=== PATIENT | male | born 1955 | race Caucasian/White ===

== ENCOUNTER 2022-11-22 18:27 | Inpatient (IN) | payer MEDICARE, SELFPAY ==
--- NOTE | ~2022-11-22 | XR_ITS ---
EXAM: XR hand LT 2V DATE: 11/22/2022 21:13 HISTORY: MRSA left middle finger . COMPARISON: None available. FINDINGS: Normal mineralization. No fracture or dislocation. No lytic or blastic lesion. Joint space s and physes are maintained. No erosion or periosteal change. Soft tissue swelling over the third dig it. Overlying bandage material obscures radiographic detail. IMPRESSION: No radiographic evidence of osteomyelitis. Reviewed, dictated and finalized at location K.
--- NOTE | ~2022-11-22 | XR_ITS ---
EXAMINATION: XR chest 1V portable DATE: 11/25/2022 08:30 INDICATION: Shortness of breath TECHNIQUE: frontal view of the chest was obtained. COMPARISON: None FINDINGS: Opacities in the right mid and lower lung zone with blunting at costophrenic angle consistent with un ilateral small right pleural effusion and associated atelectasis and/or pneumonia. Mild interstitial predominant perihilar opacities in left lung which could represent pulmonary edema or pneumonia. Calc ified nodule in the right lower lung zone along with calcified bilateral hilar lymph nodes consistent with old granulomatous disease. No pneumothorax or left-sided pleural effusion. The cardiomediastina l silhouette is within normal limits for AP technique. IMPRESSION: 1. Unilateral small right pleural effusion. 2. Opacities in the left perihilar and right mid and lower lung zones which could represent pneumonia , pulmonary edema, atelectasis or some combination thereof. Reviewed, dictated and finalized at location A. IMPRESSION: 1. Unilateral small right pleural effusion. 2. Opacities in the left perihilar and right mid and lower lung zones which cou ld represent pneumonia, pulmonary edema, atelectasis or some combination umang perdomo
[2022-11-22 18:29] VITALS: BMI 24.7
--- NOTE | 2022-11-22 18:32 | ADMGEN ---
This patient, Bruno Unger, was admitted to [facility] Room 302-01. Patient/family oriented to hospital policies and general routines including ID bracelet, bed and alarms, visiting hours, pain management, procedures, bathroom and other care routines, personal items, smoking policy, room service/diet, and visiting hours. Information on how to activate the Rapid Response Team has been discussed. Patient/Family are encouraged to report perceived risks to care and to ask questions if they do not understand what they are told or what they should do.
[2022-11-22 19:00] VITALS: BP 156/59; PULSE 80; RESP 16; TEMP 36.3; O2SAT 98
--- NOTE | 2022-11-22 19:22 | PM.IMHP ---
H&P: HPI History of Present Illness Date/Time: 11/22/22 19:22 Chief Complaint: Cellulitis left middle finger Narrative: This is a 66-year-old male patient who resides in [facility] with his granddaughter. The patient initially went to the ER on 11/19/2022 for now abscess the left middle finger. He reportedly fell on 10/29/2022 as well. The patient landed on his bottom and left shoulder. He did have an x-ray of his left shoulder which indicated no fracture. His chest x-ray at that time indicated diffuse bilateral interstitial opacities and edema. The patient does have a history of end-stage renal disease and has dialysis on Monday. The patient did have a culture of that left middle finger abscess and indicated heavy growth of Staph aureus. The patient had been placed on clindamycin 300 mg t.i.d.. The patient is now having diarrhea for the last 2 days. The patient feels that he is not getting any better. The patient was sent to Dr. Bahena today and an incision and drainage was performed in the office today. The patient's culture came back that he is positive for MRSA. The patient was a direct admit from Dr. Bahena is office. Patient is being admitted to inpatient status on the date of service of 11/22/2022. Review of Systems Review of Systems: All systems reviewed & are unremarkable except as noted in HPI and below Constitutional: Constitutional: Reports as per HPI and Reports no additional constitutional complaints Eyes: Eyes: Reports as per HPI and Reports no additional eye complaints ENT: Reports system reviewed and no additional complaints, except as documented and Reports Normal hearing present Cardiovascular: Cardiovascular: Reports no additional cardiovascular complaints Respiratory: Respiratory: Reports no additional respiratory complaints and Reports no additional respiratory complaints Gastrointestinal: Gastrointestinal: Reports as per HPI and Reports no additional gastrointestinal complaints Musculoskeletal: Musculoskeletal: Reports no additional musculoskeletal complaints Integumentary/Breasts: Skin/Breast: Reports system reviewed and no additional complaints, except as docu and Reports as per HPI Neurologic: Reports system reviewed and no additional complaints, except as documented, Reports as per HPI and Reports Normal hearing present Psychiatric: Psychiatric: Reports no additional psychiatric complaints and Reports as per HPI Endocrine: Endocrine: Reports no additional endocrine complaints Hematologic/Lymphatic: Hematologic/Lymphatic: Reports no additional hematologic/lymphatic complaints Allergic/Immunologic: Allergic/Immunologic: Reports no additional allergic/immunologic complaints [facility] Past Medical History Medical History Acute arthritis Anemia BPH (benign prostatic hyperplasia) CHF (congestive heart failure), NYHA class I Chronic GERD COPD (chronic obstructive pulmonary disease) Degenerative joint disease Depression with anxiety Diabetes End-stage renal disease on hemodialysis Monday Erectile disorder Gout Heart murmur Hyperlipidemia Hypertension Kidney stone Tobacco use Surgical History Surgical History (Updated 11/22/22 @ 21:00 by Krystina Tapia NP) H/O arthroscopy of right knee H/O cardiac catheterization H/O endoscopic retrograde cholangiopancreatography Duct stent placement H/O hernia repair H/O inguinal hernia repair History of appendectomy History of cholecystectomy History of colon resection Hx laparoscopic cholecystectomy S/P colonoscopy with polypectomy S/P dialysis catheter insertion S/P ORIF (open reduction internal fixation) fracture Left humerus surgery Family History Family History Mother Diabetes mellitus Father Diabetes mellitus Other Hypertension Social History Social History (Updated 11/22/22 @ 21:01 by Krystina Tapia NP) Social History: H
--- NOTE | 2022-11-22 19:30 | PCCCNOTE ---
Spoke with Krystina SOLIS, she will be entering seeing patient and entering admission orders soon on this patient.
[2022-11-22 20:00] VITALS: PULSE 88; RESP 18; O2SAT 100
[2022-11-22 20:30] VITALS: BP 151/64; PULSE 88; RESP 16; TEMP 36.4; O2SAT 96
[2022-11-22 20:48] LABS: Glucose Point of Care 261 mg/dl (65-105)
[2022-11-22 21:43] LABS: Estimated CRCL calculation 13 ml/min; Estimated Glomerular Filt Rate 12
[2022-11-22] MEDS: INSULIN ASPART (*BKC) 100 UNITS/ML SUB-Q (21:50)
[2022-11-22] MEDS: ATORVASTATIN 20 MG TABLET PO (21:53)
[2022-11-22] MEDS: metroNIDAZOLE 500 MG/ISO 100ML 500 MG/100 ML BAG 100 MG IVPB (22:28)
[2022-11-22] MEDS: HYDROcodone/acetaminophen (*CRX) 5-325 MG TABLET 1 TAB PO (23:16)
[2022-11-22 23:33] LABS: IFOB Positive Control Positive; Immunochemical Fecal Occult Bl Negative (N)
[2022-11-22 23:57] LABS: Toxigenic C. Diff NEGATIVE (NEGATIVE)
[2022-11-22] MEDS: LOPERAMIDE HCL 2 MG CAPSULE PO (23:57)
[2022-11-23] VITALS (18 sets, daily range): BP systolic 118–166; BP diastolic 52–78; PULSE 68–88; RESP 14–20; TEMP 35.5–36.8; O2SAT 90–100
[2022-11-23] MEDS: HYDROcodone/acetaminophen (*CRX) 5-325 MG TABLET 1 TAB PO ×4 (04:59→21:37)
[2022-11-23] MEDS: metroNIDAZOLE 500 MG/ISO 100ML 500 MG/100 ML BAG 100 MG IVPB ×3 (05:29→21:13)
[2022-11-23 06:29] LABS: Basophils Absolute Auto 0.2 K/mm3 (0.0-0.1); Basophils Percent Auto 1.6 % (0.2-1.2); Eosinophils Absolute Auto 0.3 K/mm3 (0-0.3); Hematocrit 38.6 % (42.0-52.0); Hemoglobin 11.8 g/dL (14.0-18.0); Immature Granulocyte Absolute 0.28 K/mm3 (0.00-0.031); Immature Granulocyte Percent A 2.2 % (0-0.5); Mean Corpuscular HGB Conc 30.6 g/dl (32-36); Mean Corpuscular Hemoglobin 28.7 pg (26-34); Mean Corpuscular Volume 93.9 fl (80-100); Mean Platelet Volume 8.7 fl (7.4-10.4); Monocytes Absolute Auto 0.9 K/mm3 (0.1-0.6); Monocytes Percent Auto 7.2 % (2.6-8.5); Neutrophils Absolute Auto 10.3 K/mm3 (1.3-6.7); Platelet Count Result 238 k/mm3 (150-375); Red Blood Count 4.11 M/mm3 (4.6-6.20); Red Cell Distribution Width 16.4 % (11.5-14.5); White Blood Count 12.9 K/mm3 (4.5-10.0)
[2022-11-23 06:39] LABS: Lactic Acid Reflex 0.6 mmol/L (0.7-2.0)
[2022-11-23 06:42] LABS: Alanine Aminotransferase 35 U/L (6-50); Albumin Level 3.4 g/dL (3.5-5.1); Alkaline Phosphatase 178 U/L (38-126); Anion Gap 4 mmol/L (8-16); Aspartate Amino Transferase 40 U/L (17-59); Bilirubin,Total 0.5 mg/dL (0.2-1.3); Blood Urea Nitrogen 29 mg/dL (9-20); Carbon Dioxide 34 mmol/L (22-30); Chloride 89 mmol/L (98-107); Estimated CRCL calculation 13 ml/min; Estimated Glomerular Filt Rate 11; Glucose 101 mg/dL (65-110); Magnesium 2.1 mg/dL (1.6-2.3); Phosphorus 5.2 mg/dL (2.5-4.5); Potassium 4.4 mmol/L (3.4-5.0); Sodium 127 mmol/L (137-145)
[2022-11-23 06:49] LABS: Vancomycin Random 16.4 ug/mL (10-20)
[2022-11-23 06:55] LABS: Hemoglobin A1C 6.5 % (<5.7)
[2022-11-23 07:16] LABS: Hepatitis B Surface Antigen Negative (Negative)
[2022-11-23 07:33] LABS: Hepatitis B Surface Anti Res Negative
[2022-11-23 08:06] LABS: Glucose Point of Care 103 mg/dl (65-105)
--- NOTE | 2022-11-23 08:35 | PC.NURSE ---
Patient to dialysis via bed.
--- NOTE | 2022-11-23 09:40 | WPDCN ---
Assessment and Plan Assessment and plan (1) Abscess of left middle finger: Code(s): L02.512 - Cutaneous abscess of left hand Status: Acute Assessment and Plan: IV Vancomycin. Will need further I&D to dorsal left 3rd finger today. HPI Data of Consult Date/Time: 11/23/22 09:40 Requesting Physician: Nicky Maciel DO Primary Care Provider: Kassidy Morin MD Consult Narrative Reason for consult: Staph abscess of left 3rd fingr. Narrative: Bruno Unger is a 66 year old male end-stage renal diabetic on dialysis who was referred urgently from the office of the patient's primary care physician in [place]. At this point he had about a 3 day condition of swelling and pain of the left middle finger. The reason for this is unknown. The patient had been started on oral clindamycin but presented back to the office for re-evaluation and the level of concern had increased . Was felt he may have a flexor tenosynovitis. The patient was brought to my office same day by a friend. We were able to anesthetize the digit and debride the most prominent site of full-thickness skin necrosis and were able to identify phlegmon and pus within the subcutaneous tissue. It did not appear that he had a flexor tenosynovitis. The erythema however extends circumferentially around the finger middle phalanx.. For this reason he was admitted to [facility] directly to the care of the hospitalist. He was started on IV vancomycin. The clindamycin to which he had not previously been reported be allergic seemed to be upsetting his stomach. A PCR test for C diff was negative. The patient was kept NPO overnight. His white count this morning is 12.9. Patient complained that his finger was tender during the night. On exam today after removing the Mepilex Ag sponge from the palmar middle phalanx he seemed to be less tender over the flexor tendon sheath. He seemed to be more tender over the dorsum of the middle phalanx. There is no lymphangitis proximal to the metacarpophalangeal joint the patient is able to flex and extend the finger with effort and patience. The tenderness and swelling over the dorsum of the middle phalanx lead me to the decision to bring him to the operating room and I and D this portion of his finger. [facility] Past Medical History Medical History Acute arthritis Anemia BPH (benign prostatic hyperplasia) CHF (congestive heart failure), NYHA class I Chronic GERD COPD (chronic obstructive pulmonary disease) Degenerative joint disease Depression with anxiety Diabetes End-stage renal disease on hemodialysis Monday Erectile disorder Gout Heart murmur Hyperlipidemia Hypertension Kidney stone Tobacco use Surgical History Surgical History H/O arthroscopy of right knee H/O cardiac catheterization H/O endoscopic retrograde cholangiopancreatography Duct stent placement H/O hernia repair H/O inguinal hernia repair History of appendectomy History of cholecystectomy History of colon resection Hx laparoscopic cholecystectomy S/P colonoscopy with polypectomy S/P dialysis catheter insertion S/P ORIF (open reduction internal fixation) fracture Left humerus surgery Family History Family History Mother Diabetes mellitus Father Diabetes mellitus Other Hypertension Social History Social History Social History: He is down to 6 cigarettes a day. He lives with his granddaughter in [place]. He is . He has worked for the [employer] and [employer]. Code status full code Smoking status: Current some day smoker Alcohol intake: former Substance use: never Substance use type: does not use Lack of Transportation: No Lack of Food: Never True Current Housing: I Have Housing Concerned About Future
[2022-11-23] MEDS: EPOETIN ALFA 10,000 UNITS/ML VIAL 10000 UNITS IV PUSH (10:20)
--- NOTE | 2022-11-23 12:30 | PM.CNNEP ---
Assessment and Plan Assessment and plan (1) End stage renal disease: Code(s): N18.6 - End stage renal disease Status: Chronic Assessment and Plan: HD today continue M/W/F dialysis schedule while hospitalized follow electrolytes, volume status, and clearance (2) Abscess of left middle finger: Code(s): L02.512 - Cutaneous abscess of left hand Status: Acute Assessment and Plan: as noted by Dr. Pritchard s/p I & D at Dr. Pritchard's office on 11/22/22 follow culture data on antibiotics noted plans for further I & D in OR by Dr. Pritchard today (3) Hypertension: Code(s): I10 - Essential (primary) hypertension Status: Chronic Assessment and Plan: reasonable control at this time follow trend of hemodynamics (4) Anemia: Code(s): D64.9 - Anemia, unspecified Status: Chronic Assessment and Plan: due to ESRD Epogen with HD follow trend of H/H (5) COPD (chronic obstructive pulmonary disease): Code(s): J44.9 - Chronic obstructive pulmonary disease, unspecified Status: Chronic Assessment and Plan: appears compensated at this time contime home medications/inhalers (6) Diabetes: Code(s): E11.9 - Type 2 diabetes mellitus without complications Status: Chronic Assessment and Plan: follow accu-cheks on medications for this(?) glycemic control for hospitalists (if needed) I will continue to follow the patient with you while he means hospitalized and make further recommendations as needed. Thank you for allowing me to participate in the care of this patient. History of Present Illness Reason for Consult Consult date: 11/23/22 Reason for consult: end stage renal disease Chief Complaint Chief complaint: Left Middle Finger Cellulitis History of Present Illness Narrative: The patient is a 66-year-old male with a past medical history as outlined below who was directly admitted to [facility] for further evaluation and treatment of a cellulitis/abscess on his left middle finger. The exact etiology of the infection/abscess present on his left middle finger is not entirely clear but apparently his primary care physician started the patient on clindamycin the hopes that this would treat the underlying infection. He returned back to his primary care physician's office yesterday for re-evaluation and appears that the wound had worsened with apparent skin necrosis and worsening redness/erythema/pain/swelling. He was urgently referred to surgery for further evaluation of this which led to his presentation to Dr. Griselda wiley office yesterday. He underwent a office incision and drainage of the wound in the area of the skin necrosis and there was apparently a phlegmon/purulent material in the subcutaneous tissue that was able to be drained. However given the extent of the wound and the fact that outpatient/oral antibiotic therapy did not seem to improve this condition, he was admitted to [facility] for more aggressive IV antibiotic therapy and possible further surgical intervention. Since admission, the wound itself appears to be better in clinical appearance but he still has some significant pain around the area of his left middle finger. He was seen again by Dr. Pritchard earlier this morning with a tentative plan for him to go to the OR for further incision and drainage of this wound. Renal consultation was requested due to his end-stage renal disease. The patient is familiar to me as I take care of his outpatient needs for renal replacement therapy/dialysis. He currently receives dialysis on a Monday, Monday, Monday dialysis schedule at [facility] under my care. His last dialysis treatment was on Monday and apparently was uneventful. From a dialysis standpoint, the patient is fairly compliant with his dialysis treatments although he sometimes has more fluid gains over the weekend requiring mor
[2022-11-23 12:41] LABS: Glucose Point of Care 84 mg/dl (65-105)
[2022-11-23] MEDS: CHOLECALCIFEROL 1,000 UNITS TABLET 5000 UNITS PO (13:20)
[2022-11-23] MEDS: ESCITALOPRAM OXALATE 10 MG TABLET 20 MG PO (13:20)
[2022-11-23] MEDS: AMIODARONE HCL 200 MG TABLET PO (13:20)
[2022-11-23] MEDS: amLODIPine BESYLATE 5 MG TABLET PO (13:20)
[2022-11-23] MEDS: VITAMIN B CMPLX/VIT C/FOLIC AC 1 CAPSULE 1 CAP PO (13:21)
[2022-11-23] MEDS: FERROUS SULFATE 325 MG TABLET DR PO (13:21)
[2022-11-23] MEDS: allopurinoL 100 MG TABLET PO (13:21)
[2022-11-23] MEDS: MAGNESIUM OXIDE 400 MG TABLET PO (13:21)
[2022-11-23] MEDS: TAMSULOSIN HCL 0.4 MG CAPSULE PO (13:21)
[2022-11-23] MEDS: SEVELAMER CARBONATE 800 MG TABLET 1600 MG PO ×2 (13:22→17:24)
[2022-11-23] MEDS: CELLULOSE OXIDIZED 4 x 8 INCH 1 PKT XX (13:22)
[2022-11-23] MEDS: VANCOMYCIN 750 MG/NS 250 ML 750 MG/250 ML BAG 125 MG IVPB (13:36)
--- NOTE | 2022-11-23 14:13 | PM.IMPN ---
Progress Note: A&P Assessment and Plan (1) MRSA (methicillin resistant staph aureus) culture positive: Code(s): Z22.322 - Carrier or suspected carrier of Methicillin resistant Staphylococcus aureus Status: Acute Assessment and Plan: patient was being seen by Dr. Pritchard for I&D of a finger infection. The culture of this came back positive for MRSA and he was advised to be seen at the hospital. The patient has multiple allergies. He states that he is allergic to the cephalosporins. I started him on vancomycin. The patient had I&D 11/22/22. The patient will be NPO for washout today. Blood cultures pending. The patient had been on clindamycin. He has been having diarrhea for 2 days. I stopped the clindamycin. Will also get stools for C diff as he is having diarrhea after being on clindamycin. (2) Hyperlipidemia: Code(s): E78.5 - Hyperlipidemia, unspecified Status: Acute Assessment and Plan: Continue with atorvastatin (3) Diabetes: Code(s): E11.9 - Type 2 diabetes mellitus without complications Status: Chronic Assessment and Plan: AC and HS with sliding scale insulin. Check A1c (4) Depression with anxiety: Code(s): F41.8 - Other specified anxiety disorders Status: Acute Assessment and Plan: Continue with Lexapro (5) End-stage renal disease on hemodialysis: Code(s): N18.6 - End stage renal disease; Z99.2 - Dependence on renal dialysis Status: Acute Assessment and Plan: Patient had a positive bruit and thrill to right forearm AV fistula. Nephrology has been consulted. The patient has seen Dr. Justin in the past. Patient has dialysis on Monday. (6) Degenerative joint disease: Code(s): M19.90 - Unspecified osteoarthritis, unspecified site Status: Acute Assessment and Plan: Continue with current the patient is on allopurinol for gout. (7) Hypertension: Code(s): I10 - Essential (primary) hypertension Status: Chronic Assessment and Plan: Continue with amiodarone and amlodipine (8) Chronic GERD: Code(s): K21.9 - Gastro-esophageal reflux disease without esophagitis Status: Acute Assessment and Plan: Continue with pantoprazole (9) COPD (chronic obstructive pulmonary disease): Code(s): J44.9 - Chronic obstructive pulmonary disease, unspecified Status: Chronic Assessment and Plan: The patient continues to smoke. Offered smoking cessation. P.r.n. albuterol (10) BPH (benign prostatic hyperplasia): Code(s): N40.0 - Benign prostatic hyperplasia without lower urinary tract symptoms Status: Acute Assessment and Plan: Continue with tamsulosin (11) Gout: Code(s): M10.9 - Gout, unspecified Status: Acute Assessment and Plan: Continue with Chey prn (12) Anemia: Code(s): D64.9 - Anemia, unspecified Status: Chronic Assessment and Plan: Continue to monitor anemia. Continue with ferrous sulfate (13) CHF (congestive heart failure), NYHA class I: Code(s): I50.9 - Heart failure, unspecified Status: Acute Assessment and Plan: Continue Bumex Plan Tobacco abuse smoking cessation education would greatly be appreciated. Subjective Date/time seen: 11/23/22 14:13 Interval history: Patient receiving dialysis when I went in to see him. He is feeling much better after receiving pain medications. He denies any fever, chills, nausea, vomiting abdominal pain. Review of Systems Review of Systems: All systems reviewed & are unremarkable except as noted in HPI and below Exam Narrative: GENERAL: Comfortable, no acute distress HENMT: moist mucous membranes EYES: EOM intact b/l NECK: no lymphadenopathy RESPIRATORY: clear to auscultation CARDIO: RRR GI: soft, nontender, bowel sounds present SKIN: no rashes EXTREMITIES: Right hand wrapped in Neil bandage with blood
--- NOTE | 2022-11-23 14:20 | PCCCNOTE ---
On 11/23/22, the student, [Kelly Galan ], provided care and completed [employer] documentation on this patient. I have reviewed the student's documentation and agree with the findings.
[2022-11-23 17:14] LABS: Glucose Point of Care 168 mg/dl (65-105)
[2022-11-23] MEDS: PANTOPRAZOLE 40 MG TABLET PO (17:24)
[2022-11-23] MEDS: ATORVASTATIN 20 MG TABLET PO (21:10)
[2022-11-23 21:17] LABS: Glucose Point of Care 224 mg/dl (65-105)
[2022-11-24] VITALS (14 sets, daily range): BP systolic 128–185; BP diastolic 53–77; PULSE 71–82; RESP 16–18; TEMP 36.2–36.7; O2SAT 88–99
[2022-11-24] MEDS: HYDROcodone/acetaminophen (*CRX) 5-325 MG TABLET 1 TAB PO ×5 (02:47→20:28)
[2022-11-24] MEDS: metroNIDAZOLE 500 MG/ISO 100ML 500 MG/100 ML BAG 100 MG IVPB ×3 (04:58→20:30)
[2022-11-24 06:59] LABS: Basophils Absolute Auto 0.2 K/mm3 (0.0-0.1); Basophils Percent Auto 2.6 % (0.2-1.2); Eosinophils Absolute Auto 0.3 K/mm3 (0-0.3); Eosinophils Percent Auto 2.7 % (0-4.4); Hematocrit 37.6 % (42.0-52.0); Immature Granulocyte Percent A 4.3 % (0-0.5); Lymphocytes Absolute Auto 0.88 K/mm3 (0.9-3.2); Lymphocytes Percent Auto 9.5 % (18.3-44.2); Mean Corpuscular HGB Conc 29.3 g/dl (32-36); Mean Corpuscular Hemoglobin 28.7 pg (26-34); Mean Corpuscular Volume 98.2 fl (80-100); Mean Platelet Volume 9.2 fl (7.4-10.4); Monocytes Absolute Auto 0.7 K/mm3 (0.1-0.6); Monocytes Percent Auto 7.4 % (2.6-8.5); Neutrophils Absolute Auto 6.8 K/mm3 (1.3-6.7); Neutrophils Percent Auto 73.5 % (45.5-73.1); Platelet Count Result 239 k/mm3 (150-375); Red Blood Count 3.83 M/mm3 (4.6-6.20); Red Cell Distribution Width 16.8 % (11.5-14.5); White Blood Count 9.3 K/mm3 (4.5-10.0)
[2022-11-24 07:12] LABS: Alanine Aminotransferase 31 U/L (6-50); Alkaline Phosphatase 191 U/L (38-126); Anion Gap 6 mmol/L (8-16); Aspartate Amino Transferase 29 U/L (17-59); Bilirubin,Total 0.3 mg/dL (0.2-1.3); Blood Urea Nitrogen 21 mg/dL (9-20); Calcium 7.6 mg/dL (8.4-10.2); Carbon Dioxide 32 mmol/L (22-30); Chloride 99 mmol/L (98-107); Estimated CRCL calculation 16 ml/min; Estimated Glomerular Filt Rate 15; Glucose 155 mg/dL (65-110); Potassium 4.3 mmol/L (3.4-5.0); Sodium 137 mmol/L (137-145)
[2022-11-24 08:04] LABS: Glucose Point of Care 130 mg/dl (65-105)
[2022-11-24 08:08] LABS: Hypochromasia 1+ (NORMAL); Platelet Estimate Adequate (Adequate); Schistocytes None Seen (NORMAL)
[2022-11-24] MEDS: AMIODARONE HCL 200 MG TABLET PO (08:26)
[2022-11-24] MEDS: ESCITALOPRAM OXALATE 10 MG TABLET 20 MG PO (08:26)
[2022-11-24] MEDS: amLODIPine BESYLATE 5 MG TABLET PO (08:26)
[2022-11-24 10:12] LABS: Glucose Point of Care 125 mg/dl (65-105)
--- NOTE | 2022-11-24 10:40 | WPDPN ---
Progress Note: A&P Assessment and Plan (1) Abscess of left middle finger: Code(s): L02.512 - Cutaneous abscess of left hand Status: Acute Assessment and Plan: The patient's right middle finger remains somewhat red, very tender at certain locations. Do to his this chronic health conditions we will go ahead today to bring him to the operating room for re-dressing of the wounds, probably make an incision dorsally. Will arrange a satisfactory dressing regimen that could allow him to be dressed daily at home by a visiting nurse. This procedure can be done under local today. Time Spent With Patient Time with patient: less than 15 minutes Subjective Date/time seen: 11/24/22 10:40 Interval history: Finger feels less painful Exam Narrative: The dressing was changed except the Surgicel placed last evening was left. The finger was examined the patient is able to flex each joint approximately half the normal range the knee does at slowly but with very little pain. He is tender over the flexor tendon sheath at the proximal phalanx. Is also tender and red over the dorsum of the middle phalanx. No pus is obviously present. There was no purulence drainage. There was no necrotic skin or new ulceration. Objective Data Vital Signs Vital Signs: Vital Signs - 24 hr 11/23/22 10:41 11/23/22 11:03 11/23/22 11:21 Temperature Pulse Rate 72 74 75 Respiratory Rate Blood Pressure 140/70 136/66 154/76 H Pulse Oximetry Oxygen Delivery Oxygen Flow Rate 11/23/22 12:05 11/23/22 12:42 11/23/22 12:42 Temperature 97.6 F Pulse Rate 76 78 76 Respiratory Rate 20 Blood Pressure 127/59 L 133/52 L 139/68 Pulse Oximetry Oxygen Delivery Oxygen Flow Rate 11/23/22 11:40 11/23/22 12:37 11/23/22 16:00 Temperature 97.6 F 98.2 F Pulse Rate 75 72 71 Respiratory Rate 14 16 Blood Pressure 160/73 H 140/53 L 118/61 Pulse Oximetry 90 91 Oxygen Delivery Oxygen Flow Rate 11/23/22 20:45 11/23/22 20:00 11/24/22 03:20 Temperature 97 F L 97.3 F L Pulse Rate 83 82 Respiratory Rate 16 16 Blood Pressure 161/65 H 173/63 H Pulse Oximetry 95 95 98 Oxygen Delivery Nasal Cannula Oxygen Flow Rate 2 11/24/22 03:51 11/24/22 08:00 11/24/22 08:00 Temperature 97.5 F L Pulse Rate 74 Respiratory Rate 16 Blood Pressure 147/59 H 128/64 Pulse Oximetry 95 Oxygen Delivery Room Air Oxygen Flow Rate Intake/Output Intake/Output: Intake & Output 11/21/22 11/22/22 11/23/22 11/24/22 23:59 23:59 23:59 23:59 Intake Total 100 780 Output Total 2500 Balance 100 -1720 Meds/Results Medications: Active Medications Generic Name Dose Route Start Last Admin Trade Name Freq PRN Reason Stop Dose Admin Acetaminophen 650 mg 11/22/22 21:28 Acetaminophen 325 Mg Tablet PO Q4H PRN Headache Hydrocodone Bitart/Acetaminophen 1 tab 11/22/22 22:44 11/24/22 08:55 Hydrocodone/Acetaminophen (*Crx) 5-325 Mg Tablet PO 1 tab Q4H PRN Administration Pain Rated 3-7 Albuterol 2 puff 11/22/22 21:13 Albuterol Sulfate (*Sp) Aerosol 1 Puff INHALATION Q6HRT PRN Shortness Of Breath Allopurinol 100 mg 11/23/22 09:00 11/23/22 13:21 Allopurinol 100 Mg Tablet PO 100 mg DAILY KAIN Administration Amiodarone HCl 200 mg 11/23/22 09:00 11/24/22 08:26 Amiodarone Hcl 200 Mg Tablet PO 200 mg DAILY KAIN Administration Amlodipine Besylate 5 mg 11/23/22 09:00 11/24/22 08:26 Amlodipine Besylate 5 Mg Tablet PO 5 mg DAILY KAIN Administration Atorvastatin Calcium 20 mg 11/22/22 21:00 11/23/22 21:10 Atorvastatin 20 Mg Tablet PO 20 mg HS KAIN Administration Bumetanide 4 mg 11/24/22 09:00 Bumetanide 1 Mg Tablet PO [id number] KAIN Dextrose 12.5 gm 11/22/22 20:57 Dextrose 50% 25 Gm/50 Ml Syringe IV PUSH PRN PRN Hypoglycemia Protocol Escitalopram Oxalate 20 mg 11/23/22 09:00 11/24/22
--- NOTE | 2022-11-24 11:29 | WPDHPUPDATE1 ---
History and Physical Update Update Date/Time: 11/24/22 11:29 History and Physical has been reviewed, including an updated exam of the patient. There are NO changes in the patient's condition. Risks, benefits, and alternatives have been discussed and questions answered. Patient agrees to proceed with procedure.
[2022-11-24] MEDS: LIDO 1%/EPINEPHRINE 1:100,000 20 ML VIAL 4 ML INFILTRATE (12:11)
[2022-11-24] MEDS: SEVELAMER CARBONATE 800 MG TABLET 1600 MG PO ×2 (12:48→16:10)
[2022-11-24] MEDS: FERROUS SULFATE 325 MG TABLET DR PO (12:48)
[2022-11-24] MEDS: TAMSULOSIN HCL 0.4 MG CAPSULE PO (12:48)
[2022-11-24] MEDS: BUMETANIDE 1 MG TABLET 4 MG PO (12:48)
[2022-11-24] MEDS: PANTOPRAZOLE 40 MG TABLET PO ×2 (12:48→16:10)
[2022-11-24] MEDS: VITAMIN B CMPLX/VIT C/FOLIC AC 1 CAPSULE 1 CAP PO (12:49)
[2022-11-24] MEDS: allopurinoL 100 MG TABLET PO (12:49)
[2022-11-24] MEDS: MAGNESIUM OXIDE 400 MG TABLET PO (12:49)
[2022-11-24] MEDS: CHOLECALCIFEROL 1,000 UNITS TABLET 5000 UNITS PO (12:49)
--- NOTE | 2022-11-24 12:50 | W.PM.PROC2 ---
Procedure Note - Detailed Date of Procedure 11/24/22 Pre-op Diagnosis Left Middle Finger Abscess Post-op Diagnosis Same Procedure Performed I and D abscess left middle finger Surgeon Mert Pritchard MD Anesthesia Local Findings Phlegmon limited to palmar wound Description of Procedure The digit was marked with the patient in the holding area. He was taken to the operating room and placed supine on the operating table. A time-out was held and confirmed. The left upper extremity was prepped and draped in usual fashion. The digit was anesthetized with 1% lidocaine with epinephrine. Adequate anesthesia was obtained. The green tourniquet was carefully placed at the base of this finger. The existing wound flap was elevated and the site was carefully explored for any residual pus. Small pockets of phlegmonous tissue was trimmed out less than 0.5 sq cm. The wound was copiously irrigated with saline. Two dorsal incisions were made over the middle phalanx looking for phlegmon in that aspect and none was seen. The sites were also irrigated. With the and under anesthesia we were able to assist the patient and making a full fist. The tourniquet was removed there was some bleeding from the dorsal aspect but not the palmar aspect. The wounds were dressed with silver gel Adaptic and gauze. He is discharged from the operating room stable condition Estimated Blood Loss 2 Tourniquet Time 12 Drains No Packing No Pathology None sent Complications No immediate complications Condition Stable Disposition Floor
--- NOTE | 2022-11-24 13:37 | PM.PNNEP ---
Progress Note: A&P Assessment and Plan (1) End stage renal disease: Code(s): N18.6 - End stage renal disease Status: Chronic Assessment and Plan: HD tomorrow continue M/W/F dialysis schedule while hospitalized follow electrolytes, volume status, and clearance (2) Abscess of left middle finger: Code(s): L02.512 - Cutaneous abscess of left hand Status: Acute Assessment and Plan: as noted by Dr. Pritchard s/p I & D at Dr. Pritchard's office on 11/22/22 s/p I & D in OR by Dr. Pritchard today on antibiotics local wound care pain control (3) Hypertension: Code(s): I10 - Essential (primary) hypertension Status: Chronic Assessment and Plan: reasonable control at this time follow trend of hemodynamics (4) Anemia: Code(s): D64.9 - Anemia, unspecified Status: Chronic Assessment and Plan: due to ESRD Epogen with HD follow trend of H/H (5) COPD (chronic obstructive pulmonary disease): Code(s): J44.9 - Chronic obstructive pulmonary disease, unspecified Status: Chronic Assessment and Plan: appears compensated at this time contime home medications/inhalers (6) Diabetes: Code(s): E11.9 - Type 2 diabetes mellitus without complications Status: Chronic Assessment and Plan: follow accu-cheks on medications for this(?) glycemic control for hospitalists (if needed) Will continue follow Subjective Date/time seen: 11/24/22 13:37 Interval history: Follow-up for end stage renal disease on hemodialysis. Tolerated dialysis treatment yesterday without any issues or problems; s/p I & D for his left middle finger abscess in OR earlier today and tolerated this intervention fairly well; appears to be doing reasonable well at the time of my visit; no other acute complaints voiced. Exam Narrative: General: WD/WN male in NAD Heart: normal S1 and S2; no rub Lungs: clear to auscultation Abdomen: soft, nontender, nondistended, positive bowel sounds Extremities: no cyanosis or clubbing; no edema; right middle finger in dressings Skin: warm and intact Objective Data Vital Signs Vital Signs: Vital Signs Temp Pulse Resp BP Pulse Ox O2 Del Method O2 Flow Rate 11/24/22 13:00 98.1 F 74 16 160/62 H 91 11/24/22 12:20 73 18 179/74 H 99 Nasal Cannula 4 11/24/22 12:10 72 18 179/74 H 99 Nasal Cannula 4 11/24/22 12:05 71 18 185/77 H 97 Nasal Cannula 4 11/24/22 11:55 71 18 185/77 H 98 Nasal Cannula 4 11/24/22 11:50 71 18 175/77 H 88 L Room Air 11/24/22 11:45 76 18 174/72 H 93 Room Air 11/24/22 09:50 97.7 F 75 18 149/53 H 91 Room Air 11/24/22 08:00 Room Air 11/24/22 08:00 97.5 F L 74 16 128/64 95 11/24/22 03:51 147/59 H 11/24/22 03:20 97.3 F L 82 16 173/63 H 98 11/23/22 20:00 95 Nasal Cannula 2 11/23/22 20:45 97 F L 83 16 161/65 H 95 Intake/Output Intake/Output: Intake & Output 11/21/22 11/22/22 11/23/22 11/24/22 23:59 23:59 23:59 23:59 Intake Total 100 780 790 Output Total 2500 Balance 100 -1720 790 Meds/Results Medications: Active Medications Generic Name Dose Route Start Last Admin Trade Name Freq PRN Reason Stop Dose Admin Acetaminophen 650 mg 11/22/22 21:28 Acetaminophen 325 Mg Tablet PO Q4H PRN Headache Hydrocodone Bitart/Acetaminophen 1 tab 11/22/22 22:44 11/24/22 16:10 Hydrocodone/Acetaminophen (*Crx) 5-325 Mg Tablet PO 1 tab Q4H PRN Administration Pain Rated 3-7 Albuterol 2 puff 11/22/22 21:13 Albuterol Sulfate (*Sp) Aerosol 1 Puff INHALATION Q6HRT PRN Shortness Of Breath Allopurinol 100 mg 11/23/22 09:00 11/24/22 12:49 Allopurinol 100 Mg Tablet PO 100 mg DAILY KAIN Administration Amiodarone HCl 200 mg 11/23/22 09:00 11/24/22 08:26 Amiodarone Hcl 200 Mg Tablet PO 200 mg DAILY KAIN
--- NOTE | 2022-11-24 16:16 | PM.IMPN ---
Progress Note: A&P Assessment and Plan (1) MRSA (methicillin resistant staph aureus) culture positive: Code(s): Z22.322 - Carrier or suspected carrier of Methicillin resistant Staphylococcus aureus Status: Acute Assessment and Plan: patient was being seen by Dr. Pritchard for I&D of a finger infection. The culture of this came back positive for MRSA and he was advised to be seen at the hospital. The patient has multiple allergies. He states that he is allergic to the cephalosporins. I started him on vancomycin. The patient had I&D 11/22/22. Blood cultures no growth to date MRSA Swab negative. The patient had been on clindamycin. He has been having diarrhea for 2 days. I stopped the clindamycin. Will also get stools for C diff as he is having diarrhea after being on clindamycin. Subsequent I&D on 11/24/2022 -see operative notes. (2) Hyperlipidemia: Code(s): E78.5 - Hyperlipidemia, unspecified Status: Acute Assessment and Plan: Continue with atorvastatin (3) Diabetes: Code(s): E11.9 - Type 2 diabetes mellitus without complications Status: Chronic Assessment and Plan: AC and HS with sliding scale insulin. Hemoglobin A1c 6.5. (4) Depression with anxiety: Code(s): F41.8 - Other specified anxiety disorders Status: Acute Assessment and Plan: Continue with Lexapro (5) End-stage renal disease on hemodialysis: Code(s): N18.6 - End stage renal disease; Z99.2 - Dependence on renal dialysis Status: Acute Assessment and Plan: Patient had a positive bruit and thrill to right forearm AV fistula. Nephrology has been consulted. The patient has seen Dr. Justin in the past. Patient has dialysis on Monday. (6) Degenerative joint disease: Code(s): M19.90 - Unspecified osteoarthritis, unspecified site Status: Acute Assessment and Plan: Continue with current the patient is on allopurinol for gout. (7) Hypertension: Code(s): I10 - Essential (primary) hypertension Status: Chronic Assessment and Plan: Continue with amiodarone and amlodipine (8) Chronic GERD: Code(s): K21.9 - Gastro-esophageal reflux disease without esophagitis Status: Acute Assessment and Plan: Continue with pantoprazole (9) COPD (chronic obstructive pulmonary disease): Code(s): J44.9 - Chronic obstructive pulmonary disease, unspecified Status: Chronic Assessment and Plan: The patient continues to smoke. Offered smoking cessation. P.r.n. albuterol (10) BPH (benign prostatic hyperplasia): Code(s): N40.0 - Benign prostatic hyperplasia without lower urinary tract symptoms Status: Acute Assessment and Plan: Continue with tamsulosin (11) Gout: Code(s): M10.9 - Gout, unspecified Status: Acute Assessment and Plan: Continue with Chey prn (12) Anemia: Code(s): D64.9 - Anemia, unspecified Status: Chronic Assessment and Plan: Continue to monitor anemia. Continue with ferrous sulfate (13) CHF (congestive heart failure), NYHA class I: Code(s): I50.9 - Heart failure, unspecified Status: Acute Assessment and Plan: Continue Bumex Plan Tobacco abuse smoking cessation education would greatly be appreciated. Subjective Date/time seen: 11/24/22 16:16 Interval history: Patient doing well today and tolerated his procedure good. He underwent I and D of left middle finger abscess. Patient will likely need home health for dressing changes. He denies any body aches, chills, nausea, vomiting abdominal pain. His pain is well controlled in the finger. I suspectthat he could possibly be discharged the next day or 2 once cleared by Plastic surgery. Exam Narrative: GENERAL: Comfortable, no acute distress HENMT: moist mucous membranes EYES: EOM intact b/l NECK: no lymphadenopathy RESPIRATORY: clear to ausc
[2022-11-24 17:03] LABS: Glucose Point of Care 186 mg/dl (65-105)
[2022-11-24] MEDS: MORPHINE SULFATE (*CRX) 2 MG/ML INJ IV PUSH (17:36)
[2022-11-24] MEDS: ATORVASTATIN 20 MG TABLET PO (20:29)
[2022-11-24] MEDS: INSULIN ASPART (*BKC) 100 UNITS/ML SUB-Q (20:37)
[2022-11-24 20:54] LABS: Glucose Point of Care 228 mg/dl (65-105)
[2022-11-25] VITALS (21 sets, daily range): BP systolic 130–201; BP diastolic 59–76; PULSE 68–83; RESP 16–18; TEMP 35.8–37; O2SAT 90–93
[2022-11-25] MEDS: MORPHINE SULFATE (*CRX) 2 MG/ML INJ IV PUSH ×4 (00:48→22:20)
[2022-11-25] MEDS: metroNIDAZOLE 500 MG/ISO 100ML 500 MG/100 ML BAG 100 MG IVPB (05:01)
[2022-11-25] MEDS: HYDROcodone/acetaminophen (*CRX) 5-325 MG TABLET 1 TAB PO ×3 (05:07→18:02)
[2022-11-25 08:00] LABS: Glucose Point of Care 141 mg/dl (65-105)
[2022-11-25 08:40] LABS: Basophils Absolute Auto 0.2 K/mm3 (0.0-0.1); Basophils Percent Auto 1.7 % (0.2-1.2); Eosinophils Absolute Auto 0.3 K/mm3 (0-0.3); Eosinophils Percent Auto 2.5 % (0-4.4); Hematocrit 39.1 % (42.0-52.0); Hemoglobin 11.3 g/dL (14.0-18.0); Immature Granulocyte Absolute 0.41 K/mm3 (0.00-0.031); Immature Granulocyte Percent A 3.8 % (0-0.5); Lymphocytes Absolute Auto 0.84 K/mm3 (0.9-3.2); Lymphocytes Percent Auto 7.9 % (18.3-44.2); Mean Corpuscular HGB Conc 28.9 g/dl (32-36); Mean Corpuscular Hemoglobin 28.4 pg (26-34); Mean Corpuscular Volume 98.2 fl (80-100); Monocytes Absolute Auto 0.7 K/mm3 (0.1-0.6); Monocytes Percent Auto 6.3 % (2.6-8.5); Neutrophils Absolute Auto 8.3 K/mm3 (1.3-6.7); Neutrophils Percent Auto 77.8 % (45.5-73.1); Platelet Count Result 238 k/mm3 (150-375); Red Blood Count 3.98 M/mm3 (4.6-6.20); Red Cell Distribution Width 16.9 % (11.5-14.5); White Blood Count 10.7 K/mm3 (4.5-10.0)
[2022-11-25 08:49] LABS: Alanine Aminotransferase 32 U/L (6-50); Albumin Level 3.3 g/dL (3.5-5.1); Alkaline Phosphatase 201 U/L (38-126); Anion Gap 7 mmol/L (8-16); Aspartate Amino Transferase 37 U/L (17-59); Bilirubin,Total 0.4 mg/dL (0.2-1.3); Blood Urea Nitrogen 30 mg/dL (9-20); Calcium 7.8 mg/dL (8.4-10.2); Carbon Dioxide 31 mmol/L (22-30); Chloride 99 mmol/L (98-107); Estimated CRCL calculation 12 ml/min; Estimated Glomerular Filt Rate 10; Glucose 137 mg/dL (65-110); Sodium 137 mmol/L (137-145)
[2022-11-25] MEDS: SEVELAMER CARBONATE 800 MG TABLET 1600 MG PO ×3 (08:56→17:00)
[2022-11-25] MEDS: FERROUS SULFATE 325 MG TABLET DR PO (08:57)
[2022-11-25] MEDS: VITAMIN B CMPLX/VIT C/FOLIC AC 1 CAPSULE 1 CAP PO (08:57)
[2022-11-25] MEDS: MAGNESIUM OXIDE 400 MG TABLET PO (08:57)
[2022-11-25] MEDS: PANTOPRAZOLE 40 MG TABLET PO ×2 (08:57→17:00)
[2022-11-25] MEDS: allopurinoL 100 MG TABLET PO (08:57)
[2022-11-25] MEDS: TAMSULOSIN HCL 0.4 MG CAPSULE PO (08:57)
[2022-11-25] MEDS: ESCITALOPRAM OXALATE 10 MG TABLET 20 MG PO (08:57)
[2022-11-25] MEDS: CHOLECALCIFEROL 1,000 UNITS TABLET 5000 UNITS PO (08:57)
[2022-11-25 09:14] LABS: Anisocytosis 1+ (NORMAL); Hypochromasia 1+ (NORMAL); Platelet Estimate Adequate (Adequate); Schistocytes None Seen (NORMAL)
[2022-11-25 09:32] LABS: Vancomycin Trough 14.7 ug/mL (10.0-20.0)
[2022-11-25 11:45] LABS: Glucose Point of Care 131 mg/dl (65-105)
[2022-11-25] MEDS: EPOETIN ALFA-EPBX 10,000 UNITS/ML VIAL 4000 UNITS IV PUSH (12:25)
--- NOTE | 2022-11-25 12:49 | P.PNNP_ITS ---
Progress Note: A&P Assessment and Plan (1) End stage renal disease: Code(s): N18.6 - End stage renal disease Status: Chronic Assessment and Plan: * HD today * continue M/W/F dialysis schedule while hospitalized * follow electrolytes, volume status, and clearance (2) Abscess of left middle finger: Code(s): L02.512 - Cutaneous abscess of left hand Status: Acute Assessment and Plan: * as noted by Dr. Pritchard * s/p I & D at Dr. Pritchard's office (on 11/22/22) * s/p I & D in OR by Dr. Pritchard (on 11/24/22) * on antibiotics * follow culture data * local wound care * pain control (3) Hypertension: Code(s): I10 - Essential (primary) hypertension Status: Chronic Assessment and Plan: * elevated but pain likely a contributing component * follow trend of hemodynamics (4) Anemia: Code(s): D64.9 - Anemia, unspecified Status: Chronic Assessment and Plan: * due to ESRD * Epogen with HD * follow trend of H/H (5) COPD (chronic obstructive pulmonary disease): Code(s): J44.9 - Chronic obstructive pulmonary disease, unspecified Status: Chronic Assessment and Plan: * appears compensated at this time * contime home medications/inhalers (6) Diabetes: Code(s): E11.9 - Type 2 diabetes mellitus without complications Status: Chronic Assessment and Plan: * follow accu-cheks * on medications for this(?) * glycemic control by hospitalists (if needed) Will continue follow Subjective Date/time seen: 11/25/22 12:49 Interval history: Follow-up for end stage renal disease on hemodialysis. Tolerating dialysis treatment at the time of my visit (seen on HD at 12:35PM); s/p I & D for his left middle finger abscess in OR yesterday; issues with pain control but doing better with addition of morphine; no other issues/events overnight or earlier this morning. Exam Narrative: General: WD/WN male in NAD Heart: normal S1 and S2; no rub Lungs: clear to auscultation Abdomen: soft, nontender, nondistended, positive bowel sounds Extremities: no cyanosis or clubbing; no edema; right middle finger dressings in place Skin: no rash Objective Data Vital Signs Vital Signs: Vital Signs Temp Pulse Resp BP Pulse Ox O2 Del Method O2 Flow Rate 11/25/22 12:00 74 175/69 H 11/25/22 11:40 73 171/66 H 11/25/22 11:20 74 155/73 H 11/25/22 11:00 71 168/68 H 11/25/22 10:40 70 167/65 H 11/25/22 10:20 68 176/67 H 11/25/22 10:05 68 139/66 11/25/22 09:53 97.4 F L 68 18 139/66 11/25/22 08:00 Room Air 11/25/22 06:13 97.9 F 73 16 130/60 92 11/24/22 20:00 93 Nasal Cannula 3 11/24/22 19:53 97.2 F L 80 18 148/63 H 93 11/24/22 14:00 98.1 F 74 16 160/62 H 91 11/24/22 14:44 94 Nasal Cannula 3 Intake/Output Intake/Output: Intake & Output 11/22/22 11/23/22 11/24/22 11/25/22 23:59 23:59 23:59 23:59 Intake Total 539 272 8790 240 Output Total 2500 Balance 100 -1720 1130 240 Meds/Results Medications: Active Medications Gener
--- NOTE | 2022-11-25 12:49 | PM.PNNEP ---
Progress Note: A&P Assessment and Plan (1) End stage renal disease: Code(s): N18.6 - End stage renal disease Status: Chronic Assessment and Plan: HD today continue M/W/F dialysis schedule while hospitalized follow electrolytes, volume status, and clearance (2) Abscess of left middle finger: Code(s): L02.512 - Cutaneous abscess of left hand Status: Acute Assessment and Plan: as noted by Dr. Pritchard s/p I & D at Dr. Pritchard's office (on 11/22/22) s/p I & D in OR by Dr. Pritchard (on 11/24/22) on antibiotics follow culture data local wound care pain control (3) Hypertension: Code(s): I10 - Essential (primary) hypertension Status: Chronic Assessment and Plan: elevated but pain likely a contributing component follow trend of hemodynamics (4) Anemia: Code(s): D64.9 - Anemia, unspecified Status: Chronic Assessment and Plan: due to ESRD Epogen with HD follow trend of H/H (5) COPD (chronic obstructive pulmonary disease): Code(s): J44.9 - Chronic obstructive pulmonary disease, unspecified Status: Chronic Assessment and Plan: appears compensated at this time contime home medications/inhalers (6) Diabetes: Code(s): E11.9 - Type 2 diabetes mellitus without complications Status: Chronic Assessment and Plan: follow accu-cheks on medications for this(?) glycemic control by hospitalists (if needed) Will continue follow Subjective Date/time seen: 11/25/22 12:49 Interval history: Follow-up for end stage renal disease on hemodialysis. Tolerating dialysis treatment at the time of my visit (seen on HD at 12:35PM); s/p I & D for his left middle finger abscess in OR yesterday; issues with pain control but doing better with addition of morphine; no other issues/events overnight or earlier this morning. Exam Narrative: General: WD/WN male in NAD Heart: normal S1 and S2; no rub Lungs: clear to auscultation Abdomen: soft, nontender, nondistended, positive bowel sounds Extremities: no cyanosis or clubbing; no edema; right middle finger dressings in place Skin: no rash Objective Data Vital Signs Vital Signs: Vital Signs Temp Pulse Resp BP Pulse Ox O2 Del Method O2 Flow Rate 11/25/22 12:00 74 175/69 H 11/25/22 11:40 73 171/66 H 11/25/22 11:20 74 155/73 H 11/25/22 11:00 71 168/68 H 11/25/22 10:40 70 167/65 H 11/25/22 10:20 68 176/67 H 11/25/22 10:05 68 139/66 11/25/22 09:53 97.4 F L 68 18 139/66 11/25/22 08:00 Room Air 11/25/22 06:13 97.9 F 73 16 130/60 92 11/24/22 20:00 93 Nasal Cannula 3 11/24/22 19:53 97.2 F L 80 18 148/63 H 93 11/24/22 14:00 98.1 F 74 16 160/62 H 91 11/24/22 14:44 94 Nasal Cannula 3 Intake/Output Intake/Output: Intake & Output 11/22/22 11/23/22 11/24/22 11/25/22 23:59 23:59 23:59 23:59 Intake Total 117 391 8633 240 Output Total 2500 Balance 100 -1720 1130 240 Meds/Results Medications: Active Medications Generic Name Dose Route Start Last Admin Trade Name Freq PRN Reason Stop Dose Admin Acetaminophen 650 mg 11/22/22 21:28 Acetaminophen 325 Mg Tablet PO Q4H PRN Headache Hydrocodone Bitart/Acetaminophen 1 tab 11/22/22 22:44 11/25/22 05:07 Hydrocodone/Acetaminophen (*Crx) 5-325 Mg Tablet PO 1 tab Q4H PRN Administration Pain Rated 3-6 Albuterol 2 puff 11/22/22 21:13 Albuterol Sulfate (*Sp) Aerosol 1 Puff INHALATION Q6HRT PRN Shortness Of Breath Albuterol 2.5 mg 11/25/22 14:00 Albuterol Sulfate Neb 2.5 Mg/3 Ml Inh INHALATION Q6HRT KAIN Allopurinol 100 mg 11/23/22 09:00 11/25/22 08:57 Allopurinol 100 Mg Tablet PO 100 mg DAILY KAIN Administration Amiodarone HCl 200 mg 11/23/22 09:00 11/24/22 08:26 Amiodarone Hcl 200 Mg Tablet PO 200 mg DA
--- NOTE | 2022-11-25 13:19 | WPDANESPN ---
Anes - Prog Note Post-Op Date/Time: 11/25/22 13:19 Cardiovascular status: normal Respiratory status: normal Airway patency: baseline Mental status: baseline Post-Op hydration status: normal Vital Signs: Last Vital Signs Temp 97.4 F L 11/25/22 09:53 Pulse 78 11/25/22 13:00 Resp 18 11/25/22 09:53 BP 182/72 H 11/25/22 13:00 Pulse Ox 92 11/25/22 06:13 O2 Del Method Room Air 11/25/22 08:00 O2 Flow Rate 3 11/24/22 20:00 Pain Score (VAS): 0/10 I/O: Intake & Output 11/24/22 11/25/22 11/25/22 23:59 07:59 15:59 Intake Total 690 240 Balance 690 240 Laboratory Tests 11/25/22 08:25 11/25/22 08:25 11/24/22 11/24/22 11/25/22 16:57 20:11 07:29 WBC RBC Hgb Hct MCV MCH MCHC RDW Plt Count MPV Immature Gran % (Auto) Neut % (Auto) Lymph % (Auto) [place] % (Auto) Eos % (Auto) Baso % (Auto) Lymph # (Auto) [place] # (Auto) Eos # (Auto) Baso # (Auto) Abs Immat Gran (auto) Absolute Neuts (auto) Absolute Nucleated RBC Nucleated RBC % Platelet Estimate Hypochromasia Anisocytosis Schistocytes Sodium Potassium Chloride Carbon Dioxide Anion Gap BUN Creatinine Estim Creat Clear Calc Estimated GFR Glucose POC Capillary Glucose 186 H 228 H 141 H Calcium Total Bilirubin AST ALT Alkaline Phosphatase Total Protein Albumin Vancomycin Trough 11/25/22 11/25/22 08:25 11:31 WBC 10.7 H RBC 3.98 L Hgb 11.3 L Hct 39.1 L MCV 98.2 MCH 28.4 MCHC 28.9 L RDW 16.9 H Plt Count 238 MPV 9.0 Immature Gran % (Auto) 3.8 H Neut % (Auto) 77.8 H Lymph % (Auto) 7.9 L [place] % (Auto) 6.3 Eos % (Auto) 2.5 Baso % (Auto) 1.7 H Lymph # (Auto) 0.84 L [place] # (Auto) 0.7 H Eos # (Auto) 0.3 Baso # (Auto) 0.2 H Abs Immat Gran (auto) 0.41 H Absolute Neuts (auto) 8.3 H Absolute Nucleated RBC 0.0 Nucleated RBC % 0.0 Platelet Estimate Adequate Hypochromasia 1+ Anisocytosis 1+ Schistocytes None seen Sodium 137 Potassium 5.0 Chloride 99 Carbon Dioxide 31 H Anion Gap 7 L BUN 30 H Creatinine 5.60 H Estim Creat Clear Calc 12 Estimated GFR 10 L Glucose 137 H POC Capillary Glucose 131 H Calcium 7.8 L Total Bilirubin 0.4 AST 37 ALT 32 Alkaline Phosphatase 201 H Total Protein 6.0 L Albumin 3.3 L Vancomycin Trough 14.7 Post-procedural complaints: none Patient Feedback: Patient satisfied with anesthetic care.
[2022-11-25] MEDS: IPRATROPIUM BR 0.02% INH SOLN 0.5 MG/2.5 ML VIAL INHALATION ×2 (13:22→20:45)
[2022-11-25] MEDS: ALBUTEROL SULFATE NEB 2.5 MG/3 ML INH INHALATION ×2 (13:22→20:45)
[2022-11-25] MEDS: AMIODARONE HCL 200 MG TABLET PO (13:55)
[2022-11-25] MEDS: amLODIPine BESYLATE 5 MG TABLET PO (13:55)
[2022-11-25] MEDS: VANCOMYCIN 1,000 MG/NS 250 ML 1,000 MG/250 ML BAG 250 MG IVPB (13:57)
--- NOTE | 2022-11-25 14:31 | PM.IMPN ---
Progress Note: A&P Assessment and Plan (1) MRSA (methicillin resistant staph aureus) culture positive: Code(s): Z22.322 - Carrier or suspected carrier of Methicillin resistant Staphylococcus aureus Status: Acute Assessment and Plan: patient was being seen by Dr. Pritchard for I&D of a finger infection. The culture of this came back positive for MRSA and he was advised to be seen at the hospital. The patient has multiple allergies. He states that he is allergic to the cephalosporins. I started him on vancomycin. The patient had I&D 11/22/22. Blood cultures no growth to date MRSA Swab negative. The patient had been on clindamycin. He has been having diarrhea for 2 days. Clindamycin discontinue. C diff negative. Subsequent I&D on 11/24/2022 -see operative notes. (2) Hyperlipidemia: Code(s): E78.5 - Hyperlipidemia, unspecified Status: Acute Assessment and Plan: Continue with atorvastatin (3) Diabetes: Code(s): E11.9 - Type 2 diabetes mellitus without complications Status: Chronic Assessment and Plan: AC and HS with sliding scale insulin. Hemoglobin A1c 6.5. (4) Depression with anxiety: Code(s): F41.8 - Other specified anxiety disorders Status: Acute Assessment and Plan: Continue with Lexapro (5) End-stage renal disease on hemodialysis: Code(s): N18.6 - End stage renal disease; Z99.2 - Dependence on renal dialysis Status: Acute Assessment and Plan: Patient had a positive bruit and thrill to right forearm AV fistula. Nephrology has been consulted. The patient has seen Dr. Justin in the past. Patient has dialysis on Monday. (6) Degenerative joint disease: Code(s): M19.90 - Unspecified osteoarthritis, unspecified site Status: Acute Assessment and Plan: Continue with current the patient is on allopurinol for gout. (7) Hypertension: Code(s): I10 - Essential (primary) hypertension Status: Chronic Assessment and Plan: Continue with amiodarone and amlodipine (8) COPD (chronic obstructive pulmonary disease): Code(s): J44.9 - Chronic obstructive pulmonary disease, unspecified Status: Chronic Assessment and Plan: The patient continues to smoke. Offered smoking cessation. P.r.n. albuterol (9) Anemia: Code(s): D64.9 - Anemia, unspecified Status: Chronic Assessment and Plan: Continue to monitor anemia. Continue with ferrous sulfate (10) CHF (congestive heart failure), NYHA class I: Code(s): I50.9 - Heart failure, unspecified Status: Acute Assessment and Plan: Continue Bumex Plan Tobacco abuse smoking cessation education would greatly be appreciated. Subjective Date/time seen: 11/25/22 14:31 Interval history: Patient doing well today. He has had some intermittent pain in his finger but overall is well controlled. Would like to plan to deescalate patient's antibiotics once cleared with Plastic surgery. Patient will also be able to be discharged once cleared with plastic surgery. Exam Narrative: GENERAL: Comfortable, no acute distress HENMT: moist mucous membranes EYES: EOM intact b/l NECK: no lymphadenopathy RESPIRATORY: clear to auscultation CARDIO: RRR GI: soft, nontender, bowel sounds present SKIN: no rashes EXTREMITIES: Right hand wrapped in Neil bandage that is clean and dry Objective Data Vital Signs Vital Signs: Vital Signs - 24 hr 11/24/22 14:44 11/24/22 19:53 11/24/22 20:00 Temperature 97.2 F L Pulse Rate 80 Respiratory Rate 18 Blood Pressure 148/63 H Pulse Oximetry 94 93 93 Oxygen Delivery Nasal Cannula Nasal Cannula Oxygen Flow Rate 3 3 11/25/22 06:13 11/25/22 08:00 11/25/22 09:53 Temperature 97.9 F 97.4 F L Pulse Rate 73 68 Respiratory Rate 16 18 Blood Pressure 130/60 139/66 Pulse Oximetry 92 Oxygen Delivery Room Air Oxygen Flow Rate 0
[2022-11-25 16:13] LABS: Glucose Point of Care 132 mg/dl (65-105)
--- NOTE | 2022-11-25 18:00 | WPDPN ---
Progress Note: A&P Assessment and Plan (1) Abscess of left middle finger: Code(s): L02.512 - Cutaneous abscess of left hand Status: Acute Assessment and Plan: The finger appears to be improving. Pt does best when asked to give a number on the degree of pain he is experiencing. Awaiting sensitivities. Continue Vanco. Will see daily. Subjective Date/time seen: 11/25/22 18:00 Interval history: Pt says he is happy to receive morphine. Exam Narrative: Dressing changed. Little erythema. No lymphangitis. Swelling reduced. No purulent drainage. Dorsal wound had a small arteriolar bleeder. Palmar wound appears to be healing. Pt says he is tender to any direct pressure in the palmar middle and distal phalanx. He has the same AROM as yesterday. That is good. No tenosynovitis. Culture sensitivities may be available at [facility]. I have left an after hours message requesting that. Wet cough. WBC above 10. CXR noted. Objective Data Vital Signs Vital Signs: Vital Signs - 24 hr 11/24/22 19:53 11/24/22 20:00 11/25/22 06:13 Temperature 97.2 F L 97.9 F Pulse Rate 80 73 Respiratory Rate 18 16 Blood Pressure 148/63 H 130/60 Pulse Oximetry 93 93 92 Oxygen Delivery Nasal Cannula Oxygen Flow Rate 3 11/25/22 08:00 11/25/22 09:53 11/25/22 10:05 Temperature 97.4 F L Pulse Rate 68 68 Respiratory Rate 18 Blood Pressure 139/66 139/66 Pulse Oximetry Oxygen Delivery Room Air Oxygen Flow Rate 11/25/22 10:20 11/25/22 10:40 11/25/22 11:00 Temperature Pulse Rate 68 70 71 Respiratory Rate Blood Pressure 176/67 H 167/65 H 168/68 H Pulse Oximetry Oxygen Delivery Oxygen Flow Rate 11/25/22 11:20 11/25/22 11:40 11/25/22 12:00 Temperature Pulse Rate 74 73 74 Respiratory Rate Blood Pressure 155/73 H 171/66 H 175/69 H Pulse Oximetry Oxygen Delivery Oxygen Flow Rate 11/25/22 12:20 11/25/22 12:40 11/25/22 13:00 Temperature Pulse Rate 76 78 78 Respiratory Rate Blood Pressure 173/65 H 186/71 H 182/72 H Pulse Oximetry Oxygen Delivery Oxygen Flow Rate 11/25/22 13:22 11/25/22 13:35 11/25/22 13:20 Temperature Pulse Rate 76 76 76 Respiratory Rate 18 18 Blood Pressure 201/76 H Pulse Oximetry Oxygen Delivery Oxygen Flow Rate 11/25/22 13:29 11/25/22 14:44 11/25/22 14:47 Temperature 97.6 F 96.4 F L Pulse Rate 76 78 Respiratory Rate 18 16 Blood Pressure 186/71 H 132/59 L Pulse Oximetry 90 Oxygen Delivery Oxygen Flow Rate Intake/Output Intake/Output: Intake & Output 11/22/22 11/23/22 11/24/22 11/25/22 23:59 23:59 23:59 23:59 Intake Total 421 267 5833 480 Output Total 2500 1696 Balance 100 -1720 1130 -1216 Meds/Results Medications: Active Medications Generic Name Dose Route Start Last Admin Trade Name Freq PRN Reason Stop Dose Admin Acetaminophen 650 mg 11/22/22 21:28 Acetaminophen 325 Mg Tablet PO Q4H PRN Headache Hydrocodone Bitart/Acetaminophen 1 tab 11/22/22 22:44 11/25/22 13:56 Hydrocodone/Acetaminophen (*Crx) 5-325 Mg Tablet PO 1 tab Q4H PRN Administration Pain Rated 3-6 Albuterol 2 puff 11/22/22 21:13 Albuterol Sulfate (*Sp) Aerosol 1 Puff INHALATION Q6HRT PRN Shortness Of Breath Albuterol 2.5 mg 11/25/22 14:00 11/25/22 13:22 Albuterol Sulfate Neb 2.5 Mg/3 Ml Inh INHALATION 2.5 mg Q6HRT KAIN Administration Allopurinol 100 mg 11/23/22 09:00 11/25/22 08:57 Allopurinol 100 Mg Tablet PO 100 mg DAILY KAIN Administration Amiodarone HCl 200 mg 11/23/22 09:00 11/25/22 13:55 Amiodarone Hcl 200 Mg Tablet PO 200 mg DAILY KAIN Administration Amlodipine Besylate 5 mg 11/23/22 09:00 11/25/22 13:55 Amlodipine Besylate 5 Mg Tablet PO 5 mg DAILY KAIN Administration Atorvastatin Calcium 20 mg 11/22/22 21:00 11/24/22 20:29 Atorvastatin 20 Mg Tab
--- NOTE | 2022-11-25 18:09 | PC.NURSE ---
Spoke with Dr Pritchard about obtaining sensitives for patient's left middle finger wound bed collected at [facility]. Doctor called clinic's after hours number to obtain results and awaiting callback at this time. Hospitalist will be notified of these results.
[2022-11-25 20:31] LABS: Glucose Point of Care 155 mg/dl (65-105)
[2022-11-25] MEDS: ATORVASTATIN 20 MG TABLET PO (22:15)
[2022-11-26] VITALS (13 sets, daily range): BP systolic 136–142; BP diastolic 55–60; PULSE 72–78; RESP 14–18; TEMP 36–36.3; O2SAT 91–95
[2022-11-26] MEDS: ALBUTEROL SULFATE NEB 2.5 MG/3 ML INH INHALATION ×4 (02:10→20:52)
[2022-11-26] MEDS: IPRATROPIUM BR 0.02% INH SOLN 0.5 MG/2.5 ML VIAL INHALATION ×4 (02:10→20:52)
[2022-11-26] MEDS: MORPHINE SULFATE (*CRX) 2 MG/ML INJ IV PUSH ×2 (04:40→10:50)
[2022-11-26 07:46] LABS: Glucose Point of Care 184 mg/dl (65-105)
[2022-11-26] MEDS: allopurinoL 100 MG TABLET PO (08:08)
[2022-11-26] MEDS: FERROUS SULFATE 325 MG TABLET DR PO (08:08)
[2022-11-26] MEDS: PANTOPRAZOLE 40 MG TABLET PO ×2 (08:08→17:32)
[2022-11-26] MEDS: amLODIPine BESYLATE 5 MG TABLET PO (08:08)
[2022-11-26] MEDS: ESCITALOPRAM OXALATE 10 MG TABLET 20 MG PO (08:08)
[2022-11-26] MEDS: SEVELAMER CARBONATE 800 MG TABLET 1600 MG PO ×3 (08:08→17:32)
[2022-11-26] MEDS: TAMSULOSIN HCL 0.4 MG CAPSULE PO (08:08)
[2022-11-26] MEDS: MAGNESIUM OXIDE 400 MG TABLET PO (08:08)
[2022-11-26] MEDS: AMIODARONE HCL 200 MG TABLET PO (08:09)
[2022-11-26] MEDS: CHOLECALCIFEROL 1,000 UNITS TABLET 5000 UNITS PO (08:09)
[2022-11-26] MEDS: BUMETANIDE 1 MG TABLET 4 MG PO (08:09)
[2022-11-26] MEDS: VITAMIN B CMPLX/VIT C/FOLIC AC 1 CAPSULE 1 CAP PO (08:10)
[2022-11-26] MEDS: HYDROcodone/acetaminophen (*CRX) 5-325 MG TABLET 1 TAB PO ×3 (08:16→19:04)
--- NOTE | 2022-11-26 08:19 | ECG_ITS ---
Measurements Intervals [place] Rate: 85 P: 63 ID: [id number] QRS: 236 QRSD: 169 T: 15 QT: 423 QTc: 504 Interpretive Statements SINUS RHYTHM INDETERMINATE AXIS RIGHT BUNDLE BRANCH BLOCK [120+ ms QRS DURATION, UPRIGHT V1, 40+ ms S IN I/aVL/V4/V5/V6] NO PREVIOUS ECG AVAILABLE FOR COMPARISON Electronically Signed On 11-26-2022 9:28:30 CDT by Tonia Schwartz M.D.
[2022-11-26 08:38] LABS: Hemoglobin 11.4 g/dL (14.0-18.0); Mean Corpuscular HGB Conc 29.2 g/dl (32-36); Mean Corpuscular Hemoglobin 28.8 pg (26-34); Mean Corpuscular Volume 98.5 fl (80-100); Platelet Count Result 243 k/mm3 (150-375); Red Blood Count 3.96 M/mm3 (4.6-6.20); White Blood Count 11.5 K/mm3 (4.5-10.0)
[2022-11-26 08:44] LABS: Anion Gap 5 mmol/L (8-16); Blood Urea Nitrogen 24 mg/dL (9-20); Calcium 7.9 mg/dL (8.4-10.2); Carbon Dioxide 28 mmol/L (22-30); Chloride 100 mmol/L (98-107); Estimated CRCL calculation 15 ml/min; Estimated Glomerular Filt Rate 14; Glucose 196 mg/dL (65-110); Potassium 4.6 mmol/L (3.4-5.0); Sodium 133 mmol/L (137-145)
--- NOTE | 2022-11-26 11:29 | WPDPN ---
Progress Note: A&P Assessment and Plan (1) Abscess of left middle finger: Code(s): L02.512 - Cutaneous abscess of left hand Status: Acute Assessment and Plan: Marked improvement in finger. Should be able to go home Monday. Dressing will remain Silver gel with small bandage allowing AROM Oral Abx per hospitalist, prob 10 days should be enough. OK for discharge home on Monday from my standpoint. F/U with Dr Pritchard only if needed. Should F/U with primary at [facility]. Subjective Date/time seen: 11/26/22 11:29 Interval history: Says his cough is better. Exam Narrative: Culture sensitivities faxed to floor from patients primary. MRSA sens to Clinda, Bactrim, Doxy, Vanco.. Redressed: primary and secondary wounds closing nicely. Good AROM Tender at the pad but no erythema, slight swelling. WBC 11.7 Objective Data Vital Signs Vital Signs: Vital Signs - 24 hr 11/25/22 11:40 11/25/22 12:00 11/25/22 12:20 Temperature Pulse Rate 73 74 76 Respiratory Rate Blood Pressure 171/66 H 175/69 H 173/65 H Pulse Oximetry Oxygen Delivery Oxygen Flow Rate 11/25/22 12:40 11/25/22 13:00 11/25/22 13:22 Temperature Pulse Rate 78 78 76 Respiratory Rate 18 Blood Pressure 186/71 H 182/72 H Pulse Oximetry Oxygen Delivery Oxygen Flow Rate 11/25/22 13:35 11/25/22 13:20 11/25/22 13:29 Temperature 97.6 F Pulse Rate 76 76 76 Respiratory Rate 18 18 Blood Pressure 201/76 H 186/71 H Pulse Oximetry Oxygen Delivery Oxygen Flow Rate 11/25/22 14:44 11/25/22 14:47 11/25/22 20:45 Temperature 96.4 F L Pulse Rate 78 80 Respiratory Rate 16 18 Blood Pressure 132/59 L Pulse Oximetry 90 Oxygen Delivery Oxygen Flow Rate 11/25/22 20:45 11/25/22 20:55 11/25/22 22:00 Temperature 98 F Pulse Rate 80 77 83 Respiratory Rate 18 18 Blood Pressure 151/68 H Pulse Oximetry 93 91 Oxygen Delivery Nasal Cannula Oxygen Flow Rate 3 11/26/22 02:10 11/26/22 02:20 11/25/22 22:00 Temperature Pulse Rate 73 75 Respiratory Rate 18 18 Blood Pressure Pulse Oximetry 91 Oxygen Delivery Nasal Cannula Oxygen Flow Rate 3 11/26/22 06:00 11/26/22 07:45 11/26/22 07:48 Temperature 97.3 F L Pulse Rate 78 72 Respiratory Rate 18 18 Blood Pressure 136/55 L Pulse Oximetry 91 93 Oxygen Delivery Nasal Cannula Oxygen Flow Rate 3 11/26/22 08:09 11/26/22 08:10 Temperature Pulse Rate 72 77 Respiratory Rate 18 Blood Pressure Pulse Oximetry Oxygen Delivery Oxygen Flow Rate Intake/Output Intake/Output: Intake & Output 11/23/22 11/24/22 11/25/22 11/26/22 23:59 23:59 23:59 23:59 Intake Total 780 2120 927 2950 Output Total 2500 1696 Balance -1720 1130 -976 2350 Meds/Results Medications: Active Medications Generic Name Dose Route Start Last Admin Trade Name Freq PRN Reason Stop Dose Admin Acetaminophen 650 mg 11/22/22 21:28 Acetaminophen 325 Mg Tablet PO Q4H PRN Headache Hydrocodone Bitart/Acetaminophen 1 tab 11/22/22 22:44 11/26/22 08:16 Hydrocodone/Acetaminophen (*Crx) 5-325 Mg Tablet PO 1 tab Q4H PRN Administration Pain Rated 3-6 Albuterol 2 puff 11/22/22 21:13 Albuterol Sulfate (*Sp) Aerosol 1 Puff INHALATION Q6HRT PRN Shortness Of Breath Albuterol 2.5 mg 11/25/22 14:00 11/26/22 07:47 Albuterol Sulfate Neb 2.5 Mg/3 Ml Inh INHALATION 2.5 mg Q6HRT KAIN Administration Allopurinol 100 mg 11/23/22 09:00 11/26/22 08:08 Allopurinol 100 Mg Tablet PO 100 mg DAILY KAIN Administration Amiodarone HCl 200 mg 11/23/22 09:00 11/26/22 08:09 Amiodarone Hcl 200 Mg Tablet PO 200 mg DAILY KAIN Administration Amlodipine Besylate 5 mg 11/23/22 09:00 11/26/22 08:08 Amlodipine Besylate 5 Mg Tablet PO 5 mg DAILY KAIN Administration Atorvastatin Calcium 20 mg 11/22/22 21:00 11/25/22 22:15 Atorvast
[2022-11-26 11:41] LABS: Glucose Point of Care 271 mg/dl (65-105)
[2022-11-26] MEDS: INSULIN ASPART (*BKC) 100 UNITS/ML SUB-Q (12:16)
--- NOTE | 2022-11-26 12:35 | PM.IMPN ---
Progress Note: A&P Assessment and Plan (1) MRSA (methicillin resistant staph aureus) culture positive: Code(s): Z22.322 - Carrier or suspected carrier of Methicillin resistant Staphylococcus aureus Status: Acute Assessment and Plan: patient was being seen by Dr. Pritchard for I&D of a finger infection. The culture of this came back positive for MRSA and he was advised to be seen at the hospital. The patient has multiple allergies. He states that he is allergic to the cephalosporins. I started him on vancomycin. The patient had I&D 11/22/22. Blood cultures no growth to date MRSA Swab negative. The patient had been on clindamycin. He has been having diarrhea for 2 days. Clindamycin discontinue. C diff negative. Subsequent I&D on 11/24/2022 -see operative notes. (2) Hyperlipidemia: Code(s): E78.5 - Hyperlipidemia, unspecified Status: Acute Assessment and Plan: Continue with atorvastatin (3) Diabetes: Code(s): E11.9 - Type 2 diabetes mellitus without complications Status: Chronic Assessment and Plan: AC and HS with sliding scale insulin. Hemoglobin A1c 6.5. (4) Depression with anxiety: Code(s): F41.8 - Other specified anxiety disorders Status: Acute Assessment and Plan: Continue with Lexapro (5) End-stage renal disease on hemodialysis: Code(s): N18.6 - End stage renal disease; Z99.2 - Dependence on renal dialysis Status: Acute Assessment and Plan: Patient had a positive bruit and thrill to right forearm AV fistula. Nephrology has been consulted. The patient has seen Dr. Justin in the past. Patient has dialysis on Monday. (6) Degenerative joint disease: Code(s): M19.90 - Unspecified osteoarthritis, unspecified site Status: Acute Assessment and Plan: Continue with current the patient is on allopurinol for gout. (7) Hypertension: Code(s): I10 - Essential (primary) hypertension Status: Chronic Assessment and Plan: Continue with amiodarone and amlodipine (8) COPD (chronic obstructive pulmonary disease): Code(s): J44.9 - Chronic obstructive pulmonary disease, unspecified Status: Chronic Assessment and Plan: The patient continues to smoke. Offered smoking cessation. P.r.n. albuterol 11/26/22 Patient is a little wheezy today. Continue nebulizer treatments. Started on 5 day course of azithromycin. Will hold off on steroids due to patient's elevated blood sugars. (9) Anemia: Code(s): D64.9 - Anemia, unspecified Status: Chronic Assessment and Plan: Continue to monitor anemia. Continue with ferrous sulfate (10) CHF (congestive heart failure), NYHA class I: Code(s): I50.9 - Heart failure, unspecified Status: Acute Assessment and Plan: Continue Bumex Plan Tobacco abuse smoking cessation education would greatly be appreciated. Subjective Date/time seen: 11/26/22 12:35 Interval history: Patient doing well today. He still is needing morphine to control his pain in the finger. Other than this he has no new complaints. Per Dr. Pritchard patient can be discharged Monday. Review of Systems Review of Systems: All systems reviewed & are unremarkable except as noted in HPI and below Exam Narrative: GENERAL: Comfortable, no acute distress HENMT: moist mucous membranes EYES: EOM intact b/l NECK: no lymphadenopathy RESPIRATORY: clear to auscultation CARDIO: RRR GI: soft, nontender, bowel sounds present SKIN: no rashes EXTREMITIES: Right hand wrapped in Neil bandage that is clean and dry Objective Data Vital Signs Vital Signs: Vital Signs - 24 hr 11/25/22 12:40 11/25/22 13:00 11/25/22 13:22 Temperature Pulse Rate 78 78 76 Respiratory Rate 18 Blood Pressure 186/71 H 182/72 H Pulse Oximetry Oxygen Delivery Oxygen Flow Rate 11/25/22 13:35 11/25/22 13:20 11/25/22 13:29 [place]
[2022-11-26] MEDS: FUROSEMIDE INJ 40 MG/4 ML VIAL IV PUSH (13:33)
[2022-11-26] MEDS: AZITHROMYCIN 250 MG TABLET 500 MG PO (13:34)
--- NOTE | 2022-11-26 14:08 | P.PNNP_ITS ---
Progress Note: A&P Assessment and Plan (1) End stage renal disease: Code(s): N18.6 - End stage renal disease Status: Chronic Assessment and Plan: * HD due on Monday * continue M/W/ dialysis schedule while hospitalized * Volume status looks okay. No swelling shortness of breath or pulmonary issues on exam. * Potassium and bicarbonate are okay. BUN is only 24 today. (2) Abscess of left middle finger: Code(s): L02.512 - Cutaneous abscess of left hand Status: Acute Assessment and Plan: * as noted by Dr. Pritchard * s/p I & D at Dr. Pritchard's office (on 11/22/22) * s/p I & D in OR by Dr. Pritchard (on 11/24/22) * on antibiotics * Blood cultures negative so far * local wound care * pain control (3) Hypertension: Code(s): I10 - Essential (primary) hypertension Status: Chronic Assessment and Plan: * Blood pressure 1 30s to 150s today. * Consider more amlodipine if the blood pressure does not continue to drop with pain control. (4) Anemia: Code(s): D64.9 - Anemia, unspecified Status: Chronic Assessment and Plan: * due to ESRD * Hemoglobin now above 11. Will hold off on the EPO (5) COPD (chronic obstructive pulmonary disease): Code(s): J44.9 - Chronic obstructive pulmonary disease, unspecified Status: Chronic Assessment and Plan: * appears compensated at this time * contime home medications/inhalers (6) Diabetes: Code(s): E11.9 - Type 2 diabetes mellitus without complications Status: Chronic Assessment and Plan: * Accu-Cheks being checked. * Management per hospitalists Subjective Date/time seen: 11/26/22 14:08 Interval history: Bruno is feeling about the same today. His finger still hurts. Exam Narrative: General: WD/WN male in NAD Heart: normal S1 and S2; no rub or gallop Lungs: clear Abdomen: soft, nontender, nondistended, positive bowel sounds Extremities: no cyanosis or clubbing; no edema; right middle finger dressings in place Skin: no rash or subQ nodules Objective Data Vital Signs Vital Signs: Vital Signs - 24 hr 11/25/22 14:44 11/25/22 14:47 11/25/22 20:45 Temperature 96.4 F L Pulse Rate 78 80 Respiratory Rate 16 18 Blood Pressure 132/59 L Pulse Oximetry 90 Oxygen Delivery Oxygen Flow Rate 11/25/22 20:45 11/25/22 20:55 11/25/22 22:00 Temperature 98 F Pulse Rate 80 77 83 Respiratory Rate 18 18 Blood Pressure 151/68 H Pulse Oximetry 93 91 Oxygen Delivery Nasal Cannula Oxygen Flow Rate 3 11/26/22 02:10 11/26/22 02:20 11/25/22 22:00 Temperature Pulse Rate 73 75 Respiratory Rate 18 18 Blood Pressure Pulse Oximetry 91 Oxygen Delivery Nasal Cannula Oxygen Flow Rate 3 11/26/22 06:00 11/26/22 07:45 11/26/22 07:48 Temperature 97.3 F L Pulse Rate 78 72 Respiratory Rate 18 18 Blood Pressure 136/55 L Pulse Oximetry 91 93 Oxygen Delivery Nasal Cannula Oxygen Flow Rate 3 11/26/22 08:09 11/26/22 08:10 11/26/22 08:00 Temperature
--- NOTE | 2022-11-26 14:08 | PM.PNNEP ---
Progress Note: A&P Assessment and Plan (1) End stage renal disease: Code(s): N18.6 - End stage renal disease Status: Chronic Assessment and Plan: HD due on Monday continue M// dialysis schedule while hospitalized Volume status looks okay. No swelling shortness of breath or pulmonary issues on exam. Potassium and bicarbonate are okay. BUN is only 24 today. (2) Abscess of left middle finger: Code(s): L02.512 - Cutaneous abscess of left hand Status: Acute Assessment and Plan: as noted by Dr. Pritchard s/p I & D at Dr. Pritchard's office (on 11/22/22) s/p I & D in OR by Dr. Pritchard (on 11/24/22) on antibiotics Blood cultures negative so far local wound care pain control (3) Hypertension: Code(s): I10 - Essential (primary) hypertension Status: Chronic Assessment and Plan: Blood pressure 1 30s to 150s today. Consider more amlodipine if the blood pressure does not continue to drop with pain control. (4) Anemia: Code(s): D64.9 - Anemia, unspecified Status: Chronic Assessment and Plan: due to ESRD Hemoglobin now above 11. Will hold off on the EPO (5) COPD (chronic obstructive pulmonary disease): Code(s): J44.9 - Chronic obstructive pulmonary disease, unspecified Status: Chronic Assessment and Plan: appears compensated at this time contime home medications/inhalers (6) Diabetes: Code(s): E11.9 - Type 2 diabetes mellitus without complications Status: Chronic Assessment and Plan: Accu-Cheks being checked. Management per hospitalists Subjective Date/time seen: 11/26/22 14:08 Interval history: Bruno is feeling about the same today. His finger still hurts. Exam Narrative: General: WD/WN male in NAD Heart: normal S1 and S2; no rub or gallop Lungs: clear Abdomen: soft, nontender, nondistended, positive bowel sounds Extremities: no cyanosis or clubbing; no edema; right middle finger dressings in place Skin: no rash or subQ nodules Objective Data Vital Signs Vital Signs: Vital Signs - 24 hr 11/25/22 14:44 11/25/22 14:47 11/25/22 20:45 Temperature 96.4 F L Pulse Rate 78 80 Respiratory Rate 16 18 Blood Pressure 132/59 L Pulse Oximetry 90 Oxygen Delivery Oxygen Flow Rate 11/25/22 20:45 11/25/22 20:55 11/25/22 22:00 Temperature 98 F Pulse Rate 80 77 83 Respiratory Rate 18 18 Blood Pressure 151/68 H Pulse Oximetry 93 91 Oxygen Delivery Nasal Cannula Oxygen Flow Rate 3 11/26/22 02:10 11/26/22 02:20 11/25/22 22:00 Temperature Pulse Rate 73 75 Respiratory Rate 18 18 Blood Pressure Pulse Oximetry 91 Oxygen Delivery Nasal Cannula Oxygen Flow Rate 3 11/26/22 06:00 11/26/22 07:45 11/26/22 07:48 Temperature 97.3 F L Pulse Rate 78 72 Respiratory Rate 18 18 Blood Pressure 136/55 L Pulse Oximetry 91 93 Oxygen Delivery Nasal Cannula Oxygen Flow Rate 3 11/26/22 08:09 11/26/22 08:10 11/26/22 08:00 Temperature Pulse Rate 72 77 Respiratory Rate 18 Blood Pressure Pulse Oximetry Oxygen Delivery Room Air Oxygen Flow Rate 11/26/22 13:38 Temperature 97.3 F L Pulse Rate 73 Respiratory Rate 18 Blood Pressure 142/60 H Pulse Oximetry 91 Oxygen Delivery Oxygen Flow Rate Intake/Output Intake/Output: Intake & Output 11/23/22 11/24/22 11/25/22 11/26/22 23:59 23:59 23:59 23:59 Intake Total 780 0850 757 5802 Output Total 2500 1696 Balance -1720 1130 -976 2890 Meds/Results Medications: Active Medications Generic Name Dose Route Start Last Admin Trade Name Freq PRN Reason Stop Dose Admin Acetaminophen 650 mg 11/22/22 21:28 Acetaminophen 325 Mg Tablet PO Q4H PRN Headache Hydrocodone Bitart/Acetaminophen 1 tab 11/22/22 22:44 11/26/22 12:20 Hydrocodone/Acetaminophen (*Crx) 5-325 Mg Tablet PO 1 tab Q4H PRN Administration Fiordaliza
[2022-11-26 16:30] LABS: Glucose Point of Care 178 mg/dl (65-105)
[2022-11-26] MEDS: ATORVASTATIN 20 MG TABLET PO (20:34)
[2022-11-26 20:45] LABS: Glucose Point of Care 157 mg/dl (65-105)
[2022-11-27] VITALS (10 sets, daily range): BP systolic 135–154; BP diastolic 67–69; PULSE 72–83; RESP 16–20; TEMP 35.8–36.4; O2SAT 93–100
[2022-11-27] MEDS: MORPHINE SULFATE (*CRX) 2 MG/ML INJ IV PUSH ×3 (00:14→21:08)
--- NOTE | 2022-11-27 02:46 | PCRCNOTE ---
pt refused 0200 breathing tx due to a nose bleed
[2022-11-27 06:34] LABS: Basophils Absolute Auto 0.2 K/mm3 (0.0-0.1); Basophils Percent Auto 1.8 % (0.2-1.2); Eosinophils Absolute Auto 0.3 K/mm3 (0-0.3); Eosinophils Percent Auto 2.7 % (0-4.4); Hemoglobin 11.2 g/dL (14.0-18.0); Immature Granulocyte Absolute 0.47 K/mm3 (0.00-0.031); Lymphocytes Absolute Auto 1.05 K/mm3 (0.9-3.2); Mean Corpuscular HGB Conc 29.5 g/dl (32-36); Mean Corpuscular Hemoglobin 28.7 pg (26-34); Mean Corpuscular Volume 97.4 fl (80-100); Mean Platelet Volume 9.3 fl (7.4-10.4); Monocytes Absolute Auto 0.8 K/mm3 (0.1-0.6); Monocytes Percent Auto 6.8 % (2.6-8.5); Neutrophils Absolute Auto 8.8 K/mm3 (1.3-6.7); Neutrophils Percent Auto 75.7 % (45.5-73.1); Platelet Count Result 250 k/mm3 (150-375); Red Cell Distribution Width 16.7 % (11.5-14.5); White Blood Count 11.7 K/mm3 (4.5-10.0)
[2022-11-27 06:51] LABS: Alanine Aminotransferase 30 U/L (6-50); Albumin Level 3.4 g/dL (3.5-5.1); Alkaline Phosphatase 181 U/L (38-126); Anion Gap 9 mmol/L (8-16); Aspartate Amino Transferase 46 U/L (17-59); Bilirubin,Total 0.4 mg/dL (0.2-1.3); Blood Urea Nitrogen 33 mg/dL (9-20); Calcium 7.7 mg/dL (8.4-10.2); Carbon Dioxide 29 mmol/L (22-30); Chloride 99 mmol/L (98-107); Estimated CRCL calculation 14 ml/min; Estimated Glomerular Filt Rate 11; Glucose 123 mg/dL (65-110); Phosphorus 6.2 mg/dL (2.5-4.5); Potassium 5.3 mmol/L (3.4-5.0); Sodium 137 mmol/L (137-145)
[2022-11-27] MEDS: ALBUTEROL SULFATE NEB 2.5 MG/3 ML INH INHALATION ×3 (07:33→19:14)
[2022-11-27] MEDS: IPRATROPIUM BR 0.02% INH SOLN 0.5 MG/2.5 ML VIAL INHALATION ×3 (07:33→19:14)
[2022-11-27 07:53] LABS: Glucose Point of Care 132 mg/dl (65-105)
[2022-11-27] MEDS: FERROUS SULFATE 325 MG TABLET DR PO (10:25)
[2022-11-27] MEDS: CHOLECALCIFEROL 1,000 UNITS TABLET 5000 UNITS PO (10:25)
[2022-11-27] MEDS: BUMETANIDE 1 MG TABLET 4 MG PO (10:25)
[2022-11-27] MEDS: MAGNESIUM OXIDE 400 MG TABLET PO (10:25)
[2022-11-27] MEDS: ESCITALOPRAM OXALATE 10 MG TABLET 20 MG PO (10:25)
[2022-11-27] MEDS: VITAMIN B CMPLX/VIT C/FOLIC AC 1 CAPSULE 1 CAP PO (10:26)
[2022-11-27] MEDS: SEVELAMER CARBONATE 800 MG TABLET 1600 MG PO ×3 (10:26→17:46)
[2022-11-27] MEDS: amLODIPine BESYLATE 5 MG TABLET PO (10:26)
[2022-11-27] MEDS: TAMSULOSIN HCL 0.4 MG CAPSULE PO (10:26)
[2022-11-27] MEDS: AZITHROMYCIN 250 MG TABLET PO (10:26)
[2022-11-27] MEDS: AMIODARONE HCL 200 MG TABLET PO (10:27)
[2022-11-27] MEDS: PANTOPRAZOLE 40 MG TABLET PO ×2 (10:27→17:46)
[2022-11-27] MEDS: allopurinoL 100 MG TABLET PO (10:27)
[2022-11-27 11:54] LABS: Glucose Point of Care 170 mg/dl (65-105)
--- NOTE | 2022-11-27 12:08 | PM.IMPN ---
Progress Note: A&P Assessment and Plan (1) MRSA (methicillin resistant staph aureus) culture positive: Code(s): Z22.322 - Carrier or suspected carrier of Methicillin resistant Staphylococcus aureus Status: Acute Assessment and Plan: patient was being seen by Dr. Pritchard for I&D of a finger infection. The culture of this came back positive for MRSA and he was advised to be seen at the hospital. The patient has multiple allergies. He states that he is allergic to the cephalosporins. I started him on vancomycin. The patient had I&D 11/22/22. Blood cultures no growth to date MRSA Swab negative. The patient had been on clindamycin. He has been having diarrhea for 2 days. Clindamycin discontinue. C diff negative. Subsequent I&D on 11/24/2022 -see operative notes. (2) Hyperlipidemia: Code(s): E78.5 - Hyperlipidemia, unspecified Status: Acute Assessment and Plan: Continue with atorvastatin (3) Diabetes: Code(s): E11.9 - Type 2 diabetes mellitus without complications Status: Chronic Assessment and Plan: AC and HS with sliding scale insulin. Hemoglobin A1c 6.5. (4) Depression with anxiety: Code(s): F41.8 - Other specified anxiety disorders Status: Acute Assessment and Plan: Continue with Lexapro (5) End-stage renal disease on hemodialysis: Code(s): N18.6 - End stage renal disease; Z99.2 - Dependence on renal dialysis Status: Acute Assessment and Plan: Patient had a positive bruit and thrill to right forearm AV fistula. Nephrology has been consulted. The patient has seen Dr. Justin in the past. Patient has dialysis on Monday. (6) Degenerative joint disease: Code(s): M19.90 - Unspecified osteoarthritis, unspecified site Status: Acute Assessment and Plan: Continue with current the patient is on allopurinol for gout. (7) Hypertension: Code(s): I10 - Essential (primary) hypertension Status: Chronic Assessment and Plan: Continue with amiodarone and amlodipine (8) COPD (chronic obstructive pulmonary disease): Code(s): J44.9 - Chronic obstructive pulmonary disease, unspecified Status: Chronic Assessment and Plan: The patient continues to smoke. Offered smoking cessation. P.r.n. albuterol 11/26/22 Patient is a little wheezy today. Continue nebulizer treatments. Started on 5 day course of azithromycin. Will hold off on steroids due to patient's elevated blood sugars. (9) Anemia: Code(s): D64.9 - Anemia, unspecified Status: Chronic Assessment and Plan: Continue to monitor anemia. Continue with ferrous sulfate (10) CHF (congestive heart failure), NYHA class I: Code(s): I50.9 - Heart failure, unspecified Status: Acute Assessment and Plan: Continue Bumex Plan Tobacco abuse smoking cessation education would greatly be appreciated. Subjective Date/time seen: 11/27/22 12:08 Interval history: patient continues to have a finger pain. When I enter the room he had just had dressing change which irritated the finger even more. The plan is to discharge tomorrow on oral antibiotics. He will get dialysis tomorrow as well. Home health will follow as an outpatient. Exam Narrative: GENERAL: Comfortable, no acute distress HENMT: moist mucous membranes EYES: EOM intact b/l NECK: no lymphadenopathy RESPIRATORY: clear to auscultation CARDIO: RRR GI: soft, nontender, bowel sounds present SKIN: no rashes EXTREMITIES: Right hand wrapped in Neil bandage that is clean and dry Objective Data Vital Signs Vital Signs: Vital Signs - 24 hr 11/26/22 13:38 11/26/22 15:11 11/26/22 15:30 Temperature 97.3 F L Pulse Rate 73 72 76 Respiratory Rate 18 18 18 Blood Pressure 142/60 H Pulse Oximetry 91 Oxygen Delivery Oxygen Flow Rate 11/26/22 20:54 11/26/22 21:01 11/26/22 22:00 Temperature 96.8 F L
--- NOTE | 2022-11-27 13:44 | P.PNNP_ITS ---
Progress Note: A&P Assessment and Plan (1) End stage renal disease: Code(s): N18.6 - End stage renal disease Status: Chronic Assessment and Plan: * HD due tomorrow * continue M/W/F dialysis schedule while hospitalized * Volume status looks okay. * exam looks okay * Potassium is 5.3. Will give some lokelma * bicarbonate is okay. (2) Abscess of left middle finger: Code(s): L02.512 - Cutaneous abscess of left hand Status: Acute Assessment and Plan: * as noted by Dr. Pritchard * s/p I & D at Dr. Pritchard's office (on 11/22/22) * s/p I & D in OR by Dr. Pritchard (on 11/24/22) * on antibiotics * Blood cultures negative so far * local wound care * pain control (3) Hypertension: Code(s): I10 - Essential (primary) hypertension Status: Chronic Assessment and Plan: * Blood pressure 130s and 140s today. (4) Anemia: Code(s): D64.9 - Anemia, unspecified Status: Chronic Assessment and Plan: * due to ESRD * Hemoglobin now above 11. Will hold off on the EPO (5) COPD (chronic obstructive pulmonary disease): Code(s): J44.9 - Chronic obstructive pulmonary disease, unspecified Status: Chronic Assessment and Plan: * appears compensated at this time * contime home medications/inhalers (6) Diabetes: Code(s): E11.9 - Type 2 diabetes mellitus without complications Status: Chronic Assessment and Plan: * Accu-Cheks being checked. * Management per hospitalists Subjective Date/time seen: 11/27/22 13:44 Interval history: Bruno is feeling about the same today. His finger still hurts but is better. He is due for dialysis tomorrow Exam Narrative: General: WD/WN male in NAD Heart: normal S1 and S2; no rub or gallop Lungs: clear bilaterally Abdomen: soft, nontender, nondistended, positive bowel sounds Extremities: no cyanosis or clubbing; no edema; right middle finger dressings in place Skin: no rash Objective Data Vital Signs Vital Signs: Vital Signs - 24 hr 11/26/22 15:11 11/26/22 15:30 11/26/22 20:54 Temperature Pulse Rate 72 76 76 Respiratory Rate 18 18 14 Blood Pressure Pulse Oximetry Oxygen Delivery Oxygen Flow Rate 11/26/22 21:01 11/26/22 22:00 11/27/22 06:00 Temperature 96.8 F L 96.4 F L Pulse Rate 74 73 78 Respiratory Rate 14 16 16 Blood Pressure 138/58 L 135/67 Pulse Oximetry 95 93 Oxygen Delivery Oxygen Flow Rate 11/27/22 07:34 11/27/22 07:34 11/27/22 07:54 Temperature Pulse Rate 76 74 Respiratory Rate 16 16 Blood Pressure Pulse Oximetry 96 Oxygen Delivery Nasal Cannula Oxygen Flow Rate 3 11/27/22 10:27 11/27/22 13:23 11/27/22 13:38 Temperature Pulse Rate 80 76 76 Respiratory Rate 16 16 Blood Pressure Pulse Oximetry Oxygen Delivery Oxygen Flow Rate Intake/Output Intake/Output: Intake & Output 11/24/22 11/25/22 11/26/22 11/27/22 23:59 23:59 23:59 23:59 Intake Total
--- NOTE | 2022-11-27 13:44 | PM.PNNEP ---
Progress Note: A&P Assessment and Plan (1) End stage renal disease: Code(s): N18.6 - End stage renal disease Status: Chronic Assessment and Plan: HD due tomorrow continue M/W/F dialysis schedule while hospitalized Volume status looks okay. exam looks okay Potassium is 5.3. Will give some lokelma bicarbonate is okay. (2) Abscess of left middle finger: Code(s): L02.512 - Cutaneous abscess of left hand Status: Acute Assessment and Plan: as noted by Dr. Pritchard s/p I & D at Dr. Pritchard's office (on 11/22/22) s/p I & D in OR by Dr. Pritchard (on 11/24/22) on antibiotics Blood cultures negative so far local wound care pain control (3) Hypertension: Code(s): I10 - Essential (primary) hypertension Status: Chronic Assessment and Plan: Blood pressure 130s and 140s today. (4) Anemia: Code(s): D64.9 - Anemia, unspecified Status: Chronic Assessment and Plan: due to ESRD Hemoglobin now above 11. Will hold off on the EPO (5) COPD (chronic obstructive pulmonary disease): Code(s): J44.9 - Chronic obstructive pulmonary disease, unspecified Status: Chronic Assessment and Plan: appears compensated at this time contime home medications/inhalers (6) Diabetes: Code(s): E11.9 - Type 2 diabetes mellitus without complications Status: Chronic Assessment and Plan: Accu-Cheks being checked. Management per hospitalists Subjective Date/time seen: 11/27/22 13:44 Interval history: Bruno is feeling about the same today. His finger still hurts but is better. He is due for dialysis tomorrow Exam Narrative: General: WD/WN male in NAD Heart: normal S1 and S2; no rub or gallop Lungs: clear bilaterally Abdomen: soft, nontender, nondistended, positive bowel sounds Extremities: no cyanosis or clubbing; no edema; right middle finger dressings in place Skin: no rash Objective Data Vital Signs Vital Signs: Vital Signs - 24 hr 11/26/22 15:11 11/26/22 15:30 11/26/22 20:54 Temperature Pulse Rate 72 76 76 Respiratory Rate 18 18 14 Blood Pressure Pulse Oximetry Oxygen Delivery Oxygen Flow Rate 11/26/22 21:01 08/05/23 22:00 11/27/22 06:00 Temperature 96.8 F L 96.4 F L Pulse Rate 74 73 78 Respiratory Rate 14 16 16 Blood Pressure 138/58 L 135/67 Pulse Oximetry 95 93 Oxygen Delivery Oxygen Flow Rate 11/27/22 07:34 11/27/22 07:34 11/27/22 07:54 Temperature Pulse Rate 76 74 Respiratory Rate 16 16 Blood Pressure Pulse Oximetry 96 Oxygen Delivery Nasal Cannula Oxygen Flow Rate 3 11/27/22 10:27 11/27/22 13:23 11/27/22 13:38 Temperature Pulse Rate 80 76 76 Respiratory Rate 16 16 Blood Pressure Pulse Oximetry Oxygen Delivery Oxygen Flow Rate Intake/Output Intake/Output: Intake & Output 11/24/22 11/25/22 11/26/22 11/27/22 23:59 23:59 23:59 23:59 Intake Total 3711 327 7297 1502 Output Total 1696 Balance 1130 -976 3790 1502 Meds/Results Medications: Active Medications Generic Name Dose Route Start Last Admin Trade Name Freq PRN Reason Stop Dose Admin Acetaminophen 650 mg 11/22/22 21:28 Acetaminophen 325 Mg Tablet PO Q4H PRN Headache Hydrocodone Bitart/Acetaminophen 1 tab 11/22/22 22:44 11/26/22 19:04 Hydrocodone/Acetaminophen (*Crx) 5-325 Mg Tablet PO 1 tab Q4H PRN Administration Pain Rated 3-6 Albuterol 2 puff 11/22/22 21:13 Albuterol Sulfate (*Sp) Aerosol 1 Puff INHALATION Q6HRT PRN Shortness Of Breath Albuterol 2.5 mg 11/25/22 14:00 11/27/22 13:23 Albuterol Sulfate Neb 2.5 Mg/3 Ml Inh INHALATION 2.5 mg Q6HRT KAIN Administration Allopurinol 100 mg 11/23/22 09:00 11/27/22 10:27 Allopurinol 100 Mg Tablet PO 100 mg DAILY KAIN Administration Amiodarone HCl 200 mg 11/23/22 09:00 11/27/22 10:27 Amioda
[2022-11-27] MEDS: SODIUM ZIRCONIUM CYCLOSILICATE 10 GM POWD.PACK 5 GM PO (15:05)
[2022-11-27 16:46] LABS: Glucose Point of Care 189 mg/dl (65-105)
[2022-11-27] MEDS: HYDROcodone/acetaminophen (*CRX) 5-325 MG TABLET 1 TAB PO (17:44)
[2022-11-27] MEDS: ATORVASTATIN 20 MG TABLET PO (20:02)
[2022-11-27 20:39] LABS: Glucose Point of Care 172 mg/dl (65-105)
[2022-11-28] VITALS (22 sets, daily range): BP systolic 112–162; BP diastolic 56–77; PULSE 70–82; RESP 14–20; TEMP 36.2–37; O2SAT 90–97
[2022-11-28] MEDS: ALBUTEROL SULFATE NEB 2.5 MG/3 ML INH INHALATION ×3 (01:41→15:04)
[2022-11-28] MEDS: IPRATROPIUM BR 0.02% INH SOLN 0.5 MG/2.5 ML VIAL INHALATION ×3 (01:41→15:05)
[2022-11-28] MEDS: MORPHINE SULFATE (*CRX) 2 MG/ML INJ IV PUSH (05:00)
[2022-11-28 05:41] LABS: Basophils Absolute Auto 0.2 K/mm3 (0.0-0.1); Basophils Percent Auto 1.2 % (0.2-1.2); Eosinophils Absolute Auto 0.3 K/mm3 (0-0.3); Eosinophils Percent Auto 2.3 % (0-4.4); Hematocrit 37.5 % (42.0-52.0); Hemoglobin 11.1 g/dL (14.0-18.0); Immature Granulocyte Absolute 0.44 K/mm3 (0.00-0.031); Immature Granulocyte Percent A 3.5 % (0-0.5); Lymphocytes Absolute Auto 0.82 K/mm3 (0.9-3.2); Lymphocytes Percent Auto 6.6 % (18.3-44.2); Mean Corpuscular HGB Conc 29.6 g/dl (32-36); Mean Corpuscular Hemoglobin 28.9 pg (26-34); Mean Corpuscular Volume 97.7 fl (80-100); Mean Platelet Volume 8.7 fl (7.4-10.4); Monocytes Absolute Auto 0.8 K/mm3 (0.1-0.6); Monocytes Percent Auto 6.7 % (2.6-8.5); Neutrophils Percent Auto 79.7 % (45.5-73.1); Platelet Count Result 213 k/mm3 (150-375); Red Blood Count 3.84 M/mm3 (4.6-6.20); Red Cell Distribution Width 16.6 % (11.5-14.5); White Blood Count 12.5 K/mm3 (4.5-10.0)
[2022-11-28 05:52] LABS: Alanine Aminotransferase 30 U/L (6-50); Albumin Level 3.4 g/dL (3.5-5.1); Alkaline Phosphatase 190 U/L (38-126); Anion Gap 9 mmol/L (8-16); Aspartate Amino Transferase 41 U/L (17-59); Bilirubin,Total 0.4 mg/dL (0.2-1.3); Blood Urea Nitrogen 39 mg/dL (9-20); Calcium 7.9 mg/dL (8.4-10.2); Carbon Dioxide 29 mmol/L (22-30); Chloride 97 mmol/L (98-107); Estimated CRCL calculation 12 ml/min; Estimated Glomerular Filt Rate 8; Glucose 116 mg/dL (65-110); Magnesium 2.1 mg/dL (1.6-2.3); Potassium 5.6 mmol/L (3.4-5.0); Sodium 135 mmol/L (137-145)
[2022-11-28 06:11] LABS: Vancomycin Trough 16.8 ug/mL (10.0-20.0)
[2022-11-28 07:43] LABS: Glucose Point of Care 108 mg/dl (65-105)
[2022-11-28] MEDS: AZITHROMYCIN 250 MG TABLET PO (08:36)
[2022-11-28] MEDS: SEVELAMER CARBONATE 800 MG TABLET 1600 MG PO ×2 (08:36→12:58)
[2022-11-28] MEDS: AMIODARONE HCL 200 MG TABLET PO (08:36)
[2022-11-28] MEDS: VITAMIN B CMPLX/VIT C/FOLIC AC 1 CAPSULE 1 CAP PO (08:36)
[2022-11-28] MEDS: ESCITALOPRAM OXALATE 10 MG TABLET 20 MG PO (08:36)
[2022-11-28] MEDS: PANTOPRAZOLE 40 MG TABLET PO (08:36)
[2022-11-28] MEDS: MAGNESIUM OXIDE 400 MG TABLET PO (08:36)
[2022-11-28] MEDS: CHOLECALCIFEROL 1,000 UNITS TABLET 5000 UNITS PO (08:36)
[2022-11-28] MEDS: FERROUS SULFATE 325 MG TABLET DR PO (08:38)
[2022-11-28] MEDS: amLODIPine BESYLATE 5 MG TABLET PO (08:38)
[2022-11-28] MEDS: TAMSULOSIN HCL 0.4 MG CAPSULE PO (08:38)
[2022-11-28] MEDS: allopurinoL 100 MG TABLET PO (08:38)
--- NOTE | 2022-11-28 09:35 | P.PNNP_ITS ---
Progress Note: A&P Assessment and Plan (1) End stage renal disease: Code(s): N18.6 - End stage renal disease Status: Chronic Assessment and Plan: * HD today * continue M/W/F dialysis schedule while hospitalized * follow electrolytes, volume status, and clearance (2) Abscess of left middle finger: Code(s): L02.512 - Cutaneous abscess of left hand Status: Acute Assessment and Plan: * as noted by Dr. Pritchard * s/p I & D at Dr. Pritchard's office (on 11/22/22) * s/p I & D in OR by Dr. Pritchard (on 11/24/22) * on antibiotics * blood cultures negative to date * local wound care * pain control (3) Hypertension: Code(s): I10 - Essential (primary) hypertension Status: Chronic Assessment and Plan: * reasonable control at this time * follow trend of hemodynamics (4) Anemia: Code(s): D64.9 - Anemia, unspecified Status: Chronic Assessment and Plan: * due to ESRD * H/H at goal * Epogen on hold (5) COPD (chronic obstructive pulmonary disease): Code(s): J44.9 - Chronic obstructive pulmonary disease, unspecified Status: Chronic Assessment and Plan: * appears compensated at this time * contime home medications/inhalers (6) Diabetes: Code(s): E11.9 - Type 2 diabetes mellitus without complications Status: Chronic Assessment and Plan: * accu-cheks being followed * management per hospitalists Will continue to follow. Subjective Date/time seen: 11/28/22 09:35 Interval history: Follow-up for end stage renal disease on hemodialysis. Tolerating dialysis treatment at the time of my visit (seen on HD at 09:20M); no apparent distress noted at this time; somewhat concerned that he has not urinated in a while (despite ESRD status, still makes some urine); pain control seems adequate. Exam Narrative: General: WD/WN male in NAD Heart: normal S1 and S2; no rub Lungs: clear bilaterally Abdomen: soft, nontender, nondistended, positive bowel sounds Extremities: no cyanosis or clubbing; no edema; right middle finger dressings in place Skin: warm and dry Objective Data Vital Signs Vital Signs: Vital Signs 11/28/22 09:17 76 143/65 H 11/28/22 09:07 97.6 F 78 16 144/77 H 11/28/22 09:04 4 11/28/22 08:00 90 Nasal Cannula 4 11/28/22 08:36 76 11/28/22 06:00 97.5 F L 81 20 162/68 H 95 11/28/22 01:50 72 16 11/28/22 01:41 70 16 11/27/22 21:45 97.6 F 83 16 154/69 H 98 11/27/22 20:00 Room Air 11/27/22 19:30 74 16 11/27/22 19:14 72 16 11/27/22 19:14 97 Nasal Cannula 3 11/27/22 14:00 96.9 F L 75 20 149/69 H 100 11/27/22 13:38 76 16 11/27/22 13:23 76 16 Intake/Output Intake/Output: Intake & Output 11/25/22 11/26/22 11/27/22 11/28/22 23:59 23:59 23:59 23:59 Intake Total 720 3790 2222 290 Output Total 1696 Balance -976 3790 2222 290 Meds/Results Medications: Active Medications Generic Name Dose Route Start Last Admin Trade Name Freq PRN Reason Stop Dose Admi
--- NOTE | 2022-11-28 09:35 | PM.PNNEP ---
Progress Note: A&P Assessment and Plan (1) End stage renal disease: Code(s): N18.6 - End stage renal disease Status: Chronic Assessment and Plan: HD today continue M/W/F dialysis schedule while hospitalized follow electrolytes, volume status, and clearance (2) Abscess of left middle finger: Code(s): L02.512 - Cutaneous abscess of left hand Status: Acute Assessment and Plan: as noted by Dr. Pritchard s/p I & D at Dr. Pritchard's office (on 11/22/22) s/p I & D in OR by Dr. Pritchard (on 11/24/22) on antibiotics blood cultures negative to date local wound care pain control (3) Hypertension: Code(s): I10 - Essential (primary) hypertension Status: Chronic Assessment and Plan: reasonable control at this time follow trend of hemodynamics (4) Anemia: Code(s): D64.9 - Anemia, unspecified Status: Chronic Assessment and Plan: due to ESRD H/H at goal Epogen on hold (5) COPD (chronic obstructive pulmonary disease): Code(s): J44.9 - Chronic obstructive pulmonary disease, unspecified Status: Chronic Assessment and Plan: appears compensated at this time contime home medications/inhalers (6) Diabetes: Code(s): E11.9 - Type 2 diabetes mellitus without complications Status: Chronic Assessment and Plan: accu-cheks being followed management per hospitalists Will continue to follow. Subjective Date/time seen: 11/28/22 09:35 Interval history: Follow-up for end stage renal disease on hemodialysis. Tolerating dialysis treatment at the time of my visit (seen on HD at 09:20M); no apparent distress noted at this time; somewhat concerned that he has not urinated in a while (despite ESRD status, still makes some urine); pain control seems adequate. Exam Narrative: General: WD/WN male in NAD Heart: normal S1 and S2; no rub Lungs: clear bilaterally Abdomen: soft, nontender, nondistended, positive bowel sounds Extremities: no cyanosis or clubbing; no edema; right middle finger dressings in place Skin: warm and dry Objective Data Vital Signs Vital Signs: Vital Signs 11/28/22 09:17 76 143/65 H 11/28/22 09:07 97.6 F 78 16 144/77 H 11/28/22 09:04 4 11/28/22 08:00 90 Nasal Cannula 4 11/28/22 08:36 76 11/28/22 06:00 97.5 F L 81 20 162/68 H 95 11/28/22 01:50 72 16 11/28/22 01:41 70 16 11/27/22 21:45 97.6 F 83 16 154/69 H 98 11/27/22 20:00 Room Air 11/27/22 19:30 74 16 11/27/22 19:14 72 16 11/27/22 19:14 97 Nasal Cannula 3 11/27/22 14:00 96.9 F L 75 20 149/69 H 100 11/27/22 13:38 76 16 11/27/22 13:23 76 16 Intake/Output Intake/Output: Intake & Output 11/25/22 11/26/22 11/27/22 11/28/22 23:59 23:59 23:59 23:59 Intake Total 720 3790 2222 290 Output Total 1696 Balance -976 3790 2222 290 Meds/Results Medications: Active Medications Generic Name Dose Route Start Last Admin Trade Name Freq PRN Reason Stop Dose Admin Acetaminophen 650 mg 11/22/22 21:28 Acetaminophen 325 Mg Tablet PO Q4H PRN Headache Hydrocodone Bitart/Acetaminophen 1 tab 11/22/22 22:44 11/27/22 17:44 Hydrocodone/Acetaminophen (*Crx) 5-325 Mg Tablet PO 1 tab Q4H PRN Administration Pain Rated 3-6 Albuterol 2 puff 11/22/22 21:13 Albuterol Sulfate (*Sp) Aerosol 1 Puff INHALATION Q6HRT PRN Shortness Of Breath Albuterol 2.5 mg 11/25/22 14:00 11/28/22 09:43 Albuterol Sulfate Neb 2.5 Mg/3 Ml Inh INHALATION 2.5 mg Q6HRT KAIN Administration Allopurinol 100 mg 11/23/22 09:00 11/28/22 08:38 Allopurinol 100 Mg Tablet PO 100 mg DAILY KAIN Administration Amiodarone HCl 200 mg 11/23/22 09:00 11/28/22 08:36 Amiodarone Hcl 200 Mg Tablet PO 200 mg DAILY KAIN Administration Amlodipine Besylate 5 mg 11/23/22
--- NOTE | 2022-11-28 09:43 | PCRCNOTE ---
RT entered pt's room to give 0800 neb tx @ 0901. Pt was not in room, will return at later time.
[2022-11-28] MEDS: ALBUMIN HUMAN 25% 12.5 GM/50ML 50 ML IVPB (10:10)
[2022-11-28 11:29] LABS: Glucose Point of Care 110 mg/dl (65-105)
[2022-11-28] MEDS: HYDROcodone/acetaminophen (*CRX) 5-325 MG TABLET 1 TAB PO (12:59)
[2022-11-28] MEDS: VANCOMYCIN 750 MG/NS 250 ML 750 MG/250 ML BAG 250 MG IVPB (13:00)
--- NOTE | 2022-11-28 13:27 | PM.DS ---
DS: Admitting Diagnosis Discharge Date 11/29/31 Admitting Diagnosis left middle finger infection DS: Discharge Diagnosis Discharge Diagnosis (1) MRSA (methicillin resistant staph aureus) culture positive: Code(s): Z22.322 - Carrier or suspected carrier of Methicillin resistant Staphylococcus aureus Status: Acute Assessment and Plan: patient was being seen by Dr. Pritchard for I&D of a finger infection. The culture of this came back positive for MRSA and he was advised to be seen at the hospital. The patient has multiple allergies. He states that he is allergic to the cephalosporins. I started him on vancomycin. The patient had I&D 11/22/22. Blood cultures no growth to date MRSA Swab negative. The patient had been on clindamycin. He has been having diarrhea for 2 days. Clindamycin discontinue. C diff negative. Subsequent I&D on 11/24/2022 -see operative notes. (2) Hyperlipidemia: Code(s): E78.5 - Hyperlipidemia, unspecified Status: Acute Assessment and Plan: Continue with atorvastatin (3) Diabetes: Code(s): E11.9 - Type 2 diabetes mellitus without complications Status: Chronic Assessment and Plan: AC and HS with sliding scale insulin. Hemoglobin A1c 6.5. (4) Depression with anxiety: Code(s): F41.8 - Other specified anxiety disorders Status: Acute Assessment and Plan: Continue with Lexapro (5) End-stage renal disease on hemodialysis: Code(s): N18.6 - End stage renal disease; Z99.2 - Dependence on renal dialysis Status: Acute Assessment and Plan: Patient had a positive bruit and thrill to right forearm AV fistula. Nephrology has been consulted. The patient has seen Dr. Justin in the past. Patient has dialysis on Monday. (6) Degenerative joint disease: Code(s): M19.90 - Unspecified osteoarthritis, unspecified site Status: Acute Assessment and Plan: Continue with current the patient is on allopurinol for gout. (7) Hypertension: Code(s): I10 - Essential (primary) hypertension Status: Chronic Assessment and Plan: Continue with amiodarone and amlodipine (8) COPD (chronic obstructive pulmonary disease): Code(s): J44.9 - Chronic obstructive pulmonary disease, unspecified Status: Chronic Assessment and Plan: The patient continues to smoke. Offered smoking cessation. P.r.n. albuterol 11/26/22 Patient is a little wheezy today. Continue nebulizer treatments. Started on 5 day course of azithromycin. Will hold off on steroids due to patient's elevated blood sugars. (9) Anemia: Code(s): D64.9 - Anemia, unspecified Status: Chronic Assessment and Plan: Continue to monitor anemia. Continue with ferrous sulfate (10) CHF (congestive heart failure), NYHA class I: Code(s): I50.9 - Heart failure, unspecified Status: Acute Assessment and Plan: Continue Bumex Plan Tobacco abuse smoking cessation education would greatly be appreciated. DS: Summary Hospital Course Hospital Course: This is a 66-year-old male with a past medical history of end-stage renal disease , COPD, hypertension, GERD and BPH the presents to the ED on 11/22/2022 due to abscess of his left middle finger. He had been referred to Dr. Pritchard due to left middle finger wound. He had been in to see Dr. Pritchard in the office and when Dr. Pritchard took a culture a came back positive for MRSA and he was directed to go to the Hospital. Patient was started on IV vancomycin and Dr. Pritchard was consulted. Patient underwent I and D on 11/22/2022. Blood cultures were drawn and did not reveal any growth. Patient's MRSA swab was negative. He had recently been on clindamycin for his finger infection and started having diarrhea at that time. C diff was tested and was negative. Clindamycin was discontinued. Patient had subsequent I&D on 11/24/2022 (see operative note). Nephrolog
--- NOTE | 2022-11-28 18:20 | WPDPN ---
Progress Note: A&P Assessment and Plan (1) Abscess of left middle finger: Code(s): L02.512 - Cutaneous abscess of left hand Status: Acute Assessment and Plan: OK for discharge. Continue silver Gel with bandaid every other day. F/U with PMD. Time Spent With Patient Time with patient: 15 - 25 minutes Subjective Date/time seen: 11/28/22 18:20 Interval history: Pts hand examined while in dialysis. Exam Narrative: Pt readily demonstrated near complete composite flexion of all digits to palm. Wound redressed, Dorsla wounds closed. Palmar wound granulated. Minimal edema . Tolerated exam without sig pain. Objective Data Vital Signs Vital Signs: Vital Signs - 24 hr 11/27/22 19:14 11/27/22 19:14 11/27/22 19:30 Temperature Pulse Rate 72 74 Respiratory Rate 16 16 Blood Pressure Pulse Oximetry 97 Oxygen Delivery Nasal Cannula Oxygen Flow Rate 3 11/27/22 20:00 11/27/22 21:45 11/28/22 01:41 Temperature 97.6 F Pulse Rate 83 70 Respiratory Rate 16 16 Blood Pressure 154/69 H Pulse Oximetry 98 Oxygen Delivery Room Air Oxygen Flow Rate 11/28/22 01:50 11/28/22 06:00 11/28/22 08:36 Temperature 97.5 F L Pulse Rate 72 81 76 Respiratory Rate 16 20 Blood Pressure 162/68 H Pulse Oximetry 95 Oxygen Delivery Oxygen Flow Rate 11/28/22 08:00 11/28/22 09:04 11/28/22 09:07 Temperature 97.6 F Pulse Rate 78 Respiratory Rate 16 Blood Pressure 144/77 H Pulse Oximetry 90 Oxygen Delivery Nasal Cannula Oxygen Flow Rate 4 4 11/28/22 09:17 11/28/22 09:40 11/28/22 10:00 Temperature Pulse Rate 76 75 73 Respiratory Rate Blood Pressure 143/65 H 129/65 123/62 Pulse Oximetry Oxygen Delivery Oxygen Flow Rate 11/28/22 10:20 11/28/22 10:40 11/28/22 11:00 Temperature Pulse Rate 74 76 75 Respiratory Rate Blood Pressure 128/64 135/67 129/62 Pulse Oximetry Oxygen Delivery Oxygen Flow Rate 11/28/22 11:20 11/28/22 11:40 11/28/22 12:00 Temperature Pulse Rate 75 73 73 Respiratory Rate Blood Pressure 132/64 113/57 L 118/57 L Pulse Oximetry Oxygen Delivery Oxygen Flow Rate 11/28/22 12:20 11/28/22 12:48 11/28/22 13:23 Temperature 97.8 F Pulse Rate 74 79 79 Respiratory Rate 14 Blood Pressure 112/56 L 131/61 128/64 Pulse Oximetry Oxygen Delivery Oxygen Flow Rate 11/28/22 14:00 11/28/22 15:05 11/28/22 15:09 Temperature 97.1 F L Pulse Rate 82 76 Respiratory Rate 18 16 Blood Pressure 117/72 Pulse Oximetry 96 97 Oxygen Delivery Nasal Cannula Oxygen Flow Rate 4 11/28/22 15:17 Temperature Pulse Rate 79 Respiratory Rate 16 Blood Pressure Pulse Oximetry Oxygen Delivery Oxygen Flow Rate Intake/Output Intake/Output: Intake & Output 11/25/22 11/26/22 11/27/22 11/28/22 23:59 23:59 23:59 23:59 Intake Total 720 3790 2222 530 Output Total 1696 4400 Balance -976 3790 2222 -3870 Meds/Results Radiology Results: ITS Impressions Hand X-Ray 11/22/22 22:02 IMPRESSION: No radiographic evidence of osteomyelitis. Chest X-Ray 11/25/22 08:40 IMPRESSION: 1. Unilateral small right pleural effusion. 2. Opacities in the left perihilar and right mid and lower lung zones which could represent pneumonia, pulmonary edema, atelectasis or some combination thereof. Labs Labs: Laboratory Results - last 24 hr 11/27/22 11/28/22 11/28/22 19:53 05:27 07:31 WBC 12.5 H RBC 3.84 L Hgb 11.1 L Hct 37.5 L MCV 97.7 MCH 28.9 MCHC 29.6 L RDW 16.6 H Plt Count 213 MPV 8.7 Immature Gran % (Auto) 3.5 H Neut % (Auto) 79.7 H Lymph % (Auto) 6.6 L [place] % (Auto) 6.7 Eos % (Auto) 2.3 Baso % (Auto) 1.2 Lymph # (Auto) 0.82 L [place] # (Auto) 0.8 H Eos # (Auto) 0.3 Baso # (Auto) 0.2 H Abs Immat Gran (auto) 0.44 H Absolute Neuts (auto) 10.0 H Absolute Nucleated RBC 0.0
== END 2022-11-28 16:00 | disposition home health service (06) | DRG 602 ==
PROVIDERS: Internal Medicine Nephrology; Nurse Practitioner; Plastic Surgery; Admitting Provider Student in an Organized Health Care Education/Training Program; PCP Family Medicine; Visit Provider Internal Medicine Critical Care Medicine
PROC: 0H9GXZZ Drainage of Left Hand Skin, External Approach (ICD-10-PCS; principal; 2022-11-24 10:45)
DX: L02.512 Cutaneous abscess of left hand (principal); N18.6 End stage renal disease; I13.2 Hypertensive heart and chronic kidney disease with heart failure and with stage 5 chronic kidney disease, or end stage renal disease; B95.62 Methicillin resistant Staphylococcus aureus infection as the cause of diseases classified elsewhere; D63.1 Anemia in chronic kidney disease; E11.22 Type 2 diabetes mellitus with diabetic chronic kidney disease; F41.8 Other specified anxiety disorders; F17.210 Nicotine dependence, cigarettes, uncomplicated; I50.9 Heart failure, unspecified; J44.9 Chronic obstructive pulmonary disease, unspecified; K21.9 Gastro-esophageal reflux disease without esophagitis; M10.9 Gout, unspecified; N40.0 Benign prostatic hyperplasia without lower urinary tract symptoms; Z99.2 Dependence on renal dialysis; Z90.49 Acquired absence of other specified parts of digestive tract; R19.7 Diarrhea, unspecified; E78.5 Hyperlipidemia, unspecified; M19.90 Unspecified osteoarthritis, unspecified site
CPT/HCPCS: 36415; 71045; 73120; 80048; 80053; 80202; 82274; 82565; 82948; 83036; 83605; 83735; 84100; 84443; 85025; 85027; 86706; 87040; 87081; 87340; 87493; 93005; 94640; A9270; G0257; J1815; J1836; J1940; J2270; J3370; J7030; P9047; Q4081; Q5106

== ENCOUNTER 2022-12-07 01:16 | Inpatient (IN) | payer MEDICARE, SELFPAY ==
[2022-12-07] VITALS (21 sets, daily range): BP systolic 108–148; BP diastolic 53–72; PULSE 65–76; RESP 16–19; TEMP 36–36.9; O2SAT 92–94; BMI 27.3; BMI 26.4
--- NOTE | ~2022-12-07 | XR_ITS ---
EXAMINATION: XR hip LT 2V w AP pelvis DATE: 12/07/2022 13:17 INDICATION: Left hip fracture. TECHNIQUE: An anteroposterior view of the pelvis and 2 views of left hip were obtained. COMPARISON: None. FINDINGS: There is a transcervical fracture of left femoral neck. The distal fracture fragment demons trates 2 mm lateral displacement and 9 degrees posterior angulation. There is mild osteoarthritis of the hips. IMPRESSION: 1. Transcervical fracture of left femoral neck. 2. Mild osteoarthritis of the hips. Reviewed, dictated and finalized at location A.
--- NOTE | ~2022-12-07 | US_ITS ---
EXAMINATION: US soft tissue LE RT DATE: 12/15/2022 15:58 INDICATION: Anterior right lower leg swelling TECHNIQUE: Multiple grayscale and Doppler ultrasound images of the region of concern along the anteri or right lower leg were obtained. COMPARISON: None FINDINGS: There is a 4.8 x 4.6 x 0.6 cm anechoic fluid collection without a well-defined organized peripheral c apsule located at the junction of the subcutaneous fat in the underlying muscular fascia. Flow is see n within a few vessels at the periphery of the fluid collection. No flow on color Doppler within the fluid collection. There is a small shadowing 3 x 3.5 mm echogenic and shadowing likely calcification at the caudal aspect of the fluid collection, possibly a phlebolith. Underlying musculature appears u nremarkable. IMPRESSION: 1. Nonorganized 4.8 x 4.6 x 0.6 cm anechoic fluid collection with irregular margins in the deep subcu taneous tissues at the region of concern. Differential would include hematoma, prominent localized ed ana or developing abscess in the appropriate clinical setting. Reviewed, dictated and finalized at location A. IMPRESSION: 1. Nonorganized 4.8 x 4.6 x 0.6 cm anechoic fluid collection with irregular mar gins in the deep subcutaneous tissues at the region of concern. Differential wo uld include hematoma, prominent localized edema or developing abscess in the ap propriate clinical setting.
--- NOTE | ~2022-12-07 | XR_ITS ---
EXAMINATION: XR chest 1V portable Exam Date/Time: 12/08/2022 19:30 CDT HISTORY: hypoxia; post op Lt hip this P.M; HTN, COPD, smoker Comparison: 11/25/2022. RESULT: Lines, tubes, and devices: Cholecystectomy clips. Lungs and pleura: Increased mild diffuse reticular opacities. Stable patchy mid and lower lung subse gmental airspace opacities. Similar small right pleural effusion. Cardiomediastinal silhouette: Stable. Other: No acute osseous or upper abdominal finding. IMPRESSION: Slightly increased interstitial edema. Stable edematous or infectious subsegmental bilateral mid and lower lung opacities. Stable small right pleural effusion. Reviewed, dictated and finalized at location K. IMPRESSION: Slightly increased interstitial edema. Stable edematous or infectious subsegmen deepa bilateral mid and lower lung opacities. Stable small right pleural effusion .
--- NOTE | ~2022-12-07 | XR_ITS ---
EXAM: XR hip LT min 2V DATE: 12/08/2022 16:59 HISTORY: LEFT BIPOLAR HIP POST OP . COMPARISON: 12/07/2022. FINDINGS/IMPRESSION: Expected postsurgical changes, with no radiographic evidence of procedure or kimberly dware related complication. Reviewed, dictated and finalized at location K.
--- NOTE | ~2022-12-07 | CT_ITS ---
EXAMINATION: CT abdomen pelvis wo con DATE: 12/11/2022 16:09 INDICATION: Nausea and vomiting TECHNIQUE: Computed tomography (CT) of the abdomen and pelvis was performed without intravenous contr ast. The dose-length product (DLP) was 843.63 mGy-cm. Automated exposure control and iterative recons truction technique were employed. COMPARISON: None FINDINGS: There are small pleural effusions, right greater than left, with associated passive atelect asis of the lower lobes. The heart size is normal. There is moderate distention of the stomach of unc lear etiology. There are changes of cholecystectomy. The liver, spleen, pancreas, and adrenal glands are normal. There is an 11 mm cyst of the right kidney. The left kidney is unremarkable. There is tiffanie cified atherosclerosis of the aorta and many of the other arteries. No pathologically enlarged abdomi nal or pelvic lymph nodes are identified. No free intraperitoneal gas or evidence of bowel obstructio n. Streak artifact from left hip arthroplasty partially obscures the pelvis. A small amount of subcut aneous gas overlying the left hip is consistent with recent arthroplasty. There are surgical changes in the small bowel. The bladder is decompressed by García catheter. There is mild lumbar spondylosis. IMPRESSION: 1. Moderate distention of the stomach of unclear etiology. 2. Small pleural effusions, right greater than left with associated lower lobe atelectasis. Reviewed, dictated and finalized at location F.
--- NOTE | ~2022-12-07 | XR_ITS ---
EXAMINATION: XR hip LT 2V w AP pelvis DATE: 12/19/2022 16:43 INDICATION: Left hip pain. TECHNIQUE: An anteroposterior view of the pelvis and 2 views of left hip were obtained. COMPARISON: Left hip radiographs 12/18/22 FINDINGS: There is a bipolar left hip hemiarthroplasty in near-anatomic alignment. No fracture. No pe riprosthetic lucency to suggest loosening or infection. There is mild right hip osteoarthritis. There is mild lumbar spondylosis. IMPRESSION: 1. Bipolar left hip hemiarthroplasty in near-anatomic alignment. 2. Mild right hip osteoarthritis. Reviewed, dictated and finalized at location E.
--- NOTE | ~2022-12-07 | US_ITS ---
EXAMINATION: US hip asp inj w image LT DATE: 12/20/2022 13:07 INDICATION: Left hip pain with possible infection of a recently placed bipolar hip arthroplasty. TECHNIQUE: The procedure including the risks, benefits, and alternatives was discussed with the patie nt. Risks discussed included bleeding, infection and allergic reaction. The patient understood the ri sks and agreed to proceed. A timeout was performed to verify the patient's name, date of , an d procedure to be performed. The skin overlying the left hip joint was prepped and draped in usual s terile fashion. Anesthetic was administered with 1% lidocaine subcutaneously. An 20 gauge spinal ne edle was then advanced into the left hip joint space along the anterior margin of the neck of the art hroplasty under continuous sonographic guidance. Fluid was aspirated and sent to the lab for studies as ordered by the referring physician. The entry site was cleaned and dressed. There were no immedia te complications. FINDINGS: Ultrasound images demonstrate a small left joint effusion with needle advanced into the effusion. IMPRESSION: 1. Successful ultrasound-guided left hip joint aspiration yielding 12 mL of dark reddish fluid. Reviewed, dictated and finalized at location A. IMPRESSION: 1. Successful ultrasound-guided left hip joint aspiration yielding 12 mL of da rk reddish fluid.
--- NOTE | 2022-12-07 01:19 | ECG_ITS ---
Measurements Intervals [place] Rate: 69 P: 72 MO: 181 QRS: 130 QRSD: 166 T: 28 QT: 469 QTc: 506 Interpretive Statements SINUS RHYTHM POSSIBLE LEFT ATRIAL ENLARGEMENT [-0.1mV P WAVE IN V1/V2] INDETERMINATE AXIS RIGHT BUNDLE BRANCH BLOCK [120+ ms QRS DURATION, UPRIGHT V1, 40+ ms S IN I/aVL/V4/V5/V6] COMPARED TO ECG 11/26/2022 08:53:59 NO SIGNIFICANT CHANGES Electronically Signed On 12-07-2022 15:28:17 CDT by Elmer Catalan M.D.
--- NOTE | 2022-12-07 04:16 | ADMGEN ---
This patient, Bruno Unger, was admitted to Medical Room 248-. Patient/family oriented to hospital policies and general routines including ID bracelet, bed and alarms, visiting hours, pain management, procedures, bathroom and other care routines, personal items, smoking policy, room service/diet, and visiting hours. Information on how to activate the Rapid Response Team has been discussed. Patient/Family are encouraged to report perceived risks to care and to ask questions if they do not understand what they are told or what they should do.
[2022-12-07] MEDS: MORPHINE SULFATE (*CRX) 2 MG/ML INJ IV PUSH ×4 (04:54→19:52)
[2022-12-07 05:22] LABS: Basophils Absolute Auto 0.2 K/mm3 (0.0-0.1); Basophils Percent Auto 1.5 % (0.2-1.2); Eosinophils Absolute Auto 0.3 K/mm3 (0-0.3); Eosinophils Percent Auto 2.6 % (0-4.4); Hematocrit 35.5 % (42.0-52.0); Hemoglobin 10.8 g/dL (14.0-18.0); Immature Granulocyte Percent A 1.6 % (0-0.5); Lymphocytes Absolute Auto 0.91 K/mm3 (0.9-3.2); Lymphocytes Percent Auto 7.2 % (18.3-44.2); Mean Corpuscular HGB Conc 30.4 g/dl (32-36); Mean Corpuscular Hemoglobin 28.3 pg (26-34); Mean Corpuscular Volume 92.9 fl (80-100); Mean Platelet Volume 9.2 fl (7.4-10.4); Monocytes Absolute Auto 0.8 K/mm3 (0.1-0.6); Monocytes Percent Auto 6.4 % (2.6-8.5); Neutrophils Absolute Auto 10.2 K/mm3 (1.3-6.7); Neutrophils Percent Auto 80.7 % (45.5-73.1); Platelet Count Result 204 k/mm3 (150-375); Red Blood Count 3.82 M/mm3 (4.6-6.20); Red Cell Distribution Width 17.3 % (11.5-14.5); White Blood Count 12.6 K/mm3 (4.5-10.0)
[2022-12-07 05:32] LABS: Alanine Aminotransferase 24 U/L (6-50); Albumin Level 3.2 g/dL (3.5-5.1); Alkaline Phosphatase 174 U/L (38-126); Anion Gap 3 mmol/L (8-16); Aspartate Amino Transferase 34 U/L (17-59); Bilirubin,Total 0.4 mg/dL (0.2-1.3); Blood Urea Nitrogen 32 mg/dL (9-20); Calcium 7.6 mg/dL (8.4-10.2); Carbon Dioxide 37 mmol/L (22-30); Chloride 93 mmol/L (98-107); Estimated CRCL calculation 12 ml/min; Estimated Glomerular Filt Rate 10; Glucose 84 mg/dL (65-110); INR 1.1; Magnesium 1.9 mg/dL (1.6-2.3); Potassium 4.7 mmol/L (3.4-5.0); Prothrombin Time 14.7 Seconds (11.1-14.7); Sodium 133 mmol/L (137-145)
[2022-12-07 05:33] LABS: Hemoglobin A1C 6.2 % (<5.7); Partial Thromboplastin Time 33.5 SECONDS (22.3-36.8)
[2022-12-07] MEDS: DEXTROSE 5%/0.45% SOD CHL 1,000 ML 50 ML IV CONT (06:47)
--- NOTE | 2022-12-07 07:23 | PM.IMHP ---
H&P: HPI History of Present Illness Date/Time: 12/07/22 07:23 Chief Complaint: fall, left hip fracture Narrative: This is a 66-year-old male with a complicated past medical history including end-stage renal disease, COPD and currently continues to smoke, CHF, hypertension and hyperlipidemia that was transferred to [facility] from [facility] due to left hip fracture and need for dialysis. Patient had been using his Rollator and walking out to his car from a urology appointment and while he was attempting to put the Rollator in the car he lost his balance and fell onto his hip. Patient was taken to a nearby hospital where they do not have dialysis available and due to this he had to be transferred here to [facility]. he denies any dizziness, trauma to his head or loss of consciousness. Patient believes that he just lost his balance. X-ray of the hip and pelvis revealed transcervical fracture of the left femoral neck. Orthopedics consulted. Patient scheduled for possible surgery tomorrow, 12/08/2022. Patient was recently admitted in October of 2022 due to MRSA infection on his left middle finger that was managed by hospitalist team and Dr. Pritchard. According to the patient wound is healing well and he finished antibiotic therapy. Patient receives dialysis on Monday. Nephrology consulted for dialysis. [facility] Past Medical History Medical History Acute arthritis Anemia BPH (benign prostatic hyperplasia) CHF (congestive heart failure), NYHA class I Chronic GERD COPD (chronic obstructive pulmonary disease) Degenerative joint disease Depression with anxiety Diabetes End-stage renal disease on hemodialysis Monday Erectile disorder Gout Heart murmur Hyperlipidemia Hypertension Kidney stone Tobacco use Surgical History Surgical History H/O arthroscopy of right knee H/O cardiac catheterization H/O endoscopic retrograde cholangiopancreatography Duct stent placement H/O hernia repair H/O inguinal hernia repair History of appendectomy History of cholecystectomy History of colon resection Hx laparoscopic cholecystectomy S/P colonoscopy with polypectomy S/P dialysis catheter insertion S/P ORIF (open reduction internal fixation) fracture Left humerus surgery Family History Family History Mother Diabetes mellitus Father Diabetes mellitus Other Hypertension Social History Social History Social History: He is down to 6 cigarettes a day. He lives with his granddaughter in [place]. He is . He has worked for the [employer] and [employer] Code status full code Smoking status: Current some day smoker Tobacco type: cigarettes Alcohol intake: former Substance use: never Substance use type: does not use Lack of Transportation: No Lack of Food: Never True Current Housing: I Have Housing Concerned About Future Housing: No Difficulty Paying Gas/Electric Bills: No Difficulty Paying for Meds: No Currently Unemployed: No Education: Decline to Answer Difficulty w/ Childcare or Family Care: No Living arrangements: with family Spiritual care concerns: No Meds Home Medications and Allergies Home Medications Medication Instructions Recorded Confirmed Type allopurinol 100 mg tablet 100 mg PO DAILY 06/20/22 12/07/22 History amiodarone 200 mg tablet 200 mg PO DAILY 06/20/22 12/07/22 History atorvastatin 20 mg tablet 20 mg PO HS 06/20/22 12/07/22 History bumetanide 2 mg tablet 4 mg PO USEASDIRECTD 06/20/22 12/07/22 History sevelamer carbonate 800 mg tablet 1,600 mg PO TIDWM 06/20/22 12/07/22 History tamsulosin 0.4 mg capsule 0.4 mg PO DAILY 06/20/22 12/07/22 History amlodipine 10 mg tablet 5 mg PO DAILY 11/22/22 12/07/22 History cholecalciferol (vitamin D3
[2022-12-07] MEDS: AMIODARONE HCL 200 MG TABLET PO (08:23)
[2022-12-07] MEDS: amLODIPine BESYLATE 5 MG TABLET PO (08:24)
[2022-12-07] MEDS: CHOLECALCIFEROL 1,000 UNITS TABLET 5000 UNITS PO (08:24)
[2022-12-07] MEDS: MAGNESIUM OXIDE 400 MG TABLET PO (08:25)
[2022-12-07] MEDS: TAMSULOSIN HCL 0.4 MG CAPSULE PO (08:25)
[2022-12-07] MEDS: ESCITALOPRAM OXALATE 10 MG TABLET 20 MG PO (08:25)
[2022-12-07] MEDS: FERROUS SULFATE 325 MG TABLET DR PO (08:25)
[2022-12-07] MEDS: EPOETIN ALFA-EPBX 3,000 UNITS/ML VIAL 4000 UNITS IV PUSH (11:39)
[2022-12-07] MEDS: SODIUM CHLORIDE 0.9% IV 1,000 ML 999 ML IV CONT (11:40)
--- NOTE | 2022-12-07 11:50 | PM.CNNEP ---
Assessment and Plan Assessment and plan (1) End stage renal disease: Code(s): N18.6 - End stage renal disease Status: Chronic Assessment and Plan: HD today continue M/W/F dialysis schedule while hospitalized follow electrolytes, volume status, and clearance (2) Closed left hip fracture: Qualifiers: Encounter type: initial encounter Qualified Code(s): S72.002A - Fracture of unspecified part of neck of left femur, initial encounter for closed fracture Code(s): S72.002A - Fracture of unspecified part of neck of left femur, initial encounter for closed fracture Status: Acute Assessment and Plan: Orthopedics consulted pain control (3) Hypertension: Code(s): I10 - Essential (primary) hypertension Status: Chronic Assessment and Plan: reasonable control at this time follow trend of hemodynamics (4) Anemia: Code(s): D64.9 - Anemia, unspecified Status: Chronic Assessment and Plan: due to ESRD Epogen with HD follow trend of H/H (5) COPD (chronic obstructive pulmonary disease): Code(s): J44.9 - Chronic obstructive pulmonary disease, unspecified Status: Chronic Assessment and Plan: appears compensated at this time contime home medications/inhalers (6) Diabetes: Code(s): E11.9 - Type 2 diabetes mellitus without complications Status: Chronic Assessment and Plan: follow accu-cheks on medications for this(?) glycemic control for hospitalists (if needed) I will continue to follow the patient with you while he means hospitalized and make further recommendations as needed. Thank you for allowing me to participate in the care of this patient. History of Present Illness Reason for Consult Consult date: 12/07/22 Reason for consult: end stage renal disease Chief Complaint Chief complaint: L Hip Femoral Neck Fracture History of Present Illness Narrative: The patient is a 66-year-old male with a past medical history as outlined below who was directly admitted to [facility] for further evaluation and treatment of a left hip fracture. The patient was walking out to his car from a doctor's appointment and while he was attempting to places Rollator inside the car, he lost his balance and fell on his left side. He had immediate pain in his left hip area and was taken to a local hospital emergency room for further evaluation. Imaging studies at that time demonstrated a transcervical fracture of the left femoral neck. he reports that he did not lose consciousness or have any other Prodromos symptoms prior to the fall with regard to chest pain, shortness of breath, lightheadedness, or dizziness. Unfortunately, the facility that he was at that discomfort this issue does not have dialysis capabilities. Hence, the patient was transferred to [facility] for further evaluation and therapy. It should be noted the patient was just recently discharged from [facility] after being treated for a left middle finger cellulitis/abscess that required surgical intervention and IV antibiotic therapy. He reports that this wound appears to be healing quite well and he has finished his course of antibiotics. Renal consultation was requested due to his end-stage renal disease. The patient is familiar to me as I take care of his outpatient needs for renal replacement therapy/dialysis. He currently receives dialysis on a Monday, Monday, Monday dialysis schedule at [facility] under my care. His last dialysis treatment was on Monday and apparently was uneventful. From a dialysis standpoint, the patient is fairly compliant with his dialysis treatments although he sometimes has more fluid gains over the weekend requiring more aggressive fluid removal on Mondays. He has had issues and problems with recurrent hospitalizations but they are usually related more so to his COPD than hi
[2022-12-07] MEDS: HEPARIN SODIUM 5,000 UNITS/ML VIAL 5000 UNITS SUB-Q (14:29)
--- NOTE | 2022-12-07 16:01 | PM.CNOR ---
Assessment and Plan Assessment and plan (1) Closed left hip fracture: Qualifiers: Encounter type: initial encounter Qualified Code(s): S72.002A - Fracture of unspecified part of neck of left femur, initial encounter for closed fracture Code(s): S72.002A - Fracture of unspecified part of neck of left femur, initial encounter for closed fracture Status: Acute (2) End stage renal disease: Code(s): N18.6 - End stage renal disease Status: Chronic Plan Displaced femoral neck fracture. Radiographs reviewed. End-stage renal disease on hemodialysis. We discussed the proposed procedure. Risks, benefits, and alternatives discussed. Proceed with Bipolar Hemiarthroplasty left hip. History of Present Illness HPI Consult date: 12/07/22 Chief complaint: L Hip Femoral Neck Fracture Narrative: Patient complains of acute hip pain. Fell from standing height. Transferred from [facility] for definitive management and dialysis. No previous hip pain. Comfortable at rest. No numbness, tingling, or other associated symptoms. End-stage renal disease. On dialysis. Recent finger fracture treated by Dr. Griffin with debridement and antibiotics. History of COPD and GERD. Diabetes. History of gout and anemia. Congestive heart failure. Review of Systems Review of Systems: Denies loss of consciousness. All systems reviewed & are unremarkable except as noted in HPI and below PMFSH Past Medical History Medical History Acute arthritis Anemia BPH (benign prostatic hyperplasia) CHF (congestive heart failure), NYHA class I Chronic GERD COPD (chronic obstructive pulmonary disease) Degenerative joint disease Depression with anxiety Diabetes End-stage renal disease on hemodialysis Monday Erectile disorder Gout Heart murmur Hyperlipidemia Hypertension Kidney stone Tobacco use Surgical History Surgical History H/O arthroscopy of right knee H/O cardiac catheterization H/O endoscopic retrograde cholangiopancreatography Duct stent placement H/O hernia repair H/O inguinal hernia repair History of appendectomy History of cholecystectomy History of colon resection Hx laparoscopic cholecystectomy S/P colonoscopy with polypectomy S/P dialysis catheter insertion S/P ORIF (open reduction internal fixation) fracture Left humerus surgery Family History Family History Mother Diabetes mellitus Father Diabetes mellitus Other Hypertension Social History Social History Social History: He is down to 6 cigarettes a day. He lives with his granddaughter in [place]. He is . He has worked for the [employer] and [employer]. Code status full code Smoking status: Current some day smoker Tobacco type: cigarettes Alcohol intake: former Substance use: never Substance use type: does not use Lack of Transportation: No Lack of Food: Never True Current Housing: I Have Housing Concerned About Future Housing: No Difficulty Paying Gas/Electric Bills: No Difficulty Paying for Meds: No Currently Unemployed: No Education: Decline to Answer Difficulty w/ Childcare or Family Care: No Living arrangements: with family Spiritual care concerns: No Meds Home Medications and Allergies Home Medications Medication Instructions Recorded Confirmed Type allopurinol 100 mg tablet 100 mg PO DAILY 06/20/22 12/07/22 History amiodarone 200 mg tablet 200 mg PO DAILY 06/20/22 12/07/22 History atorvastatin 20 mg tablet 20 mg PO HS 06/20/22 12/07/22 History bumetanide 2 mg tablet 4 mg PO USEASDIRECTD 06/20/22 12/07/22 History sevelamer carbonate 800 mg tablet 1,600 mg PO TIDWM 06/20/22 12/07/22 History tamsulosin 0.4 mg capsule 0.4 mg PO DAILY 06/20/22 12/07/22 History amlodipi
[2022-12-07] MEDS: SEVELAMER CARBONATE 800 MG TABLET 1600 MG PO (16:24)
--- NOTE | 2022-12-07 17:52 | PC.NURSE ---
On 12/07/22, the Licence pending nurse, Yvette Vieira, provided care and completed [facility] documentation on this patient. I have reviewed the Licence pending nurse's documentation and agree with the findings
--- NOTE | 2022-12-07 19:26 | PC.NURSE ---
On 12/06/22-12/07/22, the RN license pending, Ry Silver, provided care and [facility] I have reviewed the RN's documentation and agree with the findings.
[2022-12-07] MEDS: ATORVASTATIN 20 MG TABLET PO (19:56)
[2022-12-07] MEDS: ALBUTEROL SULFATE NEB 2.5 MG/3 ML INH INHALATION (20:13)
[2022-12-07] MEDS: IPRATROPIUM BR 0.02% INH SOLN 0.5 MG/2.5 ML VIAL INHALATION (20:14)
[2022-12-07] MEDS: HYDROcodone/acetaminophen (*CRX) 5-325 MG TABLET 1 TAB PO (20:53)
[2022-12-08] VITALS (24 sets, daily range): BP systolic 93–134; BP diastolic 43–55; PULSE 67–85; RESP 12–20; TEMP 36.4–36.7; O2SAT 92–98
[2022-12-08] MEDS: ALBUTEROL SULFATE NEB 2.5 MG/3 ML INH INHALATION ×4 (02:08→19:20)
[2022-12-08] MEDS: IPRATROPIUM BR 0.02% INH SOLN 0.5 MG/2.5 ML VIAL INHALATION ×4 (02:09→19:20)
[2022-12-08] MEDS: HYDROcodone/acetaminophen (*CRX) 5-325 MG TABLET 1 TAB PO ×2 (02:54→21:44)
--- NOTE | 2022-12-08 03:54 | PC.NURSE ---
On 12/07/22-12/08/22, the RN license pending, Ry Silver, provided care and completed [facility] documentation on this patient. I have reviewed the RN's documentation and agree with the findings.
[2022-12-08] MEDS: MORPHINE SULFATE (*CRX) 2 MG/ML INJ IV PUSH ×2 (06:00→10:09)
[2022-12-08] MEDS: LIDOCAINE HCL 2% GEL UROJET 10 ML PKG MUCOUS MEM (06:00)
[2022-12-08] MEDS: DEXTROSE 5%/0.45% SOD CHL 1,000 ML 50 ML IV CONT (06:04)
[2022-12-08 06:38] LABS: Glucose Point of Care 124 mg/dl (65-105)
[2022-12-08 07:50] LABS: Alanine Aminotransferase 22 U/L (6-50); Alkaline Phosphatase 162 U/L (38-126); Anion Gap 2 mmol/L (8-16); Aspartate Amino Transferase 28 U/L (17-59); Bilirubin,Total 0.3 mg/dL (0.2-1.3); Blood Urea Nitrogen 25 mg/dL (9-20); Calcium 7.6 mg/dL (8.4-10.2); Carbon Dioxide 30 mmol/L (22-30); Chloride 99 mmol/L (98-107); Estimated CRCL calculation 14 ml/min; Estimated Glomerular Filt Rate 12; Glucose 121 mg/dL (65-110); Potassium 4.8 mmol/L (3.4-5.0); Sodium 131 mmol/L (137-145)
[2022-12-08 07:54] LABS: Hematocrit 35.7 % (42.0-52.0); Hemoglobin 10.4 g/dL (14.0-18.0); Mean Corpuscular HGB Conc 29.1 g/dl (32-36); Mean Corpuscular Hemoglobin 28.3 pg (26-34); Mean Corpuscular Volume 97.3 fl (80-100); Mean Platelet Volume 9.5 fl (7.4-10.4); Platelet Count Result 205 k/mm3 (150-375); Red Blood Count 3.67 M/mm3 (4.6-6.20); Red Cell Distribution Width 17.8 % (11.5-14.5); White Blood Count 12.1 K/mm3 (4.5-10.0)
[2022-12-08 08:10] LABS: Glucose Point of Care 130 mg/dl (65-105)
[2022-12-08] MEDS: amLODIPine BESYLATE 5 MG TABLET PO (08:38)
[2022-12-08] MEDS: AMIODARONE HCL 200 MG TABLET PO (08:38)
[2022-12-08] MEDS: ESCITALOPRAM OXALATE 10 MG TABLET 20 MG PO (08:38)
[2022-12-08 12:07] LABS: Glucose Point of Care 109 mg/dl (65-105)
--- NOTE | 2022-12-08 12:43 | PM.PNNEP ---
Progress Note: A&P Assessment and Plan (1) End stage renal disease: Code(s): N18.6 - End stage renal disease Status: Chronic Assessment and Plan: HD tomorrow continue M/W/F dialysis schedule while hospitalized follow electrolytes, volume status, and clearance (2) Closed left hip fracture: Qualifiers: Encounter type: initial encounter Qualified Code(s): S72.002A - Fracture of unspecified part of neck of left femur, initial encounter for closed fracture Code(s): S72.002A - Fracture of unspecified part of neck of left femur, initial encounter for closed fracture Status: Acute Assessment and Plan: Orthopedics recommendations noted surgical intervention planned today pain control PT/OT when able (3) Hypertension: Code(s): I10 - Essential (primary) hypertension Status: Chronic Assessment and Plan: reasonable control at this time follow trend of hemodynamics (4) Anemia: Code(s): D64.9 - Anemia, unspecified Status: Chronic Assessment and Plan: due to ESRD Epogen with HD follow trend of H/H (5) COPD (chronic obstructive pulmonary disease): Code(s): J44.9 - Chronic obstructive pulmonary disease, unspecified Status: Chronic Assessment and Plan: appears compensated at this time continue home medications/inhalers (6) Diabetes: Code(s): E11.9 - Type 2 diabetes mellitus without complications Status: Chronic Assessment and Plan: follow accu-cheks on medications for this(?) glycemic control for hospitalists (if needed) Will continue to follow. Subjective Date/time seen: 12/08/22 12:43 Interval history: Follow-up for end stage renal disease on hemodialysis. Tolerated hemodialysis treatment yesterday without any issue or problems; tentatively scheduled for surgery this afternoon for his hip fracture; major complaint is that of pain associated with hip fracture; pain medications help but pain recurs when medication wears off; issues with urinary retention requiring placement of frazier catheter; no other acute issues/events overnight or earlier this AM. Exam Narrative: General: WD/WN male in NAD Heart: normal S1 and S2; no rub Lungs: coarse breath sounds Abdomen: soft, nontender, nondistended, positive bowel sounds Extremities: no cyanosis or clubbing; no edema Skin: warm and dry Objective Data Vital Signs Vital Signs: Vital Signs Temp Pulse Resp BP Pulse Ox O2 Del Method O2 Flow Rate 12/08/22 12:23 73 18 12/08/22 08:38 74 12/08/22 08:07 77 18 12/08/22 07:55 74 18 12/08/22 04:46 98.0 F 72 16 134/55 L 92 12/08/22 02:23 71 18 12/08/22 02:09 70 18 12/07/22 20:00 92 Nasal Cannula 2 12/07/22 20:26 76 18 12/07/22 20:15 74 19 12/07/22 19:40 98.2 F 76 16 133/53 L 92 Intake/Output Intake/Output: Intake & Output 12/05/22 12/06/22 12/07/22 12/08/22 23:59 23:59 23:59 23:59 Intake Total 360 1050 Output Total 2600 350 Balance -2240 700 Meds/Results Medications: Active Medications Generic Name Dose Route Start Last Admin Trade Name Freq PRN Reason Stop Dose Admin Hydrocodone Bitart/Acetaminophen 1 tab 12/07/22 19:42 12/08/22 02:54 Hydrocodone/Acetaminophen (*Crx) 5-325 Mg Tablet PO 1 tab Q6H PRN Administration Pain Rated 4-6 Albuterol 2.5 mg 12/07/22 14:00 12/08/22 13:22 Albuterol Sulfate Neb 2.5 Mg/3 Ml Inh INHALATION 2.5 mg Q6HRT KAIN Administration Amiodarone HCl 200 mg 12/07/22 09:00 12/08/22 08:38 Amiodarone Hcl 200 Mg Tablet PO 200 mg DAILY KAIN Administration Amlodipine Besylate 5 mg 12/07/22 09:00 12/08/22 08:38 Amlodipine Besylate 5 Mg Tablet PO 5 mg DAILY KAIN Administration Atorvastatin Calcium 20 mg 12/07/22 21:00 12/07/22 19:56 Atorvastatin 20 Mg Tablet PO 20 mg HS KAIN
--- NOTE | 2022-12-08 13:05 | PM.IMPN ---
Progress Note: A&P Assessment and Plan (1) Closed left hip fracture: Qualifiers: Encounter type: initial encounter Qualified Code(s): S72.002A - Fracture of unspecified part of neck of left femur, initial encounter for closed fracture Code(s): S72.002A - Fracture of unspecified part of neck of left femur, initial encounter for closed fracture Status: Acute Assessment and Plan: X-ray reveals transcervical fracture of left femoral neck Orthopedics consulted. Surgery scheduled for today Postsurgical DVT prophylaxis, PT and OT and analgesics per orthopedic team. Monitor H&H post operatively. (2) End stage renal disease: Code(s): N18.6 - End stage renal disease Status: Chronic Assessment and Plan: Nephrology has been consulted.? The patient has seen Dr. Justin in the past.? Patient has dialysis on Monday. (3) CHF (congestive heart failure), NYHA class I: Code(s): I50.9 - Heart failure, unspecified Status: Acute Assessment and Plan: Not in an acute exacerbation. Monitor fluid status. (4) COPD (chronic obstructive pulmonary disease): Code(s): J44.9 - Chronic obstructive pulmonary disease, unspecified Status: Chronic Assessment and Plan: The patient continues to smoke.? Offered smoking cessation.? P.r.n. albuterol Continue nebulizer treatments.? (5) Hypertension: Code(s): I10 - Essential (primary) hypertension Status: Chronic Assessment and Plan: Resume antihypertensive medication. (6) Diabetes: Code(s): E11.9 - Type 2 diabetes mellitus without complications Status: Chronic Assessment and Plan: Patient controls diabetes with diet. AC and HS with sliding scale insulin. ? Hypoglycemia protocol initiated. Hemoglobin A1c 6.2. Subjective Date/time seen: 12/08/22 13:05 Interval history: patient states that he still has left hip pain. He is planned for surgery today at 3:30 p.m.. Patient states that this is the worst pain he has ever had in his life. He is limited range of motion. No swelling in lower extremities, no nausea vomiting, no chest pain or shortness of breath. Patient chronically wears oxygen at home. Exam Narrative: GENERAL: Comfortable, no acute distress HENMT: moist mucous membranes EYES: EOM intact b/l NECK: no lymphadenopathy RESPIRATORY: distant breath sounds, diffuse crackles CARDIO: RRR GI: soft, nontender, bowel sounds present SKIN: no rashes EXTREMITIES: Limited range of motion in the left hip, no bruising or swelling Objective Data Vital Signs Vital Signs: Vital Signs - 24 hr 12/07/22 13:21 12/07/22 19:40 12/07/22 20:15 Temperature 97.2 F L 98.2 F Pulse Rate 73 76 74 Respiratory Rate 16 16 19 Blood Pressure 133/55 L 133/53 L Pulse Oximetry 94 92 Oxygen Delivery Oxygen Flow Rate 12/07/22 20:26 12/07/22 20:00 12/08/22 02:09 Temperature Pulse Rate 76 70 Respiratory Rate 18 18 Blood Pressure Pulse Oximetry 92 Oxygen Delivery Nasal Cannula Oxygen Flow Rate 2 12/08/22 02:23 12/08/22 04:46 12/08/22 07:55 Temperature 98.0 F Pulse Rate 71 72 74 Respiratory Rate 18 16 18 Blood Pressure 134/55 L Pulse Oximetry 92 Oxygen Delivery Oxygen Flow Rate 12/08/22 08:07 12/08/22 08:38 Temperature Pulse Rate 77 74 Respiratory Rate 18 Blood Pressure Pulse Oximetry Oxygen Delivery Oxygen Flow Rate Intake/Output Intake/Output: Intake & Output 12/05/22 12/06/22 12/07/22 12/08/22 23:59 23:59 23:59 23:59 Intake Total 360 1000 Output Total 2600 350 Balance -2240 650 Meds/Results Medications: Active Medications Generic Name Dose Route Start Last Admin Trade Name Freq PRN Reason Stop Dose Admin Hydrocodone Bitart/Acetaminophen 1 tab 12/07/22 19:42 12/08/22 02:54 Hydrocodone/Acetaminophen (*Crx) 5-325 Mg Tablet PO 1 tab Q6H PRN Ad
[2022-12-08] MEDS: SODIUM CHLORIDE 0.9% IV 500 ML 30 ML IV CONT (13:40)
--- NOTE | 2022-12-08 13:57 | WPDANESEPPF ---
Anes - Initial Pre Proc Eval Procedure: Operation Date: 12/08/22 15:30 Proposed Procedures p Left Bipolar Hip Replacement - Harjit Dowling MD Date/Time: 12/08/22 13:57 Surgeon: River Dumont MD Pre Op Diagnosis: L Hip Femoral Neck Fracture Patient Data Age: 66 Gender: M Height: 1.75 m Weight: 78.6 kg Last Vital Signs Temp 36.7 C 12/08/22 04:46 Pulse 73 12/08/22 13:23 Resp 18 12/08/22 13:32 BP 134/55 L 12/08/22 04:46 Pulse Ox 92 12/08/22 04:46 O2 Del Method Nasal Cannula 12/07/22 20:00 O2 Flow Rate 2 12/07/22 20:00 Allergies Allergy/AdvReac Type Severity Reaction Status Date / Time amoxicillin Allergy Mild Rash Verified 11/22/22 18:43 cefdinir Allergy Mild Rash Verified 11/22/22 18:43 Cephalosporins Allergy Mild RASH Verified 11/22/22 18:43 levofloxacin Allergy Mild Rash Verified 11/22/22 18:43 Penicillins Allergy Mild Rash Verified 11/22/22 18:43 Quinolones Allergy Mild RASH Verified 11/22/22 18:43 Sulfa (Sulfonamide Allergy Mild Rash Verified 11/22/22 18:43 Antibiotics) Home Medications Medication Instructions Recorded Confirmed Type allopurinol 100 mg tablet 100 mg PO DAILY 06/20/22 12/07/22 History amiodarone 200 mg tablet 200 mg PO DAILY 06/20/22 12/07/22 History atorvastatin 20 mg tablet 20 mg PO HS 06/20/22 12/07/22 History bumetanide 2 mg tablet 4 mg PO USEASDIRECTD 06/20/22 12/07/22 History sevelamer carbonate 800 mg tablet 1,600 mg PO TIDWM 06/20/22 12/07/22 History tamsulosin 0.4 mg capsule 0.4 mg PO DAILY 06/20/22 12/07/22 History amlodipine 10 mg tablet 5 mg PO DAILY 11/22/22 12/07/22 History cholecalciferol (vitamin D3) 125 125 mcg PO DAILY 11/22/22 12/07/22 History mcg (5,000 unit) capsule escitalopram oxalate 20 mg tablet 20 mg PO DAILY 11/22/22 12/07/22 History ferrous sulfate 325 mg (65 mg 325 mg PO DAILY 11/22/22 12/07/22 History iron) tablet magnesium oxide 400 mg PO DAILY 11/22/22 12/07/22 History pantoprazole 40 mg tablet,delayed 40 mg PO BID 11/22/22 12/07/22 History release vitamin B complex-vitamin C-folic 1 tablet PO DAILY 11/22/22 12/07/22 History acid 0.8 mg tablet (Astrid-Jhony) docusate sodium 100 mg capsule 100 mg PO Q12H PRN Constipation 11/28/22 12/07/22 Rx #30 caps Laboratory Tests 12/08/22 12/08/22 12/08/22 06:34 07:20 07:26 WBC 12.1 H K/mm3 (4.5-10.0) RBC 3.67 L M/mm3 (4.6-6.20) Hgb 10.4 L g/dL (14.0-18.0) Hct 35.7 L % (42.0-52.0) MCV 97.3 fl (80-100) MCH 28.3 pg (26-34) MCHC 29.1 L g/dl (32-36) RDW 17.8 H % (11.5-14.5) Plt Count 205 k/mm3 (150-375) MPV 9.5 fl (7.4-10.4) Sodium 131 L mmol/L (137-145) Potassium 4.8 mmol/L (3.4-5.0) Chloride 99 mmol/L (98-107) Carbon Dioxide 30 mmol/L (22-30) Anion Gap 2 L mmol/L (8-16) BUN 25 H mg/dL (9-20) Creatinine 4.80 H mg/dL (0.7-1.3) Estim Creat Clear Calc 14 ml/min Estimated GFR 12 L (59 - ) Glucose 121 H mg/dL (65-110) POC Capillary Glucose 124 H mg/dl (65-105) Calcium 7.6 L mg/dL (8.4-10.2) Total Bilirubin 0.3 mg/dL (0.2-1.3) AST 28 U/L (17-59) ALT 22 U/L (6-50) Alkaline Phosphatase 162 H U/L (38-126) Total Protein 6.0 L g/dL (6.3-8.2) Albumin 3.0 L g/dL (3.5-5.1) Blood Type O Negative Antibody Screen Negative 12/08/22 12/08/22 08:04 12:05 WBC RBC Hgb Hct MCV MCH MCHC RDW Plt Count MPV Sodium Potassium Chloride Carbon Dioxide Anion Gap BUN Creatinine Estim Creat Clear Calc Estimated GFR Glucose POC Capillary Glucose
[2022-12-08 14:00] LABS: Glucose Point of Care 106 mg/dl (65-105)
--- NOTE | 2022-12-08 14:14 | WPDHPUPDATE1 ---
History and Physical Update Update Date/Time: 12/08/22 14:14 History and Physical has been reviewed, including an updated exam of the patient. There are NO changes in the patient's condition. Risks, benefits, and alternatives have been discussed and questions answered. Patient agrees to proceed with procedure.
[2022-12-08] MEDS: ceFAZolin 2 GM/D5W 50 ML 2 GM/50 ML BAG IVPB ×2 (14:50→21:44)
--- NOTE | 2022-12-08 16:31 | PC.NURSE ---
On 12/08/22, the Licence pending nurse, Yvette Vieira, provided care and completed [facility] documentation on this patient. I have reviewed the Licence pending nurse's documentation and agree with the findings.
--- NOTE | 2022-12-08 16:36 | W.PM.PROC2 ---
Procedure Note - Detailed Date of Procedure 12/08/22 Pre-op Diagnosis L Hip Femoral Neck Fracture Post-op Diagnosis Same Procedure Performed Bipolar hemiarthroplasty left hip. Surgeon Harjit Dowling MD Anesthesia General Description of Procedure A general anesthetic was administered. The patient was carefully placed in the lateral decubitus position on the peg board positioner. An axillary roll was placed. The hip was prepped and draped in the usual sterile fashion. A minimally invasive optimized posterior approach to the hip was performed. An L shaped capsulotomy was created along the upper border of the piriformis. The short external rotators were tagged with number 2 high strength suture for later repair. The labrum was preserved. The femoral neck cut was performed. The femoral head was removed and sized. The acetabular floor was cleared of debris and loose tissue. The femur was sequentially broached. Trial was assessed for leg length and stability. The real component was impacted into position, trialed again, and the final head and bipolar component were assembled. The hip was reduced after copious irrigation. The short external rotators and capsule were repaired through drill holes in the posterior trochanter. The wound was closed in layers with 1 vicryl, 2,0, and 2-0 running barbed suture. Adhesive tapes were placed on the skin, followed by a sterile gauze dressing. The patient was extubated and brought to the recovery room. Implants [place] Accolate 2 hip stem 127 degree, size 5, bipolar component outer diameter size 50, inner metal ball size 28 mm -4mm. Estimated Blood Loss 50 Drains No Pathology None sent Complications No immediate complications Condition Stable Disposition PACU [facility] Billing Surgery - Charge Forward: Surgery Billing
[2022-12-08 16:38] LABS: Glucose Point of Care 119 mg/dl (65-105)
[2022-12-08 17:42] LABS: Glucose Point of Care 136 mg/dl (65-105)
[2022-12-08] MEDS: TAMSULOSIN HCL 0.4 MG CAPSULE PO (18:53)
[2022-12-08] MEDS: SENNA/DOCUSATE SODIUM TABLET 2 TAB PO (18:53)
[2022-12-08] MEDS: BUMETANIDE 1 MG TABLET 4 MG PO (18:53)
[2022-12-08 20:25] LABS: Alveolar/Arterial O2 Gradient 142.6 mmHg; Carboxyhemoglobin 0.3 % THb (0-2.0); Fractional Inspired Oxygen 40 %; HCO3 ABG 28.2 mEq/l (22.0-26.0); Methemoglobin ABG 0.4 %THb (0-1.5); Oxygen Content ABG 14.2 %vol (16.0-22.0); PO2 ABG 59.9 mmHg (80.0-100.0); Reduced Hemoglobin 12.9 %THb (0-5.0); Total Hemoglobin 11.7 g/dL (12.0-18.0)
[2022-12-08] MEDS: SEVELAMER CARBONATE 800 MG TABLET 1600 MG PO (20:29)
[2022-12-08 20:30] LABS: Oxygen Saturation ABG 84.5 % (95.0-100.0); PCO2 ABG 71.9 mmHg (35.0-45.0); pH ABG 7.211 (7.350-7.450)
[2022-12-08] MEDS: ATORVASTATIN 20 MG TABLET PO (20:30)
[2022-12-08 20:31] LABS: Device NASAL CANNULA; Modified Allen's Test Pass; Oxyhemoglobin 86.4 % THb (90.0-100.0); Site Drawn LEFT RADIAL
[2022-12-08 20:48] LABS: Hematocrit 38.5 % (42.0-52.0); Mean Corpuscular HGB Conc 28.6 g/dl (32-36); Mean Corpuscular Hemoglobin 28.5 pg (26-34); Mean Corpuscular Volume 99.7 fl (80-100); Mean Platelet Volume 9.4 fl (7.4-10.4); Platelet Count Result 186 k/mm3 (150-375); Red Blood Count 3.86 M/mm3 (4.6-6.20); Red Cell Distribution Width 18.1 % (11.5-14.5); White Blood Count 15.3 K/mm3 (4.5-10.0)
[2022-12-08 21:09] LABS: Glucose Point of Care 151 mg/dl (65-105)
[2022-12-08 21:12] LABS: Alveolar/Arterial O2 Gradient 81.6 mmHg; Base Excess ABG -1.9 mEq/l (+/-2.0); Carboxyhemoglobin 0.1 % THb (0-2.0); Fractional Inspired Oxygen 32 %; HCO3 ABG 26.8 mEq/l (22.0-26.0); Methemoglobin ABG 0.3 %THb (0-1.5); Oxygen Saturation ABG 89.8 % (95.0-100.0); Oxyhemoglobin 91.2 % THb (90.0-100.0); PO2 ABG 69.1 mmHg (80.0-100.0); PO2 FiO2 Ratio Arterial Blood 2.16 %; Reduced Hemoglobin 8.4 %THb (0-5.0); Total Hemoglobin 11.7 g/dL (12.0-18.0)
[2022-12-08 21:17] LABS: Alanine Aminotransferase 26 U/L (6-50); Albumin Level 3.3 g/dL (3.5-5.1); Alkaline Phosphatase 195 U/L (38-126); Anion Gap 6 mmol/L (8-16); Aspartate Amino Transferase 35 U/L (17-59); Bilirubin,Total 0.4 mg/dL (0.2-1.3); Blood Urea Nitrogen 28 mg/dL (9-20); Calcium 7.6 mg/dL (8.4-10.2); Carbon Dioxide 29 mmol/L (22-30); Chloride 99 mmol/L (98-107); Estimated CRCL calculation 12 ml/min; Estimated Glomerular Filt Rate 11; Glucose 147 mg/dL (65-110); Magnesium 1.9 mg/dL (1.6-2.3); Phosphorus 7.6 mg/dL (2.5-4.5); Potassium 4.8 mmol/L (3.4-5.0); Sodium 134 mmol/L (137-145)
[2022-12-08 21:22] LABS: pH ABG 7.225 (7.350-7.450)
[2022-12-08 21:23] LABS: Device NASAL CANNULA; Modified Allen's Test Pass; PCO2 ABG 66.2 mmHg (35.0-45.0); Site Drawn LEFT RADIAL
--- NOTE | 2022-12-08 21:30 | PM.EVENT ---
Event Note Event Note Event Note: Date and time of encounter: 12/08/2022 at 1900. S: Patient is hypoxic with shortness of breath and mild confusion. Stent nebulizer ordered as well as ABG. O: Alert and oriented. Lung sounds diminished with expiratory wheezing. Feels better after receiving neb. A: Acute on chronic hypoxic and hypercapnic respiratory failure. P: ABG improved following nebulizer treatment but not as much as expected. Trial BiPAP overnight repeat gas in a.m..
[2022-12-09] VITALS (35 sets, daily range): BP systolic 109–123; BP diastolic 42–58; PULSE 65–84; RESP 14–20; TEMP 35.4–36.8; O2SAT 93–99; BMI 10.0
[2022-12-09] MEDS: IPRATROPIUM BR 0.02% INH SOLN 0.5 MG/2.5 ML VIAL INHALATION ×4 (02:10→20:26)
[2022-12-09] MEDS: ALBUTEROL SULFATE NEB 2.5 MG/3 ML INH INHALATION ×4 (02:10→20:26)
[2022-12-09] MEDS: HYDROcodone/acetaminophen (*CRX) 5-325 MG TABLET 1 TAB PO ×2 (02:15→06:20)
[2022-12-09 03:52] LABS: Glucose Point of Care 127 mg/dl (65-105)
[2022-12-09 05:07] LABS: Hematocrit 37.6 % (42.0-52.0); Hemoglobin 9.9 g/dL (14.0-18.0); Mean Corpuscular HGB Conc 26.3 g/dl (32-36); Mean Corpuscular Hemoglobin 29.1 pg (26-34); Mean Corpuscular Volume 110.6 fl (80-100); Mean Platelet Volume 9.8 fl (7.4-10.4); Platelet Count Result 154 k/mm3 (150-375); Red Cell Distribution Width 18.2 % (11.5-14.5); White Blood Count 14.7 K/mm3 (4.5-10.0)
[2022-12-09 05:11] LABS: Alanine Aminotransferase 20 U/L (6-50); Albumin Level 3.1 g/dL (3.5-5.1); Alkaline Phosphatase 173 U/L (38-126); Anion Gap 8 mmol/L (8-16); Aspartate Amino Transferase 36 U/L (17-59); Bilirubin,Total 0.4 mg/dL (0.2-1.3); Blood Urea Nitrogen 32 mg/dL (9-20); Calcium 7.5 mg/dL (8.4-10.2); Carbon Dioxide 23 mmol/L (22-30); Chloride 99 mmol/L (98-107); Estimated CRCL calculation 12 ml/min; Estimated Glomerular Filt Rate 10; Glucose 115 mg/dL (65-110); Potassium 5.6 mmol/L (3.4-5.0); Sodium 130 mmol/L (137-145)
[2022-12-09 05:25] LABS: Base Excess ABG -0.2 mEq/l (+/-2.0); HCO3 ABG 27.5 mEq/l (22.0-26.0); PO2 ABG 70.5 mmHg (80.0-100.0); pH ABG 7.279 (7.350-7.450)
[2022-12-09] MEDS: ceFAZolin 2 GM/D5W 50 ML 2 GM/50 ML BAG IVPB ×2 (05:25→14:35)
[2022-12-09 05:26] LABS: Fractional Inspired Oxygen 32 %; Oxygen Saturation ABG 91.7 % (95.0-100.0); Total Hemoglobin 11.5 g/dL (12.0-18.0)
[2022-12-09 05:27] LABS: Device NON-INVASIVE VENT; Modified Allen's Test Pass; Site Drawn LEFT RADIAL
[2022-12-09 05:28] LABS: Oxyhemoglobin 92.3 % THb (90.0-100.0)
[2022-12-09 05:30] LABS: Alveolar/Arterial O2 Gradient 87.5 mmHg
[2022-12-09 05:31] LABS: Non-Invasive Expiratory Pressure 5 CMH2O; Non-Invasive Inspiratory Pressure 12 CMH2O; Non-Invasive Vent Rate 18 /MIN
[2022-12-09] MEDS: SODIUM POLYSTYRENE SULFONONATE 15 GM/60 ML BTL PO (06:20)
--- NOTE | 2022-12-09 06:41 | PC.NURSE ---
On 12/08/22-12/09/22, the license pending RN, Ry Silver, provided care and completed [employer] documentation on this patient. I have reviewed the RNs documentation and agree with the findings.
--- NOTE | 2022-12-09 08:18 | WPDANESPN ---
Anes - Prog Note Post-Op Date/Time: 12/09/22 08:18 Vital Signs: Last Vital Signs Temp 36.7 C 12/09/22 03:07 Pulse 75 12/09/22 07:51 Resp 18 12/09/22 07:51 BP 111/42 L 12/09/22 03:07 Pulse Ox 96 12/09/22 07:38 O2 Del Method Nasal Cannula 12/09/22 07:38 O2 Flow Rate 4 12/09/22 07:38 Pain Score (VAS): 3 I/O: Intake & Output 12/08/22 12/09/22 12/09/22 23:59 07:59 15:59 Intake Total 350 50 Output Total 400 Balance 350 -350 Laboratory Tests 12/09/22 04:00 12/09/22 04:00 12/08/22 12/08/22 12/08/22 07:20 12:05 13:50 WBC RBC Hgb Hct MCV MCH MCHC RDW Plt Count MPV Puncture Site ABG pH ABG pCO2 ABG pO2 ABG PO2/FiO2 Ratio ABG HCO3 ABG O2 Saturation ABG O2 Content ABG Base Excess A-a Gradient Oxyhemoglobin Carboxyhemoglobin Methemoglobin Reduced Hemoglobin Total Hemoglobin O2 Delivery Device O2 Liters/Min Vent Rate FiO2 Expiratory Pressure Inspiratory Pressure Sodium Potassium Chloride Carbon Dioxide Anion Gap BUN Creatinine Estim Creat Clear Calc Estimated GFR Glucose POC Capillary Glucose 109 H 106 H Calcium Phosphorus Magnesium Total Bilirubin AST ALT Alkaline Phosphatase Total Protein Albumin Blood Type O Negative Antibody Screen Negative 12/08/22 12/08/22 12/08/22 16:35 17:33 19:46 WBC RBC Hgb Hct MCV MCH MCHC RDW Plt Count MPV Puncture Site Left radial ABG pH 7.211 L* ABG pCO2 71.9 H* ABG pO2 59.9 L ABG PO2/FiO2 Ratio 1.50 ABG HCO3 28.2 H ABG O2 Saturation 84.5 L* ABG O2 Content 14.2 L ABG Base Excess -1.0 A-a Gradient 142.6 Oxyhemoglobin 86.4 L* Carboxyhemoglobin 0.3 Methemoglobin 0.4 Reduced Hemoglobin 12.9 H Total Hemoglobin 11.7 L O2 Delivery Device Nasal cannula O2 Liters/Min 5.0 Vent Rate FiO2 40 Expiratory Pressure Inspiratory Pressure Sodium Potassium Chloride Carbon Dioxide Anion Gap BUN Creatinine Estim Creat Clear Calc Estimated GFR Glucose POC Capillary Glucose 119 H 136 H Calcium Phosphorus Magnesium Total Bilirubin AST ALT Alkaline Phosphatase Total Protein Albumin Blood Type Antibody Screen 12/08/22 12/08/22 12/08/22 20:40 21:01 21:07 WBC 15.3 H RBC 3.86 L Hgb 11.0 L Hct 38.5 L MCV 99.7 MCH 28.5 MCHC 28.6 L RDW 18.1 H Plt Count 186 MPV 9.4 Puncture Site Left radial ABG pH 7.225 L* ABG pCO2 66.2 H* ABG pO2 69.1 L ABG PO2/FiO2 Ratio 2.16 ABG HCO3 26.8 H ABG O2 Saturation 89.8 L ABG O2 Content 15.0 L ABG Base Excess -1.9 A-a Gradient 81.6 Oxyhemoglobin 91.2 Carboxyhemoglobin 0.1 Methemoglobin 0.3 Reduced Hemoglobin 8.4 H Total Hemoglobin 11.7 L O2 Delivery Device Nasal cannula O2 Liters/Min 4.0 Vent Rate FiO2 32 Expiratory Pressure Inspiratory Pressure Sodium 134 L Potassium 4.8 Chloride 99 Carbon Dioxide 29 Anion Gap 6 L BUN 28 H Creatinine 5.40 H Estim Creat Clear Calc 12 Estimated GFR 11 L Glucose 147 H POC Capillary Glucose 151 H Calcium 7.6 L Phosphorus 7.6 H Magnesium 1.9 Total Bilirubin 0.4 AST 35 ALT 26 Alkaline Phosphatase 195 H Total Protein 6.0 L Albumin 3.3 L Blood Type Antibody Screen 12/09/22 12/09/22 12/09/22 02:41 04:00 05:00 WBC 14.7 H RBC 3.40 L Hgb 9.9 L Hct 37.6 L MCV 110.6 H D MCH 29.1 MCHC 26.3 L RDW 18.2 H Plt Count 154 MPV 9.8 Puncture Site Left radial ABG pH 7.279 L* ABG pCO2 60.0 H ABG pO2 70.5 L ABG PO2/FiO2 Ratio 2.20 ABG HCO3 27.5 H ABG O2 Saturation 91.7 L ABG O2 Content 15.0 L ABG Base E
[2022-12-09 08:24] LABS: Glucose Point of Care 133 mg/dl (65-105)
[2022-12-09] MEDS: AMIODARONE HCL 200 MG TABLET PO (08:31)
[2022-12-09] MEDS: ESCITALOPRAM OXALATE 10 MG TABLET 20 MG PO (08:31)
[2022-12-09] MEDS: SEVELAMER CARBONATE 800 MG TABLET 1600 MG PO ×3 (08:31→16:15)
[2022-12-09] MEDS: CHOLECALCIFEROL 1,000 UNITS TABLET 5000 UNITS PO (08:32)
[2022-12-09] MEDS: amLODIPine BESYLATE 5 MG TABLET PO (08:32)
[2022-12-09] MEDS: FERROUS SULFATE 325 MG TABLET DR PO (08:32)
[2022-12-09] MEDS: MAGNESIUM OXIDE 400 MG TABLET PO (08:32)
[2022-12-09] MEDS: SENNA/DOCUSATE SODIUM TABLET 2 TAB PO ×2 (08:32→16:15)
[2022-12-09] MEDS: TAMSULOSIN HCL 0.4 MG CAPSULE PO (08:32)
[2022-12-09] MEDS: MORPHINE SULFATE (*CRX) 2 MG/ML INJ IV PUSH ×3 (08:37→20:42)
[2022-12-09] MEDS: EPOETIN ALFA 10,000 UNITS/ML VIAL 10000 UNITS IV PUSH (11:32)
--- NOTE | 2022-12-09 12:33 | P.PNNP_ITS ---
Progress Note: A&P Assessment and Plan (1) End stage renal disease: Code(s): N18.6 - End stage renal disease Status: Chronic Assessment and Plan: * HD today * continue M/W/F dialysis schedule while hospitalized * follow electrolytes, volume status, and clearance (2) Closed left hip fracture: Qualifiers: Encounter type: initial encounter Qualified Code(s): S72.002A - Fracture of unspecified part of neck of left femur, initial encounter for closed fracture Code(s): S72.002A - Fracture of unspecified part of neck of left femur, initial encounter for closed fracture Status: Acute Assessment and Plan: * Orthopedics following * s/p bipolar hemiarthroplasty left hip (on 12/08/22) * pain control * PT/OT when able (3) Hypertension: Code(s): I10 - Essential (primary) hypertension Status: Chronic Assessment and Plan: * reasonable control at this time * follow trend of hemodynamics (4) Anemia: Code(s): D64.9 - Anemia, unspecified Status: Chronic Assessment and Plan: * due to ESRD * Epogen with HD * follow trend of H/H (5) COPD (chronic obstructive pulmonary disease): Code(s): J44.9 - Chronic obstructive pulmonary disease, unspecified Status: Chronic Assessment and Plan: * events noted overnight (on 12/08/22) * continue BiPAP support PRN * on chronic home oxygen * continue nebulizer treatments * fluid removal with dialysis as tolerated to maintain euvolemia * need steroids??? (6) Diabetes: Code(s): E11.9 - Type 2 diabetes mellitus without complications Status: Chronic Assessment and Plan: * follow accu-cheks * appears diet controlled * glycemic control per hospitalists (if needed) Will continue to follow. Subjective Date/time seen: 12/09/22 12:33 Interval history: Follow-up for end stage renal disease on hemodialysis. Tolerating dialysis treatment at the time of my visit (seen on HD at ~ 12:20PM); events noted overnight -- episode of respiratory distress/hypoxia with ABG showing hypercarbia and respiratory acidosis which did improve with BiPAP therapy/initiation; appears to be doing better now from a respiratory perspective and is on oxygen by nasal cannula; s/p surgery yesterday for his hip fracture and tolerated this intervention as well; he does report some pain in area of his hip but tolerating fairly well. Exam Narrative: General: WD/WN male in NAD Heart: normal S1 and S2; no rub Lungs: coarse breath sounds with scattered crackles noted Abdomen: soft, nontender, nondistended, positive bowel sounds Extremities: no cyanosis or clubbing; no edema Skin: warm and intact Objective Data Vital Signs Vital Signs: Vital Signs Temp Pulse Resp BP Pulse Ox O2 Del Method O2 Flow Rate 12/09/22 10:14 4 12/09/22 07:07 97.7 F 72 18 110/48 L 97 12/09/22 09:31 Nasal Cannula 4 12/09/22 08:00 96 Nasal Cannula 3 12/09/22 08:31 78 12/09/22 07:51 75 18 12/09/22 07:38 71 18 96 Nasal Cannula 4 12/09/22 07:34 71 18 12/09/22 02:20 65 17 12/09/22 02:00 66 17 12/09/22 05:00 19 BiPAP 12/09/22 02:15 68 19 96 BiPAP 12/09/22 03:07 98.0 F 75 18 111/42 L 96
--- NOTE | 2022-12-09 12:33 | PM.PNNEP ---
Progress Note: A&P Assessment and Plan (1) End stage renal disease: Code(s): N18.6 - End stage renal disease Status: Chronic Assessment and Plan: HD today continue M/W/F dialysis schedule while hospitalized follow electrolytes, volume status, and clearance (2) Closed left hip fracture: Qualifiers: Encounter type: initial encounter Qualified Code(s): S72.002A - Fracture of unspecified part of neck of left femur, initial encounter for closed fracture Code(s): S72.002A - Fracture of unspecified part of neck of left femur, initial encounter for closed fracture Status: Acute Assessment and Plan: Orthopedics following s/p bipolar hemiarthroplasty left hip (on 12/08/22) pain control PT/OT when able (3) Hypertension: Code(s): I10 - Essential (primary) hypertension Status: Chronic Assessment and Plan: reasonable control at this time follow trend of hemodynamics (4) Anemia: Code(s): D64.9 - Anemia, unspecified Status: Chronic Assessment and Plan: due to ESRD Epogen with HD follow trend of H/H (5) COPD (chronic obstructive pulmonary disease): Code(s): J44.9 - Chronic obstructive pulmonary disease, unspecified Status: Chronic Assessment and Plan: events noted overnight (on 12/08/22) continue BiPAP support PRN on chronic home oxygen continue nebulizer treatments fluid removal with dialysis as tolerated to maintain euvolemia need steroids??? (6) Diabetes: Code(s): E11.9 - Type 2 diabetes mellitus without complications Status: Chronic Assessment and Plan: follow accu-cheks appears diet controlled glycemic control per hospitalists (if needed) Will continue to follow. Subjective Date/time seen: 12/09/22 12:33 Interval history: Follow-up for end stage renal disease on hemodialysis. Tolerating dialysis treatment at the time of my visit (seen on HD at ~ 12:20PM); events noted overnight -- episode of respiratory distress/hypoxia with ABG showing hypercarbia and respiratory acidosis which did improve with BiPAP therapy/initiation; appears to be doing better now from a respiratory perspective and is on oxygen by nasal cannula; s/p surgery yesterday for his hip fracture and tolerated this intervention as well; he does report some pain in area of his hip but tolerating fairly well. Exam Narrative: General: WD/WN male in NAD Heart: normal S1 and S2; no rub Lungs: coarse breath sounds with scattered crackles noted Abdomen: soft, nontender, nondistended, positive bowel sounds Extremities: no cyanosis or clubbing; no edema Skin: warm and intact Objective Data Vital Signs Vital Signs: Vital Signs Temp Pulse Resp BP Pulse Ox O2 Del Method O2 Flow Rate 12/09/22 10:14 4 12/09/22 07:07 97.7 F 72 18 110/48 L 97 12/09/22 09:31 Nasal Cannula 4 12/09/22 08:00 96 Nasal Cannula 3 12/09/22 08:31 78 12/09/22 07:51 75 18 12/09/22 07:38 71 18 96 Nasal Cannula 4 12/09/22 07:34 71 18 12/09/22 02:20 65 17 12/09/22 02:00 66 17 12/09/22 05:00 19 BiPAP 12/09/22 02:15 68 19 96 BiPAP 12/09/22 03:07 98.0 F 75 18 111/42 L 96 12/09/22 00:00 98.1 F 73 18 117/50 L 99 12/08/22 19:36 68 18 12/08/22 23:07 97.6 F 18 109/47 L 96 12/08/22 23:07 98.0 F 67 18 113/48 L 96 12/08/22 22:46 68 19 96 BiPAP 12/08/22 19:30 67 18 12/08/22 20:00 98 Nasal Cannula 4 12/08/22 19:20 98 Nasal Cannula 5 12/08/22 19:07 97.7 F 70 18 108/43 L 96 12/08/22 18:25 98.1 F 71 18 113/46 L 93 12/08/22 18:44 72 15 92 Venturi Mask 6 12/08/22 17:40 97.6 F 75 18 107/45 L 93 12/08/22 17:15 85 18 96/45 L 94 Nasal Cannula 2 12/08/22 17:05 96 Nasal Cannula 3 12/08/22 17:00 71 20 97/45 L 97 Simple
--- NOTE | 2022-12-09 12:34 | PM.IMPN ---
Progress Note: A&P Assessment and Plan (1) Closed left hip fracture: Qualifiers: Encounter type: initial encounter Qualified Code(s): S72.002A - Fracture of unspecified part of neck of left femur, initial encounter for closed fracture Code(s): S72.002A - Fracture of unspecified part of neck of left femur, initial encounter for closed fracture Status: Acute Assessment and Plan: X-ray reveals transcervical fracture of left femoral neck Orthopedics consulted. Postop day 1 Postsurgical DVT prophylaxis, PT and OT and analgesics per orthopedic team. Monitor H&H post operatively. (2) End stage renal disease: Code(s): N18.6 - End stage renal disease Status: Chronic Assessment and Plan: Nephrology has been consulted.? The patient has seen Dr. Justin in the past.? Patient has dialysis on Monday. (3) CHF (congestive heart failure), NYHA class I: Code(s): I50.9 - Heart failure, unspecified Status: Acute Assessment and Plan: Not in an acute exacerbation. Monitor fluid status. (4) COPD (chronic obstructive pulmonary disease): Code(s): J44.9 - Chronic obstructive pulmonary disease, unspecified Status: Chronic Assessment and Plan: The patient continues to smoke.? Offered smoking cessation.? P.r.n. albuterol Continue nebulizer treatments.? 12/08 respiratory event at night ending with patient being put on BiPAP. See crosscover note. Patient in chronic respiratory acidosis. (5) Hypertension: Code(s): I10 - Essential (primary) hypertension Status: Chronic Assessment and Plan: Resume antihypertensive medication. (6) Diabetes: Code(s): E11.9 - Type 2 diabetes mellitus without complications Status: Chronic Assessment and Plan: Patient controls diabetes with diet. AC and HS with sliding scale insulin. ? Hypoglycemia protocol initiated. Hemoglobin A1c 6.2. Subjective Date/time seen: 12/09/22 12:34 Interval history: Patient had a hypoxic event overnight. Patient is chronically retaining CO2 with respiratory acidosis. Patient's ABGs did improve after being put on BiPAP but are still abnormal. I suspect this is likely chronic. When I spoke with patient this morning he stated that he felt better and was breathing much easier. Patient's lungs sound diffusely wet and this is not uncommon for the patient. After speaking with gis geographer about patient's fluid levels he stated that patient has had a long history of being intubated multiple times. Will continue to closely watch the patient's respiratory status. Patient being dialyzed today and tomorrow will have a better idea of his volume status. Patient states that he does have pain in the hip but is managing well. Exam Narrative: GENERAL: Comfortable, no acute distress HENMT: moist mucous membranes EYES: EOM intact b/l NECK: no lymphadenopathy RESPIRATORY: distant breath sounds, diffuse crackles CARDIO: RRR GI: soft, nontender, bowel sounds present SKIN: no rashes EXTREMITIES: Limited range of motion in the left hip, no bruising or swelling Objective Data Vital Signs Vital Signs: Vital Signs - 24 hr 12/08/22 13:23 12/08/22 13:32 12/08/22 13:40 Temperature 97.7 F Pulse Rate 73 71 Respiratory Rate 18 18 20 Blood Pressure 119/53 L Pulse Oximetry 96 Oxygen Delivery Nasal Cannula Oxygen Flow Rate 2 12/08/22 16:30 12/08/22 16:45 12/08/22 17:00 Temperature 97.6 F Pulse Rate 72 72 71 Respiratory Rate 12 18 20 Blood Pressure 94/43 L 93/46 L 97/45 L Pulse Oximetry 95 92 97 Oxygen Delivery Simple Face Mask Simple Face Mask Simple Face Mask Oxygen Flow Rate 6 6 6 12/08/22 17:05 12/08/22 17:15 12/08/22 17:40 Temperature 97.6 F Pulse Rate 85 75 Respiratory Rate 18 18 Blood Pressure 96/45 L 107/45 L Pulse Oximetry 96 94 93 Oxygen Delivery Nasal Cannula Na
--- NOTE | 2022-12-09 13:57 | PCPTNOTE ---
pt is out of room in dialysis, unable to perform PT eval.
--- NOTE | 2022-12-09 14:49 | PM.PNORT ---
Progress Note: A&P Assessment and Plan (1) Closed left hip fracture: Qualifiers: Encounter type: initial encounter Qualified Code(s): S72.002A - Fracture of unspecified part of neck of left femur, initial encounter for closed fracture Code(s): S72.002A - Fracture of unspecified part of neck of left femur, initial encounter for closed fracture Status: Acute Assessment and Plan: Postop day 1: Left bipolar hemiarthroplasty. Patient tolerated procedure well. Pain manageable with pain medication. No numbness or tingling. We had a lengthy discussion regarding postoperative wound care, limitations, expectations, and exercises. Patient shows good understanding. He has not had physical therapy yet due to his dialysis schedule. Okay for discharge to inpatient rehab from orthopedic standpoint as soon as medically cleared. Ortho instructions: D/C to SNF/rehab Follow up in office in 4 weeks with xrays. Please call for appointment. Wound Care: Remove Mepilex dressing at 7 days post op. Remove steristrips at 14 days post op. May shower. No soaking. PT: Weight bearing as tolerated with a walker. DVT prophylaxis: continue Lovenox for 30 days total Subjective Subjective Date/Time Seen: 12/09/22 14:49 Interval history: Patient resting comfortably in bed. Complains of pain but that it is much better then it was prior to surgery. No numbness or tingling. No other complaints. Review of Systems Review of Systems: Pain left hip and leg with movement. Denied pain elsewhere. All systems reviewed & are unremarkable except as noted in HPI and below Exam Narrative: Overweight 66 y/o Male. Resting comfortably in bed. Changed dressing and due to some bleeding in the center of the incision. Moderate swelling. No ecchymosis. No erythema. No hematoma. Range of motion limited due to pain. Calf nontender. Thigh nontender. No varicosities. Distal pulses palpable. Wiggles toes. Objective Data Vital Signs Vital Signs: Vital Signs - 24 hr 12/08/22 16:30 12/08/22 16:45 12/08/22 17:00 Temperature 97.6 F Pulse Rate 72 72 71 Respiratory Rate 12 18 20 Blood Pressure 94/43 L 93/46 L 97/45 L Pulse Oximetry 95 92 97 Oxygen Delivery Simple Face Mask Simple Face Mask Simple Face Mask Oxygen Flow Rate 6 6 6 12/08/22 17:05 12/08/22 17:15 12/08/22 17:40 Temperature 97.6 F Pulse Rate 85 75 Respiratory Rate 18 18 Blood Pressure 96/45 L 107/45 L Pulse Oximetry 96 94 93 Oxygen Delivery Nasal Cannula Nasal Cannula Oxygen Flow Rate 3 2 12/08/22 18:44 12/08/22 18:25 12/08/22 19:07 Temperature 98.1 F 97.7 F Pulse Rate 72 71 70 Respiratory Rate 15 18 18 Blood Pressure 113/46 L 108/43 L Pulse Oximetry 92 93 96 Oxygen Delivery Venturi Mask Oxygen Flow Rate 6 12/08/22 19:20 12/08/22 20:00 12/08/22 19:30 Temperature Pulse Rate 67 Respiratory Rate 18 Blood Pressure Pulse Oximetry 98 98 Oxygen Delivery Nasal Cannula Nasal Cannula Oxygen Flow Rate 5 4 12/08/22 22:46 12/08/22 23:07 12/08/22 23:07 Temperature 98.0 F 97.6 F Pulse Rate 68 67 Respiratory Rate 19 18 18 Blood Pressure 113/48 L 109/47 L Pulse Oximetry 96 96 96 Oxygen Delivery BiPAP Oxygen Flow Rate 12/08/22 19:36 12/09/22 00:00 12/09/22 03:07 Temperature 98.1 F 98.0 F Pulse Rate 68 73 75 Respiratory Rate 18 18 18 Blood Pressure 117/50 L 111/42 L Pulse Oximetry 99 96 Oxygen Delivery Oxygen Flow Rate 12/09/22 02:15 12/09/22 05:00 12/09/22 02:00 Temperature Pulse Rate 68 66 Respiratory Rate 19 19 17 Blood Pressure Pulse Oximetry 96 Oxygen Delivery BiPAP BiPAP Oxygen Flow Rate 12/09/22 02:20 12/09/22 07:34 12/09/22 07:38 Temperature Pulse Rate 65 71 71 Respiratory Rate 17 18 18 Blood Pressure Pulse Oximetry 96 Oxygen Delivery Nasal Cannula Oxygen Flow Rate 4 12/09/22 07:51 12/09/22 08:31 12/09/22 08:00 Tem
[2022-12-09 17:03] LABS: Glucose Point of Care 194 mg/dl (65-105)
--- NOTE | 2022-12-09 17:44 | PM.PNORT ---
Progress Note: A&P Assessment and Plan (1) Closed left hip fracture: Qualifiers: Encounter type: initial encounter Qualified Code(s): S72.002A - Fracture of unspecified part of neck of left femur, initial encounter for closed fracture Code(s): S72.002A - Fracture of unspecified part of neck of left femur, initial encounter for closed fracture Status: Acute (2) History of partial replacement of left hip joint using bipolar prosthesis: Code(s): Z96.642 - Presence of left artificial hip joint Status: Acute Plan Appears comfortable. Eating dinner in bed. Alert and oriented. Afebrile. Wound scant drainage. Mild swelling and thigh edema. No hematoma. No ecchymosis. Calf nontender. Wiggles toes with good strength. Hemoglobin 11.0. Radiographs show satisfactory hemiarthroplasty bipolar component in good alignment and position. Status post bipolar hemiarthroplasty. Mobilizing slowly. Continue therapy as able. Weightbearing as tolerated. Continue hip precautions. Subjective Subjective Date/Time Seen: 12/09/22 17:44 Objective Data Vital Signs Vital Signs: Vital Signs - 24 hr 12/08/22 18:44 12/08/22 18:25 12/08/22 19:07 Temperature 36.7 C 36.5 C Pulse Rate 72 71 70 Respiratory Rate 15 18 18 Blood Pressure 113/46 L 108/43 L Pulse Oximetry 92 93 96 Oxygen Delivery Venturi Mask Oxygen Flow Rate 6 12/08/22 19:20 12/08/22 20:00 12/08/22 19:30 Temperature Pulse Rate 67 Respiratory Rate 18 Blood Pressure Pulse Oximetry 98 98 Oxygen Delivery Nasal Cannula Nasal Cannula Oxygen Flow Rate 5 4 12/08/22 22:46 12/08/22 23:07 12/08/22 23:07 Temperature 36.7 C 36.4 C Pulse Rate 68 67 Respiratory Rate 19 18 18 Blood Pressure 113/48 L 109/47 L Pulse Oximetry 96 96 96 Oxygen Delivery BiPAP Oxygen Flow Rate 12/08/22 19:36 12/09/22 00:00 12/09/22 03:07 Temperature 36.7 C 36.7 C Pulse Rate 68 73 75 Respiratory Rate 18 18 18 Blood Pressure 117/50 L 111/42 L Pulse Oximetry 99 96 Oxygen Delivery Oxygen Flow Rate 12/09/22 02:15 12/09/22 05:00 12/09/22 02:00 Temperature Pulse Rate 68 66 Respiratory Rate 19 19 17 Blood Pressure Pulse Oximetry 96 Oxygen Delivery BiPAP BiPAP Oxygen Flow Rate 12/09/22 02:20 12/09/22 07:34 12/09/22 07:38 Temperature Pulse Rate 65 71 71 Respiratory Rate 17 18 18 Blood Pressure Pulse Oximetry 96 Oxygen Delivery Nasal Cannula Oxygen Flow Rate 4 12/09/22 07:51 12/09/22 08:31 12/09/22 08:00 Temperature Pulse Rate 75 78 Respiratory Rate 18 Blood Pressure Pulse Oximetry 96 Oxygen Delivery Nasal Cannula Oxygen Flow Rate 3 12/09/22 09:31 12/09/22 07:07 12/09/22 10:14 Temperature 36.5 C Pulse Rate 72 Respiratory Rate 18 Blood Pressure 110/48 L Pulse Oximetry 97 Oxygen Delivery Nasal Cannula Oxygen Flow Rate 4 4 12/09/22 15:57 12/09/22 16:00 12/09/22 16:11 Temperature Pulse Rate 83 83 84 Respiratory Rate 18 18 18 Blood Pressure Pulse Oximetry 95 Oxygen Delivery Nasal Cannula Oxygen Flow Rate 3 12/09/22 10:14 12/09/22 10:24 12/09/22 10:40 Temperature 36.7 C Pulse Rate 76 73 73 Respiratory Rate 16 Blood Pressure 114/50 L 117/53 L 119/56 L Pulse Oximetry Oxygen Delivery Oxygen Flow Rate 12/09/22 11:00 12/09/22 11:20 12/09/22 11:40 Temperature Pulse Rate 74 74 74 Respiratory Rate Blood Pressure 113/58 L 118/54 L 109/55 L Pulse Oximetry Oxygen Delivery Oxygen Flow Rate 12/09/22 12:00 12/09/22 12:20 12/09/22 12:40 Temperature Pulse Rate 74 75 75 Respiratory Rate Blood Pressure 109/53 L 121/54 L 113/51 L Pulse Oximetry Oxygen Delivery Oxygen Flow Rate 12/09/22 13:00 12/09/22 13:20 12/09/22 13:40 Temperature Pulse Rate 77 79 80 Respiratory Rate Blood Pressure 112/56 L 121/55 L 123/57 L Pulse Oximetry Oxygen Delivery Oxygen Flow
[2022-12-09] MEDS: ATORVASTATIN 20 MG TABLET PO (20:42)
[2022-12-09 21:19] LABS: Glucose Point of Care 262 mg/dl (65-105)
[2022-12-10] VITALS (12 sets, daily range): BP systolic 124–144; BP diastolic 42–51; PULSE 77–93; RESP 16–20; TEMP 36.6–36.9; O2SAT 91–100
[2022-12-10] MEDS: ONDANSETRON INJ 4 MG/2 ML VIAL IV PUSH ×3 (02:28→16:25)
[2022-12-10] MEDS: IPRATROPIUM BR 0.02% INH SOLN 0.5 MG/2.5 ML VIAL INHALATION ×3 (02:38→12:59)
[2022-12-10] MEDS: ALBUTEROL SULFATE NEB 2.5 MG/3 ML INH INHALATION ×3 (02:38→12:59)
[2022-12-10 05:34] LABS: Basophils Absolute Auto 0.1 K/mm3 (0.0-0.1); Basophils Percent Auto 0.5 % (0.2-1.2); Eosinophils Percent Auto 0.2 % (0-4.4); Hematocrit 33.2 % (42.0-52.0); Hemoglobin 9.8 g/dL (14.0-18.0); Immature Granulocyte Absolute 0.25 K/mm3 (0.00-0.031); Immature Granulocyte Percent A 1.3 % (0-0.5); Mean Corpuscular HGB Conc 29.5 g/dl (32-36); Mean Corpuscular Hemoglobin 28.6 pg (26-34); Mean Corpuscular Volume 96.8 fl (80-100); Mean Platelet Volume 9.5 fl (7.4-10.4); Monocytes Absolute Auto 1.3 K/mm3 (0.1-0.6); Monocytes Percent Auto 6.5 % (2.6-8.5); Neutrophils Absolute Auto 17.8 K/mm3 (1.3-6.7); Neutrophils Percent Auto 89.5 % (45.5-73.1); Platelet Count Result 195 k/mm3 (150-375); Red Blood Count 3.43 M/mm3 (4.6-6.20); Red Cell Distribution Width 17.6 % (11.5-14.5); White Blood Count 19.8 K/mm3 (4.5-10.0)
[2022-12-10 06:03] LABS: Anisocytosis 1+ (NORMAL); Hypochromasia 1+ (NORMAL); Platelet Estimate Adequate (Adequate); Schistocytes None Seen (NORMAL)
[2022-12-10 06:09] LABS: Alanine Aminotransferase 10 U/L (6-50); Albumin Level 3.1 g/dL (3.5-5.1); Alkaline Phosphatase 188 U/L (38-126); Anion Gap 5 mmol/L (8-16); Aspartate Amino Transferase 33 U/L (17-59); Bilirubin,Total 0.3 mg/dL (0.2-1.3); Blood Urea Nitrogen 25 mg/dL (9-20); Calcium 8.4 mg/dL (8.4-10.2); Carbon Dioxide 32 mmol/L (22-30); Chloride 96 mmol/L (98-107); Estimated CRCL calculation 19 ml/min; Estimated Glomerular Filt Rate 14; Glucose 154 mg/dL (65-110); Potassium 4.7 mmol/L (3.4-5.0); Sodium 133 mmol/L (137-145)
[2022-12-10] MEDS: CHOLECALCIFEROL 1,000 UNITS TABLET 5000 UNITS PO (08:11)
[2022-12-10] MEDS: amLODIPine BESYLATE 5 MG TABLET PO (08:11)
[2022-12-10] MEDS: BUMETANIDE 1 MG TABLET 4 MG PO (08:11)
[2022-12-10] MEDS: SEVELAMER CARBONATE 800 MG TABLET 1600 MG PO ×3 (08:11→16:28)
[2022-12-10] MEDS: TAMSULOSIN HCL 0.4 MG CAPSULE PO (08:11)
[2022-12-10] MEDS: FERROUS SULFATE 325 MG TABLET DR PO (08:12)
[2022-12-10] MEDS: ESCITALOPRAM OXALATE 10 MG TABLET 20 MG PO (08:12)
[2022-12-10] MEDS: MAGNESIUM OXIDE 400 MG TABLET PO (08:12)
[2022-12-10] MEDS: SENNA/DOCUSATE SODIUM TABLET 2 TAB PO ×2 (08:12→16:28)
[2022-12-10] MEDS: AMIODARONE HCL 200 MG TABLET PO (08:12)
[2022-12-10] MEDS: MORPHINE SULFATE (*CRX) 2 MG/ML INJ IV PUSH ×2 (08:15→16:24)
[2022-12-10 08:25] LABS: Glucose Point of Care 158 mg/dl (65-105)
--- NOTE | 2022-12-10 11:01 | PM.IMPN ---
Progress Note: A&P Assessment and Plan (1) Closed left hip fracture: Qualifiers: Encounter type: initial encounter Qualified Code(s): S72.002A - Fracture of unspecified part of neck of left femur, initial encounter for closed fracture Code(s): S72.002A - Fracture of unspecified part of neck of left femur, initial encounter for closed fracture Status: Acute Assessment and Plan: X-ray reveals transcervical fracture of left femoral neck Orthopedics consulted. Postop day 2 Postsurgical DVT prophylaxis, PT and OT and analgesics per orthopedic team. Weightbearing as tolerated. Monitor H&H post operatively. (2) End stage renal disease: Code(s): N18.6 - End stage renal disease Status: Chronic Assessment and Plan: Nephrology has been consulted.? The patient has seen Dr. Justin in the past.? Patient has dialysis on Monday. (3) CHF (congestive heart failure), NYHA class I: Code(s): I50.9 - Heart failure, unspecified Status: Acute Assessment and Plan: Not in an acute exacerbation. Monitor fluid status. (4) COPD (chronic obstructive pulmonary disease): Code(s): J44.9 - Chronic obstructive pulmonary disease, unspecified Status: Chronic Assessment and Plan: The patient continues to smoke.? Offered smoking cessation.? 12/08 respiratory event at night ending with patient being put on BiPAP. See crosscover note. Patient in chronic respiratory acidosis. 12/10 Breath sounds and respiratory effort improved P.r.n. albuterol Continue nebulizer treatments.? (5) Hypertension: Code(s): I10 - Essential (primary) hypertension Status: Chronic Assessment and Plan: Resume antihypertensive medication. (6) Diabetes: Code(s): E11.9 - Type 2 diabetes mellitus without complications Status: Chronic Assessment and Plan: Patient controls diabetes with diet. AC and HS with sliding scale insulin. ? Hypoglycemia protocol initiated. Hemoglobin A1c 6.2. Subjective Date/time seen: 12/10/22 11:01 Interval history: Patient doing well today and states that he is breathing much better. He had dialysis yesterday and I believe that this helped with patient's fluid levels. Patient still having issues with mobilization and pain control. Other than his left hip pain and mobilization he has no complaints at this time. Exam Narrative: GENERAL: Comfortable, no acute distress HENMT: moist mucous membranes EYES: EOM intact b/l NECK: no lymphadenopathy RESPIRATORY: distant breath sounds, diffuse crackles CARDIO: RRR GI: soft, nontender, bowel sounds present SKIN: no rashes EXTREMITIES: Limited range of motion in the left hip, bandage intact and dry Objective Data Vital Signs Vital Signs: Vital Signs - 24 hr 12/09/22 15:57 12/09/22 16:00 12/09/22 16:11 Temperature Pulse Rate 83 83 84 Respiratory Rate 18 18 18 Blood Pressure Pulse Oximetry 95 Oxygen Delivery Nasal Cannula Oxygen Flow Rate 3 Fraction of Inspired Oxygen 12/09/22 11:20 12/09/22 11:40 12/09/22 12:00 Temperature Pulse Rate 74 74 74 Respiratory Rate Blood Pressure 118/54 L 109/55 L 109/53 L Pulse Oximetry Oxygen Delivery Oxygen Flow Rate Fraction of Inspired Oxygen 12/09/22 12:20 12/09/22 12:40 12/09/22 13:00 Temperature Pulse Rate 75 75 77 Respiratory Rate Blood Pressure 121/54 L 113/51 L 112/56 L Pulse Oximetry Oxygen Delivery Oxygen Flow Rate Fraction of Inspired Oxygen 12/09/22 13:20 12/09/22 13:40 12/09/22 13:56 Temperature Pulse Rate 79 80 77 Respiratory Rate Blood Pressure 121/55 L 123/57 L 119/56 L Pulse Oximetry Oxygen Delivery Oxygen Flow Rate Fraction of Inspired Oxygen 12/09/22 14:12 12/09/22 15:40 12/09/22 15:07 Temperature 98.0 F 97.6 F Pulse Rate 82 70 Respiratory Rate 14
[2022-12-10] MEDS: HYDROcodone/acetaminophen (*CRX) 5-325 MG TABLET 1 TAB PO (11:19)
[2022-12-10 12:06] LABS: Glucose Point of Care 172 mg/dl (65-105)
--- NOTE | 2022-12-10 13:30 | P.PNNP_ITS ---
Progress Note: A&P Assessment and Plan (1) End stage renal disease: Code(s): N18.6 - End stage renal disease Status: Chronic Assessment and Plan: * HD done yesterday next treatment on Monday. * continue M/W/F dialysis schedule while hospitalized * Volume status seems okay. He does have a cough. But no shortness of breath. * Will take more fluid off on Monday. * Potassium is okay today. (2) Closed left hip fracture: Qualifiers: Encounter type: initial encounter Qualified Code(s): S72.002A - Fracture of unspecified part of neck of left femur, initial encounter for closed fracture Code(s): S72.002A - Fracture of unspecified part of neck of left femur, initial encounter for closed fracture Status: Acute Assessment and Plan: * Orthopedics following * s/p bipolar hemiarthroplasty left hip (on 12/08/22) * pain control * PT/OT when able * He has been bearing some weight. (3) Hypertension: Code(s): I10 - Essential (primary) hypertension Status: Chronic Assessment and Plan: * Systolic ranging 110-120 for the most part. * follow trend of hemodynamics (4) Anemia: Code(s): D64.9 - Anemia, unspecified Status: Chronic Assessment and Plan: * due to ESRD * Epogen with HD * Hemoglobin 9.8 today. (5) COPD (chronic obstructive pulmonary disease): Code(s): J44.9 - Chronic obstructive pulmonary disease, unspecified Status: Chronic Assessment and Plan: * events noted overnight (on 12/08/22) * continue BiPAP support PRN * on chronic home oxygen * continue nebulizer treatments * fluid removal with dialysis as tolerated to maintain euvolemia * Medical management of same is her hospitalists. (6) Diabetes: Code(s): E11.9 - Type 2 diabetes mellitus without complications Status: Chronic Assessment and Plan: * follow accu-cheks * appears diet controlled * glycemic control per hospitalists (if needed) Subjective Date/time seen: 12/10/22 13:30 Interval history: Follow-up for end stage renal disease on hemodialysis. Patient feels okay today. Sitting up in a chair and eating some lunch. His sister is in the room. No shortness of breath today. He does have a little bit of a cough Exam Narrative: General: WD/WN male in NAD Heart: normal S1 and S2; no rub or gallop Lungs: coarse breath sounds with scattered crackles noted Abdomen: soft, nontender, nondistended, positive bowel sounds Extremities: no cyanosis or clubbing; no edema Skin: No rash Objective Data Vital Signs Vital Signs: Vital Signs - 24 hr 12/09/22 15:57 12/09/22 16:00 12/09/22 16:11 Temperature Pulse Rate 83 83 84 Respiratory Rate 18 18 18 Blood Pressure Pulse Oximetry 95 Oxygen Delivery Nasal Cannula Oxygen Flow Rate 3 Fraction of Inspired Oxygen 12/09/22 13:40 12/09/22 13:56 12/09/22 14:12 Temperature 98.0 F Pulse Rate 80 77 82 Respiratory Rate 14 Blood Pressure 123/57 L 119/56 L 114/57 L Pulse Oximetry Oxygen Delivery Oxygen Flow Rate Fraction of Inspired Oxygen 12/09/22 15:40 12/09/22 15:07 12/09/22 19:07 Temperature 97.6 F 98.2 F Pul
--- NOTE | 2022-12-10 13:30 | PM.PNNEP ---
Progress Note: A&P Assessment and Plan (1) End stage renal disease: Code(s): N18.6 - End stage renal disease Status: Chronic Assessment and Plan: HD done yesterday next treatment on Monday. continue M/W/F dialysis schedule while hospitalized Volume status seems okay. He does have a cough. But no shortness of breath. Will take more fluid off on Monday. Potassium is okay today. (2) Closed left hip fracture: Qualifiers: Encounter type: initial encounter Qualified Code(s): S72.002A - Fracture of unspecified part of neck of left femur, initial encounter for closed fracture Code(s): S72.002A - Fracture of unspecified part of neck of left femur, initial encounter for closed fracture Status: Acute Assessment and Plan: Orthopedics following s/p bipolar hemiarthroplasty left hip (on 12/08/22) pain control PT/OT when able He has been bearing some weight. (3) Hypertension: Code(s): I10 - Essential (primary) hypertension Status: Chronic Assessment and Plan: Systolic ranging 110-120 for the most part. follow trend of hemodynamics (4) Anemia: Code(s): D64.9 - Anemia, unspecified Status: Chronic Assessment and Plan: due to ESRD Epogen with HD Hemoglobin 9.8 today. (5) COPD (chronic obstructive pulmonary disease): Code(s): J44.9 - Chronic obstructive pulmonary disease, unspecified Status: Chronic Assessment and Plan: events noted overnight (on 12/08/22) continue BiPAP support PRN on chronic home oxygen continue nebulizer treatments fluid removal with dialysis as tolerated to maintain euvolemia Medical management of same is her hospitalists. (6) Diabetes: Code(s): E11.9 - Type 2 diabetes mellitus without complications Status: Chronic Assessment and Plan: follow accu-cheks appears diet controlled glycemic control per hospitalists (if needed) Subjective Date/time seen: 12/10/22 13:30 Interval history: Follow-up for end stage renal disease on hemodialysis. Patient feels okay today. Sitting up in a chair and eating some lunch. His sister is in the room. No shortness of breath today. He does have a little bit of a cough Exam Narrative: General: WD/WN male in NAD Heart: normal S1 and S2; no rub or gallop Lungs: coarse breath sounds with scattered crackles noted Abdomen: soft, nontender, nondistended, positive bowel sounds Extremities: no cyanosis or clubbing; no edema Skin: No rash Objective Data Vital Signs Vital Signs: Vital Signs - 24 hr 12/09/22 15:57 12/09/22 16:00 12/09/22 16:11 Temperature Pulse Rate 83 83 84 Respiratory Rate 18 18 18 Blood Pressure Pulse Oximetry 95 Oxygen Delivery Nasal Cannula Oxygen Flow Rate 3 Fraction of Inspired Oxygen 12/09/22 13:40 12/09/22 13:56 12/09/22 14:12 Temperature 98.0 F Pulse Rate 80 77 82 Respiratory Rate 14 Blood Pressure 123/57 L 119/56 L 114/57 L Pulse Oximetry Oxygen Delivery Oxygen Flow Rate Fraction of Inspired Oxygen 12/09/22 15:40 12/09/22 15:07 12/09/22 19:07 Temperature 97.6 F 98.2 F Pulse Rate 70 82 Respiratory Rate 17 18 Blood Pressure 115/54 L 120/42 L Pulse Oximetry 96 93 Oxygen Delivery Oxygen Flow Rate Fraction of Inspired Oxygen 30 12/09/22 20:28 12/09/22 20:29 12/09/22 22:30 Temperature Pulse Rate 78 75 Respiratory Rate 18 20 Blood Pressure Pulse Oximetry 98 98 Oxygen Delivery Nasal Cannula BiPAP Oxygen Flow Rate 3 Fraction of Inspired Oxygen 12/10/22 00:00 12/09/22 20:43 12/10/22 02:39 Temperature 98.4 F Pulse Rate 79 81 77 Respiratory Rate 18 18 18 Blood Pressure 124/42 L Pulse Oximetry 100 Oxygen Delivery Oxygen Flow Rate Fraction of Inspired Oxygen 12/10/22 04:29 12/10/22 07:41 12/10/22 07:41 Temperature Pulse Rate 79 83 Respiratory Rate 1
[2022-12-10 19:44] LABS: Glucose Point of Care 209 mg/dl (65-105)
[2022-12-10] MEDS: ATORVASTATIN 20 MG TABLET PO (21:33)
[2022-12-10 22:08] LABS: Glucose Point of Care 165 mg/dl (65-105)
[2022-12-11] VITALS (15 sets, daily range): BP systolic 126–139; BP diastolic 51–55; PULSE 80–86; RESP 16–22; TEMP 36.5–36.8; O2SAT 91–100
[2022-12-11] MEDS: IPRATROPIUM BR 0.02% INH SOLN 0.5 MG/2.5 ML VIAL INHALATION ×4 (01:34→20:06)
[2022-12-11] MEDS: ALBUTEROL SULFATE NEB 2.5 MG/3 ML INH INHALATION ×4 (01:34→20:06)
[2022-12-11] MEDS: ONDANSETRON INJ 4 MG/2 ML VIAL IV PUSH (02:52)
[2022-12-11 04:38] LABS: Basophils Absolute Auto 0.1 K/mm3 (0.0-0.1); Basophils Percent Auto 0.5 % (0.2-1.2); Eosinophils Absolute Auto 0.2 K/mm3 (0-0.3); Eosinophils Percent Auto 1.1 % (0-4.4); Hematocrit 33.1 % (42.0-52.0); Hemoglobin 9.9 g/dL (14.0-18.0); Immature Granulocyte Absolute 0.29 K/mm3 (0.00-0.031); Immature Granulocyte Percent A 1.6 % (0-0.5); Lymphocytes Percent Auto 2.7 % (18.3-44.2); Mean Corpuscular HGB Conc 29.9 g/dl (32-36); Mean Corpuscular Hemoglobin 28.4 pg (26-34); Mean Corpuscular Volume 95.1 fl (80-100); Mean Platelet Volume 9.6 fl (7.4-10.4); Monocytes Percent Auto 5.4 % (2.6-8.5); Neutrophils Absolute Auto 16.3 K/mm3 (1.3-6.7); Neutrophils Percent Auto 88.7 % (45.5-73.1); Platelet Count Result 226 k/mm3 (150-375); Red Blood Count 3.48 M/mm3 (4.6-6.20); Red Cell Distribution Width 17.6 % (11.5-14.5); White Blood Count 18.4 K/mm3 (4.5-10.0)
[2022-12-11 04:59] LABS: Albumin Level 3.2 g/dL (3.5-5.1); Alkaline Phosphatase 169 U/L (38-126); Anion Gap 7 mmol/L (8-16); Aspartate Amino Transferase 32 U/L (17-59); Bilirubin,Total 0.4 mg/dL (0.2-1.3); Blood Urea Nitrogen 40 mg/dL (9-20); Calcium 8.6 mg/dL (8.4-10.2); Carbon Dioxide 33 mmol/L (22-30); Chloride 93 mmol/L (98-107); Estimated CRCL calculation 12 ml/min; Estimated Glomerular Filt Rate 11; Glucose 140 mg/dL (65-110); Magnesium 2.2 mg/dL (1.6-2.3); Phosphorus 6.2 mg/dL (2.5-4.5); Potassium 4.7 mmol/L (3.4-5.0); Sodium 133 mmol/L (137-145)
[2022-12-11 05:08] LABS: Anisocytosis 1+ (NORMAL); Platelet Estimate Adequate (Adequate)
[2022-12-11 05:09] LABS: Hypochromasia 1+ (NORMAL); Schistocytes None Seen (NORMAL)
[2022-12-11 06:06] LABS: Alanine Aminotransferase < 6 U/L (6-50)
[2022-12-11] MEDS: SEVELAMER CARBONATE 800 MG TABLET 1600 MG PO ×3 (08:14→16:49)
[2022-12-11] MEDS: CHOLECALCIFEROL 1,000 UNITS TABLET 5000 UNITS PO (08:15)
[2022-12-11] MEDS: TAMSULOSIN HCL 0.4 MG CAPSULE PO (08:15)
[2022-12-11] MEDS: AMIODARONE HCL 200 MG TABLET PO (08:15)
[2022-12-11] MEDS: MAGNESIUM OXIDE 400 MG TABLET PO (08:15)
[2022-12-11] MEDS: ESCITALOPRAM OXALATE 10 MG TABLET 20 MG PO (08:15)
[2022-12-11] MEDS: SENNA/DOCUSATE SODIUM TABLET 2 TAB PO ×2 (08:15→16:49)
[2022-12-11] MEDS: FERROUS SULFATE 325 MG TABLET DR PO (08:16)
[2022-12-11] MEDS: amLODIPine BESYLATE 5 MG TABLET PO (08:18)
[2022-12-11] MEDS: BUMETANIDE 1 MG TABLET 4 MG PO (08:19)
[2022-12-11] MEDS: MORPHINE SULFATE (*CRX) 2 MG/ML INJ IV PUSH ×3 (08:19→20:59)
[2022-12-11 08:32] LABS: Glucose Point of Care 146 mg/dl (65-105)
--- NOTE | 2022-12-11 11:34 | PM.IMPN ---
Progress Note: A&P Assessment and Plan (1) Closed left hip fracture: Qualifiers: Encounter type: initial encounter Qualified Code(s): S72.002A - Fracture of unspecified part of neck of left femur, initial encounter for closed fracture Code(s): S72.002A - Fracture of unspecified part of neck of left femur, initial encounter for closed fracture Status: Acute Assessment and Plan: X-ray reveals transcervical fracture of left femoral neck Orthopedics consulted. Postop day 3 Postsurgical DVT prophylaxis, PT and OT and analgesics per orthopedic team. Weightbearing as tolerated. Monitor H&H post operatively. (2) End stage renal disease: Code(s): N18.6 - End stage renal disease Status: Chronic Assessment and Plan: Nephrology has been consulted.? The patient has seen Dr. Justin in the past.? Patient has dialysis on Monday. (3) CHF (congestive heart failure), NYHA class I: Code(s): I50.9 - Heart failure, unspecified Status: Acute Assessment and Plan: Not in an acute exacerbation. Monitor fluid status. (4) COPD (chronic obstructive pulmonary disease): Code(s): J44.9 - Chronic obstructive pulmonary disease, unspecified Status: Chronic Assessment and Plan: The patient continues to smoke.? Offered smoking cessation.? 12/08 respiratory event at night ending with patient being put on BiPAP. See crosscover note. Patient in chronic respiratory acidosis. 12/10 Breath sounds and respiratory effort improved P.r.n. albuterol Continue nebulizer treatments.? (5) Hypertension: Code(s): I10 - Essential (primary) hypertension Status: Chronic Assessment and Plan: Resume antihypertensive medication. (6) Diabetes: Code(s): E11.9 - Type 2 diabetes mellitus without complications Status: Chronic Assessment and Plan: Patient controls diabetes with diet. AC and HS with sliding scale insulin. ? Hypoglycemia protocol initiated. Hemoglobin A1c 6.2. (7) Nausea & vomiting: Code(s): R11.2 - Nausea with vomiting, unspecified Status: Acute Assessment and Plan: 12/11/22 patient complains of nausea vomiting that is not associated with food intake. Patient tried to cut down on pain medications but the nausea vomiting persisted. Continue with IV anti emetics and start Protonix. Will get CT abdomen and pelvis to further investigate. Subjective Date/time seen: 12/11/22 11:34 Interval history: Patient having some nausea and a couple episodes of vomiting overnight. Yesterday patient also mentioned this and we discussed that sometimes pain medications can causes nausea vomiting. He cut back on his opioid use yesterday although his nausea vomiting continued. Plan to get a CT of the abdomen pelvis and starting Protonix to see if this helps patient's symptoms and to investigate further. He still complains of left hip pain with movement but while at rest he is managing. No complaints with shortness of breath, chest pain, dizziness or lightheadedness. Exam Narrative: GENERAL: Comfortable, no acute distress HENMT: moist mucous membranes EYES: EOM intact b/l NECK: no lymphadenopathy RESPIRATORY: distant breath sounds, bibasilar crackles CARDIO: RRR, distant heart sounds GI: soft, nontender, bowel sounds present SKIN: no rashes EXTREMITIES: Limited range of motion in the left hip, bandage intact and dry Objective Data Vital Signs Vital Signs: Vital Signs - 24 hr 12/10/22 13:01 12/10/22 13:18 12/10/22 15:19 Temperature 97.9 F Pulse Rate 88 80 93 Respiratory Rate 20 20 20 Blood Pressure 144/51 H Pulse Oximetry 100 Oxygen Delivery Oxygen Flow Rate Fraction of Inspired Oxygen 12/10/22 19:46 12/11/22 01:35 12/10/22 22:10 Temperature 98.5 F Pulse Rate 88 80 86 Respiratory Rate 16 22 H 18 Blood Pressure 126/44 L P
--- NOTE | 2022-12-11 11:40 | PM.PNNEP ---
Progress Note: A&P Assessment and Plan (1) End stage renal disease: Code(s): N18.6 - End stage renal disease Status: Chronic Assessment and Plan: HD done Monday. He did well. continue M/W/F dialysis schedule while hospitalized Volume status looks okay on physical exam. Due for dialysis on Monday. Potassium is 4.7. (2) Closed left hip fracture: Qualifiers: Encounter type: initial encounter Qualified Code(s): S72.002A - Fracture of unspecified part of neck of left femur, initial encounter for closed fracture Code(s): S72.002A - Fracture of unspecified part of neck of left femur, initial encounter for closed fracture Status: Acute Assessment and Plan: Orthopedics following s/p bipolar hemiarthroplasty left hip (on 12/08/22) pain control PT/OT when able He has been bearing some weight. (3) Hypertension: Code(s): I10 - Essential (primary) hypertension Status: Chronic Assessment and Plan: Systolic ranging 110-120 for the most part. follow trend of hemodynamics (4) Anemia: Code(s): D64.9 - Anemia, unspecified Status: Chronic Assessment and Plan: due to ESRD Epogen with HD Hemoglobin 9.9 today. (5) COPD (chronic obstructive pulmonary disease): Code(s): J44.9 - Chronic obstructive pulmonary disease, unspecified Status: Chronic Assessment and Plan: Breathing is okay today. Getting supportive care. (6) Diabetes: Code(s): E11.9 - Type 2 diabetes mellitus without complications Status: Chronic Assessment and Plan: follow accu-cheks appears diet controlled glycemic control per hospitalists (if needed) (7) Nausea & vomiting: Code(s): R11.2 - Nausea with vomiting, unspecified Status: Acute Assessment and Plan: The patient has nausea and vomiting. He is constipated. I will give him some cathartics. CT of the abdomen ordered just in case or something else going on. Subjective Date/time seen: 12/11/22 11:40 Interval history: Follow-up for end stage renal disease on hemodialysis. Patient has been having nausea and vomiting. He has not been able to keep the last 3 meals down. He has no belly pain. He is passing gas. He has not had a bowel movement in a few days. Exam Narrative: General: WD/WN male in NAD Heart: normal S1 and S2; no rub or gallop Lungs: coarse breath sounds with scattered crackles noted Abdomen: Bowel sounds positive and soft. No tenderness. Extremities: no cyanosis or clubbing; no edema Skin: No rash or subQ nodules Objective Data Vital Signs Vital Signs: Vital Signs - 24 hr 12/10/22 13:01 12/10/22 13:18 12/10/22 15:19 Temperature 97.9 F Pulse Rate 88 80 93 Respiratory Rate 20 20 20 Blood Pressure 144/51 H Pulse Oximetry 100 Oxygen Delivery Oxygen Flow Rate Fraction of Inspired Oxygen 12/10/22 19:46 12/11/22 01:35 12/10/22 22:10 Temperature 98.5 F Pulse Rate 88 80 86 Respiratory Rate 16 22 H 18 Blood Pressure 126/44 L Pulse Oximetry 94 94 Oxygen Delivery BiPAP Oxygen Flow Rate Fraction of Inspired Oxygen 12/10/22 22:10 12/11/22 01:46 12/11/22 01:30 Temperature Pulse Rate 81 80 Respiratory Rate 22 H 18 Blood Pressure Pulse Oximetry 94 94 Oxygen Delivery Nasal Cannula BiPAP Oxygen Flow Rate 3 Fraction of Inspired Oxygen 12/11/22 05:08 12/11/22 06:05 12/11/22 08:15 Temperature 98.3 F Pulse Rate 81 80 84 Respiratory Rate 16 18 Blood Pressure 139/53 L Pulse Oximetry 91 Oxygen Delivery Oxygen Flow Rate Fraction of Inspired Oxygen 12/11/22 08:21 12/11/22 08:30 Temperature Pulse Rate Respiratory Rate Blood Pressure Pulse Oximetry 97 97 Oxygen Delivery Nasal Cannula Nasal Cannula Oxygen Flow Rate 3 3 Fraction of Inspired Oxygen 32 Intake/Output Intake/Output: Intake & Output 12/08/22
[2022-12-11 12:08] LABS: Glucose Point of Care 138 mg/dl (65-105)
[2022-12-11] MEDS: DOCUSATE SODIUM 100 MG CAPSULE PO (16:49)
[2022-12-11 17:15] LABS: Glucose Point of Care 145 mg/dl (65-105)
[2022-12-11] MEDS: PANTOPRAZOLE SODIUM IV 40 MG VIAL IV PUSH (20:59)
[2022-12-11] MEDS: ATORVASTATIN 20 MG TABLET PO (20:59)
[2022-12-11 21:47] LABS: Glucose Point of Care 137 mg/dl (65-105)
[2022-12-12] VITALS (13 sets, daily range): BP systolic 113–131; BP diastolic 48–58; PULSE 77–84; RESP 16–18; TEMP 36.7–36.8; O2SAT 93–99; BMI 10.0
[2022-12-12] MEDS: IPRATROPIUM BR 0.02% INH SOLN 0.5 MG/2.5 ML VIAL INHALATION ×3 (02:31→19:57)
[2022-12-12] MEDS: ALBUTEROL SULFATE NEB 2.5 MG/3 ML INH INHALATION ×3 (02:31→19:57)
[2022-12-12 06:47] LABS: Basophils Absolute Auto 0.1 K/mm3 (0.0-0.1); Basophils Percent Auto 0.7 % (0.2-1.2); Eosinophils Absolute Auto 0.4 K/mm3 (0-0.3); Eosinophils Percent Auto 2.3 % (0-4.4); Hematocrit 32.8 % (42.0-52.0); Hemoglobin 9.7 g/dL (14.0-18.0); Immature Granulocyte Absolute 0.21 K/mm3 (0.00-0.031); Immature Granulocyte Percent A 1.4 % (0-0.5); Lymphocytes Absolute Auto 0.54 K/mm3 (0.9-3.2); Lymphocytes Percent Auto 3.5 % (18.3-44.2); Mean Corpuscular HGB Conc 29.6 g/dl (32-36); Mean Corpuscular Hemoglobin 27.8 pg (26-34); Mean Platelet Volume 9.6 fl (7.4-10.4); Monocytes Absolute Auto 0.8 K/mm3 (0.1-0.6); Monocytes Percent Auto 5.4 % (2.6-8.5); Neutrophils Absolute Auto 13.3 K/mm3 (1.3-6.7); Neutrophils Percent Auto 86.7 % (45.5-73.1); Nucleated Red Blood Cells Perc 0.1 % (0.0-0.2); Platelet Count Result 252 k/mm3 (150-375); Red Blood Count 3.49 M/mm3 (4.6-6.20); Red Cell Distribution Width 17.6 % (11.5-14.5); White Blood Count 15.4 K/mm3 (4.5-10.0)
[2022-12-12 07:14] LABS: Alanine Aminotransferase 8 U/L (6-50); Alkaline Phosphatase 180 U/L (38-126); Anion Gap 8 mmol/L (8-16); Aspartate Amino Transferase 28 U/L (17-59); Bilirubin,Total 0.4 mg/dL (0.2-1.3); Blood Urea Nitrogen 57 mg/dL (9-20); Calcium 8.3 mg/dL (8.4-10.2); Carbon Dioxide 32 mmol/L (22-30); Chloride 93 mmol/L (98-107); Estimated CRCL calculation 10 ml/min; Estimated Glomerular Filt Rate 9; Glucose 97 mg/dL (65-110); Phosphorus 6.7 mg/dL (2.5-4.5); Sodium 133 mmol/L (137-145)
[2022-12-12] MEDS: HYDROcodone/acetaminophen (*CRX) 5-325 MG TABLET 1 TAB PO (07:43)
[2022-12-12 08:08] LABS: Anisocytosis 1+ (NORMAL); Burr Cells 2+ (NORMAL); Macrocytosis 1+ (NORMAL); Platelet Estimate Adequate (Adequate); Schistocytes None Seen (NORMAL)
[2022-12-12] MEDS: AMIODARONE HCL 200 MG TABLET PO (08:32)
[2022-12-12] MEDS: CHOLECALCIFEROL 1,000 UNITS TABLET 5000 UNITS PO (08:32)
[2022-12-12] MEDS: FERROUS SULFATE 325 MG TABLET DR PO (08:32)
[2022-12-12] MEDS: SENNA/DOCUSATE SODIUM TABLET 2 TAB PO ×2 (08:33→18:06)
[2022-12-12] MEDS: TAMSULOSIN HCL 0.4 MG CAPSULE PO (08:33)
[2022-12-12] MEDS: MAGNESIUM OXIDE 400 MG TABLET PO (08:33)
[2022-12-12] MEDS: ESCITALOPRAM OXALATE 10 MG TABLET 20 MG PO (08:33)
[2022-12-12] MEDS: ENOXAPARIN 30 MG/0.3 ML SYRINGE SUB-Q (08:33)
[2022-12-12] MEDS: SEVELAMER CARBONATE 800 MG TABLET 1600 MG PO ×3 (08:33→18:06)
[2022-12-12] MEDS: amLODIPine BESYLATE 5 MG TABLET PO (08:33)
[2022-12-12] MEDS: PANTOPRAZOLE SODIUM IV 40 MG VIAL IV PUSH ×2 (08:36→21:18)
--- NOTE | 2022-12-12 09:23 | PM.PNORT ---
Progress Note: A&P Assessment and Plan (1) Closed left hip fracture: Qualifiers: Encounter type: initial encounter Qualified Code(s): S72.002A - Fracture of unspecified part of neck of left femur, initial encounter for closed fracture Code(s): S72.002A - Fracture of unspecified part of neck of left femur, initial encounter for closed fracture Status: Acute (2) History of partial replacement of left hip joint using bipolar prosthesis: Code(s): Z96.642 - Presence of left artificial hip joint Status: Acute Plan Complains of pain with activity. Some improvement. He says he sat in the chair but is having difficulty ambulating. Comfortable in bed eating breakfast. Left hip swelling mild. Dressing is clean and dry. No drainage. Calf nontender and nonswollen. Wiggles toes with good strength. Light touch sensation intact. Slow progress with therapy. Continue to mobilize as able. Subjective Subjective Date/Time Seen: 12/12/22 09:23 Objective Data Vital Signs Vital Signs: Vital Signs - 24 hr 12/11/22 13:29 12/11/22 13:44 12/11/22 14:21 Temperature 36.7 C Pulse Rate 82 84 86 Respiratory Rate 18 18 18 Blood Pressure 131/51 L Pulse Oximetry 100 Oxygen Delivery Oxygen Flow Rate Fraction of Inspired Oxygen 12/11/22 20:06 12/11/22 20:18 12/11/22 20:19 Temperature Pulse Rate 85 83 Respiratory Rate 18 18 Blood Pressure Pulse Oximetry 93 Oxygen Delivery Nasal Cannula Oxygen Flow Rate 3 Fraction of Inspired Oxygen 32 12/11/22 21:34 12/12/22 02:31 12/12/22 02:41 Temperature 36.5 C Pulse Rate 85 80 81 Respiratory Rate 20 18 18 Blood Pressure 126/55 L Pulse Oximetry 91 Oxygen Delivery Oxygen Flow Rate Fraction of Inspired Oxygen 12/12/22 07:35 12/12/22 07:57 12/12/22 08:00 Temperature 36.7 C Pulse Rate 84 83 83 Respiratory Rate 16 18 18 Blood Pressure 131/53 L Pulse Oximetry 93 93 Oxygen Delivery Nasal Cannula Oxygen Flow Rate 3 Fraction of Inspired Oxygen 32 12/12/22 08:16 12/12/22 08:32 Temperature Pulse Rate 81 84 Respiratory Rate 18 Blood Pressure Pulse Oximetry Oxygen Delivery Oxygen Flow Rate Fraction of Inspired Oxygen Intake/Output Intake/Output: Intake & Output 12/09/22 12/10/22 12/11/22 12/12/22 23:59 23:59 23:59 23:59 Intake Total 7809 246 7739 940 Output Total 7652 750 150 150 Balance -1480 -30 1020 790 Meds/Results Medications: Active Medications Generic Name Dose Route Start Last Admin Trade Name Freq PRN Reason Stop Dose Admin Hydrocodone Bitart/Acetaminophen 1 tab 12/09/22 04:29 12/12/22 07:43 Hydrocodone/Acetaminophen (*Crx) 5-325 Mg Tablet PO 1 tab Q4H PRN Administration Pain Rated 4-6 Albuterol 2.5 mg 12/07/22 14:00 12/12/22 07:54 Albuterol Sulfate Neb 2.5 Mg/3 Ml Inh INHALATION 2.5 mg Q6HRT KAIN Administration Amiodarone HCl 200 mg 12/07/22 09:00 12/12/22 08:32 Amiodarone Hcl 200 Mg Tablet PO 200 mg DAILY KAIN Administration Amlodipine Besylate 5 mg 12/07/22 09:00 12/12/22 08:33 Amlodipine Besylate 5 Mg Tablet PO 5 mg DAILY KAIN Administration Atorvastatin Calcium 20 mg 12/07/22 21:00 12/11/22 20:59 Atorvastatin 20 Mg Tablet PO 20 mg HS KAIN Administration Bisacodyl 5 mg 12/11/22 11:43 Bisacodyl 5 Mg Tablet Ec PO QAM PRN Constipation Bumetanide 4 mg 12/08/22 09:00 12/11/22 08:19 Bumetanide 1 Mg Tablet PO 4 mg [id number] KAIN Administration Dextrose 12.5 gm 12/08/22 07:13 Dextrose 50% 25 Gm/50 Ml Syringe IV PUSH PRN PRN Hypoglycemia Protocol Docusate Sodium 100 mg 12/07/22 07:26 12/11/22 16:49 Docusate Sodium 100 Mg Capsule PO 100 mg Q12H PRN Administration Constipation Enoxaparin Sodium 30 mg 12/09/22 09:00 12/12/22 08:33 Enoxaparin 30 Mg/0.3 Ml Syringe SUB-Q 30 mg DAILY KAIN Administration Epoetin
--- NOTE | 2022-12-12 12:03 | PM.IMPN ---
Progress Note: A&P Assessment and Plan (1) Closed left hip fracture: Qualifiers: Encounter type: initial encounter Qualified Code(s): S72.002A - Fracture of unspecified part of neck of left femur, initial encounter for closed fracture Code(s): S72.002A - Fracture of unspecified part of neck of left femur, initial encounter for closed fracture Status: Acute Assessment and Plan: X-ray reveals transcervical fracture of left femoral neck Orthopedics consulted. Postop day 4 Postsurgical DVT prophylaxis, PT and OT and analgesics per orthopedic team. Weightbearing as tolerated. Monitor H&H post operatively. Patient with elevated white count which is likely reactive from hip repair. (2) Nausea & vomiting: Code(s): R11.2 - Nausea with vomiting, unspecified Status: Acute Assessment and Plan: 12/11/22 patient complains of nausea vomiting that is not associated with food intake. Patient tried to cut down on pain medications but the nausea vomiting persisted. Continue with IV anti emetics and start Protonix. CT abdomen pelvis revealing distended stomach but unclear etiology Patient complaining of continued dysphagia, nausea and vomiting. GI consult to see if patient needs an EGD. Appreciate GIs recommendations. (3) End stage renal disease: Code(s): N18.6 - End stage renal disease Status: Chronic Assessment and Plan: Nephrology has been consulted.? The patient has seen Dr. Justin in the past.? Patient has dialysis on Monday. (4) CHF (congestive heart failure), NYHA class I: Code(s): I50.9 - Heart failure, unspecified Status: Acute Assessment and Plan: Not in an acute exacerbation. Monitor fluid status. (5) COPD (chronic obstructive pulmonary disease): Code(s): J44.9 - Chronic obstructive pulmonary disease, unspecified Status: Chronic Assessment and Plan: The patient continues to smoke.? Offered smoking cessation.? 12/08 respiratory event at night ending with patient being put on BiPAP. See crosscover note. Patient in chronic respiratory acidosis. 12/10 Breath sounds and respiratory effort improved P.r.n. albuterol Continue nebulizer treatments.? (6) Hypertension: Code(s): I10 - Essential (primary) hypertension Status: Chronic Assessment and Plan: Resume antihypertensive medication. (7) Diabetes: Code(s): E11.9 - Type 2 diabetes mellitus without complications Status: Chronic Assessment and Plan: Patient controls diabetes with diet. AC and HS with sliding scale insulin. ? Hypoglycemia protocol initiated. Hemoglobin A1c 6.2. Subjective Date/time seen: 12/12/22 12:03 Interval history: Patient continues to have worsening dysphagia. He states that every time he swallows it causes a burning sensation down his throat into his chest. He also states that he is beginning to gag. He denies any regurgitation of his food but continues to have nausea vomiting. Denies any hematemesis or coffee-ground emesis. CT did not reveal any clear etiology of patient's symptoms. Consult GI for their opinion. He continues to have left hip pain which is to be expected. He denies any difficulty breathing, chest pain, lightheadedness or dizziness. Exam Narrative: GENERAL: Comfortable, no acute distress HENMT: moist mucous membranes EYES: EOM intact b/l NECK: no lymphadenopathy RESPIRATORY: distant breath sounds, bibasilar crackles CARDIO: RRR, distant heart sounds GI: soft, nontender, bowel sounds present SKIN: no rashes EXTREMITIES: Limited range of motion in the left hip, bandage intact and dry Objective Data Vital Signs Vital Signs: Vital Signs - 24 hr 12/11/22 13:29 12/11/22 13:44 12/11/22 14:21 Temperature 98.1 F Pulse Rate 82 84 86 Respiratory Rate 18 18 18 Blood Pressure 131/51 L Pulse Oxi
[2022-12-12] MEDS: MORPHINE SULFATE (*CRX) 2 MG/ML INJ IV PUSH ×2 (12:12→18:06)
--- NOTE | 2022-12-12 14:31 | WPDGICN ---
Assessment and Plan Assessment and plan (1) Dysphagia: Code(s): R13.10 - Dysphagia, unspecified Status: Acute Assessment and Plan: he states that it is difficult to swallow and it also is painful when he is eating. He probably has esophagitis either due to reflux or perhaps Anastasia or some other etiology. EGD will be scheduled for tomorrow. (2) Nausea & vomiting: Code(s): R11.2 - Nausea with vomiting, unspecified Status: Acute Assessment and Plan: He has had a very poor appetite and of great deal of nausea since surgery. (3) End-stage renal disease on hemodialysis: Code(s): N18.6 - End stage renal disease; Z99.2 - Dependence on renal dialysis Status: Acute Assessment and Plan: He is on chronic hemodialysis, in going down for dialysis shortly. (4) Chronic GERD: Code(s): K21.9 - Gastro-esophageal reflux disease without esophagitis Status: Acute Assessment and Plan: He denies having a previous esophageal stricture. He does take pantoprazole 40 mg b.i.d. and has done this for a while. GI Consult Note Consult date/time: 12/12/22 14:31 HPI: Bruno Unger is a 66 year old male with end-stage renal disease, on dialysis, COPD and currently continues to smoke, CHF, hypertension and hyperlipidemia that was transferred to [facility] from [facility] due to left hip fracture and need for dialysis. Patient had been using his Rollator and walking out to his car from? a urology appointment and while he was attempting to put the Rollator in the car he lost his balance and fell onto his hip. was found have a fracture of the hip and underwent repair by Dr. Dowling. He has had persistent nausea since then the states that he has to force herself to eat. He also had been vomiting. Today he took a few bites but did not feel like eating. He denies abdominal pain. He states that is uncomfortable for him to swallow and feels like the food is not going down. He did not have the symptoms prior to admission. Review of Systems Review of Systems: All systems reviewed & are unremarkable except as noted in HPI and below PMFSH Past Medical History Medical History Acute arthritis Anemia BPH (benign prostatic hyperplasia) CHF (congestive heart failure), NYHA class I Chronic GERD COPD (chronic obstructive pulmonary disease) Degenerative joint disease Depression with anxiety Diabetes End-stage renal disease on hemodialysis Monday Erectile disorder Gout Heart murmur History of partial replacement of left hip joint using bipolar prosthesis Hyperlipidemia Hypertension Kidney stone Tobacco use Surgical History Surgical History H/O arthroscopy of right knee H/O cardiac catheterization H/O endoscopic retrograde cholangiopancreatography Duct stent placement H/O hernia repair H/O inguinal hernia repair History of appendectomy History of cholecystectomy History of colon resection Hx laparoscopic cholecystectomy S/P colonoscopy with polypectomy S/P dialysis catheter insertion S/P ORIF (open reduction internal fixation) fracture Left humerus surgery Family History Family History Mother Diabetes mellitus Father Diabetes mellitus Other Hypertension Social History Social History Social History: He is down to 6 cigarettes a day. He lives with his granddaughter in [place]. He is . He has worked for the [employer] and [employer]. Code status full code Smoking status: Current some day smoker Tobacco type: cigarettes Alcohol intake: former Substance use: never Substance use type: does not use Lack of Transportation: No Lack of Food: Never True Current Housing: I Have Housing Concerned About Future Housing: No Difficul
[2022-12-12 15:17] LABS: Lipase 14 U/L (23-300)
[2022-12-12] MEDS: EPOETIN ALFA 10,000 UNITS/ML VIAL 10000 UNITS IV PUSH (16:48)
[2022-12-12 16:56] LABS: Glucose Point of Care 136 mg/dl (65-105)
--- NOTE | 2022-12-12 17:01 | PM.PNNEP ---
Progress Note: A&P Assessment and Plan (1) End stage renal disease: Code(s): N18.6 - End stage renal disease Status: Chronic Assessment and Plan: HD today continue M/W/F dialysis schedule while hospitalized follow electrolytes, volume status, and clearance (2) Closed left hip fracture: Qualifiers: Encounter type: initial encounter Qualified Code(s): S72.002A - Fracture of unspecified part of neck of left femur, initial encounter for closed fracture Code(s): S72.002A - Fracture of unspecified part of neck of left femur, initial encounter for closed fracture Status: Acute Assessment and Plan: Orthopedics following s/p bipolar hemiarthroplasty left hip (on 12/08/22) pain control PT/OT when able (3) Hypertension: Code(s): I10 - Essential (primary) hypertension Status: Chronic Assessment and Plan: reasonable control follow trend of hemodynamics (4) Anemia: Code(s): D64.9 - Anemia, unspecified Status: Chronic Assessment and Plan: due to ESRD Epogen with HD follow H/H (5) COPD (chronic obstructive pulmonary disease): Code(s): J44.9 - Chronic obstructive pulmonary disease, unspecified Status: Chronic Assessment and Plan: seems compensated continue supportive care (6) Nausea & vomiting: Code(s): R11.2 - Nausea with vomiting, unspecified Status: Acute Assessment and Plan: on IV antiemetics recent CT of abd/pelvis with distended stomach complicated by symptoms of dysphagia as well GI recommendations noted - EGD tomorrow (7) Diabetes: Code(s): E11.9 - Type 2 diabetes mellitus without complications Status: Chronic Assessment and Plan: follow accu-cheks appears diet controlled glycemic control per hospitalists Will continue to follow. Subjective Date/time seen: 12/12/22 17:01 Interval history: Follow-up for end stage renal disease on hemodialysis. Tolerating hemodialysis treatment at the time of my visit (seen on HD at 4:50PM); significant issues with dysphagia in association with nausea and vomiting; only other complaint is taht of left hip pain but seems tolerable with current pain medications; no other issues/events voiced at this time. Exam Narrative: General: WD/WN male in NAD Heart: normal S1 and S2; no rub Lungs: coarse breath sounds with scattered crackles at bases Abdomen: soft, nontender, + bowel sounds noted Extremities: no cyanosis or clubbing; no edema Skin: warm and dry Objective Data Vital Signs Vital Signs: Vital Signs Temp Pulse Resp BP Pulse Ox O2 Del Method O2 Flow Rate 12/12/22 14:05 82 18 12/12/22 13:55 81 18 12/12/22 08:00 93 Nasal Cannula 3 12/12/22 08:32 84 12/12/22 08:16 81 18 12/12/22 08:00 83 18 93 Nasal Cannula 3 12/12/22 07:57 83 18 12/12/22 07:35 98.0 F 84 16 131/53 L 93 12/12/22 02:41 81 18 12/12/22 02:31 80 18 12/11/22 21:34 97.7 F 85 20 126/55 L 91 12/11/22 20:19 83 18 12/11/22 20:18 93 Nasal Cannula 3 12/11/22 20:06 85 18 Intake/Output Intake/Output: Intake & Output 12/09/22 12/10/22 12/11/22 12/12/22 23:59 23:59 23:59 23:59 Intake Total 9985 729 0861 1360 Output Total 2500 750 150 150 Balance -1480 -30 1020 1210 Meds/Results Medications: Active Medications Generic Name Dose Route Start Last Admin Trade Name Freq PRN Reason Stop Dose Admin Hydrocodone Bitart/Acetaminophen 1 tab 12/09/22 04:29 12/12/22 07:43 Hydrocodone/Acetaminophen (*Crx) 5-325 Mg Tablet PO 1 tab Q4H PRN Administration Pain Rated 4-6 Albuterol 2.5 mg 12/07/22 14:00 12/12/22 07:54 Albuterol Sulfate Neb 2.5 Mg/3 Ml Inh INHALATION 2.5 mg Q6HRT KAIN Administration Amiodarone HCl 200 mg 12/07/22 09:00 12/12/22 08:32 Amiodarone Hcl 200 Mg T
--- NOTE | 2022-12-12 17:01 | P.PNNP_ITS ---
Progress Note: A&P Assessment and Plan (1) End stage renal disease: Code(s): N18.6 - End stage renal disease Status: Chronic Assessment and Plan: * HD today * continue M/W/F dialysis schedule while hospitalized * follow electrolytes, volume status, and clearance (2) Closed left hip fracture: Qualifiers: Encounter type: initial encounter Qualified Code(s): S72.002A - Fracture of unspecified part of neck of left femur, initial encounter for closed fracture Code(s): S72.002A - Fracture of unspecified part of neck of left femur, initial encounter for closed fracture Status: Acute Assessment and Plan: * Orthopedics following * s/p bipolar hemiarthroplasty left hip (on 12/08/22) * pain control * PT/OT when able (3) Hypertension: Code(s): I10 - Essential (primary) hypertension Status: Chronic Assessment and Plan: * reasonable control * follow trend of hemodynamics (4) Anemia: Code(s): D64.9 - Anemia, unspecified Status: Chronic Assessment and Plan: * due to ESRD * Epogen with HD * follow H/H (5) COPD (chronic obstructive pulmonary disease): Code(s): J44.9 - Chronic obstructive pulmonary disease, unspecified Status: Chronic Assessment and Plan: * seems compensated * continue supportive care (6) Nausea & vomiting: Code(s): R11.2 - Nausea with vomiting, unspecified Status: Acute Assessment and Plan: * on IV antiemetics * recent CT of abd/pelvis with distended stomach * complicated by symptoms of dysphagia as well * GI recommendations noted - EGD tomorrow (7) Diabetes: Code(s): E11.9 - Type 2 diabetes mellitus without complications Status: Chronic Assessment and Plan: * follow accu-cheks * appears diet controlled * glycemic control per hospitalists Will continue to follow. Subjective Date/time seen: 12/12/22 17:01 Interval history: Follow-up for end stage renal disease on hemodialysis. Tolerating hemodialysis treatment at the time of my visit (seen on HD at 4:50PM); significant issues with dysphagia in association with nausea and vomiting; only other complaint is taht of left hip pain but seems tolerable with current pain medications; no other issues/events voiced at this time. Exam Narrative: General: WD/WN male in NAD Heart: normal S1 and S2; no rub Lungs: coarse breath sounds with scattered crackles at bases Abdomen: soft, nontender, + bowel sounds noted Extremities: no cyanosis or clubbing; no edema Skin: warm and dry Objective Data Vital Signs Vital Signs: Vital Signs Temp Pulse Resp BP Pulse Ox O2 Del Method O2 Flow Rate 12/12/22 14:05 82 18 12/12/22 13:55 81 18 12/12/22 08:00 93 Nasal Cannula 3 12/12/22 08:32 84 12/12/22 08:16 81 18 12/12/22 08:00 83 18 93 Nasal Cannula 3 12/12/22 07:57 83 18 12/12/22 07:35 98.0 F 84 16 131/53 L 93 12/12/22 02:41 81 18 12/12/22 02:31 80 18 12/11/22 21:34 97.7 F 85 20 126/55 L 91 12/11/22 20:19 83 18 12/11/22 20:18 93 Nasal Cannula 3 12/11/22 20:06 85 18 Intake/Output Intake/Output:
[2022-12-12] MEDS: ATORVASTATIN 20 MG TABLET PO (21:18)
[2022-12-13] VITALS (20 sets, daily range): BP systolic 99–139; BP diastolic 47–59; PULSE 74–90; RESP 16–26; TEMP 36.5–36.8; O2SAT 92–100
[2022-12-13] MEDS: IPRATROPIUM BR 0.02% INH SOLN 0.5 MG/2.5 ML VIAL INHALATION ×4 (01:55→20:18)
[2022-12-13] MEDS: ALBUTEROL SULFATE NEB 2.5 MG/3 ML INH INHALATION ×4 (01:55→20:15)
[2022-12-13 05:32] LABS: Basophils Absolute Auto 0.1 K/mm3 (0.0-0.1); Basophils Percent Auto 0.8 % (0.2-1.2); Eosinophils Absolute Auto 0.5 K/mm3 (0-0.3); Eosinophils Percent Auto 3.6 % (0-4.4); Hematocrit 31.5 % (42.0-52.0); Hemoglobin 9.2 g/dL (14.0-18.0); Immature Granulocyte Absolute 0.23 K/mm3 (0.00-0.031); Immature Granulocyte Percent A 1.8 % (0-0.5); Lymphocytes Absolute Auto 0.47 K/mm3 (0.9-3.2); Lymphocytes Percent Auto 3.6 % (18.3-44.2); Mean Corpuscular HGB Conc 29.2 g/dl (32-36); Mean Corpuscular Hemoglobin 27.8 pg (26-34); Mean Corpuscular Volume 95.2 fl (80-100); Monocytes Absolute Auto 0.9 K/mm3 (0.1-0.6); Monocytes Percent Auto 6.7 % (2.6-8.5); Neutrophils Absolute Auto 10.8 K/mm3 (1.3-6.7); Neutrophils Percent Auto 83.5 % (45.5-73.1); Nucleated Red Blood Cells Perc 0.2 % (0.0-0.2); Platelet Count Result 241 k/mm3 (150-375); Red Blood Count 3.31 M/mm3 (4.6-6.20); Red Cell Distribution Width 17.5 % (11.5-14.5); White Blood Count 12.9 K/mm3 (4.5-10.0)
[2022-12-13 05:46] LABS: Alanine Aminotransferase 6 U/L (6-50); Albumin Level 2.9 g/dL (3.5-5.1); Alkaline Phosphatase 224 U/L (38-126); Anion Gap 4 mmol/L (8-16); Aspartate Amino Transferase 29 U/L (17-59); Bilirubin,Total 0.5 mg/dL (0.2-1.3); Blood Urea Nitrogen 33 mg/dL (9-20); Calcium 7.8 mg/dL (8.4-10.2); Carbon Dioxide 29 mmol/L (22-30); Chloride 99 mmol/L (98-107); Estimated CRCL calculation 14 ml/min; Estimated Glomerular Filt Rate 13; Glucose 114 mg/dL (65-110); Potassium 4.5 mmol/L (3.4-5.0); Sodium 132 mmol/L (137-145)
[2022-12-13] MEDS: HYDROcodone/acetaminophen (*CRX) 5-325 MG TABLET 1 TAB PO ×2 (05:53→17:08)
[2022-12-13 08:18] LABS: Glucose Point of Care 117 mg/dl (65-105)
[2022-12-13] MEDS: amLODIPine BESYLATE 5 MG TABLET PO (08:29)
[2022-12-13] MEDS: CHOLECALCIFEROL 1,000 UNITS TABLET 5000 UNITS PO (08:29)
[2022-12-13] MEDS: FERROUS SULFATE 325 MG TABLET DR PO (08:30)
[2022-12-13] MEDS: AMIODARONE HCL 200 MG TABLET PO (08:30)
[2022-12-13] MEDS: SENNA/DOCUSATE SODIUM TABLET 2 TAB PO ×2 (08:31→17:08)
[2022-12-13] MEDS: ESCITALOPRAM OXALATE 10 MG TABLET 20 MG PO (08:31)
[2022-12-13] MEDS: PANTOPRAZOLE SODIUM IV 40 MG VIAL IV PUSH ×2 (08:31→20:33)
[2022-12-13] MEDS: SEVELAMER CARBONATE 800 MG TABLET 1600 MG PO ×3 (08:31→17:08)
[2022-12-13] MEDS: TAMSULOSIN HCL 0.4 MG CAPSULE PO (08:31)
[2022-12-13] MEDS: MAGNESIUM OXIDE 400 MG TABLET PO (08:31)
[2022-12-13] MEDS: ENOXAPARIN 30 MG/0.3 ML SYRINGE SUB-Q (08:32)
[2022-12-13] MEDS: BUMETANIDE 1 MG TABLET 4 MG PO (09:11)
[2022-12-13] MEDS: MORPHINE SULFATE (*CRX) 2 MG/ML INJ IV PUSH (09:11)
--- NOTE | 2022-12-13 10:50 | PM.PNNEP ---
Progress Note: A&P Assessment and Plan (1) End stage renal disease: Code(s): N18.6 - End stage renal disease Status: Chronic Assessment and Plan: HD tomorrow continue M/W/F dialysis schedule while hospitalized follow electrolytes, volume status, and clearance (2) Closed left hip fracture: Qualifiers: Encounter type: initial encounter Qualified Code(s): S72.002A - Fracture of unspecified part of neck of left femur, initial encounter for closed fracture Code(s): S72.002A - Fracture of unspecified part of neck of left femur, initial encounter for closed fracture Status: Acute Assessment and Plan: Orthopedics following s/p bipolar hemiarthroplasty left hip (on 12/08/22) pain control PT/OT when able (3) Hypertension: Code(s): I10 - Essential (primary) hypertension Status: Chronic Assessment and Plan: reasonable control follow trend of hemodynamics (4) Anemia: Code(s): D64.9 - Anemia, unspecified Status: Chronic Assessment and Plan: due to ESRD Epogen with HD follow H/H (5) COPD (chronic obstructive pulmonary disease): Code(s): J44.9 - Chronic obstructive pulmonary disease, unspecified Status: Chronic Assessment and Plan: seems compensated continue supportive care (6) Nausea & vomiting: Code(s): R11.2 - Nausea with vomiting, unspecified Status: Acute Assessment and Plan: on IV antiemetics recent CT of abd/pelvis with distended stomach complicated by symptoms of dysphagia as well GI recommendations noted - EGD later today for further evaluation (7) Diabetes: Code(s): E11.9 - Type 2 diabetes mellitus without complications Status: Chronic Assessment and Plan: follow accu-cheks appears diet controlled glycemic control per hospitalists Will continue to follow. Subjective Date/time seen: 12/13/22 10:50 Interval history: Follow-up for end stage renal disease on hemodialysis. Tolerated dialysis treatment yesterday without any issues or problems; scheduled for EGD later today; still have swallowing difficulties in association with burning sensation -- no nausea/vomiting today due to NPO status. Exam Narrative: General: WD/WN male in NAD Heart: normal S1 and S2; no rub Lungs: coarse breath sounds; decreased at bases Abdomen: soft, nontender, + bowel sounds noted Extremities: no cyanosis or clubbing; no edema Skin: no rash Objective Data Vital Signs Vital Signs: Vital Signs Temp Pulse Resp BP Pulse Ox O2 Del Method O2 Flow Rate 12/13/22 08:00 Room Air 12/13/22 08:52 80 18 12/13/22 08:37 99 Nasal Cannula 3 12/13/22 08:36 78 18 12/13/22 08:30 75 12/13/22 05:01 98.2 F 80 17 126/51 L 100 12/13/22 02:02 82 18 12/13/22 01:57 84 18 95 Nasal Cannula 3 12/13/22 01:55 84 18 12/12/22 14:15 4 12/12/22 20:49 98.0 F 77 18 113/48 L 99 12/12/22 20:06 81 18 12/12/22 19:58 80 18 12/12/22 18:20 98.2 F 80 17 128/58 L 94 12/12/22 14:05 82 18 12/12/22 13:55 81 18 Intake/Output Intake/Output: Intake & Output 12/10/22 12/11/22 12/12/22 12/13/22 23:59 23:59 23:59 23:59 Intake Total 720 1170 1560 0 Output Total 750 150 350 150 Balance -30 1020 1210 -150 Meds/Results Medications: Active Medications Generic Name Dose Route Start Last Admin Trade Name Freq PRN Reason Stop Dose Admin Hydrocodone Bitart/Acetaminophen 1 tab 12/09/22 04:29 12/13/22 05:53 Hydrocodone/Acetaminophen (*Crx) 5-325 Mg Tablet PO 1 tab Q4H PRN Administration Pain Rated 4-6 Albuterol 2.5 mg 12/07/22 14:00 12/13/22 08:35 Albuterol Sulfate Neb 2.5 Mg/3 Ml Inh INHALATION 2.5 mg Q6HRT KAIN Administration Amiodarone HCl 200 mg 12/07/22 09:00 12/13/22 08:30 Amiodarone Hcl 200 Mg Tablet P
--- NOTE | 2022-12-13 10:50 | P.PNNP_ITS ---
Progress Note: A&P Assessment and Plan (1) End stage renal disease: Code(s): N18.6 - End stage renal disease Status: Chronic Assessment and Plan: * HD tomorrow * continue M/W/F dialysis schedule while hospitalized * follow electrolytes, volume status, and clearance (2) Closed left hip fracture: Qualifiers: Encounter type: initial encounter Qualified Code(s): S72.002A - Fracture of unspecified part of neck of left femur, initial encounter for closed fracture Code(s): S72.002A - Fracture of unspecified part of neck of left femur, initial encounter for closed fracture Status: Acute Assessment and Plan: * Orthopedics following * s/p bipolar hemiarthroplasty left hip (on 12/08/22) * pain control * PT/OT when able (3) Hypertension: Code(s): I10 - Essential (primary) hypertension Status: Chronic Assessment and Plan: * reasonable control * follow trend of hemodynamics (4) Anemia: Code(s): D64.9 - Anemia, unspecified Status: Chronic Assessment and Plan: * due to ESRD * Epogen with HD * follow H/H (5) COPD (chronic obstructive pulmonary disease): Code(s): J44.9 - Chronic obstructive pulmonary disease, unspecified Status: Chronic Assessment and Plan: * seems compensated * continue supportive care (6) Nausea & vomiting: Code(s): R11.2 - Nausea with vomiting, unspecified Status: Acute Assessment and Plan: * on IV antiemetics * recent CT of abd/pelvis with distended stomach * complicated by symptoms of dysphagia as well * GI recommendations noted - EGD later today for further evaluation (7) Diabetes: Code(s): E11.9 - Type 2 diabetes mellitus without complications Status: Chronic Assessment and Plan: * follow accu-cheks * appears diet controlled * glycemic control per hospitalists Will continue to follow. Subjective Date/time seen: 12/13/22 10:50 Interval history: Follow-up for end stage renal disease on hemodialysis. Tolerated dialysis treatment yesterday without any issues or problems; scheduled for EGD later today; still have swallowing difficulties in association with burning sensation -- no nausea/vomiting today due to NPO status. Exam Narrative: General: WD/WN male in NAD Heart: normal S1 and S2; no rub Lungs: coarse breath sounds; decreased at bases Abdomen: soft, nontender, + bowel sounds noted Extremities: no cyanosis or clubbing; no edema Skin: no rash Objective Data Vital Signs Vital Signs: Vital Signs Temp Pulse Resp BP Pulse Ox O2 Del Method O2 Flow Rate 12/13/22 08:00 Room Air 12/13/22 08:52 80 18 12/13/22 08:37 99 Nasal Cannula 3 12/13/22 08:36 78 18 12/13/22 08:30 75 12/13/22 05:01 98.2 F 80 17 126/51 L 100 12/13/22 02:02 82 18 12/13/22 01:57 84 18 95 Nasal Cannula 3 12/13/22 01:55 84 18 12/12/22 14:15 4 12/12/22 20:49 98.0 F 77 18 113/48 L 99 12/12/22 20:06 81 18 12/12/22 19:58 80 18 12/12/22 18:20 98.2 F 80 17 128/58 L 94 12/12/22 14:05 82 18 12/12/22 13:55 81 18 Intake/Output Intake/Output:
[2022-12-13 11:12] LABS: Glucose Point of Care 94 mg/dl (65-105)
--- NOTE | 2022-12-13 11:16 | WPDANESEPPF ---
Anes - Initial Pre Proc Eval Procedure: Operation Date: 12/13/22 12:30 Proposed Procedures p Esophagogastroduodenoscopy - Jean Bennett MD Date/Time: 12/13/22 11:16 Surgeon: River Dumont MD Pre Op Diagnosis: L Hip Femoral Neck Fracture Patient Data Age: 66 Gender: M Height: 1.75 m Weight: 88.1 kg Last Vital Signs Temp 36.8 C 12/13/22 05:01 Pulse 80 12/13/22 08:52 Resp 18 12/13/22 08:52 BP 126/51 L 12/13/22 05:01 Pulse Ox 99 12/13/22 08:37 O2 Del Method Nasal Cannula 12/13/22 08:37 O2 Flow Rate 3 12/13/22 08:37 FiO2 32 12/13/22 01:57 Allergies Allergy/AdvReac Type Severity Reaction Status Date / Time amoxicillin Allergy Mild Rash Verified 11/22/22 18:43 cefdinir Allergy Mild Rash Verified 11/22/22 18:43 Cephalosporins Allergy Mild RASH Verified 11/22/22 18:43 levofloxacin Allergy Mild Rash Verified 11/22/22 18:43 Penicillins Allergy Mild Rash Verified 11/22/22 18:43 Quinolones Allergy Mild RASH Verified 11/22/22 18:43 Sulfa (Sulfonamide Allergy Mild Rash Verified 11/22/22 18:43 Antibiotics) Home Medications Medication Instructions Recorded Confirmed Type allopurinol 100 mg tablet 100 mg PO DAILY 06/20/22 12/07/22 History amiodarone 200 mg tablet 200 mg PO DAILY 06/20/22 12/07/22 History atorvastatin 20 mg tablet 20 mg PO HS 06/20/22 12/07/22 History bumetanide 2 mg tablet 4 mg PO USEASDIRECTD 06/20/22 12/07/22 History sevelamer carbonate 800 mg tablet 1,600 mg PO TIDWM 06/20/22 12/07/22 History tamsulosin 0.4 mg capsule 0.4 mg PO DAILY 06/20/22 12/07/22 History amlodipine 10 mg tablet 5 mg PO DAILY 11/22/22 12/07/22 History cholecalciferol (vitamin D3) 125 125 mcg PO DAILY 11/22/22 12/07/22 History mcg (5,000 unit) capsule escitalopram oxalate 20 mg tablet 20 mg PO DAILY 11/22/22 12/07/22 History ferrous sulfate 325 mg (65 mg 325 mg PO DAILY 11/22/22 12/07/22 History iron) tablet magnesium oxide 400 mg PO DAILY 11/22/22 12/07/22 History pantoprazole 40 mg tablet,delayed 40 mg PO BID 11/22/22 12/07/22 History release vitamin B complex-vitamin C-folic 1 tablet PO DAILY 11/22/22 12/07/22 History acid 0.8 mg tablet (Astrid-Jhony) docusate sodium 100 mg capsule 100 mg PO Q12H PRN Constipation 11/28/22 12/07/22 Rx #30 caps Laboratory Tests 12/12/22 12/12/22 12/13/22 05:25 12:16 05:20 WBC 12.9 H K/mm3 (4.5-10.0) RBC 3.31 L M/mm3 (4.6-6.20) Hgb 9.2 L g/dL (14.0-18.0) Hct 31.5 L % (42.0-52.0) MCV 95.2 fl (80-100) MCH 27.8 pg (26-34) MCHC 29.2 L g/dl (32-36) RDW 17.5 H % (11.5-14.5) Plt Count 241 k/mm3 (150-375) MPV 9.0 fl (7.4-10.4) Immature Gran % (Auto) 1.8 H % (0-0.5) Neut % (Auto) 83.5 H % (45.5-73.1) Lymph % (Auto) 3.6 L % (18.3-44.2) [place] % (Auto) 6.7 % (2.6-8.5) Eos % (Auto) 3.6 % (0-4.4) Baso % (Auto) 0.8 % (0.2-1.2) Lymph # (Auto) 0.47 L K/mm3 (0.9-3.2) [place] # (Auto) 0.9 H K/mm3 (0.1-0.6) Eos # (Auto) 0.5 H K/mm3 (0-0.3) Baso # (Auto) 0.1 K/mm3 (0.0-0.1) Abs Immat Gran (auto) 0.23 H K/mm3 (0.00-0.031) Absolute Neuts (auto) 10.8 H K/mm3 (1.3-6.7) Absolute Nucleated RBC 0.0 K/mm3 (0.0-0.012) Nucleated RBC % 0.2 % (0.0-0.2) Sodium 132 L mmol/L (137-145) Potassium 4.5 mmol/L (3.4-5.0) Chloride 99 mmol/L (98-107) Carbon Dioxide 29 mmol/L (22-30) Anion Gap 4 L mmol/L (8-16) BUN 33 H D mg/dL (9-20) Creatinine 4.70 H mg/dL (0.7-1.3) Estim Creat Clear Calc 14 ml/min Estimated GFR 13 L (59 - ) Glucose 114 H mg/dL (65-110) POC Capillary Glucose 136 H mg/dl (65-105) Calcium 7.8 L mg/dL (8.4-10.2) Total Bilirubin 0.5 mg/dL
[2022-12-13] MEDS: SODIUM CHLORIDE 0.9% IV 500 ML 10 ML IV CONT (11:20)
--- NOTE | 2022-12-13 12:20 | PM.IMPN ---
Progress Note: A&P Assessment and Plan (1) Closed left hip fracture: Qualifiers: Encounter type: initial encounter Qualified Code(s): S72.002A - Fracture of unspecified part of neck of left femur, initial encounter for closed fracture Code(s): S72.002A - Fracture of unspecified part of neck of left femur, initial encounter for closed fracture Status: Acute Assessment and Plan: X-ray reveals transcervical fracture of left femoral neck Orthopedics consulted. Postop day 5 Postsurgical DVT prophylaxis, PT and OT and analgesics per orthopedic team. Weightbearing as tolerated. Monitor H&H post operatively. Patient with elevated white count which is likely reactive from hip repair. (2) Nausea & vomiting: Code(s): R11.2 - Nausea with vomiting, unspecified Status: Acute Assessment and Plan: 12/11/22 patient complains of nausea vomiting that is not associated with food intake. Patient tried to cut down on pain medications but the nausea vomiting persisted. Continue with IV anti emetics and start Protonix. CT abdomen pelvis revealing distended stomach but unclear etiology Patient complaining of continued dysphagia, nausea and vomiting. GI consult and appreciate recommendations. Plan for EGD this afternoon. (3) End stage renal disease: Code(s): N18.6 - End stage renal disease Status: Chronic Assessment and Plan: Nephrology has been consulted.? The patient has seen Dr. Justin in the past.? Patient has dialysis on Monday. (4) CHF (congestive heart failure), NYHA class I: Qualifiers: Congestive heart failure type: unspecified Qualified Code(s): I50.9 - Heart failure, unspecified Code(s): I50.9 - Heart failure, unspecified Status: Acute Assessment and Plan: Not in an acute exacerbation. Monitor fluid status. Chronic heart failure of unknown type (5) COPD (chronic obstructive pulmonary disease): Code(s): J44.9 - Chronic obstructive pulmonary disease, unspecified Status: Chronic Assessment and Plan: The patient continues to smoke.? Offered smoking cessation.? 12/08 respiratory event at night ending with patient being put on BiPAP. See crosscover note. Patient in chronic respiratory acidosis. 12/10 Breath sounds and respiratory effort improved P.r.n. albuterol Continue nebulizer treatments.? (6) Hypertension: Code(s): I10 - Essential (primary) hypertension Status: Chronic Assessment and Plan: Resume antihypertensive medication. (7) Diabetes: Code(s): E11.9 - Type 2 diabetes mellitus without complications Status: Chronic Assessment and Plan: Patient controls diabetes with diet. AC and HS with sliding scale insulin. ? Hypoglycemia protocol initiated. Hemoglobin A1c 6.2. Subjective Date/time seen: 12/13/22 12:20 Interval history: Patient is feeling down in the dumps today he is worried about how he is ever going to get back on his feet. I explained him that the best thing to do is to improve his nausea and vomiting and then get him into a rehab facility. His COPD is stable and I believe that once nausea vomiting are resolved he could be sent to rehab facility. Awaiting to see results of EGD. Since patient has been NPO he has not had any more nausea or vomiting. He continues to have left hip pain and states that his breathing is good. He denies any chest pain. Exam Narrative: GENERAL: Comfortable, no acute distress HENMT: moist mucous membranes EYES: EOM intact b/l NECK: no lymphadenopathy RESPIRATORY: distant breath sounds, bibasilar crackles CARDIO: RRR, distant heart sounds GI: soft, nontender, bowel sounds present SKIN: no rashes EXTREMITIES: Limited range of motion in the left hip, bandage intact and dry Objective Data Vital Signs Vital Signs: Vital Signs - 24 hr
[2022-12-13 12:21] LABS: Glucose Point of Care 165 mg/dl (65-105)
[2022-12-13 12:32] LABS: Glucose Point of Care 130 mg/dl (65-105)
[2022-12-13 12:40] LABS: Glucose Point of Care 94 mg/dl (65-105)
--- NOTE | 2022-12-13 12:56 | P.CDI_ITS ---
CDI Query Clarification Request Documented history of CHF. CHF noted in the assessment and plan. Bumex listed as a home medication. Patient receiving Bumex. Chest xray from 12/08/22 notes increased interstitial edema. Please specify type and acuity of heart failure if known. * Acute * Chronic * Acute on Chronic * Unknown * Systolic * Diastolic * Combined Systolic and Diastolic * Unknown
--- NOTE | 2022-12-13 13:07 | SUR.PREOP ---
No antibiotics prior to EGD per Dr Bennett.
[2022-12-13 14:07] LABS: Glucose Point of Care 105 mg/dl (65-105)
--- NOTE | 2022-12-13 15:43 | PM.PNORT ---
Progress Note: A&P Assessment and Plan (1) Closed left hip fracture: Qualifiers: Encounter type: initial encounter Qualified Code(s): S72.002A - Fracture of unspecified part of neck of left femur, initial encounter for closed fracture Code(s): S72.002A - Fracture of unspecified part of neck of left femur, initial encounter for closed fracture Status: Acute (2) History of partial replacement of left hip joint using bipolar prosthesis: Code(s): Z96.642 - Presence of left artificial hip joint Status: Acute Plan Post op day 5 Bipolar hemiarthroplasty. Continues to complain of pain with activity. Some improvement. He still has not ambulated due to pain. He is working with formal physical therapy. Plan for discharge to rehab facility. Continue to mobilize as able. Discharge okay from orthopedic standpoint. Will follow up in office in 4 weeks with xrays. Subjective Subjective Date/Time Seen: 12/13/22 15:43 Exam Narrative: Overweight 66 y/o Male. Resting comfortably in bed. Changed dressing and due to some bleeding in the center of the incision. Moderate swelling in thigh. No ecchymosis. No erythema. No hematoma. Range of motion limited due to pain. Calf nontender. Mild thigh pain. No varicosities. Distal pulses palpable. Wiggles toes. Objective Data Vital Signs Vital Signs: Vital Signs - 24 hr 12/12/22 18:20 12/12/22 19:58 12/12/22 20:06 Temperature 98.2 F Pulse Rate 80 80 81 Respiratory Rate 17 18 18 Blood Pressure 128/58 L Pulse Oximetry 94 Oxygen Delivery Oxygen Flow Rate Fraction of Inspired Oxygen 12/12/22 20:49 12/13/22 01:55 12/13/22 01:57 Temperature 98.0 F Pulse Rate 77 84 84 Respiratory Rate 18 18 18 Blood Pressure 113/48 L Pulse Oximetry 99 95 Oxygen Delivery Nasal Cannula Oxygen Flow Rate 3 Fraction of Inspired Oxygen 32 12/13/22 02:02 12/13/22 05:01 12/13/22 08:30 Temperature 98.2 F Pulse Rate 82 80 75 Respiratory Rate 18 17 Blood Pressure 126/51 L Pulse Oximetry 100 Oxygen Delivery Oxygen Flow Rate Fraction of Inspired Oxygen 12/13/22 08:36 12/13/22 08:37 12/13/22 08:52 Temperature Pulse Rate 78 80 Respiratory Rate 18 18 Blood Pressure Pulse Oximetry 99 Oxygen Delivery Nasal Cannula Oxygen Flow Rate 3 Fraction of Inspired Oxygen 12/13/22 08:00 12/13/22 11:17 12/13/22 12:30 Temperature 97.7 F Pulse Rate 81 74 Respiratory Rate 18 20 Blood Pressure 139/57 L 99/48 L Pulse Oximetry 96 96 Oxygen Delivery Room Air Nasal Cannula Simple Face Mask Oxygen Flow Rate 2 8 Fraction of Inspired Oxygen 12/13/22 12:40 12/13/22 12:50 12/13/22 13:55 Temperature Pulse Rate 76 79 90 Respiratory Rate 26 H 22 H 18 Blood Pressure 108/55 L 125/59 L Pulse Oximetry 92 97 Oxygen Delivery Nasal Cannula Nasal Cannula Oxygen Flow Rate 2 2 Fraction of Inspired Oxygen 12/13/22 14:01 Temperature Pulse Rate 90 Respiratory Rate 18 Blood Pressure Pulse Oximetry Oxygen Delivery Oxygen Flow Rate Fraction of Inspired Oxygen Intake/Output Intake/Output: Intake & Output 12/10/22 12/11/22 12/12/22 12/13/22 23:59 23:59 23:59 23:59 Intake Total 720 1170 1560 120 Output Total 750 150 350 150 Balance -30 1020 1210 -30 Meds/Results Medications: Active Medications Generic Name Dose Route Start Last Admin Trade Name Freq PRN Reason Stop Dose Admin Hydrocodone Bitart/Acetaminophen 1 tab 12/09/22 04:29 12/13/22 05:53 Hydrocodone/Acetaminophen (*Crx) 5-325 Mg Tablet PO 1 tab Q4H PRN Administration Pain Rated 4-6 Albuterol 2.5 mg 12/07/22 14:00 12/13/22 13:54 Albuterol Sulfate Neb 2.5 Mg/3 Ml Inh INHALATION 2.5 mg Q6HRT KAIN Administration Amiodarone HCl 200 mg 12/07/22 09:00 12/13/22 08:30 Amiodarone Hcl 200 Mg Tablet PO 200 mg DAILY KAIN Administration Amlodipine Besylate 5 mg 12/07/22 09:00 12/13/22 08:29
[2022-12-13 17:20] LABS: Glucose Point of Care 116 mg/dl (65-105)
[2022-12-13 20:19] LABS: Glucose Point of Care 122 mg/dl (65-105)
[2022-12-13] MEDS: ATORVASTATIN 20 MG TABLET PO (20:33)
[2022-12-14] VITALS (31 sets, daily range): BP systolic 111–143; BP diastolic 47–70; PULSE 77–92; RESP 16–18; TEMP 36–37.3; O2SAT 90–100
[2022-12-14] MEDS: MORPHINE SULFATE (*CRX) 2 MG/ML INJ IV PUSH ×2 (01:10→20:13)
[2022-12-14] MEDS: IPRATROPIUM BR 0.02% INH SOLN 0.5 MG/2.5 ML VIAL INHALATION ×4 (02:44→19:50)
[2022-12-14] MEDS: ALBUTEROL SULFATE NEB 2.5 MG/3 ML INH INHALATION ×4 (02:44→19:50)
[2022-12-14 06:27] LABS: Basophils Absolute Auto 0.2 K/mm3 (0.0-0.1); Basophils Percent Auto 1.2 % (0.2-1.2); Eosinophils Absolute Auto 0.5 K/mm3 (0-0.3); Eosinophils Percent Auto 3.8 % (0-4.4); Hemoglobin 9.3 g/dL (14.0-18.0); Immature Granulocyte Absolute 0.32 K/mm3 (0.00-0.031); Immature Granulocyte Percent A 2.6 % (0-0.5); Lymphocytes Absolute Auto 0.62 K/mm3 (0.9-3.2); Lymphocytes Percent Auto 5.1 % (18.3-44.2); Mean Corpuscular HGB Conc 29.1 g/dl (32-36); Mean Corpuscular Hemoglobin 28.2 pg (26-34); Mean Platelet Volume 9.7 fl (7.4-10.4); Monocytes Absolute Auto 0.8 K/mm3 (0.1-0.6); Monocytes Percent Auto 6.9 % (2.6-8.5); Neutrophils Absolute Auto 9.8 K/mm3 (1.3-6.7); Neutrophils Percent Auto 80.4 % (45.5-73.1); Nucleated Red Blood Cells Perc 0.2 % (0.0-0.2); Platelet Count Result 273 k/mm3 (150-375); Red Cell Distribution Width 17.3 % (11.5-14.5); White Blood Count 12.2 K/mm3 (4.5-10.0)
[2022-12-14 06:43] LABS: Albumin Level 2.9 g/dL (3.5-5.1); Alkaline Phosphatase 249 U/L (38-126); Anion Gap 6 mmol/L (8-16); Aspartate Amino Transferase 32 U/L (17-59); Bilirubin,Total 0.5 mg/dL (0.2-1.3); Blood Urea Nitrogen 45 mg/dL (9-20); Calcium 7.7 mg/dL (8.4-10.2); Carbon Dioxide 29 mmol/L (22-30); Chloride 99 mmol/L (98-107); Estimated CRCL calculation 11 ml/min; Estimated Glomerular Filt Rate 10; Glucose 96 mg/dL (65-110); Potassium 4.8 mmol/L (3.4-5.0); Sodium 134 mmol/L (137-145)
[2022-12-14 06:44] LABS: Alanine Aminotransferase < 6 U/L (6-50)
[2022-12-14 08:19] LABS: Glucose Point of Care 107 mg/dl (65-105)
[2022-12-14] MEDS: FERROUS SULFATE 325 MG TABLET DR PO (08:32)
[2022-12-14] MEDS: AMIODARONE HCL 200 MG TABLET PO (08:33)
[2022-12-14] MEDS: TAMSULOSIN HCL 0.4 MG CAPSULE PO (08:33)
[2022-12-14] MEDS: SEVELAMER CARBONATE 800 MG TABLET 1600 MG PO ×3 (08:33→17:19)
[2022-12-14] MEDS: ESCITALOPRAM OXALATE 10 MG TABLET 20 MG PO (08:33)
[2022-12-14] MEDS: CHOLECALCIFEROL 1,000 UNITS TABLET 5000 UNITS PO (08:33)
[2022-12-14] MEDS: MAGNESIUM OXIDE 400 MG TABLET PO (08:34)
[2022-12-14] MEDS: SENNA/DOCUSATE SODIUM TABLET 2 TAB PO ×2 (08:34→17:19)
[2022-12-14] MEDS: HYDROcodone/acetaminophen (*CRX) 5-325 MG TABLET 1 TAB PO (08:38)
[2022-12-14] MEDS: PANTOPRAZOLE SODIUM IV 40 MG VIAL IV PUSH ×2 (08:44→20:13)
--- NOTE | 2022-12-14 08:50 | PM.IMPN ---
Progress Note: A&P Assessment and Plan (1) Closed left hip fracture: Qualifiers: Encounter type: initial encounter Qualified Code(s): S72.002A - Fracture of unspecified part of neck of left femur, initial encounter for closed fracture Code(s): S72.002A - Fracture of unspecified part of neck of left femur, initial encounter for closed fracture Status: Acute Assessment and Plan: X-ray reveals transcervical fracture of left femoral neck Orthopedics consulted. Postop day 6 Postsurgical DVT prophylaxis, PT and OT and analgesics per orthopedic team. Weightbearing as tolerated. Monitor H&H post operatively. Patient with elevated white count which is likely reactive from hip repair. Patient is feeling much better, will continue current treatment and increase activity as tolerated. (2) Nausea & vomiting: Code(s): R11.2 - Nausea with vomiting, unspecified Status: Acute Assessment and Plan: Much better, tolerating clear liquids. Increase as tolerated (3) End stage renal disease: Code(s): N18.6 - End stage renal disease Status: Chronic Assessment and Plan: Nephrology has been consulted.? The patient has seen Dr. Justin in the past.? Patient has dialysis on Monday. Continue current treatmnet (4) CHF (congestive heart failure), NYHA class I: Qualifiers: Congestive heart failure type: unspecified Qualified Code(s): I50.9 - Heart failure, unspecified Code(s): I50.9 - Heart failure, unspecified Status: Acute Assessment and Plan: Not in an acute exacerbation. Monitor fluid status. Chronic heart failure of unknown type Stable, continue current treatment (5) COPD (chronic obstructive pulmonary disease): Code(s): J44.9 - Chronic obstructive pulmonary disease, unspecified Status: Chronic Assessment and Plan: Stable, will continue current treatment (6) Hypertension: Code(s): I10 - Essential (primary) hypertension Status: Chronic Assessment and Plan: Resume antihypertensive medication. Monitor closely,, stable (7) Diabetes: Code(s): E11.9 - Type 2 diabetes mellitus without complications Status: Chronic Assessment and Plan: Patient controls diabetes with diet. AC and HS with sliding scale insulin. ? Hypoglycemia protocol initiated. Hemoglobin A1c 6.2. Stable on current meds, continue current treatment. Subjective Date/time seen: 12/14/22 08:50 Interval history: Patient was seen during the morning rounds today Feeling much better. No nausea or vomiting. No sob or chest pain. Pain well controlled Review of Systems Review of Systems: All systems reviewed & are unremarkable except as noted in HPI and below (the history and physical exam.) Exam Narrative: GENERAL: Comfortable, no acute distress HENMT: moist mucous membranes EYES: EOM intact b/l NECK: no lymphadenopathy RESPIRATORY: distant breath sounds, bibasilar crackles CARDIO: RRR, distant heart sounds GI: soft, nontender, bowel sounds present SKIN: no rashes EXTREMITIES: Limited range of motion in the left hip, bandage intact and dry Objective Data Vital Signs Vital Signs: Vital Signs - 24 hr 12/13/22 08:52 12/13/22 11:17 12/13/22 12:30 Temperature 36.5 C Pulse Rate 80 81 74 Respiratory Rate 18 18 20 Blood Pressure 139/57 L 99/48 L Pulse Oximetry 96 96 Oxygen Delivery Nasal Cannula Simple Face Mask Oxygen Flow Rate 2 8 12/13/22 12:40 12/13/22 12:50 12/13/22 13:55 Temperature Pulse Rate 76 79 90 Respiratory Rate 26 H 22 H 18 Blood Pressure 108/55 L 125/59 L Pulse Oximetry 92 97 Oxygen Delivery Nasal Cannula Nasal Cannula Oxygen Flow Rate 2 2 12/13/22 14:01 12/13/22 16:00 12/13/22 19:36 Temperature 36.7 C 36.5 C Pulse Rate 90 85 80 Respiratory Rate 18 16 16 Blood Pressure 121/53 L 119/47 L P
--- NOTE | 2022-12-14 09:06 | PCPTNOTE ---
The patient treatment was not able to be completed at this time due to patient out of room in dialysis. Will plan to continue treatment per plan of care.
[2022-12-14] MEDS: EPOETIN ALFA 10,000 UNITS/ML VIAL 10000 UNITS IV PUSH (10:47)
--- NOTE | 2022-12-14 10:54 | PCNWS ---
Weekly nutritional screen. Patient is tolerating current diet with adequate intake. No weight loss reported. No nutritional needs at this time.
--- NOTE | 2022-12-14 11:36 | P.PNNP_ITS ---
Progress Note: A&P Assessment and Plan (1) End stage renal disease: Code(s): N18.6 - End stage renal disease Status: Chronic Assessment and Plan: * HD today * continue M/W/F dialysis schedule while hospitalized * follow electrolytes, volume status, and clearance (2) Closed left hip fracture: Qualifiers: Encounter type: initial encounter Qualified Code(s): S72.002A - Fracture of unspecified part of neck of left femur, initial encounter for closed fracture Code(s): S72.002A - Fracture of unspecified part of neck of left femur, initial encounter for closed fracture Status: Acute Assessment and Plan: * Orthopedics following * s/p bipolar hemiarthroplasty left hip (on 12/08/22) * pain control * PT/OT when able (3) Nausea & vomiting: Code(s): R11.2 - Nausea with vomiting, unspecified Status: Acute Assessment and Plan: * on IV antiemetics and PPI * recent CT of abd/pelvis with distended stomach * complicated by symptoms of dysphagia as well * s/p EGD (on 12/13/20) with results noted: * severe infectous/erosive esophagitis (suspected darrick infection) * gastric food retention * follow-up on biopsies * continue supportive therapy (4) Hypertension: Code(s): I10 - Essential (primary) hypertension Status: Chronic Assessment and Plan: * reasonable control * follow trend of hemodynamics (5) Anemia: Code(s): D64.9 - Anemia, unspecified Status: Chronic Assessment and Plan: * due to ESRD * Epogen with HD * follow H/H (6) COPD (chronic obstructive pulmonary disease): Code(s): J44.9 - Chronic obstructive pulmonary disease, unspecified Status: Chronic Assessment and Plan: * seems compensated * continue supportive care (7) Diabetes: Code(s): E11.9 - Type 2 diabetes mellitus without complications Status: Chronic Assessment and Plan: * follow accu-cheks * appears diet controlled * glycemic control per hospitalists Will continue to follow. Subjective Date/time seen: 12/14/22 11:36 Interval history: Follow-up for end stage renal disease on hemodialysis. Tolerating dialysis treatment at the time of my visit (seen on HD at ~ 11:20AM); s/p EGD with findings noted; swallowing/dysphagia appears to be doing better; no acute distress voiced currently. Exam Narrative: General: WD/WN male in NAD Heart: normal S1 and S2; no rub Lungs: coarse breath sounds; decreased at bases Abdomen: soft, nontender, + bowel sounds noted Extremities: no cyanosis or clubbing; no edema Skin: no nodules Objective Data Vital Signs Vital Signs: Vital Signs Temp Pulse Resp BP Pulse Ox O2 Del Method O2 Flow Rate 12/14/22 11:35 78 127/64 12/14/22 11:20 77 137/63 12/14/22 11:00 77 130/61 12/14/22 08:00 90 Nasal Cannula 3 12/14/22 10:40 78 134/62 12/14/22 10:20 81 133/65 12/14/22 10:00 79 121/61 12/14/22 09:40 81 128/63 12/14/22 09:20 81 143/64 H 12/14/22 09:11 77 133/66 12/14/22 09:01 97.6 F 78 18 128/63 12/14/22 09:01 4 12/14/22 08:33 83 12/14/22 07:56 78 16 12/14/22 07:46 77 16 9
--- NOTE | 2022-12-14 11:36 | PM.PNNEP ---
Progress Note: A&P Assessment and Plan (1) End stage renal disease: Code(s): N18.6 - End stage renal disease Status: Chronic Assessment and Plan: HD today continue M/W/F dialysis schedule while hospitalized follow electrolytes, volume status, and clearance (2) Closed left hip fracture: Qualifiers: Encounter type: initial encounter Qualified Code(s): S72.002A - Fracture of unspecified part of neck of left femur, initial encounter for closed fracture Code(s): S72.002A - Fracture of unspecified part of neck of left femur, initial encounter for closed fracture Status: Acute Assessment and Plan: Orthopedics following s/p bipolar hemiarthroplasty left hip (on 12/08/22) pain control PT/OT when able (3) Nausea & vomiting: Code(s): R11.2 - Nausea with vomiting, unspecified Status: Acute Assessment and Plan: on IV antiemetics and PPI recent CT of abd/pelvis with distended stomach complicated by symptoms of dysphagia as well s/p EGD (on 12/13/20) with results noted: severe infectous/erosive esophagitis (suspected darrick infection) gastric food retention follow-up on biopsies continue supportive therapy (4) Hypertension: Code(s): I10 - Essential (primary) hypertension Status: Chronic Assessment and Plan: reasonable control follow trend of hemodynamics (5) Anemia: Code(s): D64.9 - Anemia, unspecified Status: Chronic Assessment and Plan: due to ESRD Epogen with HD follow H/H (6) COPD (chronic obstructive pulmonary disease): Code(s): J44.9 - Chronic obstructive pulmonary disease, unspecified Status: Chronic Assessment and Plan: seems compensated continue supportive care (7) Diabetes: Code(s): E11.9 - Type 2 diabetes mellitus without complications Status: Chronic Assessment and Plan: follow accu-cheks appears diet controlled glycemic control per hospitalists Will continue to follow. Subjective Date/time seen: 12/14/22 11:36 Interval history: Follow-up for end stage renal disease on hemodialysis. Tolerating dialysis treatment at the time of my visit (seen on HD at ~ 11:20AM); s/p EGD with findings noted; swallowing/dysphagia appears to be doing better; no acute distress voiced currently. Exam Narrative: General: WD/WN male in NAD Heart: normal S1 and S2; no rub Lungs: coarse breath sounds; decreased at bases Abdomen: soft, nontender, + bowel sounds noted Extremities: no cyanosis or clubbing; no edema Skin: no nodules Objective Data Vital Signs Vital Signs: Vital Signs Temp Pulse Resp BP Pulse Ox O2 Del Method O2 Flow Rate 12/14/22 11:35 78 127/64 12/14/22 11:20 77 137/63 12/14/22 11:00 77 130/61 12/14/22 08:00 90 Nasal Cannula 3 12/14/22 10:40 78 134/62 12/14/22 10:20 81 133/65 12/14/22 10:00 79 121/61 12/14/22 09:40 81 128/63 12/14/22 09:20 81 143/64 H 12/14/22 09:11 77 133/66 12/14/22 09:01 97.6 F 78 18 128/63 12/14/22 09:01 4 12/14/22 08:33 83 12/14/22 07:56 78 16 12/14/22 07:46 77 16 95 Nasal Cannula 3 12/14/22 07:43 77 16 12/14/22 04:34 99.1 F 83 16 111/47 L 90 12/14/22 02:56 79 16 12/14/22 02:44 80 17 12/13/22 20:00 97 Nasal Cannula 2 12/13/22 20:29 84 18 12/13/22 20:19 80 18 97 Nasal Cannula 2 12/13/22 20:18 83 18 12/13/22 19:36 97.7 F 80 16 119/47 L 93 12/13/22 16:00 98.0 F 85 16 121/53 L 100 12/13/22 14:01 90 18 12/13/22 13:55 90 18 Intake/Output Intake/Output: Intake & Output 12/11/22 12/12/22 12/13/22 12/14/22 23:59 23:59 23:59 23:59 Intake Total 1170 1560 430 410 Output Total 150 350 250 75 Balance 1020 1210 180 335 Meds/Results Medications: Active Med
[2022-12-14 13:32] LABS: Glucose Point of Care 136 mg/dl (65-105)
[2022-12-14 16:58] LABS: Glucose Point of Care 140 mg/dl (65-105)
[2022-12-14 20:03] LABS: Glucose Point of Care 148 mg/dl (65-105)
[2022-12-14] MEDS: ATORVASTATIN 20 MG TABLET PO (20:13)
[2022-12-15] VITALS (11 sets, daily range): BP systolic 120–129; BP diastolic 50–53; PULSE 76–96; RESP 16–18; TEMP 36.5–36.9; O2SAT 95–100
[2022-12-15] MEDS: MORPHINE SULFATE (*CRX) 2 MG/ML INJ IV PUSH ×2 (02:35→19:56)
[2022-12-15] MEDS: ALBUTEROL SULFATE NEB 2.5 MG/3 ML INH INHALATION ×2 (02:37→20:09)
[2022-12-15] MEDS: IPRATROPIUM BR 0.02% INH SOLN 0.5 MG/2.5 ML VIAL INHALATION ×2 (02:37→20:09)
[2022-12-15 05:35] LABS: Hematocrit 33.8 % (42.0-52.0); Hemoglobin 9.6 g/dL (14.0-18.0); Mean Corpuscular HGB Conc 28.4 g/dl (32-36); Mean Corpuscular Hemoglobin 27.7 pg (26-34); Mean Corpuscular Volume 97.4 fl (80-100); Mean Platelet Volume 9.4 fl (7.4-10.4); Platelet Count Result 272 k/mm3 (150-375); Red Blood Count 3.47 M/mm3 (4.6-6.20); Red Cell Distribution Width 17.2 % (11.5-14.5); White Blood Count 12.8 K/mm3 (4.5-10.0)
[2022-12-15 05:53] LABS: Alanine Aminotransferase 6 U/L (6-50); Albumin Level 2.8 g/dL (3.5-5.1); Alkaline Phosphatase 249 U/L (38-126); Anion Gap 2 mmol/L (8-16); Aspartate Amino Transferase 29 U/L (17-59); Bilirubin,Total 0.4 mg/dL (0.2-1.3); Blood Urea Nitrogen 29 mg/dL (9-20); Calcium 7.6 mg/dL (8.4-10.2); Carbon Dioxide 29 mmol/L (22-30); Chloride 101 mmol/L (98-107); Estimated CRCL calculation 16 ml/min; Estimated Glomerular Filt Rate 15; Glucose 107 mg/dL (65-110); Potassium 4.4 mmol/L (3.4-5.0); Sodium 132 mmol/L (137-145)
--- NOTE | 2022-12-15 08:19 | PCOTNOTE ---
The patient treatment was not able to be completed Patient was on the bedpan and requested OT to come back later. Will plan to continue treatment per plan of care.
[2022-12-15] MEDS: SEVELAMER CARBONATE 800 MG TABLET 1600 MG PO ×3 (08:27→16:28)
[2022-12-15] MEDS: TAMSULOSIN HCL 0.4 MG CAPSULE PO (08:27)
[2022-12-15] MEDS: MAGNESIUM OXIDE 400 MG TABLET PO (08:27)
[2022-12-15] MEDS: AMIODARONE HCL 200 MG TABLET PO (08:27)
[2022-12-15] MEDS: SENNA/DOCUSATE SODIUM TABLET 2 TAB PO ×2 (08:27→16:27)
[2022-12-15] MEDS: ESCITALOPRAM OXALATE 10 MG TABLET 20 MG PO (08:28)
[2022-12-15] MEDS: amLODIPine BESYLATE 5 MG TABLET PO (08:28)
[2022-12-15] MEDS: FERROUS SULFATE 325 MG TABLET DR PO (08:28)
[2022-12-15] MEDS: CHOLECALCIFEROL 1,000 UNITS TABLET 5000 UNITS PO (08:28)
[2022-12-15 08:33] LABS: Glucose Point of Care 105 mg/dl (65-105)
[2022-12-15] MEDS: ENOXAPARIN 30 MG/0.3 ML SYRINGE SUB-Q (08:35)
[2022-12-15] MEDS: BUMETANIDE 1 MG TABLET 4 MG PO (08:35)
[2022-12-15] MEDS: PANTOPRAZOLE SODIUM IV 40 MG VIAL IV PUSH ×2 (08:35→19:56)
--- NOTE | 2022-12-15 10:45 | PM.PNORT ---
Progress Note: A&P Assessment and Plan (1) Closed left hip fracture: Qualifiers: Encounter type: initial encounter Qualified Code(s): S72.002A - Fracture of unspecified part of neck of left femur, initial encounter for closed fracture Code(s): S72.002A - Fracture of unspecified part of neck of left femur, initial encounter for closed fracture Status: Acute (2) History of partial replacement of left hip joint using bipolar prosthesis: Code(s): Z96.642 - Presence of left artificial hip joint Status: Acute (3) End stage renal disease: Code(s): N18.6 - End stage renal disease Status: Chronic Plan Post op day 7 Bipolar hemiarthroplasty. Patient showing improvements. Working better with physical therapy and has started ambulating with assistance. Pain is improving. Still taking pain medications at night. Wound healing well. May remove Mepilex dressing today. Keep steri-strips on for 1 more week. Plan for discharge to rehab facility. Continue to mobilize as able. Discharge okay from orthopedic standpoint. Will follow up in office in 4 weeks with xrays. Subjective Subjective Date/Time Seen: 12/15/22 10:45 Interval history: Patient resting comfortably in a chair. Notes he is feeling better. Still taking pain medication at night. Working well with physical therapy. Review of Systems Review of Systems: All systems reviewed & are unremarkable except as noted in HPI and below Exam Narrative: Overweight 66 y/o Male. Resting comfortably in the chair. Dressing dry and intact without drainage. Moderate swelling in thigh. Mild ecchymosis. No erythema. No hematoma. Range of motion limited due to pain. Extends leg. Quad fires. Calf nontender. Mild thigh pain. No varicosities. Distal pulses palpable. Wiggles toes. Objective Data Vital Signs Vital Signs: Vital Signs - 24 hr 12/14/22 11:00 12/14/22 11:20 12/14/22 11:40 Temperature Pulse Rate 77 77 78 Respiratory Rate Blood Pressure 130/61 137/63 127/64 Pulse Oximetry Oxygen Delivery Oxygen Flow Rate Fraction of Inspired Oxygen 12/14/22 12:00 12/14/22 12:52 12/14/22 12:20 Temperature 97.8 F Pulse Rate 83 78 80 Respiratory Rate 18 Blood Pressure 130/65 132/66 134/63 Pulse Oximetry Oxygen Delivery Oxygen Flow Rate Fraction of Inspired Oxygen 08/23/23 12:40 12/14/22 12:42 12/14/22 13:46 Temperature Pulse Rate 81 81 83 Respiratory Rate 16 Blood Pressure 138/70 136/68 Pulse Oximetry Oxygen Delivery Oxygen Flow Rate Fraction of Inspired Oxygen 12/14/22 13:59 12/14/22 14:19 12/14/22 19:52 Temperature 98.1 F Pulse Rate 82 84 82 Respiratory Rate 16 18 16 Blood Pressure 135/49 L Pulse Oximetry 100 Oxygen Delivery Oxygen Flow Rate Fraction of Inspired Oxygen 12/14/22 19:52 12/14/22 20:54 12/14/22 20:00 Temperature 98.2 F Pulse Rate 82 80 Respiratory Rate 16 18 Blood Pressure 137/53 L Pulse Oximetry 95 100 100 Oxygen Delivery Nasal Cannula Nasal Cannula Oxygen Flow Rate 3 3 Fraction of Inspired Oxygen 12/14/22 23:10 12/15/22 02:37 12/15/22 02:47 Temperature Pulse Rate 80 89 96 Respiratory Rate 18 16 16 Blood Pressure Pulse Oximetry 93 Oxygen Delivery BiPAP Oxygen Flow Rate Fraction of Inspired Oxygen 12/14/22 20:10 12/15/22 05:29 12/15/22 08:27 Temperature 98.5 F Pulse Rate 92 80 80 Respiratory Rate 16 17 Blood Pressure 124/50 L Pulse Oximetry 97 Oxygen Delivery Oxygen Flow Rate Fraction of Inspired Oxygen 12/15/22 08:53 12/15/22 08:00 Temperature Pulse Rate 85 Respiratory Rate 16 Blood Pressure Pulse Oximetry 97 97 Oxygen Delivery Nasal Cannula Nasal Cannula Oxygen Flow Rate 3 3 Fraction of Inspired Oxygen 32 Intake/Output Intake/Output: Intake & Output 12/12/22 12/13/22 12/14/22 12/15/22 23:59 23:59 23:59 23:59 Intake Total 1560 477 991 8919
[2022-12-15] MEDS: HYDROcodone/acetaminophen (*CRX) 5-325 MG TABLET 1 TAB PO (11:06)
--- NOTE | 2022-12-15 12:02 | WPDGIPROGNO ---
Progress Note: A&P Assessment and Plan (1) Dysphagia: Code(s): R13.10 - Dysphagia, unspecified Status: Acute Assessment and Plan: he states that it is difficult to swallow and it also is painful when he is eating. He probably has esophagitis either due to reflux or perhaps Anastasia or some other etiology. EGD will be scheduled for tomorrow. 12/15/2022 he no longer has dysphagia or odynophagia. Biopsies of the esophagus show esophagitis. There were no fungal organisms seen. Nevertheless, if he begins to have painful swallowing again I would give him a course of Diflucan. (2) Nausea & vomiting: Code(s): R11.2 - Nausea with vomiting, unspecified Status: Acute Assessment and Plan: He has had a very poor appetite and of great deal of nausea since surgery. Now that has all cleared up he has a good appetite. (3) End-stage renal disease on hemodialysis: Code(s): N18.6 - End stage renal disease; Z99.2 - Dependence on renal dialysis Status: Acute Assessment and Plan: He is on chronic hemodialysis, in going down for dialysis shortly. (4) Chronic GERD: Code(s): K21.9 - Gastro-esophageal reflux disease without esophagitis Status: Acute Assessment and Plan: He denies having a previous esophageal stricture. He does take pantoprazole 40 mg b.i.d. and has done this for a while. Subjective Date/time seen: 12/15/22 12:02 He has no gastrointestinal complaints. He states that he has been eating and no longer has pain on swallowing. Exam Const: General: cooperative, healthy appearing and ill appearing Orientation/consciousness: patient oriented x3 HENMT: Head: normal to inspection Ears: hearing grossly normal bilaterally Mouth: Yes Normal oral and palatal mucosa present Eyes: General: appearance normal, both eyes and all related structures Neck: Neck: normal visual inspection Chest: Chest palpation & inspection: normal inspection of the chest Resp: Effort & Inspection: normal respiratory effort Auscultation: clear to auscultation bilaterally Cardio: Rate: regular rate Rhythm: regular rhythm GI: Inspection: normal to inspection Auscultation: normal bowel sounds Skin: General skin exam: normal color and no jaundice Neuro: General: patient oriented x3 Speech: normal speech Objective Data Vital Signs Vital Signs: Vital Signs - 24 hr 12/14/22 12:52 12/14/22 12:20 12/14/22 12:40 Temperature 36.6 C Pulse Rate 78 80 81 Respiratory Rate 18 Blood Pressure 132/66 134/63 138/70 Pulse Oximetry Oxygen Delivery Oxygen Flow Rate Fraction of Inspired Oxygen 12/14/22 12:42 12/14/22 13:46 12/14/22 13:59 Temperature Pulse Rate 81 83 82 Respiratory Rate 16 16 Blood Pressure 136/68 Pulse Oximetry Oxygen Delivery Oxygen Flow Rate Fraction of Inspired Oxygen 12/14/22 14:19 12/14/22 19:52 12/14/22 19:52 Temperature 36.7 C Pulse Rate 84 82 82 Respiratory Rate 18 16 16 Blood Pressure 135/49 L Pulse Oximetry 100 95 Oxygen Delivery Nasal Cannula Oxygen Flow Rate 3 Fraction of Inspired Oxygen 12/14/22 20:54 12/14/22 20:00 12/14/22 23:10 Temperature 36.8 C Pulse Rate 80 80 Respiratory Rate 18 18 Blood Pressure 137/53 L Pulse Oximetry 100 100 93 Oxygen Delivery Nasal Cannula BiPAP Oxygen Flow Rate 3 Fraction of Inspired Oxygen 12/15/22 02:37 12/15/22 02:47 12/14/22 20:10 Temperature Pulse Rate 89 96 92 Respiratory Rate 16 16 16 Blood Pressure Pulse Oximetry Oxygen Delivery Oxygen Flow Rate Fraction of Inspired Oxygen 12/15/22 05:29 12/15/22 08:27 12/15/22 08:53 Temperature 36.9 C Pulse Rate 80 80 85 Respiratory Rate 17 16 Blood Pressure 124/50 L Pulse Oximetry 97 97 Oxygen Delivery Nasal Cannula Oxygen Flow Rate 3 Fraction of Inspired Oxygen 32 12/15/22 08:00 Temperature Pulse Rate Respiratory Rate Blood
[2022-12-15 12:10] LABS: Glucose Point of Care 143 mg/dl (65-105)
--- NOTE | 2022-12-15 13:38 | P.PNNP_ITS ---
Progress Note: A&P Assessment and Plan (1) End stage renal disease: Code(s): N18.6 - End stage renal disease Status: Chronic Assessment and Plan: * HD tomorrow * continue M/W/F dialysis schedule while hospitalized * follow electrolytes, volume status, and clearance (2) Closed left hip fracture: Qualifiers: Encounter type: initial encounter Qualified Code(s): S72.002A - Fracture of unspecified part of neck of left femur, initial encounter for closed fracture Code(s): S72.002A - Fracture of unspecified part of neck of left femur, initial encounter for closed fracture Status: Acute Assessment and Plan: * Orthopedics following * s/p bipolar hemiarthroplasty left hip (on 12/08/22) * pain control * PT/OT when able (3) Nausea & vomiting: Code(s): R11.2 - Nausea with vomiting, unspecified Status: Acute Assessment and Plan: * on IV antiemetics and PPI * recent CT of abd/pelvis with distended stomach * complicated by symptoms of dysphagia as well * s/p EGD (on 12/13/20) with results noted: * severe infectous/erosive esophagitis * gastric food retention * esophageal biopsy -- Compatible with Candidiasis esophagitis -- start course of diflucan(?) * continue supportive therapy (4) Hypertension: Code(s): I10 - Essential (primary) hypertension Status: Chronic Assessment and Plan: * reasonable control * follow trend of hemodynamics (5) Anemia: Code(s): D64.9 - Anemia, unspecified Status: Chronic Assessment and Plan: * due to ESRD * Epogen with HD * follow H/H (6) COPD (chronic obstructive pulmonary disease): Code(s): J44.9 - Chronic obstructive pulmonary disease, unspecified Status: Chronic Assessment and Plan: * seems compensated * continue supportive care (7) Diabetes: Code(s): E11.9 - Type 2 diabetes mellitus without complications Status: Chronic Assessment and Plan: * follow accu-cheks * appears diet controlled * glycemic control per hospitalists Will continue to follow. Subjective Date/time seen: 12/15/22 13:38 Interval history: Follow-up for end stage renal disease on hemodialysis. Tolerated dialysis treatment yesterday without any issues or problems; no apparent distress voiced at this time; no further issues with dysphagia (although biopsy results from EGD noted); no issues/events overnight or earlier this morning. Exam Narrative: General: WD/WN male in NAD Heart: normal S1 and S2; no rub Lungs: coarse breath sounds; decreased at bases Abdomen: soft, nontender, + bowel sounds noted Extremities: no cyanosis or clubbing; no edema Skin: warm and dry Objective Data Vital Signs Vital Signs: Vital Signs Temp Pulse Resp BP Pulse Ox O2 Del Method O2 Flow Rate 12/15/22 13:25 97.7 F 76 18 129/53 L 100 12/15/22 08:00 97 Nasal Cannula 3 12/15/22 08:53 85 16 97 Nasal Cannula 3 12/15/22 08:27 80 12/15/22 05:29 98.5 F 80 17 124/50 L 97 12/14/22 20:10 92 16 12/15/22 02:47 96 16 12/15/22 02:37 89 16 12/14/22 23:10 80 18 93 BiPAP 12/14/22 20:00 100 Nasal Cannula 3 12/14/22 20:54 98.2 F 80 18 137/53 L 100
--- NOTE | 2022-12-15 13:38 | PM.PNNEP ---
Progress Note: A&P Assessment and Plan (1) End stage renal disease: Code(s): N18.6 - End stage renal disease Status: Chronic Assessment and Plan: HD tomorrow continue M/W/F dialysis schedule while hospitalized follow electrolytes, volume status, and clearance (2) Closed left hip fracture: Qualifiers: Encounter type: initial encounter Qualified Code(s): S72.002A - Fracture of unspecified part of neck of left femur, initial encounter for closed fracture Code(s): S72.002A - Fracture of unspecified part of neck of left femur, initial encounter for closed fracture Status: Acute Assessment and Plan: Orthopedics following s/p bipolar hemiarthroplasty left hip (on 12/08/22) pain control PT/OT when able (3) Nausea & vomiting: Code(s): R11.2 - Nausea with vomiting, unspecified Status: Acute Assessment and Plan: on IV antiemetics and PPI recent CT of abd/pelvis with distended stomach complicated by symptoms of dysphagia as well s/p EGD (on 12/13/20) with results noted: severe infectous/erosive esophagitis gastric food retention esophageal biopsy -- Compatible with Candidiasis esophagitis -- start course of diflucan(?) continue supportive therapy (4) Hypertension: Code(s): I10 - Essential (primary) hypertension Status: Chronic Assessment and Plan: reasonable control follow trend of hemodynamics (5) Anemia: Code(s): D64.9 - Anemia, unspecified Status: Chronic Assessment and Plan: due to ESRD Epogen with HD follow H/H (6) COPD (chronic obstructive pulmonary disease): Code(s): J44.9 - Chronic obstructive pulmonary disease, unspecified Status: Chronic Assessment and Plan: seems compensated continue supportive care (7) Diabetes: Code(s): E11.9 - Type 2 diabetes mellitus without complications Status: Chronic Assessment and Plan: follow accu-cheks appears diet controlled glycemic control per hospitalists Will continue to follow. Subjective Date/time seen: 12/15/22 13:38 Interval history: Follow-up for end stage renal disease on hemodialysis. Tolerated dialysis treatment yesterday without any issues or problems; no apparent distress voiced at this time; no further issues with dysphagia (although biopsy results from EGD noted); no issues/events overnight or earlier this morning. Exam Narrative: General: WD/WN male in NAD Heart: normal S1 and S2; no rub Lungs: coarse breath sounds; decreased at bases Abdomen: soft, nontender, + bowel sounds noted Extremities: no cyanosis or clubbing; no edema Skin: warm and dry Objective Data Vital Signs Vital Signs: Vital Signs Temp Pulse Resp BP Pulse Ox O2 Del Method O2 Flow Rate 12/15/22 13:25 97.7 F 76 18 129/53 L 100 12/15/22 08:00 97 Nasal Cannula 3 12/15/22 08:53 85 16 97 Nasal Cannula 3 12/15/22 08:27 80 12/15/22 05:29 98.5 F 80 17 124/50 L 97 12/14/22 20:10 92 16 12/15/22 02:47 96 16 12/15/22 02:37 89 16 12/14/22 23:10 80 18 93 BiPAP 12/14/22 20:00 100 Nasal Cannula 3 12/14/22 20:54 98.2 F 80 18 137/53 L 100 12/14/22 19:52 82 16 95 Nasal Cannula 3 12/14/22 19:52 82 16 Intake/Output Intake/Output: Intake & Output 12/12/22 12/13/22 12/14/22 12/15/22 23:59 23:59 23:59 23:59 Intake Total 1560 357 604 9318 Output Total 902 791 9248 50 Balance 1210 180 -1635 1232 Meds/Results Medications: Active Medications Generic Name Dose Route Start Last Admin Trade Name Freq PRN Reason Stop Dose Admin Hydrocodone Bitart/Acetaminophen 1 tab 12/09/22 04:29 12/15/22 11:06 Hydrocodone/Acetaminophen (*Crx) 5-325 Mg Tablet PO 1 tab Q4H PRN Administration Pain Rated 4-6 Albuterol 2.5 mg 12/07/22 14:00 12/15/22 15:02 Albuterol Sulfate Neb 2.
[2022-12-15] MEDS: BISACODYL 10 MG SUPPOSITORY RECTAL (14:06)
[2022-12-15] MEDS: CLINDAMYCIN 300 MG in DEXTROSE 5% IN WATER 50 ML 104 MG IVPB ×3 (14:09→23:52)
--- NOTE | 2022-12-15 15:53 | PM.IMPN ---
Progress Note: A&P Assessment and Plan (1) Closed left hip fracture: Qualifiers: Encounter type: initial encounter Qualified Code(s): S72.002A - Fracture of unspecified part of neck of left femur, initial encounter for closed fracture Code(s): S72.002A - Fracture of unspecified part of neck of left femur, initial encounter for closed fracture Status: Acute Assessment and Plan: X-ray reveals transcervical fracture of left femoral neck Orthopedics consulted. Postsurgical DVT prophylaxis, PT and OT and analgesics per orthopedic team. Weightbearing as tolerated. Monitor H&H post operatively. Patient with elevated white count which is likely reactive from hip repair. Patient is feeling much better, will continue current treatment and increase activity as tolerated. (2) Nausea & vomiting: Code(s): R11.2 - Nausea with vomiting, unspecified Status: Acute Assessment and Plan: Much better, tolerating clear liquids. Increase as tolerated reported dysphagia. EGD performed 12/13/2022 suspected infectious esophagitis gastric retention. (3) End stage renal disease: Code(s): N18.6 - End stage renal disease Status: Chronic Assessment and Plan: Nephrology has been consulted.? The patient has seen Dr. Justin in the past.? Patient has dialysis on Monday. Continue current treatmnet (4) CHF (congestive heart failure), NYHA class I: Qualifiers: Congestive heart failure type: unspecified Qualified Code(s): I50.9 - Heart failure, unspecified Code(s): I50.9 - Heart failure, unspecified Status: Acute Assessment and Plan: Not in an acute exacerbation. Monitor fluid status. Chronic heart failure of unknown type Stable, continue current treatment (5) COPD (chronic obstructive pulmonary disease): Code(s): J44.9 - Chronic obstructive pulmonary disease, unspecified Status: Chronic Assessment and Plan: Stable, will continue current treatment (6) Hypertension: Code(s): I10 - Essential (primary) hypertension Status: Chronic Assessment and Plan: Resume antihypertensive medication. Monitor closely,, stable (7) Diabetes: Code(s): E11.9 - Type 2 diabetes mellitus without complications Status: Chronic Assessment and Plan: Patient controls diabetes with diet. AC and HS with sliding scale insulin. ? Hypoglycemia protocol initiated. Hemoglobin A1c 6.2. Stable on current meds, continue current treatment. Plan Right diop cellulitis will start clindamycin. Ultrasound to check if underlying collection. Subjective Date/time seen: 12/15/22 15:53 Interval history: No overnight events. Right diop is red and swollen. No fever chills. García in place. Review of Systems Review of Systems: All systems reviewed & are unremarkable except as noted in HPI and below (the history and physical exam.) Exam Narrative: GENERAL: Comfortable, no acute distress HENMT: moist mucous membranes EYES: EOM intact b/l NECK: no lymphadenopathy RESPIRATORY: distant breath sounds, bibasilar crackles CARDIO: RRR, distant heart sounds GI: soft, nontender, bowel sounds present SKIN: no rashes right diop with swollen red and warm to touch EXTREMITIES: Limited range of motion in the left hip, bandage intact and dry Objective Data Vital Signs Vital Signs: Vital Signs - 24 hr 12/14/22 19:52 12/14/22 19:52 12/14/22 20:54 Temperature 98.2 F Pulse Rate 82 82 80 Respiratory Rate 16 16 18 Blood Pressure 137/53 L Pulse Oximetry 95 100 Oxygen Delivery Nasal Cannula Oxygen Flow Rate 3 Fraction of Inspired Oxygen 12/14/22 20:00 12/14/22 23:10 12/15/22 02:37 Temperature Pulse Rate 80 89 Respiratory Rate 18 16 Blood Pressure Pulse Oximetry 100 93 Oxygen Delivery Nasal Cannula BiPAP Oxygen Flow Rate 3 Fraction of I
[2022-12-15 17:20] LABS: Glucose Point of Care 150 mg/dl (65-105)
[2022-12-15] MEDS: ATORVASTATIN 20 MG TABLET PO (19:56)
[2022-12-15 20:05] LABS: Glucose Point of Care 145 mg/dl (65-105)
[2022-12-16] VITALS (22 sets, daily range): BP systolic 118–137; BP diastolic 50–71; PULSE 72–95; RESP 14–20; TEMP 36–37; O2SAT 96–99
[2022-12-16] MEDS: ALBUTEROL SULFATE NEB 2.5 MG/3 ML INH INHALATION ×2 (02:18→21:21)
[2022-12-16] MEDS: IPRATROPIUM BR 0.02% INH SOLN 0.5 MG/2.5 ML VIAL INHALATION ×2 (02:18→21:21)
[2022-12-16 05:32] LABS: Hematocrit 32.4 % (42.0-52.0); Hemoglobin 9.3 g/dL (14.0-18.0); Mean Corpuscular HGB Conc 28.7 g/dl (32-36); Mean Corpuscular Hemoglobin 27.8 pg (26-34); Mean Corpuscular Volume 96.7 fl (80-100); Mean Platelet Volume 9.5 fl (7.4-10.4); Platelet Count Result 275 k/mm3 (150-375); Red Blood Count 3.35 M/mm3 (4.6-6.20); Red Cell Distribution Width 17.2 % (11.5-14.5); White Blood Count 13.1 K/mm3 (4.5-10.0)
[2022-12-16 05:39] LABS: Alanine Aminotransferase 7 U/L (6-50); Albumin Level 2.7 g/dL (3.5-5.1); Alkaline Phosphatase 286 U/L (38-126); Anion Gap 8 mmol/L (8-16); Aspartate Amino Transferase 30 U/L (17-59); Bilirubin,Total 0.4 mg/dL (0.2-1.3); Blood Urea Nitrogen 42 mg/dL (9-20); Calcium 7.4 mg/dL (8.4-10.2); Carbon Dioxide 28 mmol/L (22-30); Chloride 97 mmol/L (98-107); Estimated CRCL calculation 13 ml/min; Estimated Glomerular Filt Rate 11; Glucose 108 mg/dL (65-110); Sodium 133 mmol/L (137-145)
[2022-12-16] MEDS: CLINDAMYCIN 300 MG in DEXTROSE 5% IN WATER 50 ML 104 MG IVPB ×3 (05:41→20:13)
[2022-12-16 06:10] LABS: Band Neutrophils Percent 3 % (0-6); Eosinophils Absolute Manual 0.13 K/mm3 (0.02-0.5); Eosinophils Percent Manual 1 % (0-4); Lymphocytes Absolute Manual 0.39 K/mm3 (1.1-4.5); Lymphocytes Percent Manual 3 % (18-44); Monocytes Absolute Manual 0.78 K/mm3 (0.1-0.90); Monocytes Percent Manual 6 % (3-9); Neutrophils Absolute Manual 11.26 K/mm3 (1.3-6.7); Neutrophils Percent Manual 83 % (46-73); Total Cells Counted 100
[2022-12-16 06:11] LABS: Anisocytosis 1+ (NORMAL); Metamyelocytes Percent 4 %; Platelet Estimate Adequate (Adequate); Schistocytes None Seen (NORMAL)
[2022-12-16 08:43] LABS: Glucose Point of Care 128 mg/dl (65-105)
--- NOTE | 2022-12-16 08:48 | PM.PNORT ---
Progress Note: A&P Assessment and Plan (1) History of partial replacement of left hip joint using bipolar prosthesis: Code(s): Z96.642 - Presence of left artificial hip joint Status: Acute (2) Closed left hip fracture: Qualifiers: Encounter type: initial encounter Qualified Code(s): S72.002A - Fracture of unspecified part of neck of left femur, initial encounter for closed fracture Code(s): S72.002A - Fracture of unspecified part of neck of left femur, initial encounter for closed fracture Status: Acute (3) End stage renal disease: Code(s): N18.6 - End stage renal disease Status: Chronic Plan Post op day 8 Bipolar hemiarthroplasty. Patient continues to show improvements. Working well with physical therapy and he is weaning off the pain medication. Wound healing well. Steri-strips intact without bleeding. He complains of new raised 1.5 inch circular raised bump on his anterior lower leg. He has had an US found this which showed possible hematoma or abscess. General surgery has been consulted. He is on IV clindamycin. Will let Dr. Dowling know. We will continue to follow. Subjective Subjective Date/Time Seen: 12/16/22 08:48 Interval history: Patient sleeping at the time of my visit. Notes he is still having pain in the left leg. He is trying to wean himself off pain medications. He has had multiple bowel movements. He now complains of a bump on his right anterior diop. He has had an US and general surgery has been consulted. He is on Clindamycin IV. Review of Systems Review of Systems: All systems reviewed & are unremarkable except as noted in HPI and below Exam Narrative: Overweight 66 y/o Male. Resting comfortably in bed. Wound healing well. Steri-strips intact. No bleeding or draining from wound. Moderate swelling in thigh. Mild ecchymosis. No erythema. No hematoma. Range of motion limited due to pain. Extends leg. Quad fires. Calf nontender. Mild thigh pain. No varicosities. Distal pulses palpable. Wiggles toes. He does have a new about 1.5 inch raised bump on his anterior diop. Possible hematoma or abscess. Some ecchymosis around the bump. Objective Data Vital Signs Vital Signs: Vital Signs - 24 hr 12/15/22 08:53 12/15/22 14:25 12/15/22 20:11 Temperature 97.7 F Pulse Rate 85 76 90 Respiratory Rate 16 18 16 Blood Pressure 129/53 L Pulse Oximetry 97 100 Oxygen Delivery Nasal Cannula Oxygen Flow Rate 3 Fraction of Inspired Oxygen 32 12/15/22 20:11 12/15/22 20:18 12/15/22 20:46 Temperature 97.9 F Pulse Rate 90 94 78 Respiratory Rate 16 16 17 Blood Pressure 120/52 L Pulse Oximetry 95 100 Oxygen Delivery Nasal Cannula Oxygen Flow Rate 3 Fraction of Inspired Oxygen 32 12/15/22 20:00 12/16/22 02:20 12/16/22 05:01 Temperature 98.3 F Pulse Rate 92 77 Respiratory Rate 16 17 Blood Pressure 125/50 L Pulse Oximetry 100 96 Oxygen Delivery Nasal Cannula Oxygen Flow Rate 3 Fraction of Inspired Oxygen Intake/Output Intake/Output: Intake & Output 12/13/22 12/14/22 12/15/22 12/16/22 23:59 23:59 23:59 23:59 Intake Total 660 369 6190 354 Output Total 250 2625 150 100 Balance 180 -1635 1454 254 Meds/Results Medications: Active Medications Generic Name Dose Route Start Last Admin Trade Name Freq PRN Reason Stop Dose Admin Hydrocodone Bitart/Acetaminophen 1 tab 12/09/22 04:29 12/15/22 11:06 Hydrocodone/Acetaminophen (*Crx) 5-325 Mg Tablet PO 1 tab Q4H PRN Administration Pain Rated 4-6 Albuterol 2.5 mg 12/07/22 14:00 12/16/22 02:18 Albuterol Sulfate Neb 2.5 Mg/3 Ml Inh INHALATION 2.5 mg Q6HRT KAIN Administration Amiodarone HCl 200 mg 12/07/22 09:00 12/15/22 08:27 Amiodarone Hcl 200 Mg Tablet PO 200 mg DAILY KAIN Administration Amlodipine Besylate 5 mg 12/07/22 09:00 12/15/22 08:28 Amlodipine Besylate 5 Mg Tablet PO 5 mg DAILY KAIN Administration Ator
[2022-12-16] MEDS: SEVELAMER CARBONATE 800 MG TABLET 1600 MG PO ×3 (09:09→20:14)
[2022-12-16] MEDS: MAGNESIUM OXIDE 400 MG TABLET PO (09:10)
[2022-12-16] MEDS: FERROUS SULFATE 325 MG TABLET DR PO (09:10)
[2022-12-16] MEDS: CHOLECALCIFEROL 1,000 UNITS TABLET 5000 UNITS PO (09:10)
[2022-12-16] MEDS: TAMSULOSIN HCL 0.4 MG CAPSULE PO (09:10)
[2022-12-16] MEDS: SENNA/DOCUSATE SODIUM TABLET 2 TAB PO ×2 (09:10→20:12)
[2022-12-16] MEDS: PANTOPRAZOLE SODIUM IV 40 MG VIAL IV PUSH ×2 (09:11→20:14)
[2022-12-16] MEDS: ESCITALOPRAM OXALATE 10 MG TABLET 20 MG PO (09:11)
[2022-12-16] MEDS: ENOXAPARIN 30 MG/0.3 ML SYRINGE SUB-Q (09:11)
[2022-12-16] MEDS: MORPHINE SULFATE (*CRX) 2 MG/ML INJ IV PUSH (11:13)
[2022-12-16 11:52] LABS: Glucose Point of Care 155 mg/dl (65-105)
--- NOTE | 2022-12-16 13:43 | PM.IMPN ---
Progress Note: A&P Assessment and Plan (1) Closed left hip fracture: Qualifiers: Encounter type: initial encounter Qualified Code(s): S72.002A - Fracture of unspecified part of neck of left femur, initial encounter for closed fracture Code(s): S72.002A - Fracture of unspecified part of neck of left femur, initial encounter for closed fracture Status: Acute Assessment and Plan: X-ray reveals transcervical fracture of left femoral neck Orthopedics consulted. Postsurgical DVT prophylaxis, PT and OT and analgesics per orthopedic team. Weightbearing as tolerated. Monitor H&H post operatively. Patient with elevated white count which is likely reactive from hip repair. Patient is feeling much better, will continue current treatment and increase activity as tolerated. (2) Nausea & vomiting: Code(s): R11.2 - Nausea with vomiting, unspecified Status: Acute Assessment and Plan: Much better, tolerating clear liquids. Increase as tolerated reported dysphagia. EGD performed 12/13/2022 suspected infectious esophagitis gastric retention. (3) End stage renal disease: Code(s): N18.6 - End stage renal disease Status: Chronic Assessment and Plan: Nephrology has been consulted.? The patient has seen Dr. Justin in the past.? Patient has dialysis on Monday. Continue current treatmnet (4) CHF (congestive heart failure), NYHA class I: Qualifiers: Congestive heart failure type: unspecified Qualified Code(s): I50.9 - Heart failure, unspecified Code(s): I50.9 - Heart failure, unspecified Status: Acute Assessment and Plan: Not in an acute exacerbation. Monitor fluid status. Chronic heart failure of unknown type Stable, continue current treatment (5) COPD (chronic obstructive pulmonary disease): Code(s): J44.9 - Chronic obstructive pulmonary disease, unspecified Status: Chronic Assessment and Plan: Stable, will continue current treatment (6) Hypertension: Code(s): I10 - Essential (primary) hypertension Status: Chronic Assessment and Plan: Resume antihypertensive medication. Monitor closely,, stable (7) Diabetes: Code(s): E11.9 - Type 2 diabetes mellitus without complications Status: Chronic Assessment and Plan: Patient controls diabetes with diet. AC and HS with sliding scale insulin. ? Hypoglycemia protocol initiated. Hemoglobin A1c 6.2. Stable on current meds, continue current treatment. Plan Right diop cellulitis. Ultrasound with small collection. General surgery consulted continue clindamycin Subjective Date/time seen: 12/16/22 13:43 Interval history: No overnight events. Right seen is still with same. Ultrasound reviewed with no other complaints. Review of Systems Review of Systems: All systems reviewed & are unremarkable except as noted in HPI and below (the history and physical exam.) Exam Narrative: GENERAL: Comfortable, no acute distress HENMT: moist mucous membranes EYES: EOM intact b/l NECK: no lymphadenopathy RESPIRATORY: distant breath sounds, bibasilar crackles CARDIO: RRR, distant heart sounds GI: soft, nontender, bowel sounds present SKIN: no rashes right diop with swollen red and warm to touch EXTREMITIES: Limited range of motion in the left hip, bandage intact and dry Objective Data Vital Signs Vital Signs: Vital Signs - 24 hr 12/15/22 14:25 12/15/22 20:11 12/15/22 20:11 Temperature 97.7 F Pulse Rate 76 90 90 Respiratory Rate 18 16 16 Blood Pressure 129/53 L Pulse Oximetry 100 95 Oxygen Delivery Nasal Cannula Oxygen Flow Rate 3 Fraction of Inspired Oxygen 32 12/15/22 20:18 12/15/22 20:46 12/15/22 20:00 Temperature 97.9 F Pulse Rate 94 78 Respiratory Rate 16 17 Blood Pressure 120/52 L Pulse Oximetry 100 100 Oxygen Delivery Nasal Cannula
--- NOTE | 2022-12-16 15:30 | PC.NURSE ---
To Dialysis via bed.
--- NOTE | 2022-12-16 16:00 | P.PNNP_ITS ---
Progress Note: A&P Assessment and Plan (1) End stage renal disease: Code(s): N18.6 - End stage renal disease Status: Chronic Assessment and Plan: * HD today * continue M/W/F dialysis schedule while hospitalized * follow electrolytes, volume status, and clearance (2) Closed left hip fracture: Qualifiers: Encounter type: initial encounter Qualified Code(s): S72.002A - Fracture of unspecified part of neck of left femur, initial encounter for closed fracture Code(s): S72.002A - Fracture of unspecified part of neck of left femur, initial encounter for closed fracture Status: Acute Assessment and Plan: * Orthopedics following * s/p bipolar hemiarthroplasty left hip (on 12/08/22) * pain control * PT/OT as tolerated (3) Nausea & vomiting: Code(s): R11.2 - Nausea with vomiting, unspecified Status: Acute Assessment and Plan: * on IV antiemetics and PPI * recent CT of abd/pelvis with distended stomach * complicated by symptoms of dysphagia as well * s/p EGD (on 12/13/20) with results noted: * severe infectous/erosive esophagitis * gastric food retention * esophageal biopsy -- Compatible with Candidiasis esophagitis -- start course of diflucan(?) * continue supportive therapy (4) Hypertension: Code(s): I10 - Essential (primary) hypertension Status: Chronic Assessment and Plan: * reasonable control * follow trend of hemodynamics (5) Anemia: Code(s): D64.9 - Anemia, unspecified Status: Chronic Assessment and Plan: * due to ESRD * Epogen with HD * follow H/H (6) COPD (chronic obstructive pulmonary disease): Code(s): J44.9 - Chronic obstructive pulmonary disease, unspecified Status: Chronic Assessment and Plan: * seems compensated * continue supportive care (7) Diabetes: Code(s): E11.9 - Type 2 diabetes mellitus without complications Status: Chronic Assessment and Plan: * follow accu-cheks * appears diet controlled * glycemic control per hospitalists Will continue to follow. Subjective Date/time seen: 12/16/22 16:00 Interval history: Follow-up for end stage renal disease on hemodialysis. Tolerating hemodialysis treatment at the time of my visit (seen on HD at 3:50PM); pain control seems adequate; breathing/respiratory status doing fairly well; no further issues with dysphagia at this time; no events overnight or earlier this AM. Exam Narrative: General: WD/WN male in NAD Heart: normal S1 and S2; no rub Lungs: coarse breath sounds; decreased at bases Abdomen: soft, nontender, + bowel sounds noted Extremities: no cyanosis or clubbing; no edema Skin: warm and intact Objective Data Vital Signs Vital Signs: Vital Signs Temp Pulse Resp BP Pulse Ox O2 Del Method O2 Flow Rate 12/16/22 14:20 98.6 F 74 18 132/54 L 99 12/16/22 09:11 18 96 Nasal Cannula 3 12/16/22 05:01 98.3 F 77 17 125/50 L 96 12/16/22 02:20 92 16 12/15/22 20:00 100 Nasal Cannula 3 12/15/22 20:46 97.9 F 78 17 120/52 L 100 12/15/22 20:18 94 16 12/15/22 20:11 90 16 95 Nasal Cannula 3 12/15/22 20:11 90 16 Intake/Output Intake/Output:
--- NOTE | 2022-12-16 16:00 | PM.PNNEP ---
Progress Note: A&P Assessment and Plan (1) End stage renal disease: Code(s): N18.6 - End stage renal disease Status: Chronic Assessment and Plan: HD today continue M/W/F dialysis schedule while hospitalized follow electrolytes, volume status, and clearance (2) Closed left hip fracture: Qualifiers: Encounter type: initial encounter Qualified Code(s): S72.002A - Fracture of unspecified part of neck of left femur, initial encounter for closed fracture Code(s): S72.002A - Fracture of unspecified part of neck of left femur, initial encounter for closed fracture Status: Acute Assessment and Plan: Orthopedics following s/p bipolar hemiarthroplasty left hip (on 12/08/22) pain control PT/OT as tolerated (3) Nausea & vomiting: Code(s): R11.2 - Nausea with vomiting, unspecified Status: Acute Assessment and Plan: on IV antiemetics and PPI recent CT of abd/pelvis with distended stomach complicated by symptoms of dysphagia as well s/p EGD (on 12/13/20) with results noted: severe infectous/erosive esophagitis gastric food retention esophageal biopsy -- Compatible with Candidiasis esophagitis -- start course of diflucan(?) continue supportive therapy (4) Hypertension: Code(s): I10 - Essential (primary) hypertension Status: Chronic Assessment and Plan: reasonable control follow trend of hemodynamics (5) Anemia: Code(s): D64.9 - Anemia, unspecified Status: Chronic Assessment and Plan: due to ESRD Epogen with HD follow H/H (6) COPD (chronic obstructive pulmonary disease): Code(s): J44.9 - Chronic obstructive pulmonary disease, unspecified Status: Chronic Assessment and Plan: seems compensated continue supportive care (7) Diabetes: Code(s): E11.9 - Type 2 diabetes mellitus without complications Status: Chronic Assessment and Plan: follow accu-cheks appears diet controlled glycemic control per hospitalists Will continue to follow. Subjective Date/time seen: 12/16/22 16:00 Interval history: Follow-up for end stage renal disease on hemodialysis. Tolerating hemodialysis treatment at the time of my visit (seen on HD at 3:50PM); pain control seems adequate; breathing/respiratory status doing fairly well; no further issues with dysphagia at this time; no events overnight or earlier this AM. Exam Narrative: General: WD/WN male in NAD Heart: normal S1 and S2; no rub Lungs: coarse breath sounds; decreased at bases Abdomen: soft, nontender, + bowel sounds noted Extremities: no cyanosis or clubbing; no edema Skin: warm and intact Objective Data Vital Signs Vital Signs: Vital Signs Temp Pulse Resp BP Pulse Ox O2 Del Method O2 Flow Rate 12/16/22 14:20 98.6 F 74 18 132/54 L 99 12/16/22 09:11 18 96 Nasal Cannula 3 12/16/22 05:01 98.3 F 77 17 125/50 L 96 12/16/22 02:20 92 16 12/15/22 20:00 100 Nasal Cannula 3 12/15/22 20:46 97.9 F 78 17 120/52 L 100 12/15/22 20:18 94 16 12/15/22 20:11 90 16 95 Nasal Cannula 3 12/15/22 20:11 90 16 Intake/Output Intake/Output: Intake & Output 12/13/22 12/14/22 12/15/22 12/16/22 23:59 23:59 23:59 23:59 Intake Total 660 788 0384 1246 Output Total 250 2625 150 150 Balance 180 -1635 1454 1096 Meds/Results Medications: Active Medications Generic Name Dose Route Start Last Admin Trade Name Freq PRN Reason Stop Dose Admin Hydrocodone Bitart/Acetaminophen 1 tab 12/09/22 04:29 12/15/22 11:06 Hydrocodone/Acetaminophen (*Crx) 5-325 Mg Tablet PO 1 tab Q4H PRN Administration Pain Rated 4-6 Albuterol 2.5 mg 12/07/22 14:00 12/16/22 08:57 Albuterol Sulfate Neb 2.5 Mg/3 Ml Inh INHALATION Not Given Q6HRT KAIN Amiodarone HCl 200 mg 12/07/22 09:00 12/15/22 08:27 Amiodarone Hcl 200 M
[2022-12-16] MEDS: EPOETIN ALFA 10,000 UNITS/ML VIAL 10000 UNITS IV PUSH (17:29)
[2022-12-16] MEDS: amLODIPine BESYLATE 5 MG TABLET PO (20:12)
[2022-12-16] MEDS: AMIODARONE HCL 200 MG TABLET PO (20:12)
[2022-12-16] MEDS: ATORVASTATIN 20 MG TABLET PO (20:13)
[2022-12-16] MEDS: HYDROcodone/acetaminophen (*CRX) 5-325 MG TABLET 1 TAB PO (21:08)
[2022-12-16 21:14] LABS: Glucose Point of Care 135 mg/dl (65-105)
[2022-12-17] VITALS (12 sets, daily range): BP systolic 112–145; BP diastolic 48–59; PULSE 70–80; RESP 16–18; TEMP 36.3–36.6; O2SAT 92–98
[2022-12-17] MEDS: CLINDAMYCIN 300 MG in DEXTROSE 5% IN WATER 50 ML 104 MG IVPB ×5 (01:05→23:36)
[2022-12-17] MEDS: ALBUTEROL SULFATE NEB 2.5 MG/3 ML INH INHALATION ×3 (03:10→20:31)
[2022-12-17] MEDS: IPRATROPIUM BR 0.02% INH SOLN 0.5 MG/2.5 ML VIAL INHALATION ×3 (03:10→20:31)
[2022-12-17 05:32] LABS: Hematocrit 31.1 % (42.0-52.0); Hemoglobin 9.1 g/dL (14.0-18.0); Mean Corpuscular HGB Conc 29.3 g/dl (32-36); Mean Corpuscular Hemoglobin 28.1 pg (26-34); Mean Platelet Volume 9.4 fl (7.4-10.4); Platelet Count Result 265 k/mm3 (150-375); Red Blood Count 3.24 M/mm3 (4.6-6.20); Red Cell Distribution Width 17.1 % (11.5-14.5); White Blood Count 13.4 K/mm3 (4.5-10.0)
[2022-12-17 05:54] LABS: Alanine Aminotransferase 8 U/L (6-50); Albumin Level 2.7 g/dL (3.5-5.1); Alkaline Phosphatase 296 U/L (38-126); Anion Gap 1 mmol/L (8-16); Aspartate Amino Transferase 30 U/L (17-59); Bilirubin,Total 0.4 mg/dL (0.2-1.3); Blood Urea Nitrogen 29 mg/dL (9-20); Calcium 7.8 mg/dL (8.4-10.2); Carbon Dioxide 28 mmol/L (22-30); Chloride 100 mmol/L (98-107); Estimated CRCL calculation 18 ml/min; Estimated Glomerular Filt Rate 17; Glucose 126 mg/dL (65-110); Magnesium 1.9 mg/dL (1.6-2.3); Potassium 4.6 mmol/L (3.4-5.0); Sodium 129 mmol/L (137-145)
[2022-12-17 08:14] LABS: Glucose Point of Care 132 mg/dl (65-105)
[2022-12-17 08:20] LABS: Band Neutrophils Percent 4 % (0-6); Eosinophils Absolute Manual 0.67 K/mm3 (0.02-0.5); Eosinophils Percent Manual 5 % (0-4); Lymphocytes Absolute Manual 0.93 K/mm3 (1.1-4.5); Metamyelocytes Percent 1 %; Monocytes Absolute Manual 0.93 K/mm3 (0.1-0.90); Monocytes Percent Manual 7 % (3-9); Neutrophils Absolute Manual 10.72 K/mm3 (1.3-6.7); Neutrophils Percent Manual 76 % (46-73); Total Cells Counted 100
[2022-12-17 08:21] LABS: Hypochromasia 1+ (NORMAL); Platelet Estimate Adequate (Adequate); Schistocytes None Seen (NORMAL)
--- NOTE | 2022-12-17 08:29 | WPDCN ---
Assessment and Plan Assessment and plan (1) Cellulitis of right leg: Code(s): L03.115 - Cellulitis of right lower limb Status: Acute Assessment and Plan: Patient has developed an area of swelling acutely in the right lower extremity well-circumscribed in the mid tibial region which is tender. He denies any recent trauma to the area. Ultrasound suggests that this is a fluid collection which could either be hematoma or seroma. Minimal cellulitic changes are noted but the patient is on IV antibiotics. At this point I do not see any evidence of abscess or spreading cellulitis. Will continue to serially examine the patient and if the area seems to be worsening in terms of the swelling and pain then incision and drainage of the fluid collection with culture of the fluid would be indicated. Continue present management otherwise and will follow. HPI Data of Consult Date/Time: 12/17/22 08:29 Requesting Physician: Pardeep De La Paz MD Primary Care Provider: Kassidy Morin MD Consult Narrative Reason for consult: Right lower extremity cellulitis Narrative: Bruno Unger is a 66 year old male who was admitted to the hospital for a repeat left femoral neck fracture underwent a left hip hemiarthroplasty. He has end-stage renal disease. He really gets hemodialysis. He recently started having some right lower extremity pain in the midportion of his right tibial region anterior laterally. Evaluation showed a small swelling in the area which was mildly tender with minimal erythema. An ultrasound was performed in this area showing a complex fluid collection which may be seroma versus hematoma. I have been asked to evaluate the patient for cellulitis of the right lower extremity and need for drainage of this fluid collection. Review of Systems Review of Systems: The remainder of the review of systems to include constitutional, HEENT, cardiovascular, respiratory, GI, , integumentary, musculoskeletal, endocrine, immunologic, hematologic, psychiatric, and neurologic are all negative except for which is mentioned above in the HPI. [facility] Past Medical History Medical History Acute arthritis Anemia BPH (benign prostatic hyperplasia) CHF (congestive heart failure), NYHA class I Chronic GERD COPD (chronic obstructive pulmonary disease) Degenerative joint disease Depression with anxiety Diabetes End-stage renal disease on hemodialysis Monday Erectile disorder Gout Heart murmur History of partial replacement of left hip joint using bipolar prosthesis Hyperlipidemia Hypertension Kidney stone Tobacco use Surgical History Surgical History H/O arthroscopy of right knee H/O cardiac catheterization H/O endoscopic retrograde cholangiopancreatography Duct stent placement H/O hernia repair H/O inguinal hernia repair History of appendectomy History of cholecystectomy History of colon resection Hx laparoscopic cholecystectomy S/P colonoscopy with polypectomy S/P dialysis catheter insertion S/P ORIF (open reduction internal fixation) fracture Left humerus surgery Family History Family History Mother Diabetes mellitus Father Diabetes mellitus Other Hypertension Social History Social History Social History: He is down to 6 cigarettes a day. He lives with his granddaughter in [place]. He is . He has worked for the [email or web address] and [email or web address]. Code status full code Smoking status: Current some day smoker Tobacco type: cigarettes Alcohol intake: former Substance use: never Substance use type: does not use Lack of Transportation: No Lack of Food: Never True Current Housing: I Have Housing Concerned About Future Housing: No Difficulty Paying Gas/Electric Bills: No Difficulty Paying for
[2022-12-17] MEDS: CHOLECALCIFEROL 1,000 UNITS TABLET 5000 UNITS PO (08:34)
[2022-12-17] MEDS: SEVELAMER CARBONATE 800 MG TABLET 1600 MG PO ×3 (08:34→17:13)
[2022-12-17] MEDS: MAGNESIUM OXIDE 400 MG TABLET PO (08:34)
[2022-12-17] MEDS: HYDROcodone/acetaminophen (*CRX) 5-325 MG TABLET 1 TAB PO ×2 (08:34→22:06)
[2022-12-17] MEDS: FERROUS SULFATE 325 MG TABLET DR PO (08:35)
[2022-12-17] MEDS: ESCITALOPRAM OXALATE 10 MG TABLET 20 MG PO (08:35)
[2022-12-17] MEDS: TAMSULOSIN HCL 0.4 MG CAPSULE PO (08:35)
[2022-12-17] MEDS: SENNA/DOCUSATE SODIUM TABLET 2 TAB PO ×2 (08:35→17:13)
[2022-12-17] MEDS: amLODIPine BESYLATE 5 MG TABLET PO (08:35)
[2022-12-17] MEDS: AMIODARONE HCL 200 MG TABLET PO (08:35)
[2022-12-17] MEDS: ENOXAPARIN 30 MG/0.3 ML SYRINGE SUB-Q (08:42)
[2022-12-17] MEDS: PANTOPRAZOLE SODIUM IV 40 MG VIAL IV PUSH ×2 (08:42→20:22)
[2022-12-17] MEDS: BUMETANIDE 1 MG TABLET 4 MG PO (08:42)
[2022-12-17] MEDS: polyethylene glycoL 3350 17 GM POWD.PACK PO (11:09)
[2022-12-17] MEDS: polyethylene glycoL 3350 17 GM POWD.PACK (11:30)
--- NOTE | 2022-12-17 11:36 | P.PNNP_ITS ---
Progress Note: A&P Assessment and Plan (1) End stage renal disease: Code(s): N18.6 - End stage renal disease Status: Chronic Assessment and Plan: * HD yesterday * continue M/W/F dialysis schedule while hospitalized * follow electrolytes, volume status, and clearance (2) Closed left hip fracture: Qualifiers: Encounter type: initial encounter Qualified Code(s): S72.002A - Fracture of unspecified part of neck of left femur, initial encounter for closed fracture Code(s): S72.002A - Fracture of unspecified part of neck of left femur, initial encounter for closed fracture Status: Acute Assessment and Plan: * Orthopedics following * s/p bipolar hemiarthroplasty left hip (on 12/08/22) * pain control * PT/OT as tolerated (3) Cellulitis of right leg: Code(s): L03.115 - Cellulitis of right lower limb Status: Acute Assessment and Plan: * as noted by exam * possible abscess(?) * General Surgery recommendations noted * continue antibiotics (4) Nausea & vomiting: Code(s): R11.2 - Nausea with vomiting, unspecified Status: Acute Assessment and Plan: * resolved * on IV antiemetics and PPI * recent CT of abd/pelvis with distended stomach * complicated by symptoms of dysphagia as well * s/p EGD (on 12/13/20) with results noted: * severe infectious/erosive esophagitis * gastric food retention * esophageal biopsy -- Compatible with Candidiasis esophagitis -- start course of diflucan(?) * continue supportive therapy (5) Hypertension: Code(s): I10 - Essential (primary) hypertension Status: Chronic Assessment and Plan: * reasonable control * follow trend of hemodynamics (6) Anemia: Code(s): D64.9 - Anemia, unspecified Status: Chronic Assessment and Plan: * due to ESRD * Epogen with HD * follow H/H (7) COPD (chronic obstructive pulmonary disease): Code(s): J44.9 - Chronic obstructive pulmonary disease, unspecified Status: Chronic Assessment and Plan: * seems compensated * continue supportive care (8) Diabetes: Code(s): E11.9 - Type 2 diabetes mellitus without complications Status: Chronic Assessment and Plan: * follow accu-cheks * appears diet controlled * glycemic control per hospitalists Will continue to follow. Subjective Date/time seen: 12/17/22 11:36 Interval history: Follow-up for end stage renal disease on hemodialysis. Tolerated dialysis treatment yesterday without any issue or problems; no apparent distress noted at the time of my visit; pain control seems reasonable; possible leg cellulitis +/- abscess so Surgery consulted with recommendations noted; no other issues/events overnight or earlier this AM. Exam Narrative: General: WD/WN male in NAD Heart: normal S1 and S2; no rub Lungs: coarse breath sounds; decreased at bases Abdomen: soft, nontender, + bowel sounds noted Extremities: no cyanosis or clubbing; no edema Skin: right LE fluid collection and mild erythema Objective Data Vital Signs Vital Signs: Vital Signs Temp Pulse Resp BP Pulse Ox O2 Del Method O2 Flow Rate 12/17/22 11:36 71 16 12/17/22 08:00 98 Nasal Cannula 3 12/17/22 08:58 95 Nasal Cannula 3 11/23
--- NOTE | 2022-12-17 11:36 | PM.PNNEP ---
Progress Note: A&P Assessment and Plan (1) End stage renal disease: Code(s): N18.6 - End stage renal disease Status: Chronic Assessment and Plan: HD yesterday continue M/W/F dialysis schedule while hospitalized follow electrolytes, volume status, and clearance (2) Closed left hip fracture: Qualifiers: Encounter type: initial encounter Qualified Code(s): S72.002A - Fracture of unspecified part of neck of left femur, initial encounter for closed fracture Code(s): S72.002A - Fracture of unspecified part of neck of left femur, initial encounter for closed fracture Status: Acute Assessment and Plan: Orthopedics following s/p bipolar hemiarthroplasty left hip (on 12/08/22) pain control PT/OT as tolerated (3) Cellulitis of right leg: Code(s): L03.115 - Cellulitis of right lower limb Status: Acute Assessment and Plan: as noted by exam possible abscess(?) General Surgery recommendations noted continue antibiotics (4) Nausea & vomiting: Code(s): R11.2 - Nausea with vomiting, unspecified Status: Acute Assessment and Plan: resolved on IV antiemetics and PPI recent CT of abd/pelvis with distended stomach complicated by symptoms of dysphagia as well s/p EGD (on 12/13/20) with results noted: severe infectious/erosive esophagitis gastric food retention esophageal biopsy -- Compatible with Candidiasis esophagitis -- start course of diflucan(?) continue supportive therapy (5) Hypertension: Code(s): I10 - Essential (primary) hypertension Status: Chronic Assessment and Plan: reasonable control follow trend of hemodynamics (6) Anemia: Code(s): D64.9 - Anemia, unspecified Status: Chronic Assessment and Plan: due to ESRD Epogen with HD follow H/H (7) COPD (chronic obstructive pulmonary disease): Code(s): J44.9 - Chronic obstructive pulmonary disease, unspecified Status: Chronic Assessment and Plan: seems compensated continue supportive care (8) Diabetes: Code(s): E11.9 - Type 2 diabetes mellitus without complications Status: Chronic Assessment and Plan: follow accu-cheks appears diet controlled glycemic control per hospitalists Will continue to follow. Subjective Date/time seen: 12/17/22 11:36 Interval history: Follow-up for end stage renal disease on hemodialysis. Tolerated dialysis treatment yesterday without any issue or problems; no apparent distress noted at the time of my visit; pain control seems reasonable; possible leg cellulitis +/- abscess so Surgery consulted with recommendations noted; no other issues/events overnight or earlier this AM. Exam Narrative: General: WD/WN male in NAD Heart: normal S1 and S2; no rub Lungs: coarse breath sounds; decreased at bases Abdomen: soft, nontender, + bowel sounds noted Extremities: no cyanosis or clubbing; no edema Skin: right LE fluid collection and mild erythema Objective Data Vital Signs Vital Signs: Vital Signs Temp Pulse Resp BP Pulse Ox O2 Del Method O2 Flow Rate 12/17/22 11:36 71 16 12/17/22 08:00 98 Nasal Cannula 3 12/17/22 08:58 95 Nasal Cannula 3 12/17/22 08:35 74 12/17/22 03:48 97.4 F L 74 18 124/56 L 98 12/16/22 21:33 95 16 12/16/22 20:00 94 17 96 Nasal Cannula 3 12/16/22 21:24 17 96 Nasal Cannula 3 12/16/22 21:23 94 17 12/16/22 22:19 98.1 F 78 14 124/60 12/16/22 18:52 76 123/64 12/16/22 18:20 76 132/65 12/16/22 18:00 74 135/59 L 12/16/22 17:40 75 122/59 L 12/16/22 17:20 76 136/71 12/16/22 17:00 74 130/67 12/16/22 16:40 75 137/68 12/16/22 21:18 97.9 F 77 20 133/50 L 98 12/16/22 20:12 80 Intake/Output Intake/Output: Intake & Output 12/14/22 12/15/2211/23
[2022-12-17 12:15] LABS: Glucose Point of Care 197 mg/dl (65-105)
--- NOTE | 2022-12-17 15:39 | PM.IMPN ---
Progress Note: A&P Assessment and Plan (1) Closed left hip fracture: Qualifiers: Encounter type: initial encounter Qualified Code(s): S72.002A - Fracture of unspecified part of neck of left femur, initial encounter for closed fracture Code(s): S72.002A - Fracture of unspecified part of neck of left femur, initial encounter for closed fracture Status: Acute Assessment and Plan: X-ray reveals transcervical fracture of left femoral neck Orthopedics consulted. Postsurgical DVT prophylaxis, PT and OT and analgesics per orthopedic team. Weightbearing as tolerated. Monitor H&H post operatively. Patient with elevated white count which is likely reactive from hip repair. Patient is feeling much better, will continue current treatment and increase activity as tolerated. (2) Nausea & vomiting: Code(s): R11.2 - Nausea with vomiting, unspecified Status: Acute Assessment and Plan: Much better, tolerating clear liquids. Increase as tolerated reported dysphagia. EGD performed 12/13/2022 suspected infectious esophagitis gastric retention. close follow-up on I's and O's (3) End stage renal disease: Code(s): N18.6 - End stage renal disease Status: Chronic Assessment and Plan: Nephrology has been consulted.? The patient has seen Dr. Justin in the past.? Patient has dialysis on Monday. renal functions are improving with hemodialysis (4) CHF (congestive heart failure), NYHA class I: Qualifiers: Congestive heart failure type: unspecified Qualified Code(s): I50.9 - Heart failure, unspecified Code(s): I50.9 - Heart failure, unspecified Status: Acute Assessment and Plan: Not in an acute exacerbation. Monitor fluid status. Chronic heart failure of unknown type Stable, continue current treatment monitor I's and O's closely (5) COPD (chronic obstructive pulmonary disease): Code(s): J44.9 - Chronic obstructive pulmonary disease, unspecified Status: Chronic Assessment and Plan: Stable, will continue current treatment (6) Hypertension: Code(s): I10 - Essential (primary) hypertension Status: Chronic Assessment and Plan: Resume antihypertensive medication. Monitor closely,, stable (7) Diabetes: Code(s): E11.9 - Type 2 diabetes mellitus without complications Status: Chronic Assessment and Plan: Patient controls diabetes with diet. AC and HS with sliding scale insulin. ? Hypoglycemia protocol initiated. Hemoglobin A1c 6.2. Stable on current meds, continue current treatment. (8) Cellulitis of right leg: Code(s): L03.115 - Cellulitis of right lower limb Status: Acute Assessment and Plan: patient hasRight diop cellulitis. Ultrasound was done which showed small collection. General surgery consulted continue with antibiotics keep patient NPO after midnight for possible I and D in a.m. Plan Right diop cellulitis. Ultrasound with small collection. General surgery consulted continue clindamycin Time Spent With Patient Time: ? Patient seen and examined at bedside during my morning rounds ? Collaborated with patient's nurse at the bedside in detail and addressed all concerns ? Labs, electrolytes, radiology, investigations and test results reviewed ? Consult notes on the case reviewed and appreciated ? Spoke with patient/family at the bedside and answered all the questions that they had Repeat labs in a.m. Electrolyte replacement as per protocol. Patient will be monitored very closely on the floor. Further recommendations as per the hospital course. Time with patient: 25 - 35 minutes Subjective Date/time seen: 12/17/22 15:39 Interval history: Follow-up for end stage renal disease on hemodialysis. Tolerating hemodialysis treatment at the time of my visit (seen on HD at 3:50PM); pain con
[2022-12-17 17:06] LABS: Glucose Point of Care 111 mg/dl (65-105)
[2022-12-17] MEDS: ATORVASTATIN 20 MG TABLET PO (20:22)
[2022-12-17 20:31] LABS: Glucose Point of Care 127 mg/dl (65-105)
[2022-12-18] VITALS (18 sets, daily range): BP systolic 101–144; BP diastolic 50–65; PULSE 60–87; RESP 16–23; TEMP 36.5–36.7; O2SAT 95–100
[2022-12-18 04:51] LABS: Hematocrit 30.4 % (42.0-52.0); Hemoglobin 9.1 g/dL (14.0-18.0); Mean Corpuscular HGB Conc 29.9 g/dl (32-36); Mean Corpuscular Hemoglobin 28.1 pg (26-34); Mean Corpuscular Volume 93.8 fl (80-100); Mean Platelet Volume 9.5 fl (7.4-10.4); Platelet Count Result 268 k/mm3 (150-375); Red Blood Count 3.24 M/mm3 (4.6-6.20); Red Cell Distribution Width 16.9 % (11.5-14.5); White Blood Count 13.6 K/mm3 (4.5-10.0)
[2022-12-18 05:02] LABS: Anion Gap 5 mmol/L (8-16); Blood Urea Nitrogen 45 mg/dL (9-20); Calcium 7.7 mg/dL (8.4-10.2); Carbon Dioxide 26 mmol/L (22-30); Chloride 99 mmol/L (98-107); Estimated CRCL calculation 14 ml/min; Estimated Glomerular Filt Rate 12; Glucose 125 mg/dL (65-110); Potassium 5.1 mmol/L (3.4-5.0); Sodium 130 mmol/L (137-145)
[2022-12-18] MEDS: CLINDAMYCIN 300 MG in DEXTROSE 5% IN WATER 50 ML 104 MG IVPB (05:53)
[2022-12-18 08:10] LABS: Glucose Point of Care 138 mg/dl (65-105)
--- NOTE | 2022-12-18 08:47 | PCPTNOTE ---
Treatment not completed at this time. Per RN the patient is going down for a procedure for his legs. Will continue per PT plan of care.
--- NOTE | 2022-12-18 09:06 | PM.PNGS ---
Progress Note: A&P Assessment and Plan (1) Cellulitis of right leg: Code(s): L03.115 - Cellulitis of right lower limb Status: Acute Assessment and Plan: Patient likely has a small abscess in this area with infected fluid collection. White blood count has not been decreasing and there is erythema and tenderness over the area. I recommended proceeding to the operating today for incision and drainage of the fluid collection culturing the contents. He has agreed to proceed he will perform this later today. Subjective Subjective Date/Time Seen: 12/18/22 09:06 Interval history: Patient has no real complaints today. He got hemodialysis yesterday. White blood cell count is still about 13,000. There is still stable erythema and tenderness over the right lower extremity fluid collection which is likely infected. Exam Skin: Other: 5x3cm erythematous and slightly warm fluid collection anterior lateral mid tibia region of the right lower extremity. No spontaneous drainage is noted at this time. Objective Data Vital Signs Vital Signs: Vital Signs - 24 hr 12/17/22 13:36 12/17/22 13:51 12/17/22 14:00 Temperature 36.4 C Pulse Rate 71 77 70 Respiratory Rate 16 16 18 Blood Pressure 112/48 L Pulse Oximetry 97 Oxygen Delivery Oxygen Flow Rate Fraction of Inspired Oxygen 12/17/22 19:56 12/17/22 20:33 12/17/22 20:34 Temperature 36.6 C Pulse Rate 78 79 Respiratory Rate 17 16 16 Blood Pressure 145/59 H Pulse Oximetry 92 96 Oxygen Delivery Nasal Cannula Oxygen Flow Rate 3 Fraction of Inspired Oxygen 12/17/22 20:46 12/17/22 20:00 12/18/22 05:25 Temperature 36.7 C Pulse Rate 80 80 76 Respiratory Rate 16 16 17 Blood Pressure 132/54 L Pulse Oximetry 96 98 Oxygen Delivery Nasal Cannula Oxygen Flow Rate 3 Fraction of Inspired Oxygen 32 12/18/22 08:59 Temperature Pulse Rate 73 Respiratory Rate 16 Blood Pressure Pulse Oximetry 99 Oxygen Delivery Nasal Cannula Oxygen Flow Rate 3 Fraction of Inspired Oxygen 32 Intake/Output Intake/Output: Intake & Output 12/15/22 12/16/22 12/17/22 12/18/22 23:59 23:59 23:59 23:59 Intake Total 1604 1838 1048 204 Output Total 150 2150 150 0 Balance 1454 -312 898 204 Meds/Results Medications: Active Medications Generic Name Dose Route Start Last Admin Trade Name Freq PRN Reason Stop Dose Admin Hydrocodone Bitart/Acetaminophen 1 tab 12/09/22 04:29 12/17/22 22:06 Hydrocodone/Acetaminophen (*Crx) 5-325 Mg Tablet PO 1 tab Q4H PRN Administration Pain Rated 4-6 Albuterol 2.5 mg 12/07/22 14:00 12/18/22 08:58 Albuterol Sulfate Neb 2.5 Mg/3 Ml Inh INHALATION Not Given Q6HRT KAIN Amiodarone HCl 200 mg 12/07/22 09:00 12/17/22 08:35 Amiodarone Hcl 200 Mg Tablet PO 200 mg DAILY KAIN Administration Amlodipine Besylate 5 mg 12/07/22 09:00 12/17/22 08:35 Amlodipine Besylate 5 Mg Tablet PO 5 mg DAILY KAIN Administration Atorvastatin Calcium 20 mg 12/07/22 21:00 12/17/22 20:22 Atorvastatin 20 Mg Tablet PO 20 mg HS KAIN Administration Bisacodyl 5 mg 12/11/22 11:43 Bisacodyl 5 Mg Tablet Ec PO QAM PRN Constipation Bumetanide 4 mg 12/08/22 09:00 12/17/22 08:42 Bumetanide 1 Mg Tablet PO 4 mg [id number] [facility] Administration Dextrose 12.5 gm 12/08/22 07:13 Dextrose 50% 25 Gm/50 Ml Syringe IV PUSH PRN PRN Hypoglycemia Protocol Docusate Sodium 100 mg 12/07/22 07:26 12/11/22 16:49 Docusate Sodium 100 Mg Capsule PO 100 mg Q12H PRN Administration Constipation Enoxaparin Sodium 30 mg 12/14/22 09:00 12/17/22 08:42 Enoxaparin 30 Mg/0.3 Ml Syringe SUB-Q 30 mg DAILY KAIN Administration Escitalopram Oxalate 20 mg 12/07/22 09:00 12/17/22 08:35 Escitalopram Oxalate 10 Mg Tablet PO 20 mg DAILY KAIN Administration Ferrous Sulfate 325 mg 12/07/22 09:00 12/17/22 08:35 Ferrous Sulfate 325
--- NOTE | 2022-12-18 09:08 | WPDHPUPDATE1 ---
History and Physical Update Update Date/Time: 12/18/22 09:08 History and Physical has been reviewed, including an updated exam of the patient. There are NO changes in the patient's condition. Risks, benefits, and alternatives have been discussed and questions answered. Patient agrees to proceed with procedure.
[2022-12-18] MEDS: AMIODARONE HCL 200 MG TABLET PO (09:09)
[2022-12-18] MEDS: PANTOPRAZOLE SODIUM IV 40 MG VIAL IV PUSH ×2 (09:10→20:30)
--- NOTE | 2022-12-18 09:56 | PCOTNOTE ---
Pt is out of room for procedure. Will attempt when appropriate per RN/
--- NOTE | 2022-12-18 10:45 | WPDANESEPPF ---
Anes - Initial Pre Proc Eval Procedure: Operation Date: 12/08/22 15:30 Proposed Procedures p Left Bipolar Hip Replacement - Harjit Dowling MD Operation Date: 12/13/22 12:30 Proposed Procedures p Esophagogastroduodenoscopy - Jean Bennett MD Operation Date: 12/18/22 10:30 Proposed Procedures p I&D Debride Lower Extremity Leg(Right) - Santhosh Bermudez MD Date/Time: 12/18/22 10:45 Surgeon: Pardeep De La Paz MD Pre Op Diagnosis: L Hip Femoral Neck Fracture Patient Data Age: 66 Gender: M Height: 1.75 m Weight: 82.3 kg Last Vital Signs Temp 36.7 C 12/18/22 05:25 Pulse 60 12/18/22 09:09 Resp 16 12/18/22 08:59 BP 132/54 L 12/18/22 05:25 Pulse Ox 99 12/18/22 08:59 O2 Del Method Nasal Cannula 12/18/22 08:59 O2 Flow Rate 3 12/18/22 08:59 FiO2 32 12/18/22 08:59 Allergies Allergy/AdvReac Type Severity Reaction Status Date / Time amoxicillin Allergy Mild Rash Verified 11/22/22 18:43 cefdinir Allergy Mild Rash Verified 11/22/22 18:43 Cephalosporins Allergy Mild RASH Verified 11/22/22 18:43 levofloxacin Allergy Mild Rash Verified 11/22/22 18:43 Penicillins Allergy Mild Rash Verified 11/22/22 18:43 Quinolones Allergy Mild RASH Verified 11/22/22 18:43 Sulfa (Sulfonamide Allergy Mild Rash Verified 11/22/22 18:43 Antibiotics) Home Medications Medication Instructions Recorded Confirmed Type allopurinol 100 mg tablet 100 mg PO DAILY 06/20/22 12/07/22 History amiodarone 200 mg tablet 200 mg PO DAILY 06/20/22 12/07/22 History atorvastatin 20 mg tablet 20 mg PO HS 06/20/22 12/07/22 History bumetanide 2 mg tablet 4 mg PO USEASDIRECTD 06/20/22 12/07/22 History sevelamer carbonate 800 mg tablet 1,600 mg PO TIDWM 06/20/22 12/07/22 History tamsulosin 0.4 mg capsule 0.4 mg PO DAILY 06/20/22 12/07/22 History amlodipine 10 mg tablet 5 mg PO DAILY 11/22/22 12/07/22 History cholecalciferol (vitamin D3) 125 125 mcg PO DAILY 11/22/22 12/07/22 History mcg (5,000 unit) capsule escitalopram oxalate 20 mg tablet 20 mg PO DAILY 11/22/22 12/07/22 History ferrous sulfate 325 mg (65 mg 325 mg PO DAILY 11/22/22 12/07/22 History iron) tablet magnesium oxide 400 mg PO DAILY 11/22/22 12/07/22 History pantoprazole 40 mg tablet,delayed 40 mg PO BID 11/22/22 12/07/22 History release vitamin B complex-vitamin C-folic 1 tablet PO DAILY 11/22/22 12/07/22 History acid 0.8 mg tablet (Astrid-Jhony) docusate sodium 100 mg capsule 100 mg PO Q12H PRN Constipation 11/28/22 12/07/22 Rx #30 caps Laboratory Tests 12/17/22 12/17/22 12/17/22 12:06 16:58 20:03 WBC RBC Hgb Hct MCV MCH MCHC RDW Plt Count MPV Sodium Potassium Chloride Carbon Dioxide Anion Gap BUN Creatinine Estim Creat Clear Calc Estimated GFR Glucose POC Capillary Glucose 197 H mg/dl 111 H mg/dl 127 H mg/dl (65-105) (65-105) (65-105) Calcium 12/18/22 12/18/22 04:20 08:03 WBC 13.6 H K/mm3 (4.5-10.0) RBC 3.24 L M/mm3 (4.6-6.20) Hgb 9.1 L g/dL (14.0-18.0) Hct 30.4 L % (42.0-52.0) MCV 93.8 fl (80-100) MCH 28.1 pg (26-34) MCHC 29.9 L g/dl (32-36) RDW 16.9 H % (11.5-14.5) Plt Count 268 k/mm3 (150-375) MPV 9.5 fl (7.4-10.4) Sodium 130 L mmol/L (137-145) Potassium 5.1 H mmol/L (3.4-5.0) Chloride 99 mmol/L (98-107) Carbon Dioxide 26 mmol/L (22-30) Anion Gap 5 L mmol/L (8-16) BUN 45 H D mg/dL (9-20) Creatinine 4.80 H mg/dL (0.7-1.3) Estim Creat Clear Calc 14 ml/min Estimated GFR 12 L (59 - ) Glucose 125 H mg/dL (65-110) POC Capillary Glucose 138 H mg/dl (65-105) Calcium 7.7 L mg/dL
--- NOTE | 2022-12-18 10:46 | PM.IMPN ---
Progress Note: A&P Assessment and Plan (1) Closed left hip fracture: Qualifiers: Encounter type: initial encounter Qualified Code(s): S72.002A - Fracture of unspecified part of neck of left femur, initial encounter for closed fracture Code(s): S72.002A - Fracture of unspecified part of neck of left femur, initial encounter for closed fracture Status: Acute Assessment and Plan: X-ray reveals transcervical fracture of left femoral neck Orthopedics consulted. Postsurgical DVT prophylaxis, PT and OT and analgesics per orthopedic team. Weightbearing as tolerated. Monitor H&H post operatively. Patient with elevated white count which is likely reactive from hip repair. Patient is feeling better, will continue current treatment and increase activity as tolerated. (2) Nausea & vomiting: Code(s): R11.2 - Nausea with vomiting, unspecified Status: Acute Assessment and Plan: Much better, tolerating clear liquids. Increase as tolerated reported dysphagia. EGD performed 12/13/2022 suspected infectious esophagitis gastric retention. close follow-up on I's and O's (3) End stage renal disease: Code(s): N18.6 - End stage renal disease Status: Chronic Assessment and Plan: Nephrology has been consulted.? The patient has seen Dr. Justin in the past.? Patient has dialysis on Monday. renal functions are improving with hemodialysis (4) CHF (congestive heart failure), NYHA class I: Qualifiers: Congestive heart failure type: unspecified Qualified Code(s): I50.9 - Heart failure, unspecified Code(s): I50.9 - Heart failure, unspecified Status: Acute Assessment and Plan: Not in an acute exacerbation. Monitor fluid status. Chronic heart failure of unknown type Stable, continue current treatment monitor I's and O's closely (5) COPD (chronic obstructive pulmonary disease): Code(s): J44.9 - Chronic obstructive pulmonary disease, unspecified Status: Chronic Assessment and Plan: Stable, will continue current treatment (6) Hypertension: Code(s): I10 - Essential (primary) hypertension Status: Chronic Assessment and Plan: Resume antihypertensive medication. Monitor closely, stable (7) Diabetes: Code(s): E11.9 - Type 2 diabetes mellitus without complications Status: Chronic Assessment and Plan: Patient controls diabetes with diet. AC and HS with sliding scale insulin. ? Hypoglycemia protocol initiated. Hemoglobin A1c 6.2. Stable on current meds, continue current treatment. (8) Cellulitis of right leg: Code(s): L03.115 - Cellulitis of right lower limb Status: Acute Assessment and Plan: patient has Right diop cellulitis. Ultrasound was done which showed small collection. General surgery consulted continue with IV antibiotics Patient is NPO after midnight and going for I and D later on today postop care as per general surgery. (9) Heart murmur: Code(s): R01.1 - Cardiac murmur, unspecified Status: Acute Assessment and Plan: patient has a grade 3/6 systolic ejection murmur Will order a 2D echo to evaluate the murmur Plan ? Patient seen and examined at bedside during my morning rounds ? Collaborated with patient's nurse at the bedside in detail and addressed all concerns ? Labs, electrolytes, radiology, investigations and test results reviewed ? Consult notes on the case reviewed and appreciated ? Spoke with patient/family at the bedside and answered all the questions that they had Repeat labs in a.m. Electrolyte replacement as per protocol. Patient will be monitored very closely on the floor. Further recommendations as per the hospital course. I am signing off. Patient's medical care will be taken over by my covering hospitalist attending, Dr. Eduardo Malik, in am. [place]
[2022-12-18] MEDS: SODIUM CHLORIDE 0.9% IV 500 ML 30 ML IV CONT (11:00)
--- NOTE | 2022-12-18 12:04 | P.OP_ITS ---
Procedure Note - Detailed Date of Procedure 12/18/22 Pre-op Diagnosis Right lower extremity cellulitis and abscess. Post-op Diagnosis Other (Infected lower extremity hematoma.) Procedure Performed Incision and drainage of infected right lower extremity hematoma. Surgeon Santhosh Bermudez MD Audio Visual Aids Director KADIE Granger Anesthesia MAC Indications Patient is a 66-year-old gentleman is on hemodialysis. He developed an area about 5x3cm on his anterior lateral right lower extremity below the knee in the mid tibia region which became red and painful. He denies any trauma to the area. Ultrasound showed a complex fluid collection this area suggestive of possible hematoma. Patient continued to have pain and redness over the area and so it was thought that this is a infected fluid collection. He presents now for incision and drainage of this infected fluid collection. Findings Patient had infected hematoma. Old blood clot was found within the hematoma cavity but no pus was noted. A culture of the hematoma cavity was obtained sent to microbiology. Description of Procedure After informed consent was obtained patient brought to the operating room was placed supine position IV sedation was administered by anesthesia. The right lower extremity below the knee to the foot was then prepped and draped usual sterile fashion. A time-out was then performed correctly identifying the pa tient as well as procedure to be performed verifying the site marking. He was already on scheduled IV antibiotics. 0.5% Marcaine with out epinephrine was injected around the area for local anesthetic effect. I then made a transverse incision over the most fluctuant portion of the fluid collection with a 15 Blade scalpel. I entered a hematoma cavity and old clotted blood drained from the cavity. Approximately 5 to 10 cc of old clotted blood was noted. I placed my index finger into the cavity and manually removed all the blood clot. I then obtained a culture swab of the cavity and sent this to microbiology. I then irrigated out the cavity sterile saline solution. Hemostasis was good. I then packed the hematoma cavity utilizing 1/2inch iodoform gauze. There is then cleaned and then 4x4 gauze and Kerlix gauze were used for final dressing. The patient tolerated the procedure well no complications. All sponges, needles, and instrument counts were correct at the end procedure. EBL was _2__cc. The patient was awakened and taken to recovery in stable and satisfactory condition. Implants None Estimated Blood Loss 2 Urine Output 0 Drains No Packing Yes (Quarter-inch iodoform gauze right lower extremity wound) Pathology Other (Wound culture swab sent to microbiology for Gram stain and culture) Complications No immediate complications Condition Stable Disposition PACU [facility] Billing Surgery - Charge Forward: Surgery Billing
[2022-12-18 12:06] LABS: Glucose Point of Care 99 mg/dl (65-105)
--- NOTE | 2022-12-18 12:45 | P.PNNP_ITS ---
Progress Note: A&P Assessment and Plan (1) End stage renal disease: Code(s): N18.6 - End stage renal disease Status: Chronic Assessment and Plan: * HD tomorrow * continue M/W/F dialysis schedule while hospitalized * follow electrolytes, volume status, and clearance (2) Closed left hip fracture: Qualifiers: Encounter type: initial encounter Qualified Code(s): S72.002A - Fracture of unspecified part of neck of left femur, initial encounter for closed fracture Code(s): S72.002A - Fracture of unspecified part of neck of left femur, initial encounter for closed fracture Status: Acute Assessment and Plan: * Orthopedics following * s/p bipolar hemiarthroplasty left hip (on 12/08/22) * pain control * PT/OT as tolerated (3) Cellulitis of right leg: Code(s): L03.115 - Cellulitis of right lower limb Status: Acute Assessment and Plan: * as noted by exam * possible abscess -- s/p I&D today in OR * seems more consistent with infected hematoma * General Surgery following * continue antibiotics (4) Nausea & vomiting: Code(s): R11.2 - Nausea with vomiting, unspecified Status: Acute Assessment and Plan: * resolved * on IV antiemetics and PPI * recent CT of abd/pelvis with distended stomach * complicated by symptoms of dysphagia as well * s/p EGD (on 12/13/20) with results noted: * severe infectious/erosive esophagitis * gastric food retention * esophageal biopsy -- Compatible with Candidiasis esophagitis -- start course of diflucan(?) * continue supportive therapy (5) Hypertension: Code(s): I10 - Essential (primary) hypertension Status: Chronic Assessment and Plan: * reasonable control * follow trend of hemodynamics (6) Anemia: Code(s): D64.9 - Anemia, unspecified Status: Chronic Assessment and Plan: * due to ESRD * Epogen with HD * follow H/H (7) COPD (chronic obstructive pulmonary disease): Code(s): J44.9 - Chronic obstructive pulmonary disease, unspecified Status: Chronic Assessment and Plan: * seems compensated * continue supportive care (8) Diabetes: Code(s): E11.9 - Type 2 diabetes mellitus without complications Status: Chronic Assessment and Plan: * follow accu-cheks * appears diet controlled * glycemic control per hospitalists Will continue to follow. Subjective Date/time seen: 12/18/22 12:45 Interval history: Follow-up for end stage renal disease on hemodialysis. S/P incision and drainage of suspected infected hematoma in OR earlier today and tolerated this intervention reasonably well; otherwise, appears to be in no apparent distress; eating and drinking okay; respiratory status seems stable; no issues/events overnight or earlier this morning. Exam Narrative: General: WD/WN male in NAD Heart: normal S1 and S2; no rub Lungs: coarse breath sounds; decreased at bases Abdomen: soft, nontender, + bowel sounds noted Extremities: no cyanosis or clubbing; no edema Skin: right LE dressings in place Objective Data Vital Signs Vital Signs: Vital Signs Temp Pulse Resp BP Pulse Ox O2 Del Method O2 Flow Rate 12/18/22 12:45 68 20 123/57 L 98 Nasal Cannula 2 12/18/22 12:30 68 19 122/61 96 Nasal Cannula
--- NOTE | 2022-12-18 12:45 | PM.PNNEP ---
Progress Note: A&P Assessment and Plan (1) End stage renal disease: Code(s): N18.6 - End stage renal disease Status: Chronic Assessment and Plan: HD tomorrow continue M/W/F dialysis schedule while hospitalized follow electrolytes, volume status, and clearance (2) Closed left hip fracture: Qualifiers: Encounter type: initial encounter Qualified Code(s): S72.002A - Fracture of unspecified part of neck of left femur, initial encounter for closed fracture Code(s): S72.002A - Fracture of unspecified part of neck of left femur, initial encounter for closed fracture Status: Acute Assessment and Plan: Orthopedics following s/p bipolar hemiarthroplasty left hip (on 12/08/22) pain control PT/OT as tolerated (3) Cellulitis of right leg: Code(s): L03.115 - Cellulitis of right lower limb Status: Acute Assessment and Plan: as noted by exam possible abscess -- s/p I&D today in OR seems more consistent with infected hematoma General Surgery following continue antibiotics (4) Nausea & vomiting: Code(s): R11.2 - Nausea with vomiting, unspecified Status: Acute Assessment and Plan: resolved on IV antiemetics and PPI recent CT of abd/pelvis with distended stomach complicated by symptoms of dysphagia as well s/p EGD (on 12/13/20) with results noted: severe infectious/erosive esophagitis gastric food retention esophageal biopsy -- Compatible with Candidiasis esophagitis -- start course of diflucan(?) continue supportive therapy (5) Hypertension: Code(s): I10 - Essential (primary) hypertension Status: Chronic Assessment and Plan: reasonable control follow trend of hemodynamics (6) Anemia: Code(s): D64.9 - Anemia, unspecified Status: Chronic Assessment and Plan: due to ESRD Epogen with HD follow H/H (7) COPD (chronic obstructive pulmonary disease): Code(s): J44.9 - Chronic obstructive pulmonary disease, unspecified Status: Chronic Assessment and Plan: seems compensated continue supportive care (8) Diabetes: Code(s): E11.9 - Type 2 diabetes mellitus without complications Status: Chronic Assessment and Plan: follow accu-cheks appears diet controlled glycemic control per hospitalists Will continue to follow. Subjective Date/time seen: 12/18/22 12:45 Interval history: Follow-up for end stage renal disease on hemodialysis. S/P incision and drainage of suspected infected hematoma in OR earlier today and tolerated this intervention reasonably well; otherwise, appears to be in no apparent distress; eating and drinking okay; respiratory status seems stable; no issues/events overnight or earlier this morning. Exam Narrative: General: WD/WN male in NAD Heart: normal S1 and S2; no rub Lungs: coarse breath sounds; decreased at bases Abdomen: soft, nontender, + bowel sounds noted Extremities: no cyanosis or clubbing; no edema Skin: right LE dressings in place Objective Data Vital Signs Vital Signs: Vital Signs Temp Pulse Resp BP Pulse Ox O2 Del Method O2 Flow Rate 12/18/22 12:45 68 20 123/57 L 98 Nasal Cannula 2 12/18/22 12:30 68 19 122/61 96 Nasal Cannula 2 12/18/22 12:15 67 20 120/54 L 98 Nasal Cannula 2 12/18/22 12:00 67 16 104/54 L 98 Nasal Cannula 2 12/18/22 11:58 98.1 F 87 18 101/50 L 100 Simple Face Mask 10 12/18/22 08:00 99 Nasal Cannula 3 12/18/22 09:09 60 12/18/22 08:59 73 16 99 Nasal Cannula 3 12/18/22 05:25 98.1 F 76 17 132/54 L 98 12/17/22 20:00 80 16 96 Nasal Cannula 3 12/17/22 20:46 80 16 12/17/22 20:34 16 96 Nasal Cannula 3 12/17/22 20:33 79 16 12/17/22 19:56 97.9 F 78 17 145/59 H 92 Intake/Output Intake/Output: Intake & Output 12/15/22 12/16/22 12/17/22 0
[2022-12-18] MEDS: CLINDAMYCIN 300 MG in DEXTROSE 5% IN WATER 50 ML 100 MG IVPB ×2 (13:09→17:14)
[2022-12-18] MEDS: amLODIPine BESYLATE 5 MG TABLET PO (13:45)
[2022-12-18] MEDS: ESCITALOPRAM OXALATE 10 MG TABLET 20 MG PO (13:46)
[2022-12-18] MEDS: FERROUS SULFATE 325 MG TABLET DR PO (13:46)
[2022-12-18] MEDS: CHOLECALCIFEROL 1,000 UNITS TABLET 5000 UNITS PO (13:46)
[2022-12-18] MEDS: MAGNESIUM OXIDE 400 MG TABLET PO (13:46)
[2022-12-18] MEDS: SEVELAMER CARBONATE 800 MG TABLET 1600 MG PO ×2 (13:47→17:14)
[2022-12-18] MEDS: ENOXAPARIN 30 MG/0.3 ML SYRINGE SUB-Q (13:52)
[2022-12-18] MEDS: BUMETANIDE 1 MG TABLET 4 MG PO (13:52)
[2022-12-18] MEDS: TAMSULOSIN HCL 0.4 MG CAPSULE PO (13:54)
--- NOTE | 2022-12-18 14:38 | PCOTNOTE ---
Attempted to see pt for Occupational Therapy. Pt declined to participate in any therapeutic tasks, UE Strengthening, and/or self care tasks. Pt was assisted with bed mobility to scoot up in bed with HAND MITER OPERATOR present to assist. RN was made aware of pt having bleeding from bandage site of LLE from recent drainage procedure. Will continue per poc duration/frequency tomorrow.
--- NOTE | 2022-12-18 14:48 | PCPTNOTE ---
Treatment not completed at this time per RN. The RN states that the patient had been bleeding from the bandage site on the LLE and had just got it cleaned up. She said it would be best if the patient stayed in bed to prevent further bleeding. Will continue per PT plan of care tomorrow.
[2022-12-18 15:02] LABS: Glucose Point of Care 95 mg/dl (65-105)
[2022-12-18 17:12] LABS: Glucose Point of Care 149 mg/dl (65-105)
[2022-12-18] MEDS: SENNA/DOCUSATE SODIUM TABLET 2 TAB PO (17:14)
--- NOTE | 2022-12-18 17:25 | PC.NURSE ---
1700 Dr Bermudez notified of having to change dressing to right lower leg x 2 from blood bleedibg through. New orders received
[2022-12-18] MEDS: HYDROcodone/acetaminophen (*CRX) 5-325 MG TABLET 1 TAB PO (18:23)
[2022-12-18] MEDS: IPRATROPIUM BR 0.02% INH SOLN 0.5 MG/2.5 ML VIAL INHALATION (19:25)
[2022-12-18] MEDS: ALBUTEROL SULFATE NEB 2.5 MG/3 ML INH INHALATION (19:25)
[2022-12-18] MEDS: ATORVASTATIN 20 MG TABLET PO (20:30)
[2022-12-18 21:03] LABS: Glucose Point of Care 107 mg/dl (65-105)
[2022-12-18] MEDS: HYDROmorphone HCL INJ (*CRX) 1 MG/ML SYR 0.5 MG IV PUSH (22:41)
[2022-12-19] VITALS (22 sets, daily range): BP systolic 92–153; BP diastolic 39–72; PULSE 75–84; RESP 17–18; TEMP 35.6–36.8; O2SAT 94–100
[2022-12-19] MEDS: CLINDAMYCIN 300 MG in DEXTROSE 5% IN WATER 50 ML 104 MG IVPB ×2 (00:05→23:52)
[2022-12-19] MEDS: HYDROcodone/acetaminophen (*CRX) 5-325 MG TABLET 1 TAB PO ×3 (00:14→23:52)
[2022-12-19] MEDS: HYDROmorphone HCL INJ (*CRX) 1 MG/ML SYR 0.5 MG IV PUSH ×2 (03:42→17:21)
[2022-12-19 06:00] LABS: Hematocrit 27.2 % (42.0-52.0); Mean Corpuscular HGB Conc 29.4 g/dl (32-36); Mean Corpuscular Hemoglobin 28.2 pg (26-34); Mean Corpuscular Volume 95.8 fl (80-100); Mean Platelet Volume 9.5 fl (7.4-10.4); Platelet Count Result 295 k/mm3 (150-375); Red Blood Count 2.84 M/mm3 (4.6-6.20); White Blood Count 18.7 K/mm3 (4.5-10.0)
[2022-12-19 06:19] LABS: Anion Gap 7 mmol/L (8-16); Blood Urea Nitrogen 56 mg/dL (9-20); Calcium 7.4 mg/dL (8.4-10.2); Carbon Dioxide 22 mmol/L (22-30); Chloride 100 mmol/L (98-107); Estimated CRCL calculation 11 ml/min; Estimated Glomerular Filt Rate 9; Glucose 140 mg/dL (65-110); Potassium 6.2 mmol/L (3.4-5.0); Sodium 129 mmol/L (137-145)
[2022-12-19] MEDS: SODIUM ZIRCONIUM CYCLOSILICATE 10 GM POWD.PACK PO (06:50)
--- NOTE | 2022-12-19 08:27 | PCPTNOTE ---
The patient treatment was not able to be completed at this time due to patient out of room for dialysis. Will plan to continue treatment per plan of care.
[2022-12-19 08:41] LABS: Glucose Point of Care 117 mg/dl (65-105)
--- NOTE | 2022-12-19 08:50 | PCOTNOTE ---
Patient out of the room at this time. Patient is in dialysis at this time.
[2022-12-19] MEDS: EPOETIN ALFA 10,000 UNITS/ML VIAL 10000 UNITS IV PUSH (09:58)
--- NOTE | 2022-12-19 10:31 | P.PNNP_ITS ---
Progress Note: A&P Assessment and Plan (1) End stage renal disease: Code(s): N18.6 - End stage renal disease Status: Chronic Assessment and Plan: * HD today * continue M/W/F dialysis schedule while hospitalized * follow electrolytes, volume status, and clearance (2) Closed left hip fracture: Qualifiers: Encounter type: initial encounter Qualified Code(s): S72.002A - Fracture of unspecified part of neck of left femur, initial encounter for closed fracture Code(s): S72.002A - Fracture of unspecified part of neck of left femur, initial encounter for closed fracture Status: Acute Assessment and Plan: * Orthopedics following * s/p bipolar hemiarthroplasty left hip (on 12/08/22) * pain control * PT/OT as tolerated (3) Cellulitis of right leg: Code(s): L03.115 - Cellulitis of right lower limb Status: Acute Assessment and Plan: * as noted by exam * possible abscess -- s/p I&D today in OR * seems more consistent with infected hematoma * General Surgery following * continue antibiotics (4) Nausea & vomiting: Code(s): R11.2 - Nausea with vomiting, unspecified Status: Acute Assessment and Plan: * resolved * on IV antiemetics and PPI * recent CT of abd/pelvis with distended stomach * complicated by symptoms of dysphagia as well * s/p EGD (on 12/13/20) with results noted: * severe infectious/erosive esophagitis * gastric food retention * esophageal biopsy -- Compatible with Candidiasis esophagitis * continue supportive therapy (5) Hypertension: Code(s): I10 - Essential (primary) hypertension Status: Chronic Assessment and Plan: * reasonable control * follow trend of hemodynamics (6) Anemia: Code(s): D64.9 - Anemia, unspecified Status: Chronic Assessment and Plan: * due to ESRD * Epogen with HD * follow H/H (7) COPD (chronic obstructive pulmonary disease): Code(s): J44.9 - Chronic obstructive pulmonary disease, unspecified Status: Chronic Assessment and Plan: * seems compensated * continue supportive care (8) Diabetes: Code(s): E11.9 - Type 2 diabetes mellitus without complications Status: Chronic Assessment and Plan: * follow accu-cheks * appears diet controlled * glycemic control per hospitalists Will continue to follow. Subjective Date/time seen: 12/19/22 10:31 Interval history: Follow-up for end stage renal disease on hemodialysis. Tolerating hemodialysis treatment at the time of my visit (seen on HD at 10:20AM); potassium elevated by AM labs today; no apparent distress voiced currently; no other issues/events overnight or earlier this morning. Exam Narrative: General: WD/WN male in NAD Heart: normal S1 and S2; no rub Lungs: coarse breath sounds; decreased at bases Abdomen: soft, nontender, + bowel sounds noted Extremities: no cyanosis or clubbing; no edema Skin: right LE dressings noted Objective Data Vital Signs Vital Signs: Vital Signs Temp Pulse Resp BP Pulse Ox O2 Del Method O2 Flow Rate 12/19/22 10:20 81 111/60 12/19/22 10:00 84 108/54 L 12/19/22 09:40 76 114/51 L 12/19/22 09:20 76 125/57 L 12/19/22 08:00 94 Nasal Cannula 3
--- NOTE | 2022-12-19 10:31 | PM.PNNEP ---
Progress Note: A&P Assessment and Plan (1) End stage renal disease: Code(s): N18.6 - End stage renal disease Status: Chronic Assessment and Plan: HD today continue M/W/F dialysis schedule while hospitalized follow electrolytes, volume status, and clearance (2) Closed left hip fracture: Qualifiers: Encounter type: initial encounter Qualified Code(s): S72.002A - Fracture of unspecified part of neck of left femur, initial encounter for closed fracture Code(s): S72.002A - Fracture of unspecified part of neck of left femur, initial encounter for closed fracture Status: Acute Assessment and Plan: Orthopedics following s/p bipolar hemiarthroplasty left hip (on 12/08/22) pain control PT/OT as tolerated (3) Cellulitis of right leg: Code(s): L03.115 - Cellulitis of right lower limb Status: Acute Assessment and Plan: as noted by exam possible abscess -- s/p I&D today in OR seems more consistent with infected hematoma General Surgery following continue antibiotics (4) Nausea & vomiting: Code(s): R11.2 - Nausea with vomiting, unspecified Status: Acute Assessment and Plan: resolved on IV antiemetics and PPI recent CT of abd/pelvis with distended stomach complicated by symptoms of dysphagia as well s/p EGD (on 12/13/20) with results noted: severe infectious/erosive esophagitis gastric food retention esophageal biopsy -- Compatible with Candidiasis esophagitis continue supportive therapy (5) Hypertension: Code(s): I10 - Essential (primary) hypertension Status: Chronic Assessment and Plan: reasonable control follow trend of hemodynamics (6) Anemia: Code(s): D64.9 - Anemia, unspecified Status: Chronic Assessment and Plan: due to ESRD Epogen with HD follow H/H (7) COPD (chronic obstructive pulmonary disease): Code(s): J44.9 - Chronic obstructive pulmonary disease, unspecified Status: Chronic Assessment and Plan: seems compensated continue supportive care (8) Diabetes: Code(s): E11.9 - Type 2 diabetes mellitus without complications Status: Chronic Assessment and Plan: follow accu-cheks appears diet controlled glycemic control per hospitalists Will continue to follow. Subjective Date/time seen: 12/19/22 10:31 Interval history: Follow-up for end stage renal disease on hemodialysis. Tolerating hemodialysis treatment at the time of my visit (seen on HD at 10:20AM); potassium elevated by AM labs today; no apparent distress voiced currently; no other issues/events overnight or earlier this morning. Exam Narrative: General: WD/WN male in NAD Heart: normal S1 and S2; no rub Lungs: coarse breath sounds; decreased at bases Abdomen: soft, nontender, + bowel sounds noted Extremities: no cyanosis or clubbing; no edema Skin: right LE dressings noted Objective Data Vital Signs Vital Signs: Vital Signs Temp Pulse Resp BP Pulse Ox O2 Del Method O2 Flow Rate 12/19/22 10:20 81 111/60 12/19/22 10:00 84 108/54 L 12/19/22 09:40 76 114/51 L 12/19/22 09:20 76 125/57 L 12/19/22 08:00 94 Nasal Cannula 3 12/19/22 08:40 78 122/64 12/19/22 08:20 79 151/72 H 12/19/22 09:00 76 125/59 L 12/19/22 08:03 77 153/68 H 12/19/22 07:56 97.8 F 79 18 142/70 H 12/19/22 07:56 3 12/19/22 06:00 98.1 F 79 18 124/39 L 94 12/18/22 20:00 77 18 99 Nasal Cannula 3 12/18/22 19:36 97.7 F 77 18 144/54 H 99 12/18/22 19:33 77 16 12/18/22 19:25 75 16 12/18/22 14:55 97.7 F 73 19 115/52 L 98 12/18/22 13:55 97.7 F 73 19 125/52 L 99 12/18/22 13:25 97.8 F 73 20 126/57 L 95 12/18/22 13:10 97.8 F 70 20 137/52 L 97 12/18/22 12:56 69 23 H 131/65 98 Nasal Cannula 2 0
[2022-12-19 12:16] LABS: Glucose Point of Care 102 mg/dl (65-105)
[2022-12-19] MEDS: amLODIPine BESYLATE 5 MG TABLET PO (12:32)
[2022-12-19] MEDS: AMIODARONE HCL 200 MG TABLET PO (12:32)
[2022-12-19] MEDS: SENNA/DOCUSATE SODIUM TABLET 2 TAB PO (12:33)
[2022-12-19] MEDS: MAGNESIUM OXIDE 400 MG TABLET PO (12:33)
[2022-12-19] MEDS: TAMSULOSIN HCL 0.4 MG CAPSULE PO (12:33)
[2022-12-19] MEDS: CHOLECALCIFEROL 1,000 UNITS TABLET 5000 UNITS PO (12:33)
[2022-12-19] MEDS: ESCITALOPRAM OXALATE 10 MG TABLET 20 MG PO (12:33)
[2022-12-19] MEDS: FERROUS SULFATE 325 MG TABLET DR PO (12:33)
[2022-12-19] MEDS: SEVELAMER CARBONATE 800 MG TABLET 1600 MG PO ×2 (12:34→17:11)
[2022-12-19 13:06] LABS: Potassium 3.9 mmol/L (3.4-5.0)
[2022-12-19] MEDS: CLINDAMYCIN 300 MG in DEXTROSE 5% IN WATER 50 ML 100 MG IVPB ×2 (13:40→17:11)
[2022-12-19] MEDS: PANTOPRAZOLE SODIUM IV 40 MG VIAL IV PUSH ×2 (13:41→21:11)
--- NOTE | 2022-12-19 14:20 | WPDANESPN ---
Anes - Prog Note Post-Op Date/Time: 12/19/22 14:20 Cardiovascular status: normal Respiratory status: normal Airway patency: baseline Mental status: baseline Post-Op hydration status: normal Vital Signs: Last Vital Signs Temp 36.8 C 12/19/22 14:00 Pulse 80 12/19/22 14:00 Resp 18 12/19/22 14:00 BP 119/48 L 12/19/22 14:00 Pulse Ox 100 12/19/22 14:00 O2 Del Method Nasal Cannula 12/19/22 08:00 O2 Flow Rate 3 12/19/22 08:00 FiO2 32 12/18/22 20:00 Pain Score (VAS): 07/01 I/O: Intake & Output 12/18/22 12/19/22 12/19/22 23:59 07:59 15:59 Intake Total 1152 52 Output Total 0 2793 Balance 1152 52 -2793 Laboratory Tests 12/19/22 05:44 12/19/22 12:55 12/18/22 12/18/22 12/18/22 13:29 17:04 20:37 WBC RBC Hgb Hct MCV MCH MCHC RDW Plt Count MPV Sodium Potassium Chloride Carbon Dioxide Anion Gap BUN Creatinine Estim Creat Clear Calc Estimated GFR Glucose POC Capillary Glucose 95 149 H 107 H Calcium 12/19/22 12/19/22 12/19/22 05:44 08:34 12:12 WBC 18.7 H RBC 2.84 L Hgb 8.0 L Hct 27.2 L MCV 95.8 MCH 28.2 MCHC 29.4 L RDW 17.0 H Plt Count 295 MPV 9.5 Sodium 129 L Potassium 6.2 H* Chloride 100 Carbon Dioxide 22 Anion Gap 7 L BUN 56 H D Creatinine 6.10 H Estim Creat Clear Calc 11 Estimated GFR 9 L Glucose 140 H POC Capillary Glucose 117 H 102 Calcium 7.4 L 12/19/22 12:55 WBC RBC Hgb Hct MCV MCH MCHC RDW Plt Count MPV Sodium Potassium 3.9 Chloride Carbon Dioxide Anion Gap BUN Creatinine Estim Creat Clear Calc Estimated GFR Glucose POC Capillary Glucose Calcium Post-procedural complaints: none Patient Feedback: Patient satisfied with anesthetic care.
--- NOTE | 2022-12-19 14:40 | PCOTNOTE ---
Attempted to see Patient for P.M. session. Patient verbalized he is having increased pain and is exhausted. Patient verbalized he is unable to participate this session.
--- NOTE | 2022-12-19 15:05 | PM.PNORT ---
Progress Note: A&P Assessment and Plan (1) History of partial replacement of left hip joint using bipolar prosthesis: Code(s): Z96.642 - Presence of left artificial hip joint Status: Acute (2) Closed left hip fracture: Qualifiers: Encounter type: initial encounter Qualified Code(s): S72.002A - Fracture of unspecified part of neck of left femur, initial encounter for closed fracture Code(s): S72.002A - Fracture of unspecified part of neck of left femur, initial encounter for closed fracture Status: Acute (3) End stage renal disease: Code(s): N18.6 - End stage renal disease Status: Chronic Plan Post op day 11 Bipolar hemiarthroplasty. Patient notes increased pain in the hip today. Will order an xray to rule out dislocation. Differential includes infection at the hip given his recent abscess on the right lower leg. Waiting for the cultures. He is currently on Clindamycin IV. Previous blood cultures were negative. Will discuss with Dr. Dowling. Subjective Subjective Date/Time Seen: 12/19/22 15:05 Interval history: Patient resting comfortably in bed. Notes increased pain in the left hip in the last 2 days. No fever. He is able to get up and walk with therapy. He complains of feeling off balance. Review of Systems Review of Systems: All systems reviewed & are unremarkable except as noted in HPI and below Exam Narrative: Overweight 66 y/o Male. Resting comfortably in bed. Wound healing well. Steri-strips intact. No bleeding or draining from wound. Moderate swelling in thigh and at incision. Mild ecchymosis. Mild erythema. Range of motion limited due to pain. Extends leg. Quad fires. Calf nontender. Mild thigh pain. No varicosities. Distal pulses palpable. Wiggles toes. Right lower leg covered with Neil wrap. Objective Data Vital Signs Vital Signs: Vital Signs - 24 hr 12/18/22 19:25 12/18/22 19:33 12/18/22 19:36 Temperature 97.7 F Pulse Rate 75 77 77 Respiratory Rate 16 16 18 Blood Pressure 144/54 H Pulse Oximetry 99 Oxygen Delivery Oxygen Flow Rate Fraction of Inspired Oxygen 12/18/22 20:00 12/19/22 06:00 12/19/22 07:56 Temperature 98.1 F Pulse Rate 77 79 Respiratory Rate 18 18 Blood Pressure 124/39 L Pulse Oximetry 99 94 Oxygen Delivery Nasal Cannula Oxygen Flow Rate 3 3 Fraction of Inspired Oxygen 32 12/19/22 07:56 12/19/22 08:03 12/19/22 09:00 Temperature 97.8 F Pulse Rate 79 77 76 Respiratory Rate 18 Blood Pressure 142/70 H 153/68 H 125/59 L Pulse Oximetry Oxygen Delivery Oxygen Flow Rate Fraction of Inspired Oxygen 12/19/22 08:20 12/19/22 08:40 12/19/22 08:00 Temperature Pulse Rate 79 78 Respiratory Rate Blood Pressure 151/72 H 122/64 Pulse Oximetry 94 Oxygen Delivery Nasal Cannula Oxygen Flow Rate 3 Fraction of Inspired Oxygen 12/19/22 09:20 12/19/22 09:40 12/19/22 10:00 Temperature Pulse Rate 76 76 84 Respiratory Rate Blood Pressure 125/57 L 114/51 L 108/54 L Pulse Oximetry Oxygen Delivery Oxygen Flow Rate Fraction of Inspired Oxygen 12/19/22 10:20 12/19/22 11:00 12/19/22 10:40 Temperature Pulse Rate 81 82 82 Respiratory Rate Blood Pressure 111/60 108/51 L 108/55 L Pulse Oximetry Oxygen Delivery Oxygen Flow Rate Fraction of Inspired Oxygen 12/19/22 11:20 12/19/22 11:52 12/19/22 11:36 Temperature 97.7 F Pulse Rate 81 81 81 Respiratory Rate 18 Blood Pressure 92/50 L 115/58 L 119/56 L Pulse Oximetry Oxygen Delivery Oxygen Flow Rate Fraction of Inspired Oxygen 12/19/22 12:32 12/19/22 14:00 Temperature 98.3 F Pulse Rate 80 80 Respiratory Rate 18 Blood Pressure 119/48 L Pulse Oximetry 100 Oxygen Delivery Oxygen Flow Rate Fraction of Inspired Oxygen Intake/Output Intake/Output: Intake & Output 12/16/22 12/17/22 12/18/22 12/19/22 23:59 23:59 23:59 23:59 Intake
--- NOTE | 2022-12-19 15:24 | PM.IMPN ---
Progress Note: A&P Assessment and Plan (1) Closed left hip fracture: Qualifiers: Encounter type: initial encounter Qualified Code(s): S72.002A - Fracture of unspecified part of neck of left femur, initial encounter for closed fracture Code(s): S72.002A - Fracture of unspecified part of neck of left femur, initial encounter for closed fracture Status: Acute Assessment and Plan: X-ray reveals transcervical fracture of left femoral neck Orthopedics consulted. Postsurgical DVT prophylaxis, PT and OT and analgesics per orthopedic team. Weightbearing as tolerated. Monitor H&H post operatively. Patient with elevated white count which is likely reactive from hip repair. Patient is feeling better, will continue current treatment and increase activity as tolerated. (2) Nausea & vomiting: Code(s): R11.2 - Nausea with vomiting, unspecified Status: Acute Assessment and Plan: Much better, tolerating clear liquids. Increase as tolerated reported dysphagia. EGD performed 12/13/2022 suspected infectious esophagitis gastric retention. close follow-up on I's and O's (3) End stage renal disease: Code(s): N18.6 - End stage renal disease Status: Chronic Assessment and Plan: Nephrology has been consulted.? The patient has seen Dr. Justin in the past.? Patient has dialysis on Monday. renal functions are improving with hemodialysis (4) CHF (congestive heart failure), NYHA class I: Qualifiers: Congestive heart failure type: unspecified Qualified Code(s): I50.9 - Heart failure, unspecified Code(s): I50.9 - Heart failure, unspecified Status: Acute Assessment and Plan: Not in an acute exacerbation. Monitor fluid status. Chronic heart failure of unknown type Stable, continue current treatment monitor I's and O's closely (5) COPD (chronic obstructive pulmonary disease): Code(s): J44.9 - Chronic obstructive pulmonary disease, unspecified Status: Chronic Assessment and Plan: Stable, will continue current treatment (6) Hypertension: Code(s): I10 - Essential (primary) hypertension Status: Chronic Assessment and Plan: Resume antihypertensive medication. Monitor closely, stable (7) Diabetes: Code(s): E11.9 - Type 2 diabetes mellitus without complications Status: Chronic Assessment and Plan: Patient controls diabetes with diet. AC and HS with sliding scale insulin. ? Hypoglycemia protocol initiated. Hemoglobin A1c 6.2. Stable on current meds, continue current treatment. (8) Cellulitis of right leg: Code(s): L03.115 - Cellulitis of right lower limb Status: Acute Assessment and Plan: patient has Right diop cellulitis. Ultrasound was done which showed small collection. General surgery consulted continue with IV antibiotics Status post I&D 12/18/2022: Culture pending continue IV clindamycin Dressing changes as ordered (9) Heart murmur: Code(s): R01.1 - Cardiac murmur, unspecified Status: Acute Assessment and Plan: patient has a grade 3/6 systolic ejection murmur Will order a 2D echo to evaluate the murmur Subjective Date/time seen: 12/19/22 15:24 Interval history: 12/16/2022: Follow-up for end stage renal disease on hemodialysis. Tolerating hemodialysis treatment at the time of my visit (seen on HD at 3:50PM); pain control seems adequate; breathing/respiratory status doing fairly well; no further issues with dysphagia at this time; no events overnight or earlier this AM. 12/17/2022: Patient seen and evaluated bedside.? He is feeling a little better.? He will be kept NPO after midnight for possible drainage of right diop abscess. ? renal functions are improving with hemodialysis. 12/18/2022: Patient is NPO since midnight. He is going for I and D of right diop absc
--- NOTE | 2022-12-19 16:02 | PM.PNGS ---
Progress Note: A&P Assessment and Plan (1) Cellulitis of right leg: Code(s): L03.115 - Cellulitis of right lower limb Status: Acute Assessment and Plan: Patient is status post incision and drainage of infected right lower extremity hematoma yesterday. Cultures pending with Gram stain showing no organisms. There was noted to be some superficial bleeding at the lateral aspect of the incision that resolved with silver nitrate. Incision was repacked and will continue with daily packing dressing changes. Continue IV antibiotics. Plan I have discussed the patient's case and plan of care with Dr. Bermudez. Subjective Subjective Date/Time Seen: 12/19/22 12:02 Post Op day: 1 (Incision and drainage of infected right lower extremity hematoma) Patient reports: no new complaints and afebrile Interval history: This is a 66-year-old man who presented with right lower extremity cellulitis and abscess. He underwent incision and drainage of infected right lower extremity hematoma yesterday by Dr. Bermudez. He has had some bloody drainage persistently throughout the night per nursing. They reportedly reinforced his dressing about every 2 hours and this is slowly improved and had not been changed for about 5 hours. They were instructed to take down the dressing and reinforce with gauze and then Neil wraps. He is now seen with nurse at the bedside after having dialysis this morning. Exam Narrative: Right lower extremity Neil wraps and gauze dressing removed. There is a moderate amount of dry bloody drainage on the dressing. Very minimal localized erythema around the incision that is on the anterior mid tibial area. Packing removed from incision and entire cavity inspected. There was slight oozing of bloody drainage from a superficial area on the lateral aspect of the incision. Silver nitrate applied to this area and bleeding stopped. No other significant bleeding noted. Visible tissue in the wound bed appears pink and healthy. No purulence drainage. Const: General: comfortable and no acute distress Objective Data Vital Signs Vital Signs: Vital Signs - 24 hr 12/18/22 19:25 12/18/22 19:33 12/18/22 19:36 Temperature 97.7 F Pulse Rate 75 77 77 Respiratory Rate 16 16 18 Blood Pressure 144/54 H Pulse Oximetry 99 Oxygen Delivery Oxygen Flow Rate Fraction of Inspired Oxygen 12/18/22 20:00 12/19/22 06:00 12/19/22 07:56 Temperature 98.1 F Pulse Rate 77 79 Respiratory Rate 18 18 Blood Pressure 124/39 L Pulse Oximetry 99 94 Oxygen Delivery Nasal Cannula Oxygen Flow Rate 3 3 Fraction of Inspired Oxygen 32 12/19/22 07:56 12/19/22 08:03 12/19/22 09:00 Temperature 97.8 F Pulse Rate 79 77 76 Respiratory Rate 18 Blood Pressure 142/70 H 153/68 H 125/59 L Pulse Oximetry Oxygen Delivery Oxygen Flow Rate Fraction of Inspired Oxygen 12/19/22 08:20 12/19/22 08:40 12/19/22 08:00 Temperature Pulse Rate 79 78 Respiratory Rate Blood Pressure 151/72 H 122/64 Pulse Oximetry 94 Oxygen Delivery Nasal Cannula Oxygen Flow Rate 3 Fraction of Inspired Oxygen 12/19/22 09:20 12/19/22 09:40 12/19/22 10:00 Temperature Pulse Rate 76 76 84 Respiratory Rate Blood Pressure 125/57 L 114/51 L 108/54 L Pulse Oximetry Oxygen Delivery Oxygen Flow Rate Fraction of Inspired Oxygen 12/19/22 10:20 12/19/22 11:00 12/19/22 10:40 Temperature Pulse Rate 81 82 82 Respiratory Rate Blood Pressure 111/60 108/51 L 108/55 L Pulse Oximetry Oxygen Delivery Oxygen Flow Rate Fraction of Inspired Oxygen 12/19/22 11:20 12/19/22 11:52 12/19/22 11:36 Temperature 97.7 F Pulse Rate 81 81 81 Respiratory Rate 18 Blood Pressure 92/50 L 115/58 L 119/56 L Pulse Oximetry Oxygen Delivery Oxygen Flow Rate Fraction of Inspired Oxygen 12/19/22 12:32 12/19/22 14:00 Temperature 98.3 F Pulse Rate 80 80 Respiratory Rate 18
--- NOTE | 2022-12-19 17:05 | PM.PNORT ---
Progress Note: A&P Assessment and Plan (1) History of partial replacement of left hip joint using bipolar prosthesis: Code(s): Z96.642 - Presence of left artificial hip joint Status: Acute (2) Closed left hip fracture: Qualifiers: Encounter type: initial encounter Qualified Code(s): S72.002A - Fracture of unspecified part of neck of left femur, initial encounter for closed fracture Code(s): S72.002A - Fracture of unspecified part of neck of left femur, initial encounter for closed fracture Status: Acute (3) End stage renal disease: Code(s): N18.6 - End stage renal disease Status: Chronic Plan Post op day 11 Bipolar hemiarthroplasty. Patient seen and examined. Increase in left hip pain is concerning. He states that he can put weight on the leg, and walk, but has difficulty lifting the leg and getting started. X-ray pending. He has significant tenderness and swelling on the anterolateral thigh. No obvious warmth. No drainage from the wound. Very scant erythema around the wound edges. Calf nontender. No edema. Good lower extremity strength. He is alert and oriented. He appears comfortable, though complains of pain. Differential includes hip joint infection. Will likely request a hip joint aspiration from radiology tomorrow, depending on the results of the x-rays. Subjective Subjective Date/Time Seen: 12/19/22 17:05 Objective Data Vital Signs Vital Signs: Vital Signs - 24 hr 12/18/22 19:25 12/18/22 19:33 12/18/22 19:36 Temperature 36.5 C Pulse Rate 75 77 77 Respiratory Rate 16 16 18 Blood Pressure 144/54 H Pulse Oximetry 99 Oxygen Delivery Oxygen Flow Rate Fraction of Inspired Oxygen 12/18/22 20:00 12/19/22 06:00 12/19/22 07:56 Temperature 36.7 C Pulse Rate 77 79 Respiratory Rate 18 18 Blood Pressure 124/39 L Pulse Oximetry 99 94 Oxygen Delivery Nasal Cannula Oxygen Flow Rate 3 3 Fraction of Inspired Oxygen 32 12/19/22 07:56 12/19/22 08:03 12/19/22 09:00 Temperature 36.6 C Pulse Rate 79 77 76 Respiratory Rate 18 Blood Pressure 142/70 H 153/68 H 125/59 L Pulse Oximetry Oxygen Delivery Oxygen Flow Rate Fraction of Inspired Oxygen 12/19/22 08:20 12/19/22 08:40 12/19/22 08:00 Temperature Pulse Rate 79 78 Respiratory Rate Blood Pressure 151/72 H 122/64 Pulse Oximetry 94 Oxygen Delivery Nasal Cannula Oxygen Flow Rate 3 Fraction of Inspired Oxygen 12/19/22 09:20 12/19/22 09:40 12/19/22 10:00 Temperature Pulse Rate 76 76 84 Respiratory Rate Blood Pressure 125/57 L 114/51 L 108/54 L Pulse Oximetry Oxygen Delivery Oxygen Flow Rate Fraction of Inspired Oxygen 12/19/22 10:20 12/19/22 11:00 12/19/22 10:40 Temperature Pulse Rate 81 82 82 Respiratory Rate Blood Pressure 111/60 108/51 L 108/55 L Pulse Oximetry Oxygen Delivery Oxygen Flow Rate Fraction of Inspired Oxygen 12/19/22 11:20 12/19/22 11:52 12/19/22 11:36 Temperature 36.5 C Pulse Rate 81 81 81 Respiratory Rate 18 Blood Pressure 92/50 L 115/58 L 119/56 L Pulse Oximetry Oxygen Delivery Oxygen Flow Rate Fraction of Inspired Oxygen 12/19/22 12:32 12/19/22 14:00 Temperature 36.8 C Pulse Rate 80 80 Respiratory Rate 18 Blood Pressure 119/48 L Pulse Oximetry 100 Oxygen Delivery Oxygen Flow Rate Fraction of Inspired Oxygen Intake/Output Intake/Output: Intake & Output 12/16/22 12/17/22 12/18/22 12/19/22 23:59 23:59 23:59 23:59 Intake Total 1838 1048 1356 104 Output Total 2150 150 0 2793 Balance -733 700 [id number] 3654 -8367 Meds/Results Medications: Active Medications Generic Name Dose Route Start Last Admin Trade Name Freq PRN Reason Stop Dose Admin Hydrocodone Bitart/Acetaminophen 1 tab 12/18/22 12:02 12/19/22 06:10 Hydrocodone/Acetaminophen (*Crx) 5-325 Mg Tablet PO 1 tab Q6H PRN Administration Pain Rated 4-
[2022-12-19 17:37] LABS: Glucose Point of Care 157 mg/dl (65-105)
[2022-12-19 20:22] LABS: Glucose Point of Care 169 mg/dl (65-105)
[2022-12-19] MEDS: IPRATROPIUM BR 0.02% INH SOLN 0.5 MG/2.5 ML VIAL INHALATION (20:40)
[2022-12-19] MEDS: ALBUTEROL SULFATE NEB 2.5 MG/3 ML INH INHALATION (20:40)
[2022-12-19] MEDS: ATORVASTATIN 20 MG TABLET PO (21:12)
[2022-12-20] VITALS (12 sets, daily range): BP systolic 100–124; BP diastolic 40–52; PULSE 72–81; RESP 18–20; TEMP 36.2–36.7; O2SAT 95–99
--- NOTE | 2022-12-20 | ECHO_ITS ---
Patient Info Name: Bruno Unger Age: 66 years : 1955 Gender: Male Ht: 69 in Wt: 181 lbs BSA: 2.01 m2 HR: 79 bpm BP: 124 / 52 mmHg Heart Rhythm: Sinus Rhythm Technical Quality: Good Exam Date: 12/20/2022 11:19 AM Exam Location: [facility] Patient Status: Inpatient Admit Date: 12/07/2022 Staff Ordering Physician: Pardeep De La Paz MD Assistant Store Director: Leonarda Darby RDCS Attending Provider: Eduardo Oliva MD Exam Type: CA echo doppler color flow Study Info Indications - SYSTOLIC EJECTION MURMUR Complete two-dimensional, color flow and Doppler transthoracic echocardiogram is performed. Summary 1. Complete two-dimensional, color flow and Doppler transthoracic echocardiogram is performed. 2. Left ventricular chamber dimension is normal. 3. Left ventricular systolic function is normal, estimated at 60-65%. 4. The left ventricular diastolic function is abnormal. 5. E/e' 30 is significantly elevated. 6. Left atrial chamber dimension is mildly enlarged. 7. There is moderate aortic valve sclerosis. 8. There is mild aortic valve stenosis with a peak velocity of 236 cm/s, mean gradient of 12 mmHg, and aortic valve area of 1.6 cm2. 9. The mitral valve has moderately calcified leaflets and moderately calcified annulus. 10. There is trace mitral valve regurgitation. 11. There is mild tricuspid valve regurgitation. 12. No pulmonary hypertension, estimated pulmonary arterial systolic pressure is 35 mmHg. Left Ventricle E/e' 30 is significantly elevated. Left ventricular chamber dimension is normal. Left ventricular systolic function is normal, estimated at 60-65%. The left ventricular diastolic function is abnormal. Right Ventricle Right ventricular chamber dimension is normal. Right ventricular systolic function is normal. Left Atria Left atrial chamber dimension is mildly enlarged. Right Atria Right atrial chamber dimension is normal. Aortic Valve The aortic valve is trileaflet. There is moderate aortic valve sclerosis. There is mild aortic valve stenosis with a peak velocity of 236 cm/s, mean gradient of 12 mmHg, and aortic valve area of 1.6 cm2. There is no aortic valve regurgitation. Pulmonic Valve There is no pulmonic regurgitation. Mitral Valve The mitral valve has moderately calcified leaflets and moderately calcified annulus. There is no mitral valve stenosis. There is trace mitral valve regurgitation. Tricuspid Valve There is mild tricuspid valve regurgitation. No pulmonary hypertension, estimated pulmonary arterial systolic pressure is 35 mmHg. Pericardium/Pleural There is no pericardial effusion. Inferior Vena Cava Normal inferior vena cava with >50% collapse upon inspiration consistent with normal right atrial pressure, 5 mmHg. Aorta The aortic root size at the sinus of Valsalva is normal. Left Ventricular Outflow Tract Name Value Normal LVOT 2D LVOT Diameter 2.0 cm LVOT Doppler LVOT Peak Gradient 6 mmHg LVOT Mean Gradient 3 mmHg LVOT VTI 23 cm LVOT VTI/AV VTI Ratio 0.5 LVOT Stroke Volume 76 ml LVO
[2022-12-20 04:41] LABS: Hematocrit 23.8 % (42.0-52.0); Mean Corpuscular HGB Conc 29.4 g/dl (32-36); Mean Corpuscular Hemoglobin 27.9 pg (26-34); Mean Corpuscular Volume 94.8 fl (80-100); Mean Platelet Volume 9.4 fl (7.4-10.4); Platelet Count Result 299 k/mm3 (150-375); Red Blood Count 2.51 M/mm3 (4.6-6.20); Red Cell Distribution Width 17.2 % (11.5-14.5); White Blood Count 17.6 K/mm3 (4.5-10.0)
[2022-12-20 05:01] LABS: Anion Gap 4 mmol/L (8-16); Blood Urea Nitrogen 28 mg/dL (9-20); Calcium 7.4 mg/dL (8.4-10.2); Carbon Dioxide 31 mmol/L (22-30); Chloride 100 mmol/L (98-107); Estimated CRCL calculation 18 ml/min; Estimated Glomerular Filt Rate 17; Glucose 114 mg/dL (65-110); Magnesium 1.9 mg/dL (1.6-2.3); Potassium 4.5 mmol/L (3.4-5.0); Sodium 135 mmol/L (137-145)
[2022-12-20] MEDS: CLINDAMYCIN 300 MG in DEXTROSE 5% IN WATER 50 ML 104 MG IVPB ×2 (05:33→11:35)
[2022-12-20 08:28] LABS: Glucose Point of Care 109 mg/dl (65-105)
[2022-12-20] MEDS: HYDROcodone/acetaminophen (*CRX) 5-325 MG TABLET 1 TAB PO (08:40)
[2022-12-20] MEDS: SEVELAMER CARBONATE 800 MG TABLET 1600 MG PO ×3 (08:42→16:58)
[2022-12-20] MEDS: MAGNESIUM OXIDE 400 MG TABLET PO (08:43)
[2022-12-20] MEDS: ESCITALOPRAM OXALATE 10 MG TABLET 20 MG PO (08:43)
[2022-12-20] MEDS: amLODIPine BESYLATE 5 MG TABLET PO (08:47)
[2022-12-20] MEDS: AMIODARONE HCL 200 MG TABLET PO (08:47)
[2022-12-20] MEDS: PANTOPRAZOLE SODIUM IV 40 MG VIAL IV PUSH ×2 (08:48→20:10)
[2022-12-20] MEDS: FERROUS SULFATE 325 MG TABLET DR PO (08:48)
[2022-12-20] MEDS: SENNA/DOCUSATE SODIUM TABLET 2 TAB PO ×2 (08:48→16:58)
[2022-12-20] MEDS: CHOLECALCIFEROL 1,000 UNITS TABLET 5000 UNITS PO (08:48)
[2022-12-20] MEDS: TAMSULOSIN HCL 0.4 MG CAPSULE PO (08:49)
--- NOTE | 2022-12-20 10:45 | PM.PNORT ---
Progress Note: A&P Assessment and Plan (1) History of partial replacement of left hip joint using bipolar prosthesis: Code(s): Z96.642 - Presence of left artificial hip joint Status: Acute (2) Closed left hip fracture: Qualifiers: Encounter type: initial encounter Qualified Code(s): S72.002A - Fracture of unspecified part of neck of left femur, initial encounter for closed fracture Code(s): S72.002A - Fracture of unspecified part of neck of left femur, initial encounter for closed fracture Status: Acute (3) End stage renal disease: Code(s): N18.6 - End stage renal disease Status: Chronic Plan Post op day 12 Bipolar hemiarthroplasty. Patient seen and examined. Increasing left hip pain is concerning. X-ray shows normal alignment of bipolar hemiarthroplasty without lucency. Incision has not changed. Well healing without drainage. Slight erythema around wound. Spoke with Dr. Dowling. Will order US guided hip joint aspiration to rule out hip joint infection. He does have an elevated white count and had a recent wash out of an infected hematoma in on the right diop. Preliminary cultures are negative, waiting final result. He is currently on IV antibiotics. Blood cultures from 12/07/22 are negative. If there is infection, patient would likely need transferred to tertiary care center. Subjective Subjective Date/Time Seen: 12/20/22 10:45 Interval history: Patient complains of increased pain in the left hip today. No fever. Review of Systems Review of Systems: All systems reviewed & are unremarkable except as noted in HPI and below Exam Narrative: Overweight 66 y/o Male. Resting comfortably in bed. Wound healing well. Steri-strips intact. No bleeding or draining from wound. Moderate swelling in thigh and at incision. Mild ecchymosis. Mild erythema around incision. This has not changed since yesterday. Range of motion limited due to pain. Extends leg. Quad fires. Calf nontender. Mild thigh pain. No varicosities. Distal pulses palpable. Wiggles toes. Right lower leg covered with Neil wrap. Objective Data Vital Signs Vital Signs: Vital Signs - 24 hr 12/19/22 11:00 12/19/22 11:20 12/19/22 11:52 Temperature 97.7 F Pulse Rate 82 81 81 Respiratory Rate 18 Blood Pressure 108/51 L 92/50 L 115/58 L Pulse Oximetry Oxygen Delivery Oxygen Flow Rate Fraction of Inspired Oxygen 12/19/22 11:36 12/19/22 12:32 12/19/22 14:00 Temperature 98.3 F Pulse Rate 81 80 80 Respiratory Rate 18 Blood Pressure 119/56 L 119/48 L Pulse Oximetry 100 Oxygen Delivery Oxygen Flow Rate Fraction of Inspired Oxygen 12/19/22 20:49 12/19/22 20:49 12/19/22 20:59 Temperature Pulse Rate 76 75 Respiratory Rate 18 18 Blood Pressure Pulse Oximetry 98 Oxygen Delivery Nasal Cannula Oxygen Flow Rate 3 Fraction of Inspired Oxygen 12/19/22 20:48 12/19/22 20:00 12/20/22 04:31 Temperature 98.2 F 97.6 F Pulse Rate 77 75 79 Respiratory Rate 17 18 18 Blood Pressure 126/48 L 124/52 L Pulse Oximetry 100 98 95 Oxygen Delivery Nasal Cannula Oxygen Flow Rate 1 Fraction of Inspired Oxygen 32 12/20/22 08:40 12/20/22 08:47 Temperature Pulse Rate 81 Respiratory Rate Blood Pressure Pulse Oximetry 96 Oxygen Delivery Nasal Cannula Oxygen Flow Rate 1 Fraction of Inspired Oxygen Intake/Output Intake/Output: Intake & Output 12/17/22 12/18/22 12/19/22 12/20/22 23:59 23:59 23:59 23:59 Intake Total 1048 1356 806 582 Output Total 150 0 2793 1 Balance 898 1356 -1987 581 Meds/Results Medications: Active Medications Generic Name Dose Route Start Last Admin Trade Name Freq PRN Reason Stop Dose Admin Hydrocodone Bitart/Acetaminophen 1 tab 12/18/22 12:02 12/20/22 08:40 Hydrocodone/Acetaminophen (*Crx) 5-325 Mg Tablet PO 1 tab Q6H PRN Administration Pain Rated 4-6 Albuterol 2.5 mg 12/07/22 14:00 08
--- NOTE | 2022-12-20 11:45 | PM.PNNEP ---
Progress Note: A&P Assessment and Plan (1) End stage renal disease: Code(s): N18.6 - End stage renal disease Status: Chronic Assessment and Plan: HD tomorrow continue M/W/F dialysis schedule while hospitalized follow electrolytes, volume status, and clearance (2) Closed left hip fracture: Qualifiers: Encounter type: initial encounter Qualified Code(s): S72.002A - Fracture of unspecified part of neck of left femur, initial encounter for closed fracture Code(s): S72.002A - Fracture of unspecified part of neck of left femur, initial encounter for closed fracture Status: Acute Assessment and Plan: Orthopedics following s/p bipolar hemiarthroplasty left hip (on 12/08/22) pain control PT/OT as tolerated (3) Cellulitis of right leg: Code(s): L03.115 - Cellulitis of right lower limb Status: Acute Assessment and Plan: as noted by exam possible abscess -- s/p I&D today in OR seems more consistent with infected hematoma General Surgery following continue antibiotics (4) Nausea & vomiting: Code(s): R11.2 - Nausea with vomiting, unspecified Status: Acute Assessment and Plan: resolved on IV antiemetics and PPI recent CT of abd/pelvis with distended stomach complicated by symptoms of dysphagia as well s/p EGD (on 12/13/20) with results noted: severe infectious/erosive esophagitis gastric food retention esophageal biopsy -- Compatible with Candidiasis esophagitis continue supportive therapy (5) Hypertension: Code(s): I10 - Essential (primary) hypertension Status: Chronic Assessment and Plan: reasonable control follow trend of hemodynamics (6) Anemia: Code(s): D64.9 - Anemia, unspecified Status: Chronic Assessment and Plan: due to ESRD Epogen with HD follow H/H (7) COPD (chronic obstructive pulmonary disease): Code(s): J44.9 - Chronic obstructive pulmonary disease, unspecified Status: Chronic Assessment and Plan: seems compensated continue supportive care (8) Diabetes: Code(s): E11.9 - Type 2 diabetes mellitus without complications Status: Chronic Assessment and Plan: follow accu-cheks appears diet controlled glycemic control per hospitalists Will continue to follow. Subjective Date/time seen: 12/20/22 11:45 Interval history: Follow-up for end stage renal disease on hemodialysis. Tolerated hemodialysis treatment yesterday without any issues or problems; issues with left hip pain noted with concerns for possible infection; Orthopedic Surgery has ordered left hip joint aspiration for further assessment; otherwise, appears in no acute or apparent distress. Exam Narrative: General: WD/WN male in NAD Heart: normal S1 and S2; no rub Lungs: coarse breath sounds; decreased at bases Abdomen: soft, nontender, + bowel sounds noted Extremities: no cyanosis or clubbing; no edema Skin: right LE dressings present Objective Data Vital Signs Vital Signs: Vital Signs Temp Pulse Resp BP Pulse Ox O2 Del Method O2 Flow Rate 12/20/22 08:40 81 98 Nasal Cannula 1 12/20/22 08:47 81 12/20/22 08:40 96 Nasal Cannula 1 12/20/22 04:31 97.6 F 79 18 124/52 L 95 12/19/22 20:00 75 18 98 Nasal Cannula 1 12/19/22 20:48 98.2 F 77 17 126/48 L 100 12/19/22 20:59 75 18 12/19/22 20:49 98 Nasal Cannula 3 12/19/22 20:49 76 18 12/19/22 14:00 98.3 F 80 18 119/48 L 100 Intake/Output Intake/Output: Intake & Output 12/17/22 12/18/22 12/19/22 12/20/22 23:59 23:59 23:59 23:59 Intake Total 1048 1356 806 686 Output Total 150 0 2793 1 Balance 898 1356 -1987 685 Meds/Results Medications: Active Medications Generic Name Dose Route Start Last Admin Trade Name Freq PRN Reason Stop Dose Admin Hydrocodone Bitart/Acetaminop
--- NOTE | 2022-12-20 11:45 | P.PNNP_ITS ---
Progress Note: A&P Assessment and Plan (1) End stage renal disease: Code(s): N18.6 - End stage renal disease Status: Chronic Assessment and Plan: * HD tomorrow * continue M/W/F dialysis schedule while hospitalized * follow electrolytes, volume status, and clearance (2) Closed left hip fracture: Qualifiers: Encounter type: initial encounter Qualified Code(s): S72.002A - Fracture of unspecified part of neck of left femur, initial encounter for closed fracture Code(s): S72.002A - Fracture of unspecified part of neck of left femur, initial encounter for closed fracture Status: Acute Assessment and Plan: * Orthopedics following * s/p bipolar hemiarthroplasty left hip (on 12/08/22) * pain control * PT/OT as tolerated (3) Cellulitis of right leg: Code(s): L03.115 - Cellulitis of right lower limb Status: Acute Assessment and Plan: * as noted by exam * possible abscess -- s/p I&D today in OR * seems more consistent with infected hematoma * General Surgery following * continue antibiotics (4) Nausea & vomiting: Code(s): R11.2 - Nausea with vomiting, unspecified Status: Acute Assessment and Plan: * resolved * on IV antiemetics and PPI * recent CT of abd/pelvis with distended stomach * complicated by symptoms of dysphagia as well * s/p EGD (on 12/13/20) with results noted: * severe infectious/erosive esophagitis * gastric food retention * esophageal biopsy -- Compatible with Candidiasis esophagitis * continue supportive therapy (5) Hypertension: Code(s): I10 - Essential (primary) hypertension Status: Chronic Assessment and Plan: * reasonable control * follow trend of hemodynamics (6) Anemia: Code(s): D64.9 - Anemia, unspecified Status: Chronic Assessment and Plan: * due to ESRD * Epogen with HD * follow H/H (7) COPD (chronic obstructive pulmonary disease): Code(s): J44.9 - Chronic obstructive pulmonary disease, unspecified Status: Chronic Assessment and Plan: * seems compensated * continue supportive care (8) Diabetes: Code(s): E11.9 - Type 2 diabetes mellitus without complications Status: Chronic Assessment and Plan: * follow accu-cheks * appears diet controlled * glycemic control per hospitalists Will continue to follow. Subjective Date/time seen: 12/20/22 11:45 Interval history: Follow-up for end stage renal disease on hemodialysis. Tolerated hemodialysis treatment yesterday without any issues or problems; issues with left hip pain noted with concerns for possible infection; Orthopedic Surgery has ordered left hip joint aspiration for further assessment; otherwise, appears in no acute or apparent distress. Exam Narrative: General: WD/WN male in NAD Heart: normal S1 and S2; no rub Lungs: coarse breath sounds; decreased at bases Abdomen: soft, nontender, + bowel sounds noted Extremities: no cyanosis or clubbing; no edema Skin: right LE dressings present Objective Data Vital Signs Vital Signs: Vital Signs Temp Pulse Resp BP Pulse Ox O2 Del Method O2 Flow Rate 12/20/22 08:40 81 98 Nasal Cannula 1 12/20/22 08:47 81 12/20/22 08:40 96 Nasal Cannula 1 12/20/22 04:31 97.
[2022-12-20 11:56] LABS: Glucose Point of Care 208 mg/dl (65-105)
--- NOTE | 2022-12-20 13:02 | PM.IMPN ---
Progress Note: A&P Assessment and Plan (1) Closed left hip fracture: Qualifiers: Encounter type: initial encounter Qualified Code(s): S72.002A - Fracture of unspecified part of neck of left femur, initial encounter for closed fracture Code(s): S72.002A - Fracture of unspecified part of neck of left femur, initial encounter for closed fracture Status: Acute Assessment and Plan: X-ray reveals transcervical fracture of left femoral neck Orthopedics consulted. Postsurgical DVT prophylaxis, PT and OT and analgesics per orthopedic team. Weightbearing as tolerated. Monitor H&H post operatively. Patient with elevated white count which is likely reactive from hip repair. Orthopedics slight erythema noted plan to do ultrasound-guided hip joint aspiration to rule out hip joint infection. (2) Nausea & vomiting: Code(s): R11.2 - Nausea with vomiting, unspecified Status: Acute Assessment and Plan: Much better, tolerating clear liquids. Increase as tolerated reported dysphagia. EGD performed 12/13/2022 suspected infectious esophagitis gastric retention. close follow-up on I's and O's (3) End stage renal disease: Code(s): N18.6 - End stage renal disease Status: Chronic Assessment and Plan: Nephrology has been consulted.? The patient has seen Dr. Justin in the past.? Patient has dialysis on Monday. renal functions are improving with hemodialysis (4) CHF (congestive heart failure), NYHA class I: Qualifiers: Congestive heart failure type: unspecified Qualified Code(s): I50.9 - Heart failure, unspecified Code(s): I50.9 - Heart failure, unspecified Status: Acute Assessment and Plan: Not in an acute exacerbation. Monitor fluid status. Chronic heart failure of unknown type Stable, continue current treatment monitor I's and O's closely (5) COPD (chronic obstructive pulmonary disease): Code(s): J44.9 - Chronic obstructive pulmonary disease, unspecified Status: Chronic Assessment and Plan: Stable, will continue current treatment (6) Hypertension: Code(s): I10 - Essential (primary) hypertension Status: Chronic Assessment and Plan: Resume antihypertensive medication. Monitor closely, stable (7) Diabetes: Code(s): E11.9 - Type 2 diabetes mellitus without complications Status: Chronic Assessment and Plan: Patient controls diabetes with diet. AC and HS with sliding scale insulin. ? Hypoglycemia protocol initiated. Hemoglobin A1c 6.2. Stable on current meds, continue current treatment. (8) Cellulitis of right leg: Code(s): L03.115 - Cellulitis of right lower limb Status: Acute Assessment and Plan: patient has Right diop cellulitis. Ultrasound was done which showed small collection. General surgery consulted continue with IV antibiotics Status post I&D 12/18/2022: Culture pending continue IV clindamycin Dressing changes as ordered Leukocytosis still persist Will switch his antibiotics to IV vancomycin and cefepime particularly with the new concern of hip infection. Allergic to amoxicillin cephalosporins itching rash reported without any severe reactions. He had these reaction once and since then had received amoxicillin without issues in the past. (9) Heart murmur: Code(s): R01.1 - Cardiac murmur, unspecified Status: Acute Assessment and Plan: patient has a grade 3/6 systolic ejection murmur Will order a 2D echo to evaluate the murmur This is pending Subjective Date/time seen: 12/20/22 13:02 Interval history: 12/16/2022: Follow-up for end stage renal disease on hemodialysis. Tolerating hemodialysis treatment at the time of my visit (seen on HD at 3:50PM); pain control seems adequate; breathing/respiratory status doing fairly well; no further issues with dysph
[2022-12-20] MEDS: IPRATROPIUM BR 0.02% INH SOLN 0.5 MG/2.5 ML VIAL INHALATION ×2 (13:53→19:54)
[2022-12-20] MEDS: ALBUTEROL SULFATE NEB 2.5 MG/3 ML INH INHALATION ×2 (13:53→19:54)
--- NOTE | 2022-12-20 14:44 | PC.NURSE ---
On 12/20/22, the student, [Leighann Lizama], provided care and [facility]. I have reviewed the student's documentation and agree with the findings.
--- NOTE | 2022-12-20 14:55 | PM.PNGS ---
Progress Note: A&P Assessment and Plan (1) Cellulitis of right leg: Code(s): L03.115 - Cellulitis of right lower limb Status: Acute Assessment and Plan: Patient is status post incision and drainage of infected right lower extremity hematoma. Preliminary cultures with NGTD. Wound is healing well and no cellulitis noted. Bleeding at the lateral aspect of the incision has stopped since applying silver nitrate yesterday. Continue daily dressing changes with 1/4 iodoform gauze. Ortho has ordered US guided hip joint aspiration today due to elevated WBC count and hip pain. Plan I have discussed the patient's case and plan of care with Dr. Bermudez. Subjective Subjective Date/Time Seen: 12/20/22 14:55 Post Op day: 2 (Incision and drainage of infected right lower extremity hematoma) Patient reports: no new complaints and afebrile Interval history: No specific complaints at this time. Patient is feeling better today than yesterday, but still complains of left hip pain. Denies any right lower extremity pain. Per nursing, no other issues with bleeding since I changed the dressing yesterday. Review of Systems Review of Systems: ROS unchanged Exam Narrative: Right lower leg dressing and packing removed. No significant cellulitis noted today. Wound appears dry with healthy tissue in the wound bed. No bleeding. No purulence drainage. Wound repacked with quarter-inch iodoform. Objective Data Vital Signs Vital Signs: Vital Signs - 24 hr 12/19/22 20:49 12/19/22 20:49 12/19/22 20:59 Temperature Pulse Rate 76 75 Respiratory Rate 18 18 Blood Pressure Pulse Oximetry 98 Oxygen Delivery Nasal Cannula Oxygen Flow Rate 3 Fraction of Inspired Oxygen 12/19/22 20:48 12/19/22 20:00 12/20/22 04:31 Temperature 98.2 F 97.6 F Pulse Rate 77 75 79 Respiratory Rate 17 18 18 Blood Pressure 126/48 L 124/52 L Pulse Oximetry 100 98 95 Oxygen Delivery Nasal Cannula Oxygen Flow Rate 1 Fraction of Inspired Oxygen 32 12/20/22 08:40 12/20/22 08:47 12/20/22 08:40 Temperature Pulse Rate 81 81 Respiratory Rate Blood Pressure Pulse Oximetry 96 98 Oxygen Delivery Nasal Cannula Nasal Cannula Oxygen Flow Rate 1 1 Fraction of Inspired Oxygen 12/20/22 13:34 12/20/22 13:50 12/20/22 14:05 Temperature Pulse Rate 72 77 Respiratory Rate 18 18 Blood Pressure Pulse Oximetry 98 Oxygen Delivery Nasal Cannula Oxygen Flow Rate 1 Fraction of Inspired Oxygen 12/20/22 14:41 Temperature 97.2 F L Pulse Rate 77 Respiratory Rate 20 Blood Pressure 100/40 L Pulse Oximetry 99 Oxygen Delivery Oxygen Flow Rate Fraction of Inspired Oxygen Intake/Output Intake/Output: Intake & Output 12/17/22 12/18/22 12/19/22 12/20/22 23:59 23:59 23:59 23:59 Intake Total 1048 1356 806 806 Output Total 150 0 2793 1 Balance 898 1356 -1986 805 Meds/Results Medications: Active Medications Generic Name Dose Route Start Last Admin Trade Name Freq PRN Reason Stop Dose Admin Hydrocodone Bitart/Acetaminophen 1 tab 12/18/22 12:02 12/20/22 08:40 Hydrocodone/Acetaminophen (*Crx) 5-325 Mg Tablet PO 1 tab Q6H PRN Administration Pain Rated 4-6 Albuterol 2.5 mg 12/07/22 14:00 12/20/22 13:53 Albuterol Sulfate Neb 2.5 Mg/3 Ml Inh INHALATION 2.5 mg Q6HRT KAIN Administration Amiodarone HCl 200 mg 12/07/22 09:00 12/20/22 08:47 Amiodarone Hcl 200 Mg Tablet PO 200 mg DAILY KAIN Administration Amlodipine Besylate 5 mg 12/07/22 09:00 12/20/22 08:47 Amlodipine Besylate 5 Mg Tablet PO 5 mg DAILY KAIN Administration Atorvastatin Calcium 20 mg 12/07/22 21:00 12/19/22 21:12 Atorvastatin 20 Mg Tablet PO 20 mg HS KAIN Administration Bisacodyl 5 mg 12/11/22 11:43 Bisacodyl 5 Mg Tablet Ec PO QAM PRN Constipation Bumetanide 4 mg 12/08/22 09:00 12/18/22 13:52 Bumetanide 1 Mg Tablet PO 4 mg ArmenuTh@0900
[2022-12-20 15:10] LABS: Estimated CRCL calculation 17 ml/min; Estimated Glomerular Filt Rate 15
[2022-12-20] MEDS: HYDROmorphone HCL INJ (*CRX) 1 MG/ML SYR 0.5 MG IV PUSH ×2 (15:11→20:12)
[2022-12-20] MEDS: CEFEPIME 0.5 GM in DEXTROSE 5% IN WATER 50 ML IVPB (15:24)
[2022-12-20] MEDS: BUMETANIDE 1 MG TABLET 4 MG PO (16:10)
[2022-12-20 16:52] LABS: Glucose Point of Care 207 mg/dl (65-105)
[2022-12-20] MEDS: ATORVASTATIN 20 MG TABLET PO (20:12)
[2022-12-20 20:58] LABS: Glucose Point of Care 157 mg/dl (65-105)
[2022-12-21] VITALS (27 sets, daily range): BP systolic 109–139; BP diastolic 44–83; PULSE 73–109; RESP 16–97; TEMP 36–37.1; O2SAT 91–100
[2022-12-21] MEDS: HYDROmorphone HCL INJ (*CRX) 1 MG/ML SYR 0.5 MG IV PUSH (03:18)
[2022-12-21 05:57] LABS: Hematocrit 22.6 % (42.0-52.0); Mean Corpuscular HGB Conc 30.1 g/dl (32-36); Mean Platelet Volume 9.5 fl (7.4-10.4); Platelet Count Result 316 k/mm3 (150-375); Red Blood Count 2.43 M/mm3 (4.6-6.20); White Blood Count 16.8 K/mm3 (4.5-10.0)
[2022-12-21 06:08] LABS: Hemoglobin 6.8 g/dL (14.0-18.0)
[2022-12-21 06:22] LABS: Anion Gap 7 mmol/L (8-16); Blood Urea Nitrogen 42 mg/dL (9-20); Calcium 7.2 mg/dL (8.4-10.2); Carbon Dioxide 28 mmol/L (22-30); Chloride 96 mmol/L (98-107); Estimated CRCL calculation 14 ml/min; Estimated Glomerular Filt Rate 12; Glucose 113 mg/dL (65-110); Magnesium 1.9 mg/dL (1.6-2.3); Potassium 5.3 mmol/L (3.4-5.0); Sodium 131 mmol/L (137-145)
[2022-12-21 06:30] LABS: Vancomycin Random 18.4 ug/mL (10-20)
[2022-12-21] MEDS: IPRATROPIUM BR 0.02% INH SOLN 0.5 MG/2.5 ML VIAL INHALATION ×3 (08:05→20:58)
[2022-12-21] MEDS: ALBUTEROL SULFATE NEB 2.5 MG/3 ML INH INHALATION ×3 (08:05→20:58)
[2022-12-21 08:30] LABS: Glucose Point of Care 116 mg/dl (65-105)
--- NOTE | 2022-12-21 10:06 | PCOTNOTE ---
Attempted to see Patient for A.M. treatment session. Patient out of the room, in dialysis.
[2022-12-21] MEDS: EPOETIN ALFA-EPBX 20,000 UNITS/ML VIAL 20000 UNITS IV PUSH (10:27)
--- NOTE | 2022-12-21 10:52 | PCNWS ---
Weekly nutritional screen. Patient is tolerating current diet with adequate intake. No weight loss reported. No nutritional needs at this time.
--- NOTE | 2022-12-21 12:35 | PM.PNNEP ---
Progress Note: A&P Assessment and Plan (1) End stage renal disease: Code(s): N18.6 - End stage renal disease Status: Chronic Assessment and Plan: HD today continue M/W/F dialysis schedule while hospitalized follow electrolytes, volume status, and clearance (2) Closed left hip fracture: Qualifiers: Encounter type: initial encounter Qualified Code(s): S72.002A - Fracture of unspecified part of neck of left femur, initial encounter for closed fracture Code(s): S72.002A - Fracture of unspecified part of neck of left femur, initial encounter for closed fracture Status: Acute Assessment and Plan: Orthopedics following s/p bipolar hemiarthroplasty left hip (on 12/08/22) s/p left joing aspiration due to increased pain - r/o infection pain control PT/OT as tolerated (3) Cellulitis of right leg: Code(s): L03.115 - Cellulitis of right lower limb Status: Acute Assessment and Plan: as noted by exam possible abscess -- s/p I&D (on 12/18/22) seems more consistent with infected hematoma General Surgery following continue antibiotics (4) Nausea & vomiting: Code(s): R11.2 - Nausea with vomiting, unspecified Status: Acute Assessment and Plan: resolved on IV antiemetics and PPI recent CT of abd/pelvis with distended stomach complicated by symptoms of dysphagia as well s/p EGD (on 12/13/20) with results noted: severe infectious/erosive esophagitis gastric food retention esophageal biopsy -- compatible with Candidiasis esophagitis continue supportive therapy (5) Hypertension: Code(s): I10 - Essential (primary) hypertension Status: Chronic Assessment and Plan: reasonable control follow trend of hemodynamics (6) Anemia: Code(s): D64.9 - Anemia, unspecified Status: Chronic Assessment and Plan: due to ESRD possible acute loss as well (dropping H/H noted_ Epogen with HD PRBC transfusion per protocol follow H/H (7) COPD (chronic obstructive pulmonary disease): Code(s): J44.9 - Chronic obstructive pulmonary disease, unspecified Status: Chronic Assessment and Plan: seems compensated continue supportive care (8) Diabetes: Code(s): E11.9 - Type 2 diabetes mellitus without complications Status: Chronic Assessment and Plan: follow accu-cheks appears diet controlled glycemic control per hospitalists Will continue to follow. Subjective Date/time seen: 12/21/22 12:35 Interval history: Follow-up for end stage renal disease on hemodialysis. Tolerating hemodialysis treatment at the time of my visit (seen on HD at 12:25PM); s/p left hip joint aspiration given complaints of pain in that location; however, pain control seems to adequate at this time; no other issues/events overnight or earlier this morning; H/H low by AM labs. Exam Narrative: General: WD/WN male in NAD Heart: normal S1 and S2; no rub Lungs: coarse breath sounds; decreased at bases Abdomen: soft, nontender, + bowel sounds noted Extremities: no cyanosis or clubbing; no edema Skin: warm and dry Objective Data Vital Signs Vital Signs: Vital Signs Temp Pulse Resp BP Pulse Ox O2 Del Method O2 Flow Rate 12/21/22 12:35 78 129/61 12/21/22 12:20 77 127/64 12/21/22 12:00 79 124/61 12/21/22 11:40 76 119/60 12/21/22 11:20 77 123/61 12/21/22 11:00 78 125/58 L 12/21/22 10:40 85 109/61 12/21/22 10:20 109 H 126/64 12/21/22 10:00 79 137/83 12/21/22 09:40 80 139/62 12/21/22 09:20 81 131/54 L 12/21/22 09:04 81 130/64 12/21/22 08:55 98.0 F 83 16 131/62 12/21/22 08:55 1 12/20/22 20:30 96 Nasal Cannula 1 12/21/22 03:09 98.1 F 80 18 130/50 L 100 12/20/22 21:22 98.1 F 77 18 119/51 L 99 12/20/22 20:00 99
--- NOTE | 2022-12-21 12:35 | P.PNNP_ITS ---
Progress Note: A&P Assessment and Plan (1) End stage renal disease: Code(s): N18.6 - End stage renal disease Status: Chronic Assessment and Plan: * HD today * continue M/W/F dialysis schedule while hospitalized * follow electrolytes, volume status, and clearance (2) Closed left hip fracture: Qualifiers: Encounter type: initial encounter Qualified Code(s): S72.002A - Fracture of unspecified part of neck of left femur, initial encounter for closed fracture Code(s): S72.002A - Fracture of unspecified part of neck of left femur, initial encounter for closed fracture Status: Acute Assessment and Plan: * Orthopedics following * s/p bipolar hemiarthroplasty left hip (on 12/08/22) * s/p left joing aspiration due to increased pain - r/o infection * pain control * PT/OT as tolerated (3) Cellulitis of right leg: Code(s): L03.115 - Cellulitis of right lower limb Status: Acute Assessment and Plan: * as noted by exam * possible abscess -- s/p I&D (on 12/18/22) * seems more consistent with infected hematoma * General Surgery following * continue antibiotics (4) Nausea & vomiting: Code(s): R11.2 - Nausea with vomiting, unspecified Status: Acute Assessment and Plan: * resolved * on IV antiemetics and PPI * recent CT of abd/pelvis with distended stomach * complicated by symptoms of dysphagia as well * s/p EGD (on 12/13/20) with results noted: * severe infectious/erosive esophagitis * gastric food retention * esophageal biopsy -- compatible with Candidiasis esophagitis * continue supportive therapy (5) Hypertension: Code(s): I10 - Essential (primary) hypertension Status: Chronic Assessment and Plan: * reasonable control * follow trend of hemodynamics (6) Anemia: Code(s): D64.9 - Anemia, unspecified Status: Chronic Assessment and Plan: * due to ESRD * possible acute loss as well (dropping H/H noted_ * Epogen with HD * PRBC transfusion per protocol * follow H/H (7) COPD (chronic obstructive pulmonary disease): Code(s): J44.9 - Chronic obstructive pulmonary disease, unspecified Status: Chronic Assessment and Plan: * seems compensated * continue supportive care (8) Diabetes: Code(s): E11.9 - Type 2 diabetes mellitus without complications Status: Chronic Assessment and Plan: * follow accu-cheks * appears diet controlled * glycemic control per hospitalists Will continue to follow. Subjective Date/time seen: 12/21/22 12:35 Interval history: Follow-up for end stage renal disease on hemodialysis. Tolerating hemodialysis treatment at the time of my visit (seen on HD at 12:25PM); s/p left hip joint aspiration given complaints of pain in that location; however, pain control seems to adequate at this time; no other issues/events overnight or earlier this morning; H/H low by AM labs. Exam Narrative: General: WD/WN male in NAD Heart: normal S1 and S2; no rub Lungs: coarse breath sounds; decreased at bases Abdomen: soft, nontender, + bowel sounds noted Extremities: no cyanosis or clubbing; no edema Skin: warm and dry Objective Data Vital Signs Vital Signs: Vital Signs Temp Pulse Resp BP Pulse Ox O2 Del Method O2 Flow Rate 12/21/22
--- NOTE | 2022-12-21 13:30 | PCOTNOTE ---
Patient still out of the room at this time. Patient in dialysis.
--- NOTE | 2022-12-21 13:37 | PM.IMPN ---
Progress Note: A&P Assessment and Plan (1) Closed left hip fracture: Qualifiers: Encounter type: initial encounter Qualified Code(s): S72.002A - Fracture of unspecified part of neck of left femur, initial encounter for closed fracture Code(s): S72.002A - Fracture of unspecified part of neck of left femur, initial encounter for closed fracture Status: Acute Assessment and Plan: X-ray reveals transcervical fracture of left femoral neck Orthopedics consulted. Postsurgical DVT prophylaxis, PT and OT and analgesics per orthopedic team. Weightbearing as tolerated. Monitor H&H post operatively. Stable on current medication. Continue current treatment. (2) Nausea & vomiting: Code(s): R11.2 - Nausea with vomiting, unspecified Status: Acute Assessment and Plan: Much better, resolved. (3) End stage renal disease: Code(s): N18.6 - End stage renal disease Status: Chronic Assessment and Plan: ? Patient has dialysis on Monday. Will continue and monitor labs. (4) CHF (congestive heart failure), NYHA class I: Qualifiers: Congestive heart failure type: unspecified Qualified Code(s): I50.9 - Heart failure, unspecified Code(s): I50.9 - Heart failure, unspecified Status: Acute Assessment and Plan: Not in an acute exacerbation. Monitor fluid status. Stable on current medication. Continue current treatment. (5) COPD (chronic obstructive pulmonary disease): Code(s): J44.9 - Chronic obstructive pulmonary disease, unspecified Status: Chronic Assessment and Plan: Stable, will continue current treatment (6) Hypertension: Code(s): I10 - Essential (primary) hypertension Status: Chronic Assessment and Plan: Stable on current medication. Continue current treatment. (7) Diabetes: Code(s): E11.9 - Type 2 diabetes mellitus without complications Status: Chronic Assessment and Plan: Patient controls diabetes with diet. AC and HS with sliding scale insulin. ? Hypoglycemia protocol initiated. Hemoglobin A1c 6.2. Stable on current meds, continue current treatment. (8) Cellulitis of right leg: Code(s): L03.115 - Cellulitis of right lower limb Status: Acute Assessment and Plan: patient has Right diop cellulitis. Ultrasound was done which showed small collection. General surgery consulted continue with IV antibiotics Status post I&D 12/18/2022: Culture pending continue IV clindamycin Dressing changes as ordered Will continue current treatment. Subjective Date/time seen: 12/21/22 13:37 Interval history: Patient was seen during the morning rounds today. Patient pain is under control. No shortness of breath or chest pain No abdominal pain, no nausea, no vomiting. Mood stable. Review of Systems Review of Systems: All systems reviewed & are unremarkable except as noted in HPI and below (the history and physical exam.) Exam Narrative: Head/eyes: Atraumatic, EOMI, PERRLA. ENT: Moist mucous membranes, nasal passages clear. Neck: Supple, full range of motion, trachea midline. CVS: S1 + S2, + grade 3/6 systolic ejection, regular rate and rhythm Respiratory: Bilaterally decreased air entry in both lung atkins, mild B/L crackles, symmetric expansion of chest, no distress Abdomen: Soft, non-tender, bowel sounds +ve, no organomegaly. Extremities: No clubbing, no cyanosis, no edema, no calf tenderness Musculoskeletal: Moves all, full range of motion, no muscle spasms, right leg covered with bandages Skin: Warm, dry, no jaundice, no cyanosis Neurological: Awake, alert, oriented x 3, cranial nerves II-XII intact, no focal neurological deficits. Psychiatric: Normal mood, non suicidal. Objective Data Vital Signs Vital Signs: Vital Signs - 24 hr 12/20/22 13:50 12/20/22 14:05 12/20/22 14:41 Temperature
[2022-12-21 14:03] LABS: Glucose Point of Care 107 mg/dl (65-105)
--- NOTE | 2022-12-21 14:05 | PC.NURSE ---
pt returned from dialysis via bed @ 1400
[2022-12-21] MEDS: SEVELAMER CARBONATE 800 MG TABLET 1600 MG PO ×2 (14:24→17:37)
[2022-12-21] MEDS: CHOLECALCIFEROL 1,000 UNITS TABLET 5000 UNITS PO (14:24)
[2022-12-21] MEDS: ESCITALOPRAM OXALATE 10 MG TABLET 20 MG PO (14:24)
[2022-12-21] MEDS: HYDROcodone/acetaminophen (*CRX) 5-325 MG TABLET 1 TAB PO ×2 (14:25→22:01)
[2022-12-21] MEDS: SENNA/DOCUSATE SODIUM TABLET 2 TAB PO ×2 (14:25→17:37)
[2022-12-21] MEDS: MAGNESIUM OXIDE 400 MG TABLET PO (14:25)
[2022-12-21] MEDS: AMIODARONE HCL 200 MG TABLET PO (14:25)
[2022-12-21] MEDS: FERROUS SULFATE 325 MG TABLET DR PO (14:25)
[2022-12-21] MEDS: amLODIPine BESYLATE 5 MG TABLET PO (14:25)
[2022-12-21] MEDS: TAMSULOSIN HCL 0.4 MG CAPSULE PO (14:25)
[2022-12-21] MEDS: ENOXAPARIN 30 MG/0.3 ML SYRINGE SUB-Q (14:33)
[2022-12-21] MEDS: CEFEPIME 0.5 GM in DEXTROSE 5% IN WATER 50 ML IVPB (14:33)
[2022-12-21] MEDS: PANTOPRAZOLE SODIUM IV 40 MG VIAL IV PUSH ×2 (14:33→20:02)
--- NOTE | 2022-12-21 14:43 | PCPTNOTE ---
The patient treatment was not able to be completed today. PT attempted to see patient 3x today. Patient in dialysis this morning and then eating lunch at this time. Will plan to continue treatment per plan of care.
--- NOTE | 2022-12-21 15:20 | PM.PNGS ---
Progress Note: A&P Assessment and Plan (1) Cellulitis of right leg: Code(s): L03.115 - Cellulitis of right lower limb Status: Acute Assessment and Plan: Patient is status post incision and drainage of infected right lower extremity hematoma. Preliminary cultures with NGTD. Wound healing well. Continue daily dressing changes with 1/4 iodoform gauze. Plan I have discussed the patient's case and plan of care with Dr. Bermudez. Subjective Subjective Date/Time Seen: 12/21/22 15:20 Post Op day: 3 (Incision and drainage of infected right lower extremity hematoma) Patient reports: no new complaints Interval history: No new complaints. He had dialysis today. Denies any pain in his right lower extremity. Nursing has not yet changed the dressing. Exam Narrative: Right lower leg dressing and packing removed.? No surrounding cellulitis.? Wound appears dry with some granulation tissue forming in the base of the wound.? Much less tender. No bleeding.? No purulent drainage.? Wound repacked with quarter-inch iodoform. Objective Data Vital Signs Vital Signs: Vital Signs - 24 hr 12/20/22 19:57 12/20/22 20:05 12/20/22 20:00 Temperature Pulse Rate 75 75 Respiratory Rate 18 18 Blood Pressure Pulse Oximetry 99 Oxygen Delivery Nasal Cannula Oxygen Flow Rate 1 12/20/22 21:22 12/21/22 03:09 12/20/22 20:30 Temperature 98.1 F 98.1 F Pulse Rate 77 80 Respiratory Rate 18 18 Blood Pressure 119/51 L 130/50 L Pulse Oximetry 99 100 96 Oxygen Delivery Nasal Cannula Oxygen Flow Rate 1 12/21/22 08:55 12/21/22 08:55 12/21/22 09:04 Temperature 98.0 F Pulse Rate 83 81 Respiratory Rate 16 Blood Pressure 131/62 130/64 Pulse Oximetry Oxygen Delivery Oxygen Flow Rate 1 12/21/22 09:20 12/21/22 09:40 12/21/22 10:00 Temperature Pulse Rate 81 80 79 Respiratory Rate Blood Pressure 131/54 L 139/62 137/83 Pulse Oximetry Oxygen Delivery Oxygen Flow Rate 12/21/22 10:20 12/21/22 10:40 12/21/22 11:00 Temperature Pulse Rate 109 H 85 78 Respiratory Rate Blood Pressure 126/64 109/61 125/58 L Pulse Oximetry Oxygen Delivery Oxygen Flow Rate 12/21/22 11:20 12/21/22 11:40 12/21/22 12:00 Temperature Pulse Rate 77 76 79 Respiratory Rate Blood Pressure 123/61 119/60 124/61 Pulse Oximetry Oxygen Delivery Oxygen Flow Rate 12/21/22 12:20 12/21/22 12:38 12/21/22 12:56 Temperature 97.8 F Pulse Rate 77 78 79 Respiratory Rate 18 Blood Pressure 127/64 129/61 122/57 L Pulse Oximetry Oxygen Delivery Oxygen Flow Rate 12/21/22 14:25 12/21/22 14:00 12/21/22 14:45 Temperature 98.3 F Pulse Rate 94 87 73 Respiratory Rate 18 18 Blood Pressure 130/51 L Pulse Oximetry 93 Oxygen Delivery Oxygen Flow Rate 12/21/22 14:53 Temperature Pulse Rate 77 Respiratory Rate 18 Blood Pressure Pulse Oximetry Oxygen Delivery Oxygen Flow Rate Intake/Output Intake/Output: Intake & Output 12/18/22 12/19/22 12/20/22 12/21/22 23:59 23:59 23:59 23:59 Intake Total 2806 400 3993 630 Output Total 0 2793 601 3000 Balance 1355 -1986 [id number] -[id number] Meds/Results Medications: Active Medications Generic Name Dose Route Start Last Admin Trade Name Freq PRN Reason Stop Dose Admin Hydrocodone Bitart/Acetaminophen 1 tab 12/18/22 12:02 12/21/22 14:25 Hydrocodone/Acetaminophen (*Crx) 5-325 Mg Tablet PO 1 tab Q6H PRN Administration Pain Rated 4-6 Albuterol 2.5 mg 12/07/22 14:00 12/21/22 14:45 Albuterol Sulfate Neb 2.5 Mg/3 Ml Inh INHALATION 2.5 mg Q6HRT KAIN Administration Amiodarone HCl 200 mg 12/07/22 09:00 12/21/22 14:25 Amiodarone Hcl 200 Mg Tablet PO 200 mg DAILY KAIN Administration Amlodipine Besylate 5 mg 12/07/22 09:00 12/21/22 14:25 Amlodipine Besylate 5 Mg Tablet PO 5 mg DAILY KAIN Administration Atorvastatin Calcium 20 mg 12/07/22 21:00 12/20/22 20
--- NOTE | 2022-12-21 16:05 | PM.PNORT ---
Progress Note: A&P Assessment and Plan (1) History of partial replacement of left hip joint using bipolar prosthesis: Code(s): Z96.642 - Presence of left artificial hip joint Status: Acute (2) Closed left hip fracture: Qualifiers: Encounter type: initial encounter Qualified Code(s): S72.002A - Fracture of unspecified part of neck of left femur, initial encounter for closed fracture Code(s): S72.002A - Fracture of unspecified part of neck of left femur, initial encounter for closed fracture Status: Acute (3) End stage renal disease: Code(s): N18.6 - End stage renal disease Status: Chronic Plan Post Bipolar hemiarthroplasty. Patient at dialysis at the time of my visit. Aspiration was successful with 12 ml of dark red fluid drained. Sent for cultures. Cultures pending. Will see patient tomorrow. Subjective Subjective Date/Time Seen: 12/21/22 16:05 Objective Data Vital Signs Vital Signs: Vital Signs - 24 hr 12/20/22 19:57 12/20/22 20:05 12/20/22 20:00 Temperature Pulse Rate 75 75 Respiratory Rate 18 18 Blood Pressure Pulse Oximetry 99 Oxygen Delivery Nasal Cannula Oxygen Flow Rate 1 12/20/22 21:22 12/21/22 03:09 12/20/22 20:30 Temperature 98.1 F 98.1 F Pulse Rate 77 80 Respiratory Rate 18 18 Blood Pressure 119/51 L 130/50 L Pulse Oximetry 99 100 96 Oxygen Delivery Nasal Cannula Oxygen Flow Rate 1 12/21/22 08:55 12/21/22 08:55 12/21/22 09:04 Temperature 98.0 F Pulse Rate 83 81 Respiratory Rate 16 Blood Pressure 131/62 130/64 Pulse Oximetry Oxygen Delivery Oxygen Flow Rate 1 12/21/22 09:20 12/21/22 09:40 12/21/22 10:00 Temperature Pulse Rate 81 80 79 Respiratory Rate Blood Pressure 131/54 L 139/62 137/83 Pulse Oximetry Oxygen Delivery Oxygen Flow Rate 12/21/22 10:20 12/21/22 10:40 12/21/22 11:00 Temperature Pulse Rate 109 H 85 78 Respiratory Rate Blood Pressure 126/64 109/61 125/58 L Pulse Oximetry Oxygen Delivery Oxygen Flow Rate 12/21/22 11:20 12/21/22 11:40 12/21/22 12:00 Temperature Pulse Rate 77 76 79 Respiratory Rate Blood Pressure 123/61 119/60 124/61 Pulse Oximetry Oxygen Delivery Oxygen Flow Rate 12/21/22 12:20 12/21/22 12:38 12/21/22 12:56 Temperature 97.8 F Pulse Rate 77 78 79 Respiratory Rate 18 Blood Pressure 127/64 129/61 122/57 L Pulse Oximetry Oxygen Delivery Oxygen Flow Rate 12/21/22 14:25 12/21/22 14:00 12/21/22 14:45 Temperature 98.3 F Pulse Rate 94 87 73 Respiratory Rate 18 18 Blood Pressure 130/51 L Pulse Oximetry 93 Oxygen Delivery Oxygen Flow Rate 12/21/22 14:53 Temperature Pulse Rate 77 Respiratory Rate 18 Blood Pressure Pulse Oximetry Oxygen Delivery Oxygen Flow Rate Intake/Output Intake/Output: Intake & Output 12/18/22 12/19/22 12/20/22 12/21/22 23:59 23:59 23:59 23:59 Intake Total 2530 098 0112 630 Output Total 0 2793 601 3000 Balance [facility] -1986 [id number] [id number] Meds/Results Medications: Active Medications Generic Name Dose Route Start Last Admin Trade Name Freq PRN Reason Stop Dose Admin Hydrocodone Bitart/Acetaminophen 1 tab 12/18/22 12:02 12/21/22 14:25 Hydrocodone/Acetaminophen (*Crx) 5-325 Mg Tablet PO 1 tab Q6H PRN Administration Pain Rated 4-6 Albuterol 2.5 mg 12/07/22 14:00 12/21/22 14:45 Albuterol Sulfate Neb 2.5 Mg/3 Ml Inh INHALATION 2.5 mg Q6HRT KAIN Administration Amiodarone HCl 200 mg 12/07/22 09:00 12/21/22 14:25 Amiodarone Hcl 200 Mg Tablet PO 200 mg DAILY KAIN Administration Amlodipine Besylate 5 mg 12/07/22 09:00 12/21/22 14:25 Amlodipine Besylate 5 Mg Tablet PO 5 mg DAILY KAIN Administration Atorvastatin Calcium 20 mg 12/07/22 21:00 12/20/22 20:12 Atorvastatin 20 Mg Tablet PO 20 mg HS KAIN Administration Bisacodyl 5 mg 12/11/22 11:43 Bisacodyl 5 Mg Tablet
[2022-12-21] MEDS: SODIUM CHLORIDE 0.9% IV 250 ML 30 ML IV CONT (16:38)
[2022-12-21 16:59] LABS: Glucose Point of Care 193 mg/dl (65-105)
[2022-12-21] MEDS: VANCOMYCIN 750 MG/NS 250 ML 750 MG/250 ML BAG 125 MG IVPB (18:02)
[2022-12-21] MEDS: ATORVASTATIN 20 MG TABLET PO (20:02)
[2022-12-21 20:49] LABS: Glucose Point of Care 243 mg/dl (65-105)
[2022-12-22] VITALS (10 sets, daily range): BP systolic 134–158; BP diastolic 51–58; PULSE 72–85; RESP 16–18; TEMP 36.6–36.8; O2SAT 92–100
[2022-12-22 01:05] LABS: Hematocrit 26.4 % (42.0-52.0); Hemoglobin 7.8 g/dL (14.0-18.0)
[2022-12-22] MEDS: ALBUTEROL SULFATE NEB 2.5 MG/3 ML INH INHALATION ×3 (02:52→20:01)
[2022-12-22] MEDS: IPRATROPIUM BR 0.02% INH SOLN 0.5 MG/2.5 ML VIAL INHALATION ×3 (02:52→20:02)
[2022-12-22 06:43] LABS: Hematocrit 26.8 % (42.0-52.0); Hemoglobin 7.9 g/dL (14.0-18.0); Mean Corpuscular HGB Conc 29.5 g/dl (32-36); Mean Corpuscular Hemoglobin 27.8 pg (26-34); Mean Corpuscular Volume 94.4 fl (80-100); Mean Platelet Volume 9.7 fl (7.4-10.4); Platelet Count Result 373 k/mm3 (150-375); Red Blood Count 2.84 M/mm3 (4.6-6.20); Red Cell Distribution Width 17.3 % (11.5-14.5); White Blood Count 17.7 K/mm3 (4.5-10.0)
[2022-12-22 06:58] LABS: Anion Gap 4 mmol/L (8-16); Blood Urea Nitrogen 25 mg/dL (9-20); Calcium 7.4 mg/dL (8.4-10.2); Carbon Dioxide 30 mmol/L (22-30); Chloride 100 mmol/L (98-107); Estimated CRCL calculation 21 ml/min; Estimated Glomerular Filt Rate 20; Glucose 131 mg/dL (65-110); Potassium 4.3 mmol/L (3.4-5.0); Sodium 134 mmol/L (137-145)
--- NOTE | 2022-12-22 07:52 | PM.IMPN ---
Progress Note: A&P Assessment and Plan (1) Closed left hip fracture: Qualifiers: Encounter type: initial encounter Qualified Code(s): S72.002A - Fracture of unspecified part of neck of left femur, initial encounter for closed fracture Code(s): S72.002A - Fracture of unspecified part of neck of left femur, initial encounter for closed fracture Status: Acute Assessment and Plan: X-ray reveals transcervical fracture of left femoral neck Orthopedics consulted. Postsurgical DVT prophylaxis, PT and OT and analgesics per orthopedic team. Weightbearing as tolerated. Monitor H&H post operatively. Hematoma is improving. Culture of the hematoma is pending Abscess culture is pending Stable on current medication. Continue current treatment. (2) Nausea & vomiting: Code(s): R11.2 - Nausea with vomiting, unspecified Status: Acute Assessment and Plan: Much better, resolved. (3) End stage renal disease: Code(s): N18.6 - End stage renal disease Status: Chronic Assessment and Plan: ? Patient has dialysis on Monday. Will continue and monitor labs. (4) CHF (congestive heart failure), NYHA class I: Qualifiers: Congestive heart failure type: unspecified Qualified Code(s): I50.9 - Heart failure, unspecified Code(s): I50.9 - Heart failure, unspecified Status: Acute Assessment and Plan: Not in an acute exacerbation. Monitor fluid status. Stable on current medication. Continue current treatment. (5) COPD (chronic obstructive pulmonary disease): Code(s): J44.9 - Chronic obstructive pulmonary disease, unspecified Status: Chronic Assessment and Plan: Stable, will continue current treatment (6) Hypertension: Code(s): I10 - Essential (primary) hypertension Status: Chronic Assessment and Plan: Stable on current medication. Continue current treatment. (7) Diabetes: Code(s): E11.9 - Type 2 diabetes mellitus without complications Status: Chronic Assessment and Plan: Patient controls diabetes with diet. AC and HS with sliding scale insulin. ? Hypoglycemia protocol initiated. Hemoglobin A1c 6.2. Stable on current meds, continue current treatment. (8) Cellulitis of right leg: Code(s): L03.115 - Cellulitis of right lower limb Status: Acute Assessment and Plan: patient has Right diop cellulitis. Ultrasound was done which showed small collection. General surgery consulted continue with IV antibiotics Status post I&D 12/18/2022: Culture pending continue IV clindamycin Dressing changes as ordered Will continue current treatment. Subjective Date/time seen: 12/22/22 07:52 Interval history: I saw exam patient today, patient feels better today, still has right hip pain, no new issue even over the night, patient afebrile, hemodynamically stable, Exam Narrative: Head/eyes: Atraumatic, EOMI, PERRLA. ENT: Moist mucous membranes, nasal passages clear. Neck: Supple, full range of motion, trachea midline. CVS: S1 + S2, + grade 3/6 systolic ejection, regular rate and rhythm Respiratory: Bilaterally decreased air entry in both lung atkins, mild B/L crackles, symmetric expansion of chest, no distress Abdomen: Soft, non-tender, bowel sounds +ve, no organomegaly. Extremities: No clubbing, no cyanosis, no edema, no calf tenderness Musculoskeletal: , left hip movement is restricted, no muscle spasms, right leg covered with bandages, no active drainage Skin: Warm, dry, no jaundice, no cyanosis Neurological: Awake, alert, oriented x 3, cranial nerves II-XII intact, no focal neurological deficits. Psychiatric: Normal mood, non suicidal. Objective Data Vital Signs Vital Signs: Vital Signs - 24 hr 12/21/22 08:55 12/21/22 08:55 12/21/22 09:04 Temperature 98.0 F Pulse Rate 83 81 Respiratory Rate 16 Blood Press
[2022-12-22 07:59] LABS: Glucose Point of Care 163 mg/dl (65-105)
[2022-12-22] MEDS: HYDROmorphone HCL INJ (*CRX) 1 MG/ML SYR 0.5 MG IV PUSH ×2 (08:51→14:20)
[2022-12-22] MEDS: PANTOPRAZOLE SODIUM IV 40 MG VIAL IV PUSH ×2 (08:58→20:59)
[2022-12-22] MEDS: ENOXAPARIN 30 MG/0.3 ML SYRINGE SUB-Q (09:00)
[2022-12-22] MEDS: SEVELAMER CARBONATE 800 MG TABLET 1600 MG PO ×3 (09:07→18:47)
[2022-12-22] MEDS: ESCITALOPRAM OXALATE 10 MG TABLET 20 MG PO (09:07)
[2022-12-22] MEDS: SENNA/DOCUSATE SODIUM TABLET 2 TAB PO ×2 (09:08→18:46)
[2022-12-22] MEDS: AMIODARONE HCL 200 MG TABLET PO (09:08)
[2022-12-22] MEDS: FERROUS SULFATE 325 MG TABLET DR PO (09:08)
[2022-12-22] MEDS: MAGNESIUM OXIDE 400 MG TABLET PO (09:09)
[2022-12-22] MEDS: amLODIPine BESYLATE 5 MG TABLET PO (09:09)
[2022-12-22] MEDS: TAMSULOSIN HCL 0.4 MG CAPSULE PO (09:09)
[2022-12-22] MEDS: BUMETANIDE 1 MG TABLET 4 MG PO (09:15)
--- NOTE | 2022-12-22 09:55 | PCOTNOTE ---
Attempted 2 times this A.M. Patient verbalized he is waiting on test results and is not feeling well today. Patient verbalized he will attempt this afternoon. Will check back
[2022-12-22] MEDS: CHOLECALCIFEROL 1,000 UNITS TABLET 5000 UNITS PO (10:55)
--- NOTE | 2022-12-22 11:03 | PM.PNORT ---
Progress Note: A&P Assessment and Plan (1) History of partial replacement of left hip joint using bipolar prosthesis: Code(s): Z96.642 - Presence of left artificial hip joint Status: Acute (2) Closed left hip fracture: Qualifiers: Encounter type: initial encounter Qualified Code(s): S72.002A - Fracture of unspecified part of neck of left femur, initial encounter for closed fracture Code(s): S72.002A - Fracture of unspecified part of neck of left femur, initial encounter for closed fracture Status: Acute (3) End stage renal disease: Code(s): N18.6 - End stage renal disease Status: Chronic Plan 2 weeks Post Bipolar hemiarthroplasty. Patient seen and examined. Patient is still having left hip pain. He notes the pain did not change after the aspiration. He is working with formal physical therapy and is able to bear weight. Wound healing well. There is concern for prosthetic infection due to increased pain and possible abscess at the diop. Successful aspiration of the left hip with 12cc of dark red fluid. Preliminary cultures of the diop wound and hip are negative. Awaiting final result. If there is infection at the hip, patient will need transferred to tertiary care. Patient's white count remains elevated. He is currently on IV antibiotics. Continue PT/OT. Will continue to follow. Discussed patient's care plan with Dr. Dowling. Subjective Subjective Date/Time Seen: 12/22/22 11:03 Review of Systems Review of Systems: All systems reviewed & are unremarkable except as noted in HPI and below Exam Narrative: Overweight 66 y/o Male. Resting comfortably in bed. Wound healing well. Steri-strips removed today. No bleeding or draining from wound. Moderate swelling in thigh and at incision. This is improving. Mild ecchymosis. Mild erythema around incision improving. Range of motion limited due to pain. Extends leg. Quad fires. Calf nontender. Mild thigh pain. No varicosities. Distal pulses palpable. Wiggles toes. Right lower leg covered with dressing. Objective Data Vital Signs Vital Signs: Vital Signs - 24 hr 12/21/22 11:20 12/21/22 11:40 12/21/22 12:00 Temperature Pulse Rate 77 76 79 Respiratory Rate Blood Pressure 123/61 119/60 124/61 Pulse Oximetry Oxygen Delivery Oxygen Flow Rate 12/21/22 12:20 12/21/22 12:38 12/21/22 12:56 Temperature 97.8 F Pulse Rate 77 78 79 Respiratory Rate 18 Blood Pressure 127/64 129/61 122/57 L Pulse Oximetry Oxygen Delivery Oxygen Flow Rate 12/21/22 14:25 12/21/22 14:00 12/21/22 14:45 Temperature 98.3 F Pulse Rate 94 87 73 Respiratory Rate 18 18 Blood Pressure 130/51 L Pulse Oximetry 93 Oxygen Delivery Oxygen Flow Rate 12/21/22 14:53 12/21/22 16:24 12/21/22 16:42 Temperature 98.1 F 97.9 F Pulse Rate 77 88 88 Respiratory Rate 18 16 17 Blood Pressure 115/44 L 126/49 L Pulse Oximetry 91 94 Oxygen Delivery Oxygen Flow Rate 12/21/22 17:42 12/21/22 18:42 12/21/22 19:42 Temperature 98.7 F 98.3 F 97.2 F L Pulse Rate 89 86 85 Respiratory Rate 97 H 18 16 Blood Pressure 122/51 L 129/51 L 129/49 L Pulse Oximetry 94 95 96 Oxygen Delivery Oxygen Flow Rate 12/21/22 21:00 12/21/22 21:01 12/21/22 21:29 Temperature 98.3 F Pulse Rate 75 85 Respiratory Rate 18 17 Blood Pressure 122/52 L Pulse Oximetry 97 94 Oxygen Delivery Nasal Cannula Oxygen Flow Rate 1 12/22/22 05:25 12/22/22 08:43 12/22/22 09:08 Temperature 98.1 F Pulse Rate 81 80 80 Respiratory Rate 17 Blood Pressure 135/55 L 137/51 L Pulse Oximetry 92 100 Oxygen Delivery Oxygen Flow Rate Intake/Output Intake/Output: Intake & Output 12/19/22 12/20/22 12/21/22 12/22/22 23:59 23:59 23:59 23:59 Intake Total 804 2124 2250 370 Output Total 7788 600 3200 [facility] 1525 -836 370 Meds/Results Medications: Active Medications Generic Name Dose Route Start
[2022-12-22 12:36] LABS: Glucose Point of Care 210 mg/dl (65-105)
--- NOTE | 2022-12-22 13:20 | PM.PNNEP ---
Progress Note: A&P Assessment and Plan (1) End stage renal disease: Code(s): N18.6 - End stage renal disease Status: Chronic Assessment and Plan: HD tomorrow continue M/W/F dialysis schedule while hospitalized follow electrolytes, volume status, and clearance (2) Closed left hip fracture: Qualifiers: Encounter type: initial encounter Qualified Code(s): S72.002A - Fracture of unspecified part of neck of left femur, initial encounter for closed fracture Code(s): S72.002A - Fracture of unspecified part of neck of left femur, initial encounter for closed fracture Status: Acute Assessment and Plan: Orthopedics following s/p bipolar hemiarthroplasty left hip (on 12/08/22) s/p left joing aspiration due to increased pain - r/o infection pain control PT/OT as tolerated (3) Cellulitis of right leg: Code(s): L03.115 - Cellulitis of right lower limb Status: Acute Assessment and Plan: as noted by exam possible abscess -- s/p I&D (on 12/18/22) seems more consistent with infected hematoma General Surgery following continue antibiotics (4) Nausea & vomiting: Code(s): R11.2 - Nausea with vomiting, unspecified Status: Acute Assessment and Plan: resolved on IV antiemetics and PPI recent CT of abd/pelvis with distended stomach complicated by symptoms of dysphagia as well s/p EGD (on 12/13/20) with results noted: severe infectious/erosive esophagitis gastric food retention esophageal biopsy -- compatible with Candidiasis esophagitis continue supportive therapy (5) Hypertension: Code(s): I10 - Essential (primary) hypertension Status: Chronic Assessment and Plan: reasonable control follow trend of hemodynamics (6) Anemia: Code(s): D64.9 - Anemia, unspecified Status: Chronic Assessment and Plan: due to ESRD possible acute loss as well (dropping H/H noted_ Epogen with HD PRBC transfusion per protocol follow H/H (7) COPD (chronic obstructive pulmonary disease): Code(s): J44.9 - Chronic obstructive pulmonary disease, unspecified Status: Chronic Assessment and Plan: seems compensated continue supportive care (8) Diabetes: Code(s): E11.9 - Type 2 diabetes mellitus without complications Status: Chronic Assessment and Plan: follow accu-cheks appears diet controlled glycemic control per hospitalists Will continue to follow. Subjective Date/time seen: 12/22/22 13:20 Interval history: Follow-up for end stage renal disease on hemodialysis. Tolerated dialysis treatment yesterday without any issue or problems; no other acute issues or events noted overnight or earlier this morning; H/H better s/p PRBC transfusion; pain seems under reasonable control. Exam Narrative: General: WD/WN male in NAD Heart: normal S1 and S2; no rub Lungs: coarse breath sounds; decreased at bases Abdomen: soft, nontender, + bowel sounds noted Extremities: no cyanosis or clubbing; no edema Skin: warm and intact Objective Data Vital Signs Vital Signs: Vital Signs Temp Pulse Resp BP Pulse Ox O2 Del Method O2 Flow Rate 12/22/22 13:20 72 18 12/22/22 09:00 100 Nasal Cannula 1 12/22/22 09:08 80 12/22/22 08:43 80 137/51 L 100 12/22/22 05:25 98.1 F 81 17 135/55 L 92 12/21/22 21:29 98.3 F 85 17 122/52 L 94 12/21/22 21:01 97 Nasal Cannula 1 12/21/22 21:00 75 18 12/21/22 19:42 97.2 F L 85 16 129/49 L 96 12/21/22 18:42 98.3 F 86 18 129/51 L 95 12/21/22 17:42 98.7 F 89 97 H 122/51 L 94 12/21/22 16:42 97.9 F 88 17 126/49 L 94 12/21/22 16:24 98.1 F 88 16 115/44 L 91 12/21/22 14:53 77 18 Intake/Output Intake/Output: Intake & Output 12/19/22 12/20/22 12/21/22 12/22/22 23:59 23:59 23:59 23:59 Intake Total
--- NOTE | 2022-12-22 13:20 | P.PNNP_ITS ---
Progress Note: A&P Assessment and Plan (1) End stage renal disease: Code(s): N18.6 - End stage renal disease Status: Chronic Assessment and Plan: * HD tomorrow * continue M/W/F dialysis schedule while hospitalized * follow electrolytes, volume status, and clearance (2) Closed left hip fracture: Qualifiers: Encounter type: initial encounter Qualified Code(s): S72.002A - Fracture of unspecified part of neck of left femur, initial encounter for closed fracture Code(s): S72.002A - Fracture of unspecified part of neck of left femur, initial encounter for closed fracture Status: Acute Assessment and Plan: * Orthopedics following * s/p bipolar hemiarthroplasty left hip (on 12/08/22) * s/p left joing aspiration due to increased pain - r/o infection * pain control * PT/OT as tolerated (3) Cellulitis of right leg: Code(s): L03.115 - Cellulitis of right lower limb Status: Acute Assessment and Plan: * as noted by exam * possible abscess -- s/p I&D (on 12/18/22) * seems more consistent with infected hematoma * General Surgery following * continue antibiotics (4) Nausea & vomiting: Code(s): R11.2 - Nausea with vomiting, unspecified Status: Acute Assessment and Plan: * resolved * on IV antiemetics and PPI * recent CT of abd/pelvis with distended stomach * complicated by symptoms of dysphagia as well * s/p EGD (on 12/13/20) with results noted: * severe infectious/erosive esophagitis * gastric food retention * esophageal biopsy -- compatible with Candidiasis esophagitis * continue supportive therapy (5) Hypertension: Code(s): I10 - Essential (primary) hypertension Status: Chronic Assessment and Plan: * reasonable control * follow trend of hemodynamics (6) Anemia: Code(s): D64.9 - Anemia, unspecified Status: Chronic Assessment and Plan: * due to ESRD * possible acute loss as well (dropping H/H noted_ * Epogen with HD * PRBC transfusion per protocol * follow H/H (7) COPD (chronic obstructive pulmonary disease): Code(s): J44.9 - Chronic obstructive pulmonary disease, unspecified Status: Chronic Assessment and Plan: * seems compensated * continue supportive care (8) Diabetes: Code(s): E11.9 - Type 2 diabetes mellitus without complications Status: Chronic Assessment and Plan: * follow accu-cheks * appears diet controlled * glycemic control per hospitalists Will continue to follow. Subjective Date/time seen: 12/22/22 13:20 Interval history: Follow-up for end stage renal disease on hemodialysis. Tolerated dialysis treatment yesterday without any issue or problems; no other acute issues or events noted overnight or earlier this morning; H/H better s/p PRBC transfusion; pain seems under reasonable control. Exam Narrative: General: WD/WN male in NAD Heart: normal S1 and S2; no rub Lungs: coarse breath sounds; decreased at bases Abdomen: soft, nontender, + bowel sounds noted Extremities: no cyanosis or clubbing; no edema Skin: warm and intact Objective Data Vital Signs Vital Signs: Vital Signs Temp Pulse Resp BP Pulse Ox O2 Del Method O2 Flow Rate 12/22/22 13:20 72 18 12/22/22 09:00 100 Nasal Cannula 1
[2022-12-22] MEDS: CEFEPIME 0.5 GM in DEXTROSE 5% IN WATER 50 ML IVPB (14:21)
--- NOTE | 2022-12-22 15:34 | PM.PNGS ---
Progress Note: A&P Assessment and Plan (1) Cellulitis of right leg: Code(s): L03.115 - Cellulitis of right lower limb Status: Acute Assessment and Plan: Patient is status post incision and drainage of infected right lower extremity hematoma. Preliminary cultures with NGTD. Wound healing well. Continue daily dressing changes with 1/4 iodoform gauze. Plan I have discussed the patient's case and plan of care with Dr. Bermudze. Subjective Subjective Date/Time Seen: 12/22/22 15:34 Post Op day: 4 (Incision and drainage of infected right lower extremity hematoma) Patient reports: no new complaints Interval history: Patient with no specific complaints at this time. Reports having some left hip pain overnight. Denies any right lower leg pain. Exam Narrative: Right lower leg dressing and packing removed.? No surrounding cellulitis.? Wound appears dry with some granulation tissue forming in the base of the wound, healing well.? Wound repacked with quarter-inch iodoform and covered with 4x4 and kerlex gauze. Objective Data Vital Signs Vital Signs: Vital Signs - 24 hr 12/21/22 16:24 12/21/22 16:42 12/21/22 17:42 Temperature 98.1 F 97.9 F 98.7 F Pulse Rate 88 88 89 Respiratory Rate 16 17 97 H Blood Pressure 115/44 L 126/49 L 122/51 L Pulse Oximetry 91 94 94 Oxygen Delivery Oxygen Flow Rate 12/21/22 18:42 12/21/22 19:42 12/21/22 21:00 Temperature 98.3 F 97.2 F L Pulse Rate 86 85 75 Respiratory Rate 18 16 18 Blood Pressure 129/51 L 129/49 L Pulse Oximetry 95 96 Oxygen Delivery Oxygen Flow Rate 12/21/22 21:01 12/21/22 21:29 12/22/22 05:25 Temperature 98.3 F 98.1 F Pulse Rate 85 81 Respiratory Rate 17 17 Blood Pressure 122/52 L 135/55 L Pulse Oximetry 97 94 92 Oxygen Delivery Nasal Cannula Oxygen Flow Rate 1 12/22/22 08:43 12/22/22 09:08 12/22/22 09:00 Temperature Pulse Rate 80 80 Respiratory Rate Blood Pressure 137/51 L Pulse Oximetry 100 100 Oxygen Delivery Nasal Cannula Oxygen Flow Rate 1 12/22/22 13:50 12/22/22 14:00 Temperature 97.9 F Pulse Rate 72 82 Respiratory Rate 18 18 Blood Pressure 134/57 L Pulse Oximetry 96 Oxygen Delivery Oxygen Flow Rate Intake/Output Intake/Output: Intake & Output 12/19/22 12/20/22 12/21/22 12/22/22 23:59 23:59 23:59 23:59 Intake Total 806 2126 2300 590 Output Total 2793 601 3200 -1986 1525 -900 590 Meds/Results Medications: Active Medications Generic Name Dose Route Start Last Admin Trade Name Freq PRN Reason Stop Dose Admin Hydrocodone Bitart/Acetaminophen 1 tab 12/18/22 12:02 12/21/22 22:01 Hydrocodone/Acetaminophen (*Crx) 5-325 Mg Tablet PO 1 tab Q6H PRN Administration Pain Rated 4-6 Albuterol 2.5 mg 12/07/22 14:00 12/22/22 13:52 Albuterol Sulfate Neb 2.5 Mg/3 Ml Inh INHALATION 2.5 mg Q6HRT KAIN Administration Amiodarone HCl 200 mg 12/07/22 09:00 12/22/22 09:08 Amiodarone Hcl 200 Mg Tablet PO 200 mg DAILY KAIN Administration Amlodipine Besylate 5 mg 12/07/22 09:00 12/22/22 09:09 Amlodipine Besylate 5 Mg Tablet PO 5 mg DAILY KAIN Administration Atorvastatin Calcium 20 mg 12/07/22 21:00 12/21/22 20:02 Atorvastatin 20 Mg Tablet PO 20 mg HS KAIN Administration Bisacodyl 5 mg 12/11/22 11:43 Bisacodyl 5 Mg Tablet Ec PO QAM PRN Constipation Bumetanide 4 mg 12/08/22 09:00 12/22/22 09:15 Bumetanide 1 Mg Tablet PO 4 mg [id number] KAIN Administration Dextrose 12.5 gm 12/08/22 07:13 Dextrose 50% 25 Gm/50 Ml Syringe IV PUSH PRN PRN Hypoglycemia Protocol Docusate Sodium 100 mg 12/07/22 07:26 12/11/22 16:49 Docusate Sodium 100 Mg Capsule PO 100 mg Q12H PRN Administration Constipation Enoxaparin Sodium 30 mg 12/14/22 09:00 12/22/22 09:00 Enoxaparin 30 Mg/0.3 Ml Syringe SUB-Q 30 mg DAILY KAIN Administration Escitalopram Oxalate 20 mg 0
[2022-12-22 17:06] LABS: Glucose Point of Care 161 mg/dl (65-105)
[2022-12-22 20:38] LABS: Glucose Point of Care 140 mg/dl (65-105)
[2022-12-22] MEDS: ATORVASTATIN 20 MG TABLET PO (20:59)
[2022-12-22] MEDS: HYDROcodone/acetaminophen (*CRX) 5-325 MG TABLET 1 TAB PO (21:08)
[2022-12-23] VITALS (25 sets, daily range): BP systolic 105–150; BP diastolic 51–73; PULSE 76–104; RESP 14–18; TEMP 36–36.8; O2SAT 93–99
[2022-12-23] MEDS: HYDROmorphone HCL INJ (*CRX) 1 MG/ML SYR 0.5 MG IV PUSH ×2 (03:19→21:31)
[2022-12-23 05:56] LABS: Vancomycin Random 18.3 ug/mL (10-20)
[2022-12-23] MEDS: ALBUTEROL SULFATE NEB 2.5 MG/3 ML INH INHALATION ×2 (07:08→13:00)
[2022-12-23] MEDS: IPRATROPIUM BR 0.02% INH SOLN 0.5 MG/2.5 ML VIAL INHALATION ×2 (07:08→13:00)
--- NOTE | 2022-12-23 08:06 | PM.IMPN ---
Progress Note: A&P Assessment and Plan (1) Closed left hip fracture: Qualifiers: Encounter type: initial encounter Qualified Code(s): S72.002A - Fracture of unspecified part of neck of left femur, initial encounter for closed fracture Code(s): S72.002A - Fracture of unspecified part of neck of left femur, initial encounter for closed fracture Status: Acute Assessment and Plan: X-ray reveals transcervical fracture of left femoral neck Orthopedics consulted. Postsurgical DVT prophylaxis, PT and OT and analgesics per orthopedic team. Weightbearing as tolerated. Monitor H&H post operatively. Hematoma is improving. Culture of the hematoma has no bacterial growth Abscess culture has no bacterial growth. With to the Stable on current medication. Continue current treatment. (2) Nausea & vomiting: Code(s): R11.2 - Nausea with vomiting, unspecified Status: Acute Assessment and Plan: Much better, resolved. (3) End stage renal disease: Code(s): N18.6 - End stage renal disease Status: Chronic Assessment and Plan: ? Patient has dialysis on Monday. Will continue and monitor labs. (4) CHF (congestive heart failure), NYHA class I: Qualifiers: Congestive heart failure type: unspecified Qualified Code(s): I50.9 - Heart failure, unspecified Code(s): I50.9 - Heart failure, unspecified Status: Acute Assessment and Plan: Not in an acute exacerbation. Monitor fluid status. Stable on current medication. Continue current treatment. (5) COPD (chronic obstructive pulmonary disease): Code(s): J44.9 - Chronic obstructive pulmonary disease, unspecified Status: Chronic Assessment and Plan: Stable, will continue current treatment (6) Hypertension: Code(s): I10 - Essential (primary) hypertension Status: Chronic Assessment and Plan: Stable on current medication. Continue current treatment. (7) Diabetes: Code(s): E11.9 - Type 2 diabetes mellitus without complications Status: Chronic Assessment and Plan: Patient controls diabetes with diet. AC and HS with sliding scale insulin. ? Hypoglycemia protocol initiated. Hemoglobin A1c 6.2. Stable on current meds, continue current treatment. (8) Cellulitis of right leg: Code(s): L03.115 - Cellulitis of right lower limb Status: Acute Assessment and Plan: patient has Right diop cellulitis. Ultrasound was done which showed small collection. General surgery consulted continue with IV antibiotics Status post I&D 12/18/2022: Culture pending continue IV clindamycin Dressing changes as ordered Will continue current treatment. Subjective Date/time seen: 12/23/22 08:06 Interval history: . Saw on exam patient, patient has no new issue events overnight. Patient denies chest pain, shortness of breath the hip pain is tolerable on pain management. No bacterial growth from hematoma and abscess Exam Narrative: Head/eyes: Atraumatic, EOMI, PERRLA. ENT: Moist mucous membranes, nasal passages clear. Neck: Supple, full range of motion, trachea midline. CVS: S1 + S2, + grade 3/6 systolic ejection, regular rate and rhythm Respiratory: Bilaterally decreased air entry in both lung atkins, mild B/L crackles, symmetric expansion of chest, no distress Abdomen: Soft, non-tender, bowel sounds +ve, no organomegaly. Extremities: No clubbing, no cyanosis, no edema, no calf tenderness Musculoskeletal: , left hip movement is restricted, no muscle spasms, right leg covered with bandages, no active drainage Skin: Warm, dry, no jaundice, no cyanosis Neurological: Awake, alert, oriented x 3, cranial nerves II-XII intact, no focal neurological deficits. Psychiatric: Normal mood, non suicidal. Objective Data Vital Signs Vital Signs: Vital Signs - 24 hr 12/22/22 08:43 12/22/22 09:08
--- NOTE | 2022-12-23 08:25 | PCPTNOTE ---
The patient treatment was not able to be completed due to patient out of room for dialysis. Will plan to continue treatment per plan of care.
[2022-12-23 08:51] LABS: Basophils Absolute Auto 0.2 K/mm3 (0.0-0.1); Basophils Percent Auto 1.1 % (0.2-1.2); Eosinophils Absolute Auto 0.5 K/mm3 (0-0.3); Hematocrit 25.4 % (42.0-52.0); Hemoglobin 7.6 g/dL (14.0-18.0); Immature Granulocyte Absolute 0.85 K/mm3 (0.00-0.031); Lymphocytes Absolute Auto 0.81 K/mm3 (0.9-3.2); Lymphocytes Percent Auto 4.8 % (18.3-44.2); Mean Corpuscular HGB Conc 29.9 g/dl (32-36); Mean Corpuscular Volume 93.7 fl (80-100); Mean Platelet Volume 9.3 fl (7.4-10.4); Monocytes Absolute Auto 0.9 K/mm3 (0.1-0.6); Monocytes Percent Auto 5.4 % (2.6-8.5); Neutrophils Absolute Auto 13.7 K/mm3 (1.3-6.7); Neutrophils Percent Auto 80.7 % (45.5-73.1); Platelet Count Result 381 k/mm3 (150-375); Red Blood Count 2.71 M/mm3 (4.6-6.20); Red Cell Distribution Width 17.2 % (11.5-14.5)
[2022-12-23 08:57] LABS: Anion Gap 5 mmol/L (8-16); Blood Urea Nitrogen 32 mg/dL (9-20); Calcium 7.3 mg/dL (8.4-10.2); Carbon Dioxide 28 mmol/L (22-30); Chloride 99 mmol/L (98-107); Estimated CRCL calculation 16 ml/min; Estimated Glomerular Filt Rate 14; Glucose 103 mg/dL (65-110); Potassium 4.7 mmol/L (3.4-5.0); Sodium 132 mmol/L (137-145)
--- NOTE | 2022-12-23 09:20 | P.PNNP_ITS ---
Progress Note: A&P Assessment and Plan (1) End stage renal disease: Code(s): N18.6 - End stage renal disease Status: Chronic Assessment and Plan: * HD today * continue M/W/F dialysis schedule while hospitalized * follow electrolytes, volume status, and clearance (2) Closed left hip fracture: Qualifiers: Encounter type: initial encounter Qualified Code(s): S72.002A - Fracture of unspecified part of neck of left femur, initial encounter for closed fracture Code(s): S72.002A - Fracture of unspecified part of neck of left femur, initial encounter for closed fracture Status: Acute Assessment and Plan: * Orthopedics following * s/p bipolar hemiarthroplasty left hip (on 12/08/22) * s/p left hip aspiration due to increased pain * no evidence of infection by culture data * pain control * PT/OT as tolerated (3) Cellulitis of right leg: Code(s): L03.115 - Cellulitis of right lower limb Status: Acute Assessment and Plan: * as noted by exam * possible abscess noted -- s/p I&D (on 12/18/22) * seems more consistent with infected hematoma * General Surgery following * continue antibiotics (4) Nausea & vomiting: Code(s): R11.2 - Nausea with vomiting, unspecified Status: Acute Assessment and Plan: * resolved * on IV antiemetics and PPI * recent CT of abd/pelvis with distended stomach * complicated by symptoms of dysphagia as well * s/p EGD (on 12/13/20) with results noted: * severe infectious/erosive esophagitis * gastric food retention * esophageal biopsy -- compatible with Candidiasis esophagitis * continue supportive therapy (5) Hypertension: Code(s): I10 - Essential (primary) hypertension Status: Chronic Assessment and Plan: * reasonable control * follow trend of hemodynamics (6) Anemia: Code(s): D64.9 - Anemia, unspecified Status: Chronic Assessment and Plan: * due to ESRD * possible acute loss as well (dropping H/H noted) * Epogen with HD * PRBC transfusion per protocol * follow H/H (7) COPD (chronic obstructive pulmonary disease): Code(s): J44.9 - Chronic obstructive pulmonary disease, unspecified Status: Chronic Assessment and Plan: * seems compensated * continue supportive care (8) Diabetes: Code(s): E11.9 - Type 2 diabetes mellitus without complications Status: Chronic Assessment and Plan: * follow accu-cheks * appears diet controlled * glycemic control per hospitalists Not opposed to discharge from renal perspective if otherwise medically stable. Will continue to follow. Subjective Date/time seen: 12/23/22 09:20 Interval history: Follow-up for end stage renal disease on hemodialysis. Tolerating dialysis treatment at the time of my visit (seen on HD at 9:10AM); no apparent distress noted; pain control seems to be reasonable; no other issues/events overnight or earlier this morning; AM H/H still pending but had been stable since PRBC transfusion. Exam Narrative: General: WD/WN male in NAD Heart: normal S1 and S2; no rub Lungs: coarse breath sounds; decreased at bases Abdomen: soft, nontender, + bowel sounds noted Extremities: no cyanosis or clubbing; no edema Skin: no rash Objective Data Vital Signs Vital Signs: Vital Signs
--- NOTE | 2022-12-23 09:20 | PM.PNNEP ---
Progress Note: A&P Assessment and Plan (1) End stage renal disease: Code(s): N18.6 - End stage renal disease Status: Chronic Assessment and Plan: HD today continue M/W/F dialysis schedule while hospitalized follow electrolytes, volume status, and clearance (2) Closed left hip fracture: Qualifiers: Encounter type: initial encounter Qualified Code(s): S72.002A - Fracture of unspecified part of neck of left femur, initial encounter for closed fracture Code(s): S72.002A - Fracture of unspecified part of neck of left femur, initial encounter for closed fracture Status: Acute Assessment and Plan: Orthopedics following s/p bipolar hemiarthroplasty left hip (on 12/08/22) s/p left hip aspiration due to increased pain no evidence of infection by culture data pain control PT/OT as tolerated (3) Cellulitis of right leg: Code(s): L03.115 - Cellulitis of right lower limb Status: Acute Assessment and Plan: as noted by exam possible abscess noted -- s/p I&D (on 12/18/22) seems more consistent with infected hematoma General Surgery following continue antibiotics (4) Nausea & vomiting: Code(s): R11.2 - Nausea with vomiting, unspecified Status: Acute Assessment and Plan: resolved on IV antiemetics and PPI recent CT of abd/pelvis with distended stomach complicated by symptoms of dysphagia as well s/p EGD (on 12/13/20) with results noted: severe infectious/erosive esophagitis gastric food retention esophageal biopsy -- compatible with Candidiasis esophagitis continue supportive therapy (5) Hypertension: Code(s): I10 - Essential (primary) hypertension Status: Chronic Assessment and Plan: reasonable control follow trend of hemodynamics (6) Anemia: Code(s): D64.9 - Anemia, unspecified Status: Chronic Assessment and Plan: due to ESRD possible acute loss as well (dropping H/H noted) Epogen with HD PRBC transfusion per protocol follow H/H (7) COPD (chronic obstructive pulmonary disease): Code(s): J44.9 - Chronic obstructive pulmonary disease, unspecified Status: Chronic Assessment and Plan: seems compensated continue supportive care (8) Diabetes: Code(s): E11.9 - Type 2 diabetes mellitus without complications Status: Chronic Assessment and Plan: follow accu-cheks appears diet controlled glycemic control per hospitalists Not opposed to discharge from renal perspective if otherwise medically stable. Will continue to follow. Subjective Date/time seen: 12/23/22 09:20 Interval history: Follow-up for end stage renal disease on hemodialysis. Tolerating dialysis treatment at the time of my visit (seen on HD at 9:10AM); no apparent distress noted; pain control seems to be reasonable; no other issues/events overnight or earlier this morning; AM H/H still pending but had been stable since PRBC transfusion. Exam Narrative: General: WD/WN male in NAD Heart: normal S1 and S2; no rub Lungs: coarse breath sounds; decreased at bases Abdomen: soft, nontender, + bowel sounds noted Extremities: no cyanosis or clubbing; no edema Skin: no rash Objective Data Vital Signs Vital Signs: Vital Signs Temp Pulse Resp BP Pulse Ox O2 Del Method 12/23/22 09:20 80 138/66 12/23/22 09:00 81 147/73 H 12/23/22 08:37 79 144/67 H 12/23/22 08:06 81 18 150/65 H 12/23/22 07:15 80 18 12/23/22 07:05 78 18 12/23/22 07:05 78 18 98 Room Air 12/23/22 05:38 97.7 F 81 16 141/58 H 96 12/22/22 21:07 98.3 F 82 18 158/58 H 100 12/22/22 20:13 84 16 12/22/22 20:10 94 Room Air 12/22/22 20:01 85 16 12/22/22 14:00 97.9 F 82 18 134/57 L 96 12/22/22 13:50 72 18 Intake/Output Intake/Output: Intake & Output 12/20/22
[2022-12-23] MEDS: EPOETIN ALFA 20,000 UNITS/ML VIAL 20000 UNITS IV PUSH (10:08)
[2022-12-23] MEDS: HYDROcodone/acetaminophen (*CRX) 5-325 MG TABLET 1 TAB PO ×2 (10:26→18:04)
[2022-12-23 11:29] LABS: Anisocytosis 2+ (NORMAL); Basophilic Stippling 1+ (NORMAL); Hypochromasia 2+ (NORMAL); Schistocytes None Seen (NORMAL)
--- NOTE | 2022-12-23 11:36 | PCOTNOTE ---
Attempted to see pt. for occupational therapy re-evaluation. Pt. currently away from room at dialysis. Following
[2022-12-23 13:36] LABS: Glucose Point of Care 103 mg/dl (65-105)
--- NOTE | 2022-12-23 14:30 | PM.PNORT ---
Progress Note: A&P Assessment and Plan (1) History of partial replacement of left hip joint using bipolar prosthesis: Code(s): Z96.642 - Presence of left artificial hip joint Status: Acute (2) Closed left hip fracture: Qualifiers: Encounter type: initial encounter Qualified Code(s): S72.002A - Fracture of unspecified part of neck of left femur, initial encounter for closed fracture Code(s): S72.002A - Fracture of unspecified part of neck of left femur, initial encounter for closed fracture Status: Acute (3) End stage renal disease: Code(s): N18.6 - End stage renal disease Status: Chronic Plan 15 days weeks Post Bipolar hemiarthroplasty. Patient seen and examined. Suspicion for infection at the hip is declining. Patient is still having pain but it is improving. Wound looks good. Erythema is decreasing. Swelling is decreasing. No tenderness to palpation at the incision site. He is moving better in bed. Hip cultures are negative to date. Wound cultures from the hematoma at the contralateral leg are negative to date. Previous blood cultures are negative. Patient is okay for discharge from orthopedic standpoint. Continue PT/OT. Discussed patient's care plan with Dr. Dowling. Follow up in office. Subjective Subjective Date/Time Seen: 12/23/22 14:30 Interval history: Patient states he has no pain at rest. Pain only with motion. He is getting around a lot better. He still complains of pain but it is not getting any worse. Review of Systems Review of Systems: All systems reviewed & are unremarkable except as noted in HPI and below Exam Narrative: Overweight 66 y/o Male. Resting comfortably in bed. Wound healing well. No bleeding or draining from wound. Mild swelling in thigh and at incision. This is improving. Mild ecchymosis. No erythema. Range of motion limited due to pain but improving. Extends leg. Quad fires. Calf nontender. Mild thigh pain. No varicosities. Distal pulses palpable. Wiggles toes. Right lower leg wound covered with dressing. Objective Data Vital Signs Vital Signs: Vital Signs - 24 hr 12/22/22 20:01 12/22/22 20:10 12/22/22 20:13 Temperature Pulse Rate 85 84 Respiratory Rate 16 16 Blood Pressure Pulse Oximetry 94 Oxygen Delivery Room Air 12/22/22 21:07 12/23/22 05:38 12/23/22 07:05 Temperature 98.3 F 97.7 F Pulse Rate 82 81 78 Respiratory Rate 18 16 18 Blood Pressure 158/58 H 141/58 H Pulse Oximetry 100 96 98 Oxygen Delivery Room Air 12/23/22 07:05 12/23/22 07:15 12/23/22 08:06 Temperature Pulse Rate 78 80 81 Respiratory Rate 18 18 18 Blood Pressure 150/65 H Pulse Oximetry Oxygen Delivery 12/23/22 08:37 12/23/22 09:00 12/23/22 09:20 Temperature Pulse Rate 79 81 80 Respiratory Rate Blood Pressure 144/67 H 147/73 H 138/66 Pulse Oximetry Oxygen Delivery 12/23/22 09:40 12/23/22 10:00 12/23/22 10:20 Temperature Pulse Rate 104 H 82 81 Respiratory Rate Blood Pressure 131/71 141/70 H 136/61 Pulse Oximetry Oxygen Delivery 12/23/22 08:00 12/23/22 10:40 12/23/22 11:00 Temperature Pulse Rate 80 79 Respiratory Rate Blood Pressure 143/63 H 133/62 Pulse Oximetry Oxygen Delivery Room Air 12/23/22 11:20 12/23/22 11:40 12/23/22 12:00 Temperature Pulse Rate 78 76 82 Respiratory Rate Blood Pressure 118/61 125/62 147/70 H Pulse Oximetry Oxygen Delivery 12/23/22 12:10 12/23/22 12:20 12/23/22 13:00 Temperature 98.3 F Pulse Rate 82 82 76 Respiratory Rate 18 18 Blood Pressure 144/70 H 140/64 Pulse Oximetry Oxygen Delivery 12/23/22 13:10 Temperature Pulse Rate 77 Respiratory Rate 18 Blood Pressure Pulse Oximetry Oxygen Delivery Intake/Output Intake/Output: Intake & Output 12/20/22 12/21/22 12/22/22 12/23/22 23:59 23:59 23:59 23:59 Intake Total 2126 2300 590 240 Output Total 601 3200 0 3000 Balance
[2022-12-23] MEDS: CHOLECALCIFEROL 1,000 UNITS TABLET 5000 UNITS PO (16:07)
[2022-12-23] MEDS: AMIODARONE HCL 200 MG TABLET PO (16:08)
[2022-12-23] MEDS: TAMSULOSIN HCL 0.4 MG CAPSULE PO (16:08)
[2022-12-23] MEDS: SENNA/DOCUSATE SODIUM TABLET 2 TAB PO (16:08)
[2022-12-23] MEDS: ESCITALOPRAM OXALATE 10 MG TABLET 20 MG PO (16:08)
[2022-12-23] MEDS: FERROUS SULFATE 325 MG TABLET DR PO (16:08)
[2022-12-23] MEDS: PANTOPRAZOLE SODIUM IV 40 MG VIAL IV PUSH ×2 (16:09→20:53)
[2022-12-23] MEDS: amLODIPine BESYLATE 5 MG TABLET PO (16:09)
[2022-12-23] MEDS: MAGNESIUM OXIDE 400 MG TABLET PO (16:09)
[2022-12-23] MEDS: SEVELAMER CARBONATE 800 MG TABLET 1600 MG PO (16:12)
[2022-12-23] MEDS: CEFEPIME 0.5 GM in DEXTROSE 5% IN WATER 50 ML IVPB (16:14)
--- NOTE | 2022-12-23 16:35 | PM.PNORT ---
Progress Note: A&P Assessment and Plan (1) History of partial replacement of left hip joint using bipolar prosthesis: Code(s): Z96.642 - Presence of left artificial hip joint Status: Acute Plan Patient appears comfortable. His spirits are up. He states he was able to walk 16 steps to the bathroom today. Feels a little unsteady on his feet but feels that with his walker he will be more confident. No fevers or chills. The wound is healed nicely. No drainage or erythema. Does have some bruising posteriorly as well as soft tissue tenderness and fullness. This appears to be slightly less than previously. Distal neurovascular status intact. Cultures are negative from the hip aspiration and from the right leg hematoma. The hip radiographs show the implant to be intact without evidence of subsidence or loosening. He may continue to increase his activities as tolerated. He will be going to rehab. This is a good idea. I expect good improvement over the next several weeks. The hip hematoma is clearly adding to his pain. Fortunately it appears to be resolving and there is no sign of infection at this time. Routine follow-up in clinic 4-6 weeks. Subjective Subjective Date/Time Seen: 12/23/22 16:35 Objective Data Vital Signs Vital Signs: Vital Signs - 24 hr 12/22/22 20:01 12/22/22 20:10 12/22/22 20:13 Temperature Pulse Rate 85 84 Respiratory Rate 16 16 Blood Pressure Pulse Oximetry 94 Oxygen Delivery Room Air 12/22/22 21:07 12/23/22 05:38 12/23/22 07:05 Temperature 36.8 C 36.5 C Pulse Rate 82 81 78 Respiratory Rate 18 16 18 Blood Pressure 158/58 H 141/58 H Pulse Oximetry 100 96 98 Oxygen Delivery Room Air 12/23/22 07:05 12/23/22 07:15 12/23/22 08:06 Temperature Pulse Rate 78 80 81 Respiratory Rate 18 18 18 Blood Pressure 150/65 H Pulse Oximetry Oxygen Delivery 12/23/22 08:37 12/23/22 09:00 12/23/22 09:20 Temperature Pulse Rate 79 81 80 Respiratory Rate Blood Pressure 144/67 H 147/73 H 138/66 Pulse Oximetry Oxygen Delivery 12/23/22 09:40 12/23/22 10:00 12/23/22 10:20 Temperature Pulse Rate 104 H 82 81 Respiratory Rate Blood Pressure 131/71 141/70 H 136/61 Pulse Oximetry Oxygen Delivery 12/23/22 08:00 12/23/22 10:40 12/23/22 11:00 Temperature Pulse Rate 80 79 Respiratory Rate Blood Pressure 143/63 H 133/62 Pulse Oximetry Oxygen Delivery Room Air 12/23/22 11:20 12/23/22 11:40 12/23/22 12:00 Temperature Pulse Rate 78 76 82 Respiratory Rate Blood Pressure 118/61 125/62 147/70 H Pulse Oximetry Oxygen Delivery 12/23/22 12:10 12/23/22 12:20 12/23/22 13:00 Temperature 36.8 C Pulse Rate 82 82 76 Respiratory Rate 18 18 Blood Pressure 144/70 H 140/64 Pulse Oximetry Oxygen Delivery 12/23/22 13:10 12/23/22 14:00 12/23/22 16:05 Temperature 36.4 C Pulse Rate 77 83 83 Respiratory Rate 18 14 Blood Pressure 105/60 137/51 L Pulse Oximetry 99 98 Oxygen Delivery 12/23/22 16:08 Temperature Pulse Rate 83 Respiratory Rate Blood Pressure Pulse Oximetry Oxygen Delivery Intake/Output Intake/Output: Intake & Output 12/20/22 12/21/22 12/22/22 12/23/22 23:59 23:59 23:59 23:59 Intake Total 2126 2300 640 240 Output Total 601 3200 0 3000 Balance 1525 -900 640 -2760 Meds/Results Medications: Active Medications Generic Name Dose Route Start Last Admin Trade Name Freq PRN Reason Stop Dose Admin Hydrocodone Bitart/Acetaminophen 1 tab 12/18/22 12:02 12/23/22 10:26 Hydrocodone/Acetaminophen (*Crx) 5-325 Mg Tablet PO 1 tab Q6H PRN Administration Pain Rated 4-6 Albuterol 2.5 mg 12/07/22 14:00 12/23/22 13:00 Albuterol Sulfate Neb 2.5 Mg/3 Ml Inh INHALATION 2.5 mg Q6HRT KAIN Administration Amiodarone HCl 200 mg 12/07/22 09:00 12/23/22 16:08 Amiodarone Hcl 200 Mg Tablet PO 200 mg DAILY KAIN Administration Amlodipi
[2022-12-23] MEDS: VANCOMYCIN 750 MG/NS 250 ML 750 MG/250 ML BAG 250 MG IVPB (17:02)
[2022-12-23 17:07] LABS: Glucose Point of Care 161 mg/dl (65-105)
--- NOTE | 2022-12-23 20:41 | PCRCNOTE ---
Pt refused Neb tx at this time. Per pt he will resume at 08:00
[2022-12-23] MEDS: ATORVASTATIN 20 MG TABLET PO (20:53)
[2022-12-24] VITALS (9 sets, daily range): BP systolic 111–142; BP diastolic 50–63; PULSE 73–90; RESP 16–18; TEMP 36.4–36.7; O2SAT 93–100
[2022-12-24] MEDS: HYDROcodone/acetaminophen (*CRX) 5-325 MG TABLET 1 TAB PO ×3 (03:25→18:20)
[2022-12-24 06:50] LABS: Basophils Absolute Auto 0.2 K/mm3 (0.0-0.1); Basophils Percent Auto 1.4 % (0.2-1.2); Eosinophils Absolute Auto 0.5 K/mm3 (0-0.3); Eosinophils Percent Auto 3.2 % (0-4.4); Hematocrit 28.8 % (42.0-52.0); Hemoglobin 8.5 g/dL (14.0-18.0); Immature Granulocyte Absolute 0.86 K/mm3 (0.00-0.031); Immature Granulocyte Percent A 5.3 % (0-0.5); Lymphocytes Absolute Auto 0.91 K/mm3 (0.9-3.2); Lymphocytes Percent Auto 5.6 % (18.3-44.2); Mean Corpuscular HGB Conc 29.5 g/dl (32-36); Mean Corpuscular Hemoglobin 27.5 pg (26-34); Mean Corpuscular Volume 93.2 fl (80-100); Mean Platelet Volume 9.1 fl (7.4-10.4); Neutrophils Absolute Auto 12.6 K/mm3 (1.3-6.7); Neutrophils Percent Auto 78.5 % (45.5-73.1); Platelet Count Result 403 k/mm3 (150-375); Red Blood Count 3.09 M/mm3 (4.6-6.20); Red Cell Distribution Width 17.2 % (11.5-14.5); White Blood Count 16.1 K/mm3 (4.5-10.0)
[2022-12-24 06:56] LABS: Anion Gap 5 mmol/L (8-16); Blood Urea Nitrogen 22 mg/dL (9-20); Calcium 7.4 mg/dL (8.4-10.2); Carbon Dioxide 30 mmol/L (22-30); Chloride 99 mmol/L (98-107); Estimated CRCL calculation 22 ml/min; Estimated Glomerular Filt Rate 20; Glucose 134 mg/dL (65-110); Sodium 134 mmol/L (137-145)
[2022-12-24 07:34] LABS: Hypochromasia 1+ (NORMAL); Platelet Estimate Increased (Adequate)
[2022-12-24 07:35] LABS: Anisocytosis 1+ (NORMAL); Schistocytes None Seen (NORMAL)
[2022-12-24] MEDS: ALBUTEROL SULFATE NEB 2.5 MG/3 ML INH INHALATION ×2 (08:19→13:44)
[2022-12-24] MEDS: IPRATROPIUM BR 0.02% INH SOLN 0.5 MG/2.5 ML VIAL INHALATION ×2 (08:19→13:45)
[2022-12-24 08:32] LABS: Glucose Point of Care 118 mg/dl (65-105)
[2022-12-24] MEDS: HYDROmorphone HCL INJ (*CRX) 1 MG/ML SYR 0.5 MG IV PUSH (08:57)
[2022-12-24] MEDS: SEVELAMER CARBONATE 800 MG TABLET 1600 MG PO ×3 (09:01→17:52)
[2022-12-24] MEDS: MAGNESIUM OXIDE 400 MG TABLET PO (09:01)
[2022-12-24] MEDS: CHOLECALCIFEROL 1,000 UNITS TABLET 5000 UNITS PO (09:01)
[2022-12-24] MEDS: TAMSULOSIN HCL 0.4 MG CAPSULE PO (09:02)
[2022-12-24] MEDS: amLODIPine BESYLATE 5 MG TABLET PO (09:02)
[2022-12-24] MEDS: AMIODARONE HCL 200 MG TABLET PO (09:02)
[2022-12-24] MEDS: FERROUS SULFATE 325 MG TABLET DR PO (09:02)
[2022-12-24] MEDS: SENNA/DOCUSATE SODIUM TABLET 2 TAB PO ×2 (09:02→17:52)
[2022-12-24] MEDS: ESCITALOPRAM OXALATE 10 MG TABLET 20 MG PO (09:02)
[2022-12-24] MEDS: BUMETANIDE 1 MG TABLET 4 MG PO (09:08)
[2022-12-24] MEDS: PANTOPRAZOLE SODIUM IV 40 MG VIAL IV PUSH (09:09)
[2022-12-24 12:21] LABS: Glucose Point of Care 253 mg/dl (65-105)
[2022-12-24] MEDS: INSULIN ASPART (*BKC) 100 UNITS/ML SUB-Q (12:39)
--- NOTE | 2022-12-24 13:11 | PCPTNOTE ---
per RN patient is transferring to rehab today. Will do reassessment if patient is still here tomorrow.
--- NOTE | 2022-12-24 13:39 | PM.DS ---
DS: Admitting Diagnosis Discharge Date today Admitting Diagnosis ?Closed left hip fracture Cellulitis over right lower extremity DS: Discharge Diagnosis Discharge Diagnosis (1) Closed left hip fracture: Qualifiers: Encounter type: initial encounter Qualified Code(s): S72.002A - Fracture of unspecified part of neck of left femur, initial encounter for closed fracture Code(s): S72.002A - Fracture of unspecified part of neck of left femur, initial encounter for closed fracture Status: Acute Assessment and Plan: X-ray reveals transcervical fracture of left femoral neck Orthopedics consulted. Postsurgical DVT prophylaxis, PT and OT and analgesics per orthopedic team. Weightbearing as tolerated. Monitor H&H post operatively. Hematoma is improving. Culture of the hematoma has no bacterial growth Abscess culture has no bacterial growth. With to the Stable on current medication. Continue current treatment. (2) Nausea & vomiting: Code(s): R11.2 - Nausea with vomiting, unspecified Status: Acute Assessment and Plan: Much better, resolved. (3) End stage renal disease: Code(s): N18.6 - End stage renal disease Status: Chronic Assessment and Plan: ? Patient has dialysis on Monday. Will continue and monitor labs. (4) CHF (congestive heart failure), NYHA class I: Qualifiers: Congestive heart failure type: unspecified Qualified Code(s): I50.9 - Heart failure, unspecified Code(s): I50.9 - Heart failure, unspecified Status: Acute Assessment and Plan: Not in an acute exacerbation. Monitor fluid status. Stable on current medication. Continue current treatment. (5) COPD (chronic obstructive pulmonary disease): Code(s): J44.9 - Chronic obstructive pulmonary disease, unspecified Status: Chronic Assessment and Plan: Stable, will continue current treatment (6) Hypertension: Code(s): I10 - Essential (primary) hypertension Status: Chronic Assessment and Plan: Stable on current medication. Continue current treatment. (7) Diabetes: Code(s): E11.9 - Type 2 diabetes mellitus without complications Status: Chronic Assessment and Plan: Patient controls diabetes with diet. AC and HS with sliding scale insulin. ? Hypoglycemia protocol initiated. Hemoglobin A1c 6.2. Stable on current meds, continue current treatment. (8) Cellulitis of right leg: Code(s): L03.115 - Cellulitis of right lower limb Status: Acute Assessment and Plan: patient has Right diop cellulitis. Ultrasound was done which showed small collection. General surgery consulted continue with IV antibiotics Status post I&D 12/18/2022: Culture pending continue IV clindamycin Dressing changes as ordered Will continue current treatment. DS: Summary Hospital Course Hospital Course: Per H&P, this is a 66-year-old male with a complicated past medical history including end-stage renal disease, COPD and currently continues to smoke, CHF, hypertension and hyperlipidemia that was transferred to [facility] from [facility] due to left hip fracture and need for dialysis. Patient had been using his Rollator and walking out to his car from? a urology appointment and while he was attempting to put the Rollator in the car he lost his balance and fell onto his hip.? Patient was taken to a nearby hospital where they do not have dialysis available and due to this he had to be transferred here to [facility]. ? he denies any dizziness, trauma to his head or loss of consciousness.? Patient believes that he just lost his balance.? X-ray of the hip and pelvis revealed transcervical fracture of the left femoral neck. Orthopedics consulted.? Patient scheduled for possible surgery 12/08/2022. Patient was recently admitted in October of 2022 due to MRSA infection
--- NOTE | 2022-12-24 13:46 | PCRCNOTE ---
Pt refused 1400 neb treatment, SpO2 is 95% on room air, clear breath sounds.
[2022-12-24 14:07] LABS: SARS-CoV-2 RNA PCR Negative (Negative)
[2022-12-24] MEDS: CEFEPIME 0.5 GM in DEXTROSE 5% IN WATER 50 ML IVPB (14:45)
[2022-12-24 17:12] LABS: Glucose Point of Care 91 mg/dl (65-105)
--- NOTE | 2022-12-24 21:52 | P.PNNP_ITS ---
Progress Note: A&P Assessment and Plan (1) End stage renal disease: Code(s): N18.6 - End stage renal disease Status: Chronic Assessment and Plan: * HD done yesterday * continue M/W/ dialysis schedule as an outpatient. * volume status looks okay * K okay today (2) Closed left hip fracture: Qualifiers: Encounter type: initial encounter Qualified Code(s): S72.002A - Fracture of unspecified part of neck of left femur, initial encounter for closed fracture Code(s): S72.002A - Fracture of unspecified part of neck of left femur, initial encounter for closed fracture Status: Acute Assessment and Plan: * Orthopedics following * s/p bipolar hemiarthroplasty left hip (on 12/08/22) * s/p left hip aspiration due to increased pain * no evidence of infection by culture data * pain control * PT/OT as tolerated (3) Cellulitis of right leg: Code(s): L03.115 - Cellulitis of right lower limb Status: Acute Assessment and Plan: * as noted by exam * possible abscess noted -- s/p I&D (on 12/18/22) * seems more consistent with infected hematoma * General Surgery following * dischaarging on doxycycline (4) Nausea & vomiting: Code(s): R11.2 - Nausea with vomiting, unspecified Status: Acute Assessment and Plan: * resolved * on IV antiemetics prn and PPI * improved. * recent CT of abd/pelvis with distended stomach * complicated by symptoms of dysphagia as well * s/p EGD (on 12/13/20) with results noted: * severe infectious/erosive esophagitis * gastric food retention * esophageal biopsy -- compatible with Candidiasis esophagitis * doing better. eating well lately. * continue supportive therapy (5) Hypertension: Code(s): I10 - Essential (primary) hypertension Status: Chronic Assessment and Plan: * systolic 110 to 140 * follow trend of hemodynamics (6) Anemia: Code(s): D64.9 - Anemia, unspecified Status: Chronic Assessment and Plan: * due to ESRD * possible acute loss as well (dropping H/H noted) * Epogen with HD (7) COPD (chronic obstructive pulmonary disease): Code(s): J44.9 - Chronic obstructive pulmonary disease, unspecified Status: Chronic Assessment and Plan: * seems compensated * continue supportive care (8) Diabetes: Code(s): E11.9 - Type 2 diabetes mellitus without complications Status: Chronic Assessment and Plan: * follow accu-cheks * appears diet controlled * glycemic control per hospitalists Subjective Date/time seen: 12/24/22 10:00 Interval history: pt is alert. feels good. eager for discharage. no cp or sob. he goes to HD on monday. he will take his medlist with him for med reconciliation. Exam Narrative: General: WD/WN male in NAD Heart: normal S1 and S2; no rub or gallop Lungs: coarse breath sounds; decreased at bases Abdomen: soft, nontender, + bowel sounds noted Extremities: no cyanosis or clubbing; no edema Skin: no rash or sq nodules Objective Data Vital Signs Vital Signs: Vital Signs - 24 hr 12/24/22 04:55 12/24/22 08:19 12/24/22 08:22 Temperature 98.1 F Pulse Rate 78 73 73 Respiratory Rate 16 18 18 Blood Pressure 127/63 Pulse Oximetry 97 93 Oxygen Delivery Room A
--- NOTE | 2022-12-24 21:52 | PM.PNNEP ---
Progress Note: A&P Assessment and Plan (1) End stage renal disease: Code(s): N18.6 - End stage renal disease Status: Chronic Assessment and Plan: HD done yesterday continue M// dialysis schedule as an outpatient. volume status looks okay K okay today (2) Closed left hip fracture: Qualifiers: Encounter type: initial encounter Qualified Code(s): S72.002A - Fracture of unspecified part of neck of left femur, initial encounter for closed fracture Code(s): S72.002A - Fracture of unspecified part of neck of left femur, initial encounter for closed fracture Status: Acute Assessment and Plan: Orthopedics following s/p bipolar hemiarthroplasty left hip (on 12/08/22) s/p left hip aspiration due to increased pain no evidence of infection by culture data pain control PT/OT as tolerated (3) Cellulitis of right leg: Code(s): L03.115 - Cellulitis of right lower limb Status: Acute Assessment and Plan: as noted by exam possible abscess noted -- s/p I&D (on 12/18/22) seems more consistent with infected hematoma General Surgery following dischaarging on doxycycline (4) Nausea & vomiting: Code(s): R11.2 - Nausea with vomiting, unspecified Status: Acute Assessment and Plan: resolved on IV antiemetics prn and PPI improved. recent CT of abd/pelvis with distended stomach complicated by symptoms of dysphagia as well s/p EGD (on 12/13/20) with results noted: severe infectious/erosive esophagitis gastric food retention esophageal biopsy -- compatible with Candidiasis esophagitis doing better. eating well lately. continue supportive therapy (5) Hypertension: Code(s): I10 - Essential (primary) hypertension Status: Chronic Assessment and Plan: systolic 110 to 140 follow trend of hemodynamics (6) Anemia: Code(s): D64.9 - Anemia, unspecified Status: Chronic Assessment and Plan: due to ESRD possible acute loss as well (dropping H/H noted) Epogen with HD (7) COPD (chronic obstructive pulmonary disease): Code(s): J44.9 - Chronic obstructive pulmonary disease, unspecified Status: Chronic Assessment and Plan: seems compensated continue supportive care (8) Diabetes: Code(s): E11.9 - Type 2 diabetes mellitus without complications Status: Chronic Assessment and Plan: follow accu-cheks appears diet controlled glycemic control per hospitalists Subjective Date/time seen: 12/24/22 10:00 Interval history: pt is alert. feels good. eager for discharage. no cp or sob. he goes to HD on monday. he will take his medlist with him for med reconciliation. Exam Narrative: General: WD/WN male in NAD Heart: normal S1 and S2; no rub or gallop Lungs: coarse breath sounds; decreased at bases Abdomen: soft, nontender, + bowel sounds noted Extremities: no cyanosis or clubbing; no edema Skin: no rash or sq nodules Objective Data Vital Signs Vital Signs: Vital Signs - 24 hr 12/24/22 04:55 12/24/22 08:19 12/24/22 08:22 Temperature 98.1 F Pulse Rate 78 73 73 Respiratory Rate 16 18 18 Blood Pressure 127/63 Pulse Oximetry 97 93 Oxygen Delivery Room Air 12/24/22 08:33 12/24/22 08:55 12/24/22 09:02 Temperature Pulse Rate 78 88 90 Respiratory Rate 18 16 Blood Pressure 136/58 L Pulse Oximetry 94 Oxygen Delivery 12/24/22 09:39 12/24/22 09:15 12/24/22 13:45 Temperature Pulse Rate 75 Respiratory Rate 18 Blood Pressure Pulse Oximetry Oxygen Delivery Room Air Room Air 12/24/22 13:45 12/24/22 14:00 12/24/22 19:35 Temperature 97.6 F 97.9 F Pulse Rate 75 78 85 Respiratory Rate 18 16 16 Blood Pressure 111/50 L 142/53 H Pulse Oximetry 95 100 95 Oxygen Delivery Room Air Intake/Output Intake/Output: Intake & Output 12/21/22 12/22/22 12/23/22
== END 2022-12-24 19:45 | DRG 521 ==
PROVIDERS: Family Medicine; Internal Medicine; Internal Medicine Critical Care Medicine; Internal Medicine Gastroenterology; Orthopaedic Surgery; Physician Assistant; Surgery; Admitting Provider Internal Medicine; PCP Family Medicine; Visit Provider Hospitalist
PROC: 0SRS01A Replacement of Left Hip Joint, Femoral Surface with Metal Synthetic Substitute, Uncemented, Open Approach (ICD-10-PCS; CPT 27125; principal; 2022-12-08 15:30)
PROC: 0DJ08ZZ Inspection of Upper Intestinal Tract, Via Natural or Artificial Opening Endoscopic (ICD-10-PCS; CPT 43235; principal; 2022-12-13 12:30)
PROC: 0Y990ZX Drainage of Right Lower Extremity, Open Approach, Diagnostic (ICD-10-PCS; principal; 2022-12-18 10:30)
DX: S72.032A Displaced midcervical fracture of left femur, initial encounter for closed fracture (principal); J96.21 Acute and chronic respiratory failure with hypoxia; J96.22 Acute and chronic respiratory failure with hypercapnia; N18.6 End stage renal disease; L03.115 Cellulitis of right lower limb; I13.2 Hypertensive heart and chronic kidney disease with heart failure and with stage 5 chronic kidney disease, or end stage renal disease; B37.81 Candidal esophagitis; L02.415 Cutaneous abscess of right lower limb; S80.11XA Contusion of right lower leg, initial encounter; I50.9 Heart failure, unspecified; E11.22 Type 2 diabetes mellitus with diabetic chronic kidney disease; J44.9 Chronic obstructive pulmonary disease, unspecified; F17.210 Nicotine dependence, cigarettes, uncomplicated; W18.39XA Other fall on same level, initial encounter; E78.5 Hyperlipidemia, unspecified; K31.89 Other diseases of stomach and duodenum; Z20.822 Contact with and (suspected) exposure to COVID-19; D63.1 Anemia in chronic kidney disease; R33.9 Retention of urine, unspecified; M19.90 Unspecified osteoarthritis, unspecified site; N40.0 Benign prostatic hyperplasia without lower urinary tract symptoms; K21.9 Gastro-esophageal reflux disease without esophagitis; F41.8 Other specified anxiety disorders; R01.1 Cardiac murmur, unspecified; Z99.2 Dependence on renal dialysis; Z87.442 Personal history of urinary calculi; Z90.49 Acquired absence of other specified parts of digestive tract; Z99.81 Dependence on supplemental oxygen; R13.10 Dysphagia, unspecified; R11.2 Nausea with vomiting, unspecified
CPT/HCPCS: 20611; 36415; 36430; 36600; 71045; 73502; 74176; 76882; 80048; 80053; 80202; 82375; 82565; 82805; 82948; 83036; 83050; 83690; 83735; 84100; 84132; 85014; 85018; 85025; 85027; 85610; 85730; 86850; 86900; 86901; 86923; 87040; 87070; 87075; 87205; 87635; 88305; 88312; 88342; 93005; 93306; 94002; 94003; 94640; 97110; 97116; 97161; 97166; 97530; 97535; A9270; C1776; C9113; G0257; J0171; J0690; J0692; J1170; J1644; J1650; J1815; J2270; J2405; J2704; J2795; J3010; J3370; J7030; J7040; J7050; J7120; P9016; Q4081; Q5105; Q5106